=== PATIENT | female | born 1945 | race Caucasian/White ===

== ENCOUNTER 2019-11-27 07:31 | Outpatient (CLI) | payer MEDICARE, SELFPAY ==
[2019-11-27 08:00] LABS: Alanine Aminotransferase 12 U/L (4-35); Albumin Level 4.1 g/dL (3.5-5.1); Alkaline Phosphatase 150 U/L (38-126); Anion Gap 5 mmol/L (8-16); Aspartate Amino Transferase 22 U/L (14-36); Bilirubin,Total 0.4 mg/dL (0.2-1.3); Blood Urea Nitrogen 15 mg/dL (7-17); Calcium 9.2 mg/dL (8.4-10.2); Carbon Dioxide 29 mmol/L (22-30); Chloride 103 mmol/L (98-107); Cholesterol 258 mg/dL (0-200); Estimated Glomerular Filt Rate > 60; Glucose 117 mg/dL (65-105); HDL Direct 74 mg/dL; Potassium 4.4 mmol/L (3.4-5.0); Sodium 137 mmol/L (137-145); Triglycerides 98 mg/dL (<150)
[2019-11-27 08:10] LABS: LDL Cholesterol Direct 133 mg/dL
[2019-11-27 08:55] LABS: Hemoglobin A1C 6.2 % (<5.7)
== END 2019-11-27 07:32 | disposition home or self-care (01) ==
PROVIDERS: PCP Physician Assistant; Visit Provider Physician Assistant
DX: R73.9 Hyperglycemia, unspecified (principal); E78.2 Mixed hyperlipidemia; R53.83 Other fatigue
CPT/HCPCS: 36415; 80053; 80061; 83036; 84443

== ENCOUNTER 2020-04-06 16:20 | Emergency (ER) | payer MEDICARE, SELFPAY ==
[2020-04-06] VITALS (11 sets, daily range): BP systolic 138–174; BP diastolic 66–90; PULSE 78–104; RESP 15–27; TEMP 36.8; O2SAT 98–99
--- NOTE | ~2020-04-06 | CT_ITS ---
EXAMINATION: CT abdomen pelvis w con INDICATION: Left lower abdominal pain TECHNIQUE: Computed tomographic images of the abdomen and pelvis were obtained after the administrati on of 100 cc of Omnipaque 350 intravenous contrast. The dose-length product (DLP) was 624.69 mGy-cm. Automated exposure control and iterative reconstruction technique were employed. COMPARISON: 05/02/2019 FINDINGS: Stable nodules of the visualized lung bases are consistent with old granulomatous disease. There are surgical changes at the gastroesophageal junction. The gallbladder is surgically absent. Th ere is mild enlargement of the common bile duct and central intrahepatic ducts which is likely due to post cholecystectomy state. The liver, spleen, pancreas, and left adrenal gland are normal. The righ t adrenal gland is not definitely identified. There is calcified atherosclerosis of the aorta and man y of the other arteries. No pathologically enlarged abdominal or pelvic lymph nodes are identified. T here is no free intraperitoneal gas or evidence of bowel obstruction. Colonic diverticulosis is prese nt without evidence of diverticulitis. A moderate volume of colonic stool is present. A neurostimulat or device is implanted in the right gluteal subcutaneous fat with its lead entering the right pelvis at S3. IMPRESSION: 1. No CT correlate for the patient's symptoms. Reviewed, dictated and finalized at location A. STACK PYTHON DEVELOPER
--- NOTE | ~2020-04-06 | XR_ITS ---
EXAMINATION: XR chest 2V DATE: 04/06/2020 18:11 INDICATION: Left-sided chest and epigastric pain TECHNIQUE: AP and lateral views of the chest are obtained. COMPARISON: 04/19/2019 FINDINGS: The lungs are free of acute opacities. There is no pleural effusion or pneumothorax. The ca rdiomediastinal silhouette is normal. There is mild thoracic spondylosis. Surgical changes are noted in the right upper quadrant and near the gastroesophageal junction. IMPRESSION: 1. No acute cardiopulmonary abnormality. Reviewed, dictated and finalized at location A. TUNE UP MECHANIC
--- NOTE | 2020-04-06 16:35 | ED.ABDPAIN ---
HPI - Abdominal Pain General Chief Complaint: Abdominal Pain Stated Complaint: Abd Pain Time Seen by Provider: 04/06/20 16:34 Source: patient Mode of arrival: ambulatory Limitations: no limitations History of Present Illness HPI narrative: Patient is a 74-year-old female with a history of gastritis, peptic ulcer disease, hypertension who follows with Dr. Stark who presents for evaluation of abdominal pain. Patient has had abdominal pain in her left lower abdomen, now migrating to the periumbilical and epigastric area over the past week. Patient has had associated nausea without vomiting. She was evaluated at [facility] but due to delay in her care and CT scan, patient opted to leave previous to her work-up being finished. She states the physicians there were worried that she may have a case of diverticulitis. She denies fever, chills, diarrhea or constipation. No blood or mucus present in her stool. Patient states that she has had reflux type symptoms as well as epigastric pain, and a burning sensation in her chest without associated shortness of breath or diaphoresis. No jaw pain or shoulder pain. No coughing. Patient states her last endoscopy/colonoscopy was with Dr. Stark 2 months ago. Related Data Home Medications Medication Instructions Recorded Confirmed amitriptyline 04/03/19 amlodipine 04/03/19 dicyclomine mg 04/03/19 metoclopramide HCl 04/03/19 phenytoin sodium extended PO 04/03/19 sucralfate 04/03/19 trazodone 04/03/19 Allergies Allergy/AdvReac Type Severity Reaction Status Date / Time No Known Allergies Allergy Verified 05/02/19 17:30 Review of Systems Review of Systems: Narrative: CONSTITUTIONAL: Denies fever, chills, or sweats. EYES: Denies visual changes, redness, or discharge. ENT: Denies rhinorrhea, congestion, sore throat, or otalgia. CARDIOVASCULAR: Denies chest pain, palpitations, or edema. RESPIRATORY: Denies cough or dyspnea. GASTROINTESTINAL: Reports abdominal pain and nausea without vomiting or diarrhea GENITOURINARY: Denies dysuria or hematuria. SKIN: Denies rash or itching. MUSCULOSKELETAL: Denies back pain, joint pain, or myalgia. NEUROLOGIC: Denies headache, numbness, or weakness. FOR[facility]LY [facility], [facility] Past Medical History Medical History Anemia Depression GERD (gastroesophageal reflux disease) Hiatal hernia HLD (hyperlipidemia) HTN (hypertension) Humerus fracture Rt IBS (irritable bowel syndrome) Jaw fracture Seizures Strep throat TIA (transient ischemic attack) Ulcer Surgical History Surgical History H/O tubal ligation History of appendectomy History of bladder surgery Bladder stimulator History of cholecystectomy History of surgery Adrenal gland removal History of tonsillectomy Social History Social History Smoking status: Former smoker Tobacco type: cigarettes Gender identity (if verbalized by the patient): Female Exam Narrative: Exam Narrative: GENERAL: Awake, alert, conversant HEAD: Normocephalic, atraumatic. EYES: PERRLA and EOMI. ENT: Nares clear, no rhinorrhea or epistaxis. Mucous membranes moist. NECK: Supple. CHEST: No respiratory distress, breathing even and non labored HEART: Regular rate, sinus rhythm ABDOMEN:Non distended, mild epigastric tenderness without rebound, rigidity or guarding, mild left lower quadrant tenderness EXTREMITIES: Normal range of motion. No edema. SKIN: Warm, dry, no rash. NEURO:No focal deficits. Alert and oriented x3 Course Vital Signs Vital signs: Vital Signs Blood Pressure 164/90 H 04/06/20 16:28 Temperature 36.8 C 04/06/20 16:37 Pulse Rate 90 04/06/20 18:31 Respiratory Rate 19 04/06/20 18:16 Blood Pressure 161/66 H 04/06/20 18:31 Pulse Oximetry 98 04/06/20 16:37 MDM - Abdominal Pain MDM Narrati
--- NOTE | 2020-04-06 16:41 | ECG_ITS ---
Measurements Intervals [place] Rate: 99 P: 59 NV: 160 QRS: 12 QRSD: 98 T: 31 QT: 321 QTc: 412 Interpretive Statements SINUS RHYTHM VOLTAGE CRITERIA FOR LVH MINIMAL Q WAVES- HIGH LATERAL LEADS BASELINE ARTIFACT- I, II, III, AVR, AVL, AVF BORDERLINE ECG Electronically Signed On 04-07-2020 8:50:15 RN LICENSED PRACTICAL by Enrique Hernandez D.O.
[2020-04-06 17:03] LABS: Basophils Percent Auto 0.2 % (0.2-1.2); Eosinophils Absolute Auto 0.1 K/mm3 (0-0.3); Eosinophils Percent Auto 0.8 % (0-4.4); Hematocrit 41.3 % (37.0-47.0); Hemoglobin 13.6 g/dL (12.0-15.0); Immature Granulocyte Absolute 0.01 K/mm3 (0.00-0.031); Immature Granulocyte Percent A 0.2 % (0-0.5); Lymphocytes Absolute Auto 2.23 K/mm3 (0.9-3.2); Mean Corpuscular HGB Conc 32.9 g/dl (32-36); Mean Corpuscular Hemoglobin 29.6 pg (26-34); Mean Platelet Volume 11.8 fl (7.4-10.4); Monocytes Absolute Auto 0.7 K/mm3 (0.1-0.6); Monocytes Percent Auto 11.6 % (2.6-8.5); Neutrophils Percent Auto 50.2 % (45.5-73.1); Platelet Count Result 254 k/mm3 (150-375); Red Blood Count 4.59 M/mm3 (4.2-5.4); Red Cell Distribution Width 13.6 % (11.5-14.5)
[2020-04-06 17:22] LABS: Alanine Aminotransferase 15 U/L (4-35); Albumin Level 4.2 g/dL (3.5-5.1); Alkaline Phosphatase 130 U/L (38-126); Anion Gap 8 mmol/L (8-16); Aspartate Amino Transferase 28 U/L (14-36); Bilirubin,Total 0.4 mg/dL (0.2-1.3); Blood Urea Nitrogen 13 mg/dL (7-17); Calcium 9.5 mg/dL (8.4-10.2); Carbon Dioxide 29 mmol/L (22-30); Chloride 100 mmol/L (98-107); Estimated CRCL calculation 49 ml/min; Estimated Glomerular Filt Rate > 60; Glucose 125 mg/dL (65-105); Lipase 63 U/L (23-300); Potassium 4.2 mmol/L (3.4-5.0); Sodium 137 mmol/L (137-145)
[2020-04-06 17:27] LABS: Troponin I < 0.012 ng/mL (0.000-0.034)
[2020-04-06 17:34] LABS: INR 0.9; Prothrombin Time 12.3 Seconds (11.1-14.7)
[2020-04-06] MEDS: MAG HYDROX/AL HYDROX/SIMETH 30 ML UDC PO (18:15)
[2020-04-06] MEDS: ONDANSETRON INJ 4 MG/2 ML VIAL IV PUSH (18:15)
[2020-04-06] MEDS: SODIUM CHLORIDE 0.9% IV 1,000 ML 999 ML IV CONT (18:15)
[2020-04-06] MEDS: MORPHINE SULFATE (*CRX) 4 MG/ML INJ IV PUSH (18:15)
== END 2020-04-06 19:14 | disposition home or self-care (01) ==
PROVIDERS: Emergency Provider Emergency Medicine; PCP Physician Assistant
DX: R10.84 Generalized abdominal pain (principal); D64.9 Anemia, unspecified; F32.9 Major depressive disorder, single episode, unspecified; K21.9 Gastro-esophageal reflux disease without esophagitis; E78.5 Hyperlipidemia, unspecified; I10 Essential (primary) hypertension; G40.909 Epilepsy, unspecified, not intractable, without status epilepticus
CPT/HCPCS: 36415; 71046; 74177; 80053; 83690; 84484; 85025; 85610; 85730; 93005; 96361; 96365; 96375; 99284; A9270; J0131; J2270; J2405; J7030; Q9967

== ENCOUNTER 2020-07-18 10:34 | Outpatient (CLI) | payer MEDICARE, SELFPAY ==
[2020-07-18 11:29] LABS: Hematocrit 40.8 % (37.0-47.0); Hemoglobin 13.3 g/dL (12.0-15.0); Mean Corpuscular HGB Conc 32.6 g/dl (32-36); Mean Corpuscular Hemoglobin 29.3 pg (26-34); Mean Corpuscular Volume 89.9 fl (80-100); Platelet Count Result 213 k/mm3 (150-375); Red Blood Count 4.54 M/mm3 (4.2-5.4); White Blood Count 5.3 K/mm3 (4.5-10.0)
[2020-07-18 11:41] LABS: Alanine Aminotransferase 11 U/L (4-35); Albumin Level 4.5 g/dL (3.5-5.1); Alkaline Phosphatase 135 U/L (38-126); Amylase 86 U/L (30-110); Anion Gap 8 mmol/L (8-16); Aspartate Amino Transferase 28 U/L (14-36); Bilirubin,Total 0.3 mg/dL (0.2-1.3); Blood Urea Nitrogen 11 mg/dL (7-17); Calcium 9.6 mg/dL (8.4-10.2); Carbon Dioxide 25 mmol/L (22-30); Chloride 106 mmol/L (98-107); Estimated Glomerular Filt Rate > 60; Glucose 109 mg/dL (65-105); Lipase 63 U/L (23-300); Potassium 4.6 mmol/L (3.4-5.0); Sodium 139 mmol/L (137-145)
[2020-07-18 12:45] LABS: Free T4 Free Thyroxine 0.96 ng/mL (0.78-2.19)
== END 2020-07-18 10:35 | disposition home or self-care (01) ==
PROVIDERS: PCP Physician Assistant; Visit Provider Nurse Practitioner
DX: R10.11 Right upper quadrant pain (principal); K21.9 Gastro-esophageal reflux disease without esophagitis; R11.0 Nausea; R10.13 Epigastric pain
CPT/HCPCS: 36415; 80053; 82150; 83690; 84439; 84443; 85027

== ENCOUNTER 2021-04-19 17:53 | Emergency (ER) | payer MEDICARE, SELFPAY ==
--- NOTE | ~2021-04-19 | CT_ITS ---
EXAMINATION: CT abdomen pelvis w con INDICATION: Right upper quadrant pain, hypertension TECHNIQUE: Computed tomographic images of the abdomen and pelvis were obtained after the administrati on of 100 cc of Omnipaque 350 intravenous contrast. The dose-length product (DLP) was 895.83 mGy-cm. Automated exposure control and iterative reconstruction technique were employed. COMPARISON: 04/06/2020 FINDINGS: Stable nodules of the visualized lung bases are consistent with old granulomatous disease. The heart size is normal. Surgical changes are again noted at the gastroesophageal junction. The gall bladder is surgically absent. There is mild enlargement of the common bile duct and central intrahepa tic ducts which is likely due to post cholecystectomy state. The liver, spleen, pancreas, and left ad renal gland are normal. The right adrenal gland is not definitely identified. The kidneys are unremar kable. There is calcified atherosclerosis of the aorta and many of the other arteries. No pathologica lly enlarged abdominal or pelvic lymph nodes are identified. Colonic diverticulosis is present withou t evidence of diverticulitis. There is a neurostimulator device is implanted in the posterior subcuta neous tissues of the right flank with its lead entering the right pelvis at the level of S3. Mild lum bar spondylosis is noted. IMPRESSION: 1. No CT correlate for the patient's symptoms. Reviewed, dictated and finalized at location F. GER IN TRAINING
--- NOTE | ~2021-04-19 | XR_ITS ---
EXAMINATION: XR chest 2V DATE: 04/19/2021 18:10 INDICATION: Chest pain and nausea TECHNIQUE: AP and lateral views of the chest are obtained. COMPARISON: 04/06/2020 FINDINGS: The lungs are free of acute opacities. There is no pleural effusion or pneumothorax. The ca rdiomediastinal silhouette is normal. There is mild thoracic spondylosis. There are surgical clips in the right upper quadrant and at the gastroesophageal junction. IMPRESSION: 1. No acute cardiopulmonary abnormality. Reviewed, dictated and finalized at location F. GENCY REGISTRAR
[2021-04-19 17:54] VITALS: BP 172/72; PULSE 90; RESP 14; TEMP 36.8; O2SAT 98
--- NOTE | 2021-04-19 17:54 | ECG_ITS ---
Measurements Intervals [place] Rate: 91 P: 67 [place]: 158 QRS: 7 QRSD: 89 T: 33 QT: 328 QTc: 404 Interpretive Statements SINUS RHYTHM MINIMAL Q WAVES- LAT/HIGH LAT LEADS BORDERLINE ST ABNORMALITY- ANTEROLATERAL LEADS BASELINE ARTIFACT- I, AVR BORDERLINE ECG Electronically Signed On 04-20-2021 12:54:44 REGISTRAR NURSES' REGISTRY by Enrique Hernandez D.O.
[2021-04-19 18:29] LABS: Basophils Percent Auto 0.3 % (0.2-1.2); Eosinophils Absolute Auto 0.1 K/mm3 (0-0.3); Eosinophils Percent Auto 0.9 % (0-4.4); Hematocrit 39.8 % (37.0-47.0); Hemoglobin 12.6 g/dL (12.0-15.0); Immature Granulocyte Absolute 0.02 K/mm3 (0.00-0.031); Immature Granulocyte Percent A 0.3 % (0-0.5); Lymphocytes Absolute Auto 2.04 K/mm3 (0.9-3.2); Lymphocytes Percent Auto 30.7 % (18.3-44.2); Mean Corpuscular HGB Conc 31.7 g/dl (32-36); Mean Corpuscular Hemoglobin 29.4 pg (26-34); Mean Platelet Volume 11.1 fl (7.4-10.4); Monocytes Absolute Auto 0.6 K/mm3 (0.1-0.6); Monocytes Percent Auto 8.6 % (2.6-8.5); Neutrophils Absolute Auto 3.9 K/mm3 (1.3-6.7); Neutrophils Percent Auto 59.2 % (45.5-73.1); Platelet Count Result 296 k/mm3 (150-375); Red Blood Count 4.28 M/mm3 (4.2-5.4); Red Cell Distribution Width 13.9 % (11.5-14.5); White Blood Count 6.7 K/mm3 (4.5-10.0)
[2021-04-19 18:40] LABS: Alanine Aminotransferase 14 U/L (4-35); Albumin Level 4.2 g/dL (3.5-5.1); Alkaline Phosphatase 117 U/L (38-126); Anion Gap 10 mmol/L (8-16); Aspartate Amino Transferase 25 U/L (14-36); Bilirubin,Total 0.4 mg/dL (0.2-1.3); Blood Urea Nitrogen 14 mg/dL (7-17); Calcium 8.9 mg/dL (8.4-10.2); Carbon Dioxide 24 mmol/L (22-30); Chloride 101 mmol/L (98-107); Estimated CRCL calculation 45 ml/min; Estimated Glomerular Filt Rate > 60; Glucose 173 mg/dL (65-110); Lipase 62 U/L (23-300); Sodium 135 mmol/L (137-145)
[2021-04-19 18:43] LABS: Partial Thromboplastin Time 29.6 SECONDS (22.3-36.8); Prothrombin Time 12.6 Seconds (11.1-14.7)
[2021-04-19 18:50] LABS: Troponin I < 0.012 ng/mL (0.000-0.034)
[2021-04-19 20:47] VITALS: BP 221/79; PULSE 77; RESP 18; O2SAT 100; O2SAT 99
[2021-04-19] MEDS: ASPIRIN 81 MG CHEWABLE TABLET 324 MG PO (20:51)
[2021-04-19 21:02] VITALS: BP 196/76; PULSE 77; RESP 16; O2SAT 100
[2021-04-19 21:32] VITALS: BP 187/63; PULSE 70; RESP 18; O2SAT 98
[2021-04-19 21:35] LABS: Troponin I < 0.012 ng/mL (0.000-0.034)
--- NOTE | 2021-04-19 21:58 | PC.NURSE ---
Pt to imaging at this time
[2021-04-19] MEDS: ONDANSETRON INJ 4 MG/2 ML VIAL IV PUSH (22:14)
[2021-04-19] MEDS: HYDROmorphone HCL INJ (*CRX) 1 MG/ML SYR 0.5 MG IV PUSH (22:16)
[2021-04-19 22:31] VITALS: BP 166/60; PULSE 75; RESP 19; O2SAT 97
--- NOTE | 2021-04-19 22:52 | ED.CHESTPAIN ---
HPI - Chest Pain General Chief Complaint: Chest Pain Stated Complaint: chest pain Time Seen by Provider: 04/19/21 21:41 Source: patient and family Mode of arrival: ambulatory Limitations: no limitations History of Present Illness HPI narrative: 75-year-old with a history of hypertension, hyperlipidemia, esophageal motility disorder here with the complaints of midsternal pain radiating into her right upper quadrant for past 1 day. 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 Patient states the medication is not helping and she tried to her doctor all day long nobody answered and she states that she did not take the pain any longer. She denies any nausea or vomiting. No history of any shortness of breath. MD complaint: chest pain Onset (ago): day(s) (1) Timing of current episode: constant Pain location: substernal Pain radiation: abdomen (right upper) Severity: moderate Quality: aching Relieving factors: nothing Exacerbating factors: nothing Treatment prior to arrival: none Risk Factors Coronary artery disease risk factors: none Thoracic aortic dissection risk factors: none Related Data Home Medications Medication Instructions Recorded Confirmed amitriptyline 04/03/19 amlodipine 04/03/19 dicyclomine mg 04/03/19 metoclopramide HCl 04/03/19 phenytoin sodium extended PO 04/03/19 sucralfate 04/03/19 trazodone 04/03/19 Allergies Allergy/AdvReac Type Severity Reaction Status Date / Time No Known Allergies Allergy Verified 05/02/19 17:30 Review of Systems Review of Systems: All systems reviewed & are unremarkable except as noted in HPI and below Constitutional: Constitutional: Reports no additional constitutional complaints Eyes: Eyes: Reports no additional eye complaints ENT: Reports system reviewed and no additional complaints, except as documented Cardiovascular: Cardiovascular: Reports as per HPI Respiratory: Respiratory: Reports no additional respiratory complaints Gastrointestinal: Gastrointestinal: Reports no additional gastrointestinal complaints Genitourinary: Genitourinary: Reports no additional female genitourinary complaints Musculoskeletal: Musculoskeletal: Reports no additional musculoskeletal complaints [facility] Past Medical History Medical History Anemia Depression GERD (gastroesophageal reflux disease) Hiatal hernia HLD (hyperlipidemia) HTN (hypertension) Humerus fracture Rt IBS (irritable bowel syndrome) Jaw fracture Seizures Strep throat TIA (transient ischemic attack) Ulcer Surgical History Surgical History H/O tubal ligation History of appendectomy History of bladder surgery Bladder stimulator History of cholecystectomy History of surgery Adrenal gland removal History of tonsillectomy Social History Social History Smoking status: Former smoker Tobacco type: cigarettes Gender identity (if verbalized by the patient): Female Exam Narrative: GENERAL: Well-appearing, well-nourished, and in no acute distress. HEAD: Normocephalic, atraumatic. EYES: PERRLA and EOMI. NECK: Supple. CHEST: Clear to auscultation. No respiratory distress. HEART: Regular rate and rhythm. No murmur heard. Normal peripheral pulses. ABDOMEN: Soft, nontender, nondistended, normal active bowel sounds. EXTREMITIES: Normal range of motion. No edema. SKIN: Warm, dry, no rash. NEURO: No focal deficits. Alert and oriented x3. PSYCH: Normal mood and affect. Course Course Emergency Course: Inform patient about her lab work, CT findings. Her pain is much improved after the pain medication. I advised her to continue home medication, take pain medication as prescribed and follow-up with her GI doctor at [facility]
[2021-04-19 23:31] VITALS: BP 180/65; PULSE 74; RESP 19; O2SAT 96
== END 2021-04-19 23:45 | disposition home or self-care (01) ==
PROVIDERS: Emergency Medicine; Emergency Provider Family Medicine; PCP Physician Assistant
DX: R07.9 Chest pain, unspecified (principal); D64.9 Anemia, unspecified; F32.9 Major depressive disorder, single episode, unspecified; K21.9 Gastro-esophageal reflux disease without esophagitis; I10 Essential (primary) hypertension; G40.909 Epilepsy, unspecified, not intractable, without status epilepticus
CPT/HCPCS: 36415; 71046; 74177; 80053; 83690; 84484; 85025; 85610; 85730; 93005; 96374; 96375; 99284; A9270; J1170; J2405; Q9967

== ENCOUNTER 2021-06-07 07:32 | Outpatient (CLI) | payer MEDICARE, SELFPAY ==
--- NOTE | ~2021-06-07 | US_ITS ---
US right upper quadrant DATE: 06/07/2021 08:06 INDICATION: Right upper quadrant abdominal pain TECHNIQUE: Real-time imaging and Doppler analysis COMPARISON: 04/19/2021 CT abdomen pelvis FINDINGS: The gallbladder is surgically absent. No hepatic or pancreatic space-occupying mass lesion is detected. Normal hepatopedal portal venous fl ow direction. The common bile duct measures up to 8 mm which may be mildly dilated to the postcholecystectomy state . IMPRESSION: Status post cholecystectomy Reviewed, dictated and finalized at Location A. Reviewed, dictated and finalized at location A. CONTROL TECHNICIAN IMPRESSION: Status post cholecystectomy
== END 2021-06-07 07:33 | disposition home or self-care (01) ==
LOC: ANHIMG 07:36
PROVIDERS: PCP Physician Assistant; Visit Provider Internal Medicine Gastroenterology
DX: R10.11 Right upper quadrant pain (principal); Z90.49 Acquired absence of other specified parts of digestive tract
CPT/HCPCS: 76705

== ENCOUNTER 2023-02-04 07:22 | Outpatient (CLI) | payer MEDICARE, SELFPAY ==
[2023-02-04 07:56] LABS: Hematocrit 38.4 % (37.0-47.0); Hemoglobin 11.8 g/dL (12.0-15.0); Mean Corpuscular HGB Conc 30.7 g/dl (32-36); Mean Corpuscular Hemoglobin 28.7 pg (26-34); Mean Corpuscular Volume 93.4 fl (80-100); Mean Platelet Volume 12.3 fl (7.4-10.4); Platelet Count Result 223 k/mm3 (150-375); Red Blood Count 4.11 M/mm3 (4.2-5.4); Red Cell Distribution Width 14.9 % (11.5-14.5); White Blood Count 5.3 K/mm3 (4.5-10.0)
[2023-02-04 08:09] LABS: Hemoglobin A1C 5.8 % (<5.7)
[2023-02-04 13:46] LABS: Alanine Aminotransferase 12 U/L (6-35); Albumin Level 3.8 g/dL (3.5-5.1); Alkaline Phosphatase 145 U/L (38-126); Anion Gap 4 mmol/L (8-16); Aspartate Amino Transferase 18 U/L (14-36); Bilirubin,Total 0.4 mg/dL (0.2-1.3); Blood Urea Nitrogen 14 mg/dL (7-17); Calcium 9.1 mg/dL (8.4-10.2); Carbon Dioxide 27 mmol/L (22-30); Chloride 106 mmol/L (98-107); Estimated Glomerular Filt Rate > 60; Glucose 124 mg/dL (65-110); Potassium 4.9 mmol/L (3.4-5.0); Sodium 137 mmol/L (137-145)
== END 2023-02-04 07:23 | disposition home or self-care (01) ==
LOC: ANHLAB 07:24
PROVIDERS: PCP Physician Assistant; Visit Provider Physician Assistant
DX: R53.82 Chronic fatigue, unspecified (principal); E78.2 Mixed hyperlipidemia; R73.9 Hyperglycemia, unspecified
CPT/HCPCS: 36415; 80053; 83036; 84443; 85027

== ENCOUNTER 2023-04-27 07:32 | Observation (INO) | payer MEDICARE, SELFPAY ==
[2023-04-27] VITALS (17 sets, daily range): BP systolic 159–228; BP diastolic 50–95; PULSE 58–91; RESP 15–24; TEMP 36.2–36.8; O2SAT 95–100
--- NOTE | ~2023-04-27 | XR_ITS ---
XR chest 2V DATE: 04/27/2023 09:01 INDICATION: Difficulty breathing, shortness of breath. Dizziness. TECHNIQUE: AP and lateral views COMPARISON: 04/19/2021 2 view chest FINDINGS: Borderline heart size. Aortic calcification. No pulmonary infiltrate or consolidation, pleu ral effusion or pulmonary vascular congestion or pneumothorax. Surgical clips are noted overlying the mid and right upper abdomen. Osteopenia. IMPRESSION: Borderline heart size No active pulmonary disease Reviewed, dictated and finalized at location A. NESS ASST
--- NOTE | ~2023-04-27 | US_ITS ---
EXAMINATION: US right upper quadrant DATE: 04/28/2023 16:20 INDICATION: epigastric pain TECHNIQUE: Multiple grayscale and Doppler ultrasound images of the right upper quadrant were obtained . COMPARISON: CT abdomen pelvis 04/27/2023. FINDINGS: Pancreas not well visualized. Limited visualization of the left lobe of the liver, remainde r of the liver is normal with normal echogenicity and echotexture. No surface nodularity. Normal hepa topetal flow in the main portal vein. Status post cholecystectomy. The common bile duct measures 8 mm . Right kidney measures 9.2 x 3.9 x 5.8 cm, no hydronephrosis. IMPRESSION: Limited visualization of the pancreas and left liver lobe. Status post cholecystectomy. Reviewed, dictated and finalized at location [facility]. APPRENTICE IMPRESSION: Limited visualization of the pancreas and left liver lobe. Status post cholecys tectomy.
--- NOTE | ~2023-04-27 | CT_ITS ---
EXAMINATION: CT abdomen pelvis w con DATE: 04/27/2023 08:54 INDICATION: Epigastric, right upper quadrant and left lower quadrant abdominal pain. History of amber cystectomy and appendectomy. TECHNIQUE: Computed tomography (CT) of the abdomen and pelvis was performed with 100 CC Omnipaque 350 intravenous contrast. Automated exposure control and iterative reconstruction technique were employe d. Exam dose: 701.62 mGy-cm total exam DLP. COMPARISON: 06/07/2021 right upper quadrant abdominal ultrasound examination 04/19/2021 CT abdomen pelvis FINDINGS: There is chronic discoid scarring at the middle lobe. No consolidation at the lung bases. C ardiomegaly. No pericardial or pleural effusion. Surgical clips are noted on either side of the diaphragmatic hiatus. Status post cholecystectomy, which likely accounts for the mild prominence of the bile ducts. No hepa tic space-occupying mass lesion. There is diffuse fatty infiltration of the pancreas. No pancreatic m ass lesion, calcification or ductal dilatation. Normal splenic size. Surgical clip in the right suprarenal area; the right adrenal gland appears to be absent. Left adrena l gland is unremarkable. Mild right renal scarring. No renal mass lesion or urinary tract calculus or hydroureteronephrosis. There is atherosclerotic calcification of the abdominal aorta and origins of the renal arteries. No a bdominal aortic aneurysm. No intraperitoneal or retroperitoneal or pelvic mass lesion or adenopathy o r ascites is noted. Some uterine calcification is noted on the right, likely due to fibroid. No adnexal masses. The urina ry bladder is unremarkable. Diverticulosis of the sigmoid colon; no CT evidence of diverticulitis. No bowel obstruction or intrap eritoneal free air. Small fat-containing umbilical hernia. Right S3 neurotransmitter lead. No suspicious osteolytic or osteoblastic lesions are noted. IMPRESSION: Cardiomegaly Status post cholecystectomy History of appendectomy Right adrenal gland appears to be surgically absent Diverticulosis of the sigmoid colon; no evidence of diverticulitis Reviewed, dictated and finalized at [facility]. Reviewed, dictated and finalized at location [facility]. 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
--- NOTE | 2023-04-27 07:36 | ECG_ITS ---
Measurements Intervals [place] Rate: 68 P: 63 TX: 164 QRS: 5 QRSD: 98 T: 30 QT: 372 QTc: 398 Interpretive Statements SINUS RHYTHM LEFT VENTRICULAR HYPERTROPHY MINIMAL Q WAVES- HIGH LATERAL LEADS BASELINE ARTIFACT- I, II, III, AVR, AVL, AVF BORDERLINE ECG COMPARED TO ECG 04/19/2021 18:01:08 NO SIGNIFICANT CHANGES Electronically Signed On 04-27-2023 8:25:37 LENS EDGER by Enrique Hernandez D.O.
--- NOTE | 2023-04-27 08:03 | ED.ABDPAIN ---
HPI - Abdominal Pain General Chief Complaint: Abdominal Pain Stated Complaint: abd pain Time Seen by Provider: 04/27/23 07:44 History of Present Illness HPI narrative: Patient with h/o amber, appy, ulcer surgery(?), p/w epigastric pain x1-2 weeks. Also some nausea/vomiting. Having normal BMs. Does think that it started after she had some coffee and thinks that it might be her gastritis, however has been unable to get follow-up until September with GI. Had some toast earlier and did not feel good. Related Data Home Medications Medication Instructions Recorded Confirmed amitriptyline 10 mg tablet 04/03/19 amlodipine 5 mg tablet 04/03/19 dicyclomine 10 mg capsule mg 04/03/19 metoclopramide HCl 5 mg tablet 04/03/19 phenytoin sodium extended 100 mg PO 04/03/19 capsule sucralfate 1 gram tablet 04/03/19 trazodone 50 mg tablet 04/03/19 Allergies Allergy/AdvReac Type Severity Reaction Status Date / Time No Known Allergies Allergy Verified 04/27/23 08:23 Review of Systems Review of Systems: CONST: No fever. HEENT: No sore throat C/V: No chest pain RESP: No cough GI: Reports abdominal pain, nausea, vomiting : No dysuria. M/S: No joint pain. SKIN: No rash. NEURO: [No headache or focal numbness or weakness] PSYCH: [No depression] [facility] Past Medical History Medical History Anemia Depression GERD (gastroesophageal reflux disease) Hiatal hernia HLD (hyperlipidemia) HTN (hypertension) Humerus fracture Rt IBS (irritable bowel syndrome) Jaw fracture Seizures Strep throat TIA (transient ischemic attack) Ulcer Surgical History Surgical History H/O tubal ligation History of appendectomy History of bladder surgery Bladder stimulator History of cholecystectomy History of surgery Adrenal gland removal History of tonsillectomy Social History Social History Smoking status: Former smoker Tobacco type: cigarettes Gender identity (if verbalized by the patient): Female Exam Narrative: EXAMINATION OF ORGAN SYSTEMS/BODY AREAS: Constitutional: Vital signs per nursing GENERAL:[No acute distress, non-toxic appearing.] HEAD: Normal with no signs of head trauma. EYES: EOMI, conjunctiva normal ENT: Hearing grossly intact LUNGS: Nonlabored breathing. HEART: [Regular rate and rhythm] ABD: [Soft], mildly [tender to palpation] epigastric abdomen. EXT: Normal range of motion SKIN: [No rashes or lesions.] NEURO: [Alert and oriented x 3. No gross focal sensory or strength deficits.] PSYCH: Normal affect Course Vital Signs Vital signs: Vital Signs Temperature 97.2 F L 04/27/23 07:32 Pulse Rate 84 04/27/23 07:32 Respiratory Rate 18 04/27/23 07:32 Blood Pressure 189/83 H 04/27/23 07:32 Pulse Oximetry 100 04/27/23 07:32 Oxygen Delivery Room Air 04/27/23 07:32 Temperature 97.8 F 04/27/23 11:10 Pulse Rate 90 04/27/23 11:10 Respiratory Rate 16 04/27/23 11:10 Blood Pressure 217/65 H 04/27/23 11:10 Pulse Oximetry 97 04/27/23 11:10 Oxygen Delivery Room Air 04/27/23 07:32 MDM - Abdominal Pain MDM Narrative Medical decision making narrative: Electronic medical record was reviewed. Patient presented to the ED with complaint of [abdominal pain and vomiting]. Vitals [were within acceptable limits]. Physical exam revealed [minimal tenderness to palpation in epigastric abdomen]. Based on the patient's history and physical exam, my differential includes but is not limited to [gastritis, gastroenteritis, pancreatitis]. [IV access was established by nursing staff. Patient was given zofran, protonix, morphine]. CBC, BMP, lipase, LFTs, bilirubin and alk phos were obtained. Labs were pertinent for elevated troponin; no cardiac history. EKG - 12-Lead: Performed at 048. Interpreted by me. [Sinus
[2023-04-27 08:23] LABS: Basophils Percent Auto 0.2 % (0.2-1.2); Eosinophils Percent Auto 0.6 % (0-4.4); Hematocrit 41.4 % (37.0-47.0); Immature Granulocyte Absolute 0.01 K/mm3 (0.00-0.031); Immature Granulocyte Percent A 0.2 % (0-0.5); Lymphocytes Absolute Auto 1.43 K/mm3 (0.9-3.2); Lymphocytes Percent Auto 27.3 % (18.3-44.2); Mean Corpuscular HGB Conc 31.4 g/dl (32-36); Mean Corpuscular Hemoglobin 28.9 pg (26-34); Mean Platelet Volume 11.7 fl (7.4-10.4); Monocytes Absolute Auto 0.5 K/mm3 (0.1-0.6); Monocytes Percent Auto 8.6 % (2.6-8.5); Neutrophils Absolute Auto 3.3 K/mm3 (1.3-6.7); Neutrophils Percent Auto 63.1 % (45.5-73.1); Platelet Count Result 227 k/mm3 (150-375); Red Cell Distribution Width 14.6 % (11.5-14.5); White Blood Count 5.2 K/mm3 (4.5-10.0)
[2023-04-27] MEDS: PANTOPRAZOLE SODIUM IV 40 MG VIAL IV PUSH (08:25)
[2023-04-27] MEDS: MORPHINE SULFATE (*CRX) 2 MG/ML INJ IV PUSH ×2 (08:25→10:08)
[2023-04-27] MEDS: ONDANSETRON INJ 4 MG/2 ML VIAL IV PUSH (08:25)
[2023-04-27 08:34] LABS: Alanine Aminotransferase 11 U/L (6-35); Albumin Level 4.2 g/dL (3.5-5.1); Alkaline Phosphatase 126 U/L (38-126); Anion Gap 9 mmol/L (8-16); Aspartate Amino Transferase 23 U/L (14-36); Bilirubin,Total 0.6 mg/dL (0.2-1.3); Blood Urea Nitrogen 16 mg/dL (7-17); Calcium 8.9 mg/dL (8.4-10.2); Carbon Dioxide 24 mmol/L (22-30); Chloride 105 mmol/L (98-107); Estimated CRCL calculation 56 ml/min; Estimated Glomerular Filt Rate > 60; Glucose 133 mg/dL (65-110); Lipase 53 U/L (23-300); Potassium 4.2 mmol/L (3.4-5.0); Sodium 138 mmol/L (137-145)
[2023-04-27 08:38] LABS: Appearance Urine Clear (Clear); Bacteria Urine None Seen /hpf; Bilirubin Urine Negative (Negative); Blood Urine Negative (Negative); Color Urine Yellow (Yellow); Glucose Urine UA Negative (Negative); Ketones Urine Negative (Negative); Leukocyte Esterase Ur 1+ LEU/UL (Negative); Need Manual Microscopic Reviewed; Nitrate Urine Negative (Negative); Non Pathogenic Casts 0-2; Protein Urine Negative (Negative); RBC Urine 0-2 /hpf (0-2); Specific Grav Ur 1.009 (1.001-1.035); Squamous Epithelial Cell Urine Few /hpf (Few); Urobilinogen Urine 0.2 mg/dL (<2.0); WBC Urine 0-5 /hpf
[2023-04-27 08:39] LABS: Add Urine Microscopic? YES
[2023-04-27 08:46] LABS: Troponin I 0.056 ng/mL (0.000-0.034)
--- NOTE | 2023-04-27 08:51 | PC.NURSE ---
PT TO CT VIA STRETCHER AT THIS TIME
[2023-04-27 08:59] LABS: Influenza A QL RT-PCR Negative (Negative); Influenza B QL RT-PCR Negative (Negative); RSV RNA, RT-PCR Negative (Negative); SARS-CoV-2 RNA PCR Negative (Negative)
[2023-04-27] MEDS: MAG HYDROX/AL HYDROX/SIMETH 30 ML UDC PO (10:08)
[2023-04-27] MEDS: DICYCLOMINE HCL 10 MG CAPSULE 20 MG PO (10:08)
[2023-04-27] MEDS: ASPIRIN 81 MG CHEWABLE TABLET 324 MG PO (10:45)
--- NOTE | 2023-04-27 11:11 | PC.NURSE ---
assumed care of pt. pt resting on stretcher, updated that we are waiting on bed, will perform repeat EKG and troponin. no questions at this time
--- NOTE | 2023-04-27 14:02 | ADMGEN ---
This patient, Jazmín Parker, was admitted to IMU Room 207-01. Patient/family oriented to hospital policies and general routines including ID bracelet, bed and alarms, visiting hours, pain management, procedures, bathroom and other care routines, personal items, smoking policy, room service/diet, and visiting hours. Information on how to activate the Rapid Response Team has been discussed. Patient/Family are encouraged to report perceived risks to care and to ask questions if they do not understand what they are told or what they should do.
--- NOTE | 2023-04-27 14:22 | ECG_ITS ---
Measurements Intervals [place] Rate: 66 P: 55 UT: 142 QRS: 5 QRSD: 106 T: 30 QT: 400 QTc: 421 Interpretive Statements SINUS RHYTHM LEFT VENTRICULAR HYPERTROPHY AND ST-T CHANGE MINIMAL Q WAVES- HIGH LATERAL LEADS BASELINE ARTIFACT- I, II, III, AVR, AVL, AVF BORDERLINE ECG COMPARED TO ECG 04/27/2023 07:48:48 NO SIGNIFICANT CHANGES Electronically Signed On 04-27-2023 15:18:36 FACULTY INSTRUCTOR by Enrique Hernandez D.O.
[2023-04-27] MEDS: MORPHINE SULFATE (*CRX) 2 MG/ML INJ 1 MG IV PUSH (14:40)
--- NOTE | 2023-04-27 16:01 | PM.IMHP ---
H&P: HPI History of Present Illness Date/Time: 04/27/23 16:01 Chief Complaint: Epigastric pain Narrative: 77yo female with HTN, HLD, seizures and GERD/HH here for epigastric pain. Patient has a history of gastric ulcer in the past that required surgical resection with gastric bypass. She is status post cholecystectomy and appendectomy. Patient follows with GI (Dr. Stark) for IBS, GERD, hiatal hernia and jackhammer esophagus. Her last colonoscopy and EGD was about 4 years ago. She was seen at a tertiary care center in the past and was told that the outlet from her bypass was narrowed although her GI doctor did not feel that this was of concern. She has chronic burning in her chest. She takes Nexium for this but has noted recently that this has stopped working for the past few months. Patient has IBS flares that include nausea, abdominal cramping and constipation. She normally has bowel movements every 3 days that are usually hard. She states she has actually been doing very well recently and has been able to enjoy a normal food up until about 2 weeks ago. Patient was out with her daughter 2 weeks ago. She drank some tea and then noted lower chest/epigastric pain that radiated to the left flank. Symptoms occurred at rest. She was able to tolerate oral intake that day. However the pain continued. She describes tu pain as constant and keeps her up at night. The pain is not associated with food. Pain does radiate up into the chest but not the neck. She has nausea chronically and has emesis rarely over the past 2 weeks. No hematemesis. She has been having bowel movements every other day but no diarrhea. No melena or hematochezia. Patient does have shortness of breath with minimal exertion such as walking into the next room or up a flight of stairs. She states that this is chronic and felt related to her asthma. The epigastric pain seems to worsen when walking up a flight of stairs however. She has severely restricted her diet over the past 2 weeks and states that she only eats scrambled eggs and toast. No fever or chills. She does feel tired and weak. She has a headache with sinus drainage and rhinorrhea with nonproductive cough. No dysuria or hematuria. No history of coronary disease. She did have a stress test a few years ago that was negative. She could not get in to see her GI doctor. She presented to the emergency room for evaluation. In the emergency room, her blood pressure was elevated with systolic blood pressure 180-220 range. CBC and CMP were normal. Lipase was normal. Urinalysis was essentially clear. Influenza, RSV and COVID PCR negative. Her troponin was elevated at has climbed to 0.15. Chest x-ray shows borderline heart size but no active pulmonary disease. CT of the abdomen pelvis showed chronic findings cardiomegaly but no acute findings. EKG showed normal sinus rhythm with LVH and minimal Q-waves in the high lateral leads but no change from an EKG 2 years ago. EKG was repeated and again showing no change. She was given Zofran and Protonix. She was given a dose of morphine and Bentyl. Aspirin was given as was Mylanta. She was admitted to the IMU for further care. Cardiology was consulted. Patient does state that she checks her blood pressure at home and it runs into the 200 systolic chronically. Review of Systems Review of Systems: All systems reviewed & are unremarkable except as noted in HPI and below PMFSH Past Medical History Medical History (Updated 04/27/23 @ 17:57 by Lucas Unger MD) Anemia Asthma Depression GERD (gastroesophageal reflux disease) Hiatal hernia HLD (hyperlipidemia) HTN (hypertension) Humerus fracture Rt IBS (irritable bowel syndrome) Jaw fracture Seizures Strep throat TIA (transient ischemic attack) Ulcer 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 Surgical History Surgical History (Reviewed 04/27/23 @ 16:01 by Rubén Major
[2023-04-27 17:10] LABS: Troponin I 0.154 ng/mL (0.000-0.034)
[2023-04-27] MEDS: amLODIPine BESYLATE 5 MG TABLET PO (17:49)
[2023-04-27] MEDS: ISOSORBIDE MONONITRATE 30 MG TAB.ER.24H PO (17:50)
[2023-04-27] MEDS: METOPROLOL TARTRATE 25 MG TABLET PO (17:50)
[2023-04-27] MEDS: SUCRALFATE 1 GM TABLET PO (18:49)
[2023-04-27] MEDS: NITROGLYCERIN SL 0.4 MG TABLET SUBLINGUAL (20:13)
--- NOTE | 2023-04-27 20:26 | ECG_ITS ---
Measurements Intervals [place] Rate: 69 P: 69 [place]: 171 QRS: 5 QRSD: 98 T: 30 QT: 393 QTc: 422 Interpretive Statements SINUS RHYTHM VOLTAGE CRITERIA FOR LVH MINIMAL Q WAVES- HIGH LATERAL LEADS BASELINE ARTIFACT- I, III, AVF BORDERLINE ECG COMPARED TO ECG 04/27/2023 11:57:38 NO SIGNIFICANT CHANGES Electronically Signed On 04-28-2023 7:56:37 TILE FITTER by Enrique Hernandez D.O.
[2023-04-27] MEDS: PROMETHAZINE HCL 25 MG/ML AMPUL IM (20:41)
[2023-04-27 20:47] LABS: Glucose Point of Care 157 mg/dl (65-105)
[2023-04-28] VITALS (18 sets, daily range): BP systolic 144–206; BP diastolic 49–79; PULSE 61–96; RESP 16–24; TEMP 36.3–37.3; O2SAT 94–99
[2023-04-28] MEDS: PROMETHAZINE HCL 25 MG/ML AMPUL IM ×4 (01:12→21:16)
[2023-04-28 04:49] LABS: Basophils Percent Auto 0.3 % (0.2-1.2); Eosinophils Absolute Auto 0.2 K/mm3 (0-0.3); Eosinophils Percent Auto 2.6 % (0-4.4); Hematocrit 40.9 % (37.0-47.0); Hemoglobin 12.8 g/dL (12.0-15.0); Immature Granulocyte Absolute 0.02 K/mm3 (0.00-0.031); Immature Granulocyte Percent A 0.3 % (0-0.5); Lymphocytes Absolute Auto 1.45 K/mm3 (0.9-3.2); Lymphocytes Percent Auto 24.7 % (18.3-44.2); Mean Corpuscular HGB Conc 31.3 g/dl (32-36); Mean Corpuscular Hemoglobin 29.1 pg (26-34); Mean Platelet Volume 12.1 fl (7.4-10.4); Monocytes Absolute Auto 0.6 K/mm3 (0.1-0.6); Monocytes Percent Auto 9.4 % (2.6-8.5); Neutrophils Absolute Auto 3.7 K/mm3 (1.3-6.7); Neutrophils Percent Auto 62.7 % (45.5-73.1); Platelet Count Result 244 k/mm3 (150-375); Red Cell Distribution Width 14.5 % (11.5-14.5); White Blood Count 5.9 K/mm3 (4.5-10.0)
[2023-04-28 05:04] LABS: Alanine Aminotransferase 122 U/L (6-35); Alkaline Phosphatase 223 U/L (38-126); Anion Gap 6 mmol/L (8-16); Aspartate Amino Transferase 130 U/L (14-36); Bilirubin,Total 0.5 mg/dL (0.2-1.3); Blood Urea Nitrogen 18 mg/dL (7-17); Calcium 8.8 mg/dL (8.4-10.2); Carbon Dioxide 26 mmol/L (22-30); Chloride 107 mmol/L (98-107); Cholesterol 248 mg/dL (0-200); Estimated CRCL calculation 56 ml/min; Estimated Glomerular Filt Rate > 60; Glucose 114 mg/dL (65-110); HDL Direct 66 mg/dL; Lipase 36 U/L (23-300); Potassium 4.6 mmol/L (3.4-5.0); Sodium 139 mmol/L (137-145); Triglycerides 70 mg/dL (<150)
[2023-04-28 05:10] LABS: Hemoglobin A1C 6.3 % (<5.7)
[2023-04-28 05:13] LABS: LDL Cholesterol Direct 125 mg/dL
[2023-04-28 06:19] LABS: Folic Acid 16.2 ng/mL (2.76->20)
[2023-04-28 07:35] LABS: Phenytoin Dilantin < 3 ug/mL (10-20)
[2023-04-28] MEDS: FLUTICASONE/SALMETEROL 115-21 MCG INHALER 1 PUFF 2 PUFF INHALATION ×2 (08:46→19:43)
[2023-04-28] MEDS: ENOXAPARIN 40 MG/0.4 ML SYRINGE SUB-Q (09:24)
[2023-04-28] MEDS: PHENYTOIN SODIUM 100 MG EXTENDED RELEASE CAP PO (09:27)
[2023-04-28] MEDS: PANTOPRAZOLE 40 MG TABLET PO (09:28)
--- NOTE | 2023-04-28 13:17 | PM.IMPN ---
Progress Note: A&P Assessment and Plan (1) Sinus pause: Code(s): I45.5 - Other specified heart block Status: Acute Assessment and Plan: Patient having marked cardiac pauses and possible Mobitz II findings. Related to vasovagal from the vomiting/dry heaves This probably was occurring at home as well and suspect the reason for her elevated Troponin. Potassium okay. Check mag level. No further episodes since midnight. Control nausea symptoms. Metoprolol stopped. Amitriptyline stopped since can cause dysrhythmias Cardilgoy consulted. Echo ordered. 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 She is already on PPI bid and Carafate. Also on dicyclomine and Imdur chronically. CT A/P showing no acute changes. Lipase normal Unlikely this is anginal equivalent. Persistent pain but better now that she is NPO. LFTs higher but felt related to above. Check US. Check hepatitis panel. Follow. Consult GI. Continue PPI. Continue Carafate Check RUQ US (3) Elevated troponin: Code(s): R79.89 - Other specified abnormal findings of blood chemistry Status: Acute Assessment and Plan: Trop peaked at 0.15. EKG showing normal sinus, LVH, minimal Q waves in high lateral leads (no change from 2021) Repeat EKG showing no change Echo pending [place] the elevated Trop related to the cardiac pauses Doubt the epigastric pain is anginal equivalent (4) HTN (hypertension): Code(s): I10 - Essential (primary) hypertension Status: Acute Assessment and Plan: Patient's blood pressure was reviewed on 04/28 Blood pressure elevated at times Will continue to monitor Advance Norvas (5) HLD (hyperlipidemia): Code(s): E78.5 - Hyperlipidemia, unspecified Status: Acute Assessment and Plan: TC 248 with LD 125 and HDL 66. Her LFTs are elevated now so will holf off on adding statin therapy at this time (6) Asthma: Code(s): J45.909 - Unspecified asthma, uncomplicated Status: Acute Assessment and Plan: Stable. No wheezing. Continue Advair (7) Seizures: Code(s): R56.9 - Unspecified convulsions Status: Acute Assessment and Plan: Patient with seizures hx but no seizures for a long time. Dilantin level <3. She is compliant with treatment She feels she had seizure last night but felt related to the cardiac pauses Follow. Seizure precautions just to be careful Plan Elevated LFTs - felt related to shock liver from the events overnight. Check hepatitis panel. Check RUQ US. Follow. DVT prophylaxis -Lovenox Code status -full Subjective Date/time seen: 04/28/23 13:17 Interval history: 77yo female with HTN, HLD, seizures and GERD/HH here for epigastric pain.?? Patient overnight had episodes of cardiac pauses with episodes of vomiting/dry heaves. Still having nausea but no further dry heaves. Still with epigatric pain that radiates to the chest. Tolerating ice chips. Exam Narrative: AF 97.6 157/60 91 18 97% ra Gen - NARD Chest - CTA bilaterally, nml RR CV - RRR. S1-S2. Tele showing long cardiac pauses>7sec and ?Mobitz II at times but nothing since Midnight Abd - soft. Nondistended. Positive bowel sounds. Minimal tenderness in the epigastric region. No guarding Ext - no pedal edema. Psych - normal mood and affect. Skin - warm and dry. Objective Data Vital Signs Vital Signs: Vital Signs - 24 hr 04/27/23 13:19 04/27/23 13:47 04/27/23 14:04 Temperature 98.2 F 97.9 F 97.7 F Pulse Rate 87 91 62 Respiratory Rate 16 16 24 H Blood Pressure 207/78 H 211/81 H 159/59 H Pulse Oximetry 98 98 100 Oxygen Delivery 04/27/23 15:27 04/27/23 14:00 04/27/23 16:00 Temperature 97.7 F Pulse Rate 77 72 72 Respiratory Rate 20 Blood Pressure 216/50 H Pul
--- NOTE | 2023-04-28 14:03 | WPDGICN ---
Assessment and Plan Assessment and plan (1) Acute epigastric pain: Code(s): R10.13 - Epigastric pain Status: Acute Assessment and Plan: given previous gastric surgery, will do EGD in am to assess also esophageal dysmotility/jachkammer esophagus can cause intermittent discomfort and apparently diagnosed 1 year ago and she has seen GI for that, on bentyl and nitrates will need follow up with GI continue medical treatment (2) GERD (gastroesophageal reflux disease): Code(s): K21.9 - Gastro-esophageal reflux disease without esophagitis Status: Acute Assessment and Plan: on ppi (3) Elevated troponin: Code(s): R79.89 - Other specified abnormal findings of blood chemistry Status: Acute Assessment and Plan: stable (4) HTN (hypertension): Code(s): I10 - Essential (primary) hypertension Status: Acute (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 She is status post cholecystectomy and appendectomy. She came here for almost 2 weeks of epigastric pain and nausea. She has seen GI i nthe past with last colonoscopy and EGD about 4 years ago.?She has chronic burning in her chest and had similar episodes like that but never that long, last year about 4 times. Had mild elevated troponin, still discomfort and nausea. Review of Systems Constitutional: Constitutional: Denies weakness Eyes: Eyes: Denies blurry vision ENT: Reports Normal hearing present and Denies headache(s) Cardiovascular: Cardiovascular: Reports chest pain and Denies dyspnea Respiratory: Respiratory: Denies dyspnea Gastrointestinal: Gastrointestinal: Reports abdominal pain and Reports nausea Genitourinary: Genitourinary: Denies dysuria Musculoskeletal: Musculoskeletal: Denies neck pain Integumentary/Breasts: Skin/Breast: Denies dry skin Neurologic: Reports Normal hearing present and Denies weakness Psychiatric: Psychiatric: Denies behavioral changes Endocrine: Endocrine: Denies change in body appearance Hematologic/Lymphatic: Hematologic/Lymphatic: Denies easy bleeding Allergic/Immunologic: Allergic/Immunologic: Denies urticaria PMFSH Past Medical History Medical History (Updated 04/28/23 @ 14:08 by Dilip Marcano MD) Anemia Asthma Depression GERD (gastroesophageal reflux disease) Hiatal hernia HLD (hyperlipidemia) HTN (hypertension) Humerus fracture Rt IBS (irritable bowel syndrome) Jackhammer esophagus Jaw fracture Seizures Strep throat TIA (transient ischemic attack) Ulcer 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 Surgical History Surgical History (Updated 04/28/23 @ 14:08 by Dilip Marcano MD) H/O Billroth II operation H/O tubal ligation History of appendectomy History of bladder surgery Bladder stimulator History of cholecystectomy History of surgery Adrenal gland removal History of tonsillectomy Family History Family History (Updated 04/27/23 @ 17:56 by Lucas Unger MD) Mother Heart disease Father Lung cancer Son Bone cancer Social History Social History (Updated 04/27/23 @ 17:56 by Lucas Unger MD) Social History: Patient smoked a pack a day for about 10 years but quit in 1975. No alcohol or drug use. She lives with her . She is a full code. She nominates her to be the individual who would make medical decisions for
[2023-04-28 14:44] LABS: Magnesium 2.3 mg/dL (1.6-2.3)
[2023-04-28] MEDS: DEXTROSE 5%/0.9% SOD CHL 1,000 ML 100 ML IV CONT (17:27)
[2023-04-28] MEDS: ALPRAZolam (*CRX) 0.25 MG TABLET PO (21:15)
[2023-04-28] MEDS: traZODone HCL 50 MG TABLET PO (21:15)
[2023-04-28] MEDS: amLODIPine BESYLATE 5 MG TABLET PO (21:16)
[2023-04-29] VITALS (22 sets, daily range): BP systolic 128–203; BP diastolic 46–86; PULSE 71–109; RESP 16–30; TEMP 36.2–36.8; O2SAT 94–99
[2023-04-29] MEDS: PROMETHAZINE HCL 25 MG/ML AMPUL IM ×5 (01:20→20:10)
[2023-04-29 04:29] LABS: Basophils Percent Auto 0.5 % (0.2-1.2); Eosinophils Absolute Auto 0.1 K/mm3 (0-0.3); Eosinophils Percent Auto 0.8 % (0-4.4); Hematocrit 39.4 % (37.0-47.0); Hemoglobin 12.3 g/dL (12.0-15.0); Immature Granulocyte Absolute 0.02 K/mm3 (0.00-0.031); Immature Granulocyte Percent A 0.3 % (0-0.5); Lymphocytes Percent Auto 28.7 % (18.3-44.2); Mean Corpuscular HGB Conc 31.2 g/dl (32-36); Mean Corpuscular Volume 92.9 fl (80-100); Mean Platelet Volume 12.5 fl (7.4-10.4); Monocytes Absolute Auto 0.6 K/mm3 (0.1-0.6); Neutrophils Absolute Auto 3.5 K/mm3 (1.3-6.7); Neutrophils Percent Auto 59.7 % (45.5-73.1); Platelet Count Result 264 k/mm3 (150-375); Red Blood Count 4.24 M/mm3 (4.2-5.4); Red Cell Distribution Width 14.7 % (11.5-14.5); White Blood Count 5.9 K/mm3 (4.5-10.0)
[2023-04-29 05:21] LABS: Hepatitis B Surface Antigen Negative (Negative)
[2023-04-29 05:30] LABS: Alanine Aminotransferase 71 U/L (6-35); Albumin Level 3.8 g/dL (3.5-5.1); Alkaline Phosphatase 190 U/L (38-126); Anion Gap 9 mmol/L (8-16); Aspartate Amino Transferase 50 U/L (14-36); Bilirubin,Total 0.5 mg/dL (0.2-1.3); Blood Urea Nitrogen 23 mg/dL (7-17); Calcium 8.9 mg/dL (8.4-10.2); Carbon Dioxide 24 mmol/L (22-30); Chloride 108 mmol/L (98-107); Estimated CRCL calculation 56 ml/min; Estimated Glomerular Filt Rate > 60; Glucose 101 mg/dL (65-110); Magnesium 2.2 mg/dL (1.6-2.3); Potassium 4.2 mmol/L (3.4-5.0); Sodium 141 mmol/L (137-145)
[2023-04-29 05:31] LABS: HAV RESULT Negative (Negative); Hepatitis B Core IgM Result Negative (Negative)
[2023-04-29 05:38] LABS: Hepatitis C Virus Antibody Negative (Negative)
--- NOTE | 2023-04-29 06:00 | ECHO_ITS ---
Patient Info Name: Jazmín Duenas Younger Age: 77 years : 1945 Gender: Female Ht: 61 in Wt: 178 lbs BSA: 1.90 m2 HR: 79 bpm BP: 193 / 65 mmHg Heart Rhythm: Sinus Rhythm Technical Quality: Good Exam Date: 04/29/2023 8:44 AM Exam Location: Echo Lab Patient Status: Inpatient Admit Date: 04/27/2023 Staff Ordering Physician: Anisa Otero MD Field Technical Support Consultant: Анна Woodruff RDCS Attending Provider: Lucas Unger MD Exam Type: CA echo doppler color flow Study Info Indications R07.9 - Chest pain, unspecified - elevated trop Complete two-dimensional, color flow and Doppler transthoracic echocardiogram is performed. Summary 1. Complete two-dimensional, color flow and Doppler transthoracic echocardiogram is performed. 2. Left ventricular hypertrophy with hyperdynamic systolic contractility, no wall motion abnormalities. 3. Normal appearing aortic valve with trivial AI. Left Ventricle Left ventricular chamber dimension is normal. Left ventricular systolic function is hyperdynamic, estimated at >70%. There is mild concentric increased left ventricular wall thickness. The left ventricular diastolic function is grade I diastolic dysfunction. Right Ventricle Right ventricular chamber dimension is normal. Left Atria Left atrial chamber dimension is normal. Right Atria Right atrial chamber dimension is normal. Aortic Valve The aortic valve is normal. There is trace aortic valve regurgitation. Pulmonic Valve The pulmonic valve is not well visualized. Mitral Valve The mitral valve has normal leaflets. Tricuspid Valve The tricuspid valve leaflets are normal. Pericardium/Pleural The pericardium appears normal. Aorta The aortic root size at the sinus of Valsalva is normal. Left Ventricular Outflow Tract Name Value Normal LVOT 2D LVOT Diameter 2.1 cm LVOT Doppler LVOT Peak Gradient 10 mmHg LVOT Mean Gradient 4 mmHg LVOT VTI 23 cm LVOT VTI/AV VTI Ratio 0.7 LVOT Stroke Volume 77 ml LVOT CO 7.1 l/min LVOT CI 3.7 l/min/m2 Pulmonic Valve Name Value Normal RVOT Doppler RVOT Peak Gradient 4 mmHg PV Doppler PV Peak Gradient 8 mmHg Mitral Valve Name Value Normal MV Doppler MV Decel [place] 542 cm/s2 MV PHT 37 ms MV Area (PHT) 5.9 cm2 4.0-5.0 MV Diastolic Function
--- NOTE | 2023-04-29 07:00 | PM.CNCAR ---
Assessment and Plan Assessment and plan (1) Sinus pause: Code(s): I45.5 - Other specified heart block Status: Acute Plan This is a 77-year-old lady 1 fortunately has been bothered by episodes of problematic abdominal pain/distress for a number of years. It is unclear as to whether this has anything to do with her previous peptic ulcer surgery or pathology is described as a jackhammer esophagus. In any event I am seeing her because she had a marked asystolic pause on Saturday evening when she was having abdominal discomfort and retching. She has no history of syncope when she is feeling well. This is a typical although impressive episode of vasovagal event. Despite the length of this asystolic pause she did not lose consciousness when this occurred in the hospital. She has been on telemetry for the last couple of days and no more of this has been going on. We will continue to observe her telemetry with you in the hospital however at this point I do not have any specific cardiac recommendations. Pauses like this that are related to vasovagal situation and otherwise patient has no history of syncope is not an indication for pacemaker implantation Miguel Hernandez MD [facility] History of Present Illness History of Present Illness Consult date/time: 04/29/23 07:00 Reason For Visit: Epigastric Pain/Elevated Trop Narrative: This is a 77-year-old lady I am seeing at the request of the hospitalist because she had a asystolic pauses over the weekend while she was in the hospital on telemetry being evaluated for abdominal pain. The patient came to the hospital Saturday night because of a 2 week history of abdominal pain all associated with some a retching and dry heaves. 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 She also has a remote history of says peptic ulcer surgery with a Billroth II operation a back in the 1970s. She does not have any history of heart disease. She states that during 1 of these admissions over the years with abdominal discomfort there was concern about coronary disease a catheterization was done which was remarkable for no significant coronary disease. She reports that she has no history of exertional chest pain shortness of breath orthopnea P in the edema or syncope. Impressively while she was in the hospital apparently on Saturday night with significant abdominal pain and retching she had a asystolic pause of between 8 and 10 seconds. Interestingly she did not lose consciousness during that episode and has not had any more of that over the weekend. For reasons that are not clear to me troponin levels were sampled on admission and they are mildly elevated at 0.1 and flat. Because of this 2 week history of abdominal discomfort she has been eating a very restricted diet for the last couple of weeks and is to undergo upper endoscopy this morning. Twelve lead electrocardiogram in the record is unremarkable. Review of Systems Constitutional: Constitutional: Reports no additional constitutional complaints Eyes: Eyes: Reports no additional eye complaints ENT: Reports system reviewed and no additional complaints, except as documented Cardiovascular: Cardiovascular: Reports no additional cardiovascular complaints Respiratory: Respiratory: Reports no additional respiratory complaints Gastrointestinal: Gastrointestinal: Reports as per HPI, Reports abdominal pain and Reports nausea Musculoskeletal: Musculoskeletal: Reports no additional musculoskeletal complaints Integumentary/Breasts: Skin/Breast: Reports system reviewed and no additional complaints, except as docu Neurologic: Reports system reviewed and no additional complaints, except as documented Endocrine: Endocrine: Reports no additional endocrine complaints Hematolo
[2023-04-29] MEDS: FLUTICASONE/SALMETEROL 115-21 MCG INHALER 1 PUFF 2 PUFF INHALATION ×2 (08:31→19:23)
[2023-04-29] MEDS: DICYCLOMINE HCL 10 MG CAPSULE PO (09:18)
[2023-04-29] MEDS: PHENYTOIN SODIUM 100 MG EXTENDED RELEASE CAP PO (09:18)
[2023-04-29] MEDS: ENOXAPARIN 40 MG/0.4 ML SYRINGE SUB-Q (09:18)
[2023-04-29] MEDS: ISOSORBIDE MONONITRATE 30 MG TAB.ER.24H PO (09:18)
[2023-04-29] MEDS: PANTOPRAZOLE 40 MG TABLET PO ×2 (09:18→16:44)
[2023-04-29] MEDS: amLODIPine BESYLATE 5 MG TABLET PO (09:18)
--- NOTE | 2023-04-29 11:27 | WPDANESEPPF ---
Anes - Initial Pre Proc Eval Procedure: Operation Date: 04/29/23 13:00 Proposed Procedures p Esophagogastroduodenoscopy - Dilip Marcano MD Date/Time: 04/29/23 11:27 Surgeon: Ty Unger MD Pre Op Diagnosis: Epigastric Pain/Elevated Trop Patient Data Age: 77 Gender: F Height: 1.55 m Weight: 80.5 kg Last Vital Signs Temp 98.3 F 04/29/23 07:28 Pulse 99 04/29/23 10:00 Resp 18 04/29/23 04:15 BP 177/86 H 04/29/23 07:28 Pulse Ox 95 04/29/23 08:32 O2 Del Method Room Air 04/29/23 08:32 Allergies Allergy/AdvReac Type Severity Reaction Status Date / Time No Known Allergies Allergy Verified 04/29/23 11:09 Home Medications Medication Instructions Recorded Confirmed Type amitriptyline 10 mg tablet 10 mg PO QHS 04/03/19 04/27/23 History amlodipine 5 mg tablet 5 mg PO DAILY 04/03/19 04/27/23 History dicyclomine 10 mg capsule 10 mg PO DAILY 04/03/19 04/27/23 History phenytoin sodium extended 100 mg 100 mg PO DAILY 04/03/19 04/27/23 History capsule sucralfate 1 gram tablet 1 g PO TID 04/03/19 04/27/23 History trazodone 50 mg tablet 50 mg PO QHS 04/03/19 04/27/23 History prochlorperazine maleate 5 mg 5 mg PO Q8H PRN nausea and 04/06/20 04/27/23 Rx tablet (Compazine) vomiting 5 days #20 tabs alprazolam 0.25 mg tablet 0.25 mg PO TID PRN Anxiety 04/27/23 04/27/23 History budesonide-formoterol HFA 160 1 inh inhalation DAILY 04/27/23 04/27/23 History mcg-4.5 mcg/actuation aerosol inhaler (Symbicort) esomeprazole magnesium 40 mg 40 mg PO BID 04/27/23 04/27/23 History capsule,delayed release isosorbide mononitrate 30 mg 30 mg PO DAILY 04/27/23 04/27/23 History tablet,extended release 24 hr metoprolol tartrate 25 mg tablet 25 mg PO BID 04/27/23 04/27/23 History Laboratory Tests 04/28/23 04/29/23 14:30 03:47 WBC 5.9 K/mm3 (4.5-10.0) RBC 4.24 M/mm3 (4.2-5.4) Hgb 12.3 g/dL (12.0-15.0) Hct 39.4 % (37.0-47.0) MCV 92.9 fl (80-100) MCH 29.0 pg (26-34) MCHC 31.2 L g/dl (32-36) RDW 14.7 H % (11.5-14.5) Plt Count 264 k/mm3 (150-375) MPV 12.5 H fl (7.4-10.4) Immature Gran % (Auto) 0.3 % (0-0.5) Neut % (Auto) 59.7 % (45.5-73.1) Lymph % (Auto) 28.7 % (18.3-44.2) [place] % (Auto) 10.0 H % (2.6-8.5) Eos % (Auto) 0.8 % (0-4.4) Baso % (Auto) 0.5 % (0.2-1.2) Lymph # (Auto) 1.70 K/mm3 (0.9-3.2) [place] # (Auto) 0.6 K/mm3 (0.1-0.6) Eos # (Auto) 0.1 K/mm3 (0-0.3) Baso # (Auto) 0.0 K/mm3 (0.0-0.1) Abs Immat Gran (auto) 0.02 K/mm3 (0.00-0.031) Absolute Neuts (auto) 3.5 K/mm3 (1.3-6.7) Absolute Nucleated RBC 0.0 K/mm3 (0.0-0.012) Nucleated RBC % 0.0 % (0.0-0.2) Sodium 141 mmol/L (137-145) Potassium 4.2 mmol/L (3.4-5.0) Chloride 108 H mmol/L (98-107) Carbon Dioxide 24 mmol/L (22-30) Anion Gap 9 mmol/L (8-16) BUN 23 H mg/dL (7-17) Creatinine 0.70 mg/dL (0.7-1.0) Estim Creat Clear Calc 56 ml/min Estimated GFR > 60 (59 - ) Glucose 101 mg/dL (65-110) Calcium 8.9 mg/dL (8.4-10.2) Magnesium 2.3 mg/dL 2.2 mg/dL (1.6-2.3) (1.6-2.3) Total Bilirubin 0.5 mg/dL (0.2-1.3) AST 50 H U/L (14-36) ALT 71 H U/L (6-35) Alkaline Phosphatase 190 H U/L (38-126) Total Protein 7.0 g/dL (6.3-8.2) Albumin 3.8 g/dL (3.5-5.1) Hepatitis A IgM Ab Negative (Negative) Hep Bs Antigen Negative (Negative) Hep B Core IgM Ab Negative (Negative) Hepatitis C Ab Screen Negative (Negative) Patient hx anesthesia problems: none Family hx anesthesia problems: none Results Review: All pre-operative results and documents have been reviewed as part of the pre-operative evaluation. [facility] Past Medical History
[2023-04-29] MEDS: LACTATED RINGERS 1,000 ML 150 ML IV CONT (11:28)
--- NOTE | 2023-04-29 12:31 | SUR.OPER ---
Dr. Mast called to come back to procedure room 2, per [facility], due to a high heart rate.
[2023-04-29] MEDS: ALPRAZolam (*CRX) 0.25 MG TABLET PO ×2 (13:24→20:12)
[2023-04-29] MEDS: ACETAMINOPHEN 325 MG TABLET 650 MG PO (13:24)
[2023-04-29] MEDS: SUCRALFATE 1 GM TABLET PO ×2 (13:25→16:44)
[2023-04-29] MEDS: CALCIUM CARBONATE (TUMS) 500 MG (200 MG ELEMENTAL) PO (13:25)
--- NOTE | 2023-04-29 14:32 | PM.IMPN ---
Progress Note: A&P Assessment and Plan (1) Sinus pause: Code(s): I45.5 - Other specified heart block Status: Acute Assessment and Plan: Patient had marked cardiac pauses and possible Mobitz II findings related to vasovagal from the vomiting/dry heaves This probably was occurring at home as well and suspect this is the reason for her elevated Troponin. Potassium and mag level normal. metoprolol and amitriptyline stopped. Echo showing LVH, EF 70%, GIDD. No further episodes by tele Control nausea symptoms. Cardiology consulted and appreicate their input. 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 She is already on PPI bid and Carafate. Also on dicyclomine and Imdur chronically. CT A/P showing no acute changes. Lipase normal Unlikely this is anginal equivalent. Persistent pain so GI consulted. EGD showing gastiritis. LFTs were higher but now trending down felt related to above. Hepatitis panel negative. RUQ US showing no acute findings. Continue PPI. Continue Carafate Diet started. (3) Elevated troponin: Code(s): R79.89 - Other specified abnormal findings of blood chemistry Status: Acute Assessment and Plan: Trop peaked at 0.15. EKG showing normal sinus, LVH, minimal Q waves in high lateral leads (no change from 2021) Repeat EKG showing no change Echo as above [place] the elevated Trop related to the cardiac pauses Doubt the epigastric pain is anginal equivalent (4) HTN (hypertension): Code(s): I10 - Essential (primary) hypertension Status: Acute Assessment and Plan: Patient's blood pressure was reviewed on 04/29 Blood pressure elevated at times Continue Norvasc and Imdur Will continue to monitor Add losartan (5) HLD (hyperlipidemia): Code(s): E78.5 - Hyperlipidemia, unspecified Status: Acute Assessment and Plan: TC 248 with LD 125 and HDL 66. Her LFTs are trending down. Start Lipitor at discharge (6) Asthma: Code(s): J45.909 - Unspecified asthma, uncomplicated Status: Acute Assessment and Plan: Stable. No wheezing. Continue Advair (7) Seizures: Code(s): R56.9 - Unspecified convulsions Status: Acute Assessment and Plan: Patient with seizures hx but no seizures for a long time. Dilantin level <3. She is compliant with treatment She feels she had seizure the other night but felt related to the cardiac pauses Follow. Seizure precautions just to be careful Plan Elevated LFTs - as above. DVT prophylaxis -Lovenox Code status -full Subjective Date/time seen: 04/29/23 14:32 Interval history: 77yo female with HTN, HLD, seizures and GERD/HH here for epigastric pain.?? Patietn still having nausea. No change in her abdominal pain. No SOB but still with the burning chest pain. Exam Narrative: AF 98.2 200/67 101 20 97% ra Gen - NARD Chest - CTA bilaterally, nml RR CV - RRR. S1-S2. Tele showing sinus tach with PACs Abd - soft. ND. Positive bowel sounds. Minimal epigastric tenderness Ext - no pedal edema. Psych - normal mood but depressed affect. Skin - warm and dry. Objective Data Vital Signs Vital Signs: Vital Signs - 24 hr 04/28/23 16:00 04/28/23 16:00 04/28/23 16:00 Temperature 98.4 F Pulse Rate 93 81 Respiratory Rate 24 H Blood Pressure 181/66 H Pulse Oximetry 96 Oxygen Delivery Room Air 04/28/23 18:00 04/28/23 19:44 04/28/23 19:45 Temperature 97.3 F L Pulse Rate 71 86 75 Respiratory Rate 18 20 Blood Pressure 206/60 H Pulse Oximetry 97 Oxygen Delivery 04/28/23 20:00 04/28/23 23:49 04/29/23 00:00 Temperature 97.8 F Pulse Rate 79 83 83 Respiratory Rate 16 Blood Pressure 180/79 H Pulse Oximetry 98 Oxygen Delivery 04/09
[2023-04-29] MEDS: LOSARTAN POTASSIUM 25 MG TABLET PO (15:40)
[2023-04-29] MEDS: DEXTROSE 5%/0.9% SOD CHL 1,000 ML 70 ML IV CONT (20:07)
[2023-04-29] MEDS: traZODone HCL 50 MG TABLET PO (20:09)
[2023-04-30] VITALS: PULSE 78
[2023-04-30 00:12] VITALS: BP 150/71; PULSE 82; RESP 18; TEMP 36.3; O2SAT 99
[2023-04-30] MEDS: PROMETHAZINE HCL 25 MG/ML AMPUL IM (03:22)
[2023-04-30 04:00] VITALS: PULSE 82
--- NOTE | 2023-04-30 06:57 | PC.NURSE ---
This patient, Jazmín Parker, was transferred from 206 to [facility] on 04/30/23 at 0704. Personal belongings sent with patient. Appropriate documentation sent with patient.
[2023-04-30 08:00] VITALS: PULSE 82; RESP 18; O2SAT 94
--- NOTE | 2023-04-30 08:44 | WPDANESPN ---
Anes - Prog Note Post-Op Date/Time: 04/30/23 08:44 Cardiovascular status: normal Respiratory status: normal Airway patency: baseline Mental status: baseline Post-Op hydration status: normal Vital Signs: Last Vital Signs Temp 36.3 C L 04/30/23 00:12 Pulse 82 04/30/23 04:00 Resp 18 04/30/23 00:12 BP 150/71 H 04/30/23 00:12 Pulse Ox 99 04/30/23 00:12 O2 Del Method Room Air 04/29/23 20:00 Pain Score (VAS): 3/10 I/O: Intake & Output 04/29/23 04/30/23 04/30/23 23:59 07:59 15:59 Intake Total 790 880 Output Total 150 375 Balance 640 505 Laboratory Tests 04/29/23 03:47 04/29/23 03:47 Post-procedural complaints: none Patient Feedback: Patient satisfied with anesthetic care.
[2023-04-30] MEDS: PANTOPRAZOLE 40 MG TABLET PO (08:57)
[2023-04-30] MEDS: amLODIPine BESYLATE 5 MG TABLET 10 MG PO (08:57)
[2023-04-30] MEDS: LOSARTAN POTASSIUM 25 MG TABLET PO (08:57)
[2023-04-30] MEDS: SUCRALFATE 1 GM TABLET PO (08:57)
[2023-04-30] MEDS: DICYCLOMINE HCL 10 MG CAPSULE PO (08:57)
[2023-04-30] MEDS: ISOSORBIDE MONONITRATE 30 MG TAB.ER.24H PO (08:57)
[2023-04-30] MEDS: ENOXAPARIN 40 MG/0.4 ML SYRINGE SUB-Q (08:58)
[2023-04-30] MEDS: FLUTICASONE/SALMETEROL 115-21 MCG INHALER 1 PUFF 2 PUFF INHALATION (09:33)
[2023-04-30 09:36] VITALS: O2SAT 94
[2023-04-30] MEDS: ALPRAZolam (*CRX) 0.25 MG TABLET PO (10:04)
[2023-04-30] MEDS: PROCHLORPERAZINE MALEATE 5 MG TABLET PO (10:04)
[2023-04-30] MEDS: PHENYTOIN SODIUM 100 MG EXTENDED RELEASE CAP PO (10:04)
--- NOTE | 2023-04-30 11:19 | PM.DS ---
DS: Admitting Diagnosis Discharge Date 04/30/23 Admitting Diagnosis Epigastric pain DS: Discharge Diagnosis Discharge Diagnosis (1) Sinus pause: Code(s): I45.5 - Other specified heart block Status: Acute (2) Acute epigastric pain: Code(s): R10.13 - Epigastric pain Status: Acute (3) Elevated troponin: Code(s): R79.89 - Other specified abnormal findings of blood chemistry Status: Acute (4) HTN (hypertension): Code(s): I10 - Essential (primary) hypertension Status: Acute (5) HLD (hyperlipidemia): Code(s): E78.5 - Hyperlipidemia, unspecified Status: Acute (6) Asthma: Code(s): J45.909 - Unspecified asthma, uncomplicated Status: Acute (7) Seizures: Code(s): R56.9 - Unspecified convulsions Status: Acute DS: Summary Hospital Course Reason for hospitalization: 77yo female with HTN, HLD, seizures and GERD/HH here for epigastric pain.??Please see H&P for details. Hospital Course: Patient presents with complaints of abdominal pain. 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 She is already on PPI bid, Carafate, dicyclomine and Imdur chronically. She follows with Dr Stark. CT A/P showing no acute changes.? Lipase was normal. In the ED, her troponin was elevated and peaked at 0.15. EKG showing normal sinus, LVH, minimal Q waves in high lateral leads (no change from 2022). Repeat EKG showing no change. Echo showing LVH, EF 70%, GIDD. Patient had marked cardiac pauses and possible Mobitz II findings related to vasovagal from the vomiting/dry heaves. Metoprolol and amitriptyline stopped. This probably was occurring at home as well and suspect this is the reason for her elevated Troponin. Cardiology consulted and had no further recommendations. GI consulted for her persistent nausea, vomiting and epigastric pain. EGD performed showing gastiritis. LFTs were higher but now trending down felt related to the prolonged cardiac pause. Hepatitis panel negative. RUQ US showing no acute findings. She contiued to have epigastric pain but was able to tolerated oral intake. We continued her other home medications. Blood pressure remained elevated at times so losartan added. TC 248 with LD 125 and HDL 66. Plan to start Lipitor but LFTs still mildly elevated so will defer to primary care provider. Patient with seizures hx but no seizures for a long time. Dilantin level <3. She is compliant with her oral medications. She feels she had seizure here but felt related to the cardiac pauses. No further events noted. She has been up ambulating to the bathroom. She denies is abusive and does feel safe at home. She overall did well and was able to be discharged home on 04/30/23. Status at Discharge Cognitive/behavioral status at discharge: stable Time Spent with Patient Time attestation: Total time spent providing and/or coordinating discharge services: 35 minutes Time spent: Greater than 30 minutes Exam Narrative: AF 97.4 150/71 82 18 94% ra Gen - NARD Chest - CTA bilaterally, nml RR CV - RRR. S1-S2. Tele showing no significant dysrhythmias Abd - soft. ND. Positive bowel sounds. Minimal epigastric tenderness Ext - no pedal edema. Psych - normal mood but depressed affect. Skin - warm and dry. DS: Data Data Completed and Pending Completed studies during hospitalization: Pending at discharge 04/29/23 12:29 Surgical [PTH] Routine Discharge Plan Discharge Attending physician on discharge: Lucas Unger Consulting providers: Coreen Hooker; Dilip Marcano Discharging Clinician: Lucas Unger Anticipated Discharge Date/Time: 04/30/23 11:33 Patient Disposition: Home, Self-Care Activity: as tolerated Diet: regular Discharge Instructions: Check blood pressure 1 to 2 times a day. Record and bring into your doctor for review. Call you
--- NOTE | 2023-04-30 12:06 | WPDGIPROGNO ---
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 Status: Acute (6) HTN (hypertension): Code(s): I10 - Essential (primary) hypertension Status: Acute (7) Elevated liver enzymes: Code(s): R74.8 - Abnormal levels of other serum enzymes Status: Acute Assessment and Plan: on admission, trending down had ultrasound, post cholecystectomy Subjective Date/time seen: 04/30/23 12:06 Interval history: mostly burning sensation in upper abdomen egd yesterday showed gastritis, previous surgery, no ulcers Review of Systems Review of Systems: All systems reviewed & are unremarkable except as noted in HPI and below Exam Const: General: comfortable and no acute distress HENMT: Face/Nose/Sinus: Normal nares present Eyes: General: appearance normal, both eyes and all related structures Neck: Neck: supple Resp: Auscultation: clear to auscultation bilaterally Cardio: Rate: regular rate Rhythm: regular rhythm GI: Inspection: non-distended GI Palp: Yes Soft to palpation, Yes Tenderness to palpation present (GI) (mild tender in epigastric) and No Guarding due to palpation present (GI) Auscultation: normal bowel sounds Skin: General skin exam: normal color Neuro: Speech: normal speech Motor exam (neuro): 5/5 motor strength present throughout Extrem: General: normal to inspection Psych: Mental Status: mental status grossly normal Objective Data Vital Signs Vital Signs: Vital Signs - 24 hr 04/29/23 12:35 04/29/23 12:43 04/29/23 12:53 Temperature Pulse Rate 105 H 94 89 Respiratory Rate 30 H 27 H 27 H Blood Pressure 145/50 H 128/46 L 146/47 H Pulse Oximetry 96 94 95 Oxygen Delivery Room Air Room Air Room Air 04/29/23 12:56 04/29/23 13:10 04/29/23 13:10 Temperature Pulse Rate 87 86 Respiratory Rate 27 H Blood Pressure 141/46 H Pulse Oximetry 95 Oxygen Delivery Room Air Room Air 04/29/23 13:45 04/29/23 14:00 04/29/23 15:37 Temperature 98.2 F 98.2 F Pulse Rate 101 H 85 92 Respiratory Rate 20 16 Blood Pressure 200/67 H 151/75 H Pulse Oximetry 97 97 Oxygen Delivery 04/29/23 16:00 04/29/23 19:23 04/29/23 19:52 Temperature 97.2 F L Pulse Rate 89 81 109 H Respiratory Rate 18 18 Blood Pressure 175/55 H Pulse Oximetry 95 Oxygen Delivery 04/29/23 20:00 04/29/23 20:00 04/30/23 00:12 Temperature 97.4 F L Pulse Rate 109 H 96 82 Respiratory Rate 18 18 Blood Pressure 150/71 H Pulse Oximetry 95 99 Oxygen Delivery Room Air 04/30/23 00:00 04/30/23 04:00 04/30/23 09:36 Temperature Pulse Rate 78 82 Respiratory Rate Blood Pressure Pulse Oximetry 94 Oxygen Delivery Room Air 04/30/23 08:00 04/30/23 08:00 Temperature Pulse Rate 82 82 Respiratory Rate 18 Blood Pressure Pulse Oximetry 94 Oxygen Delivery Room Air Intake/Output Intake/Output: Intake & Output 04/27/23 04/28/23 04/29/23 04/30/23 23:59 23:59 23:59 23:59 Intake Total 540 1850 880 Output Total 0 350 425 375 Balance 0 190 1425 505 Meds/Results Medications: Active Medications Generic Name Dose Route Start Last Admin Trade Name Freq PRN Reason Stop Dose Admin Acetaminophen 650 mg 04/29/23 10:51 04/29/23 13:24 Acetaminophen 325 Mg Tablet PO 65
== END 2023-04-30 12:30 | disposition home or self-care (01) ==
LOC: ANHED 11:18 → ANHIMU 14:57 → ANH3MEDSUR 04-30 06:45
PROVIDERS: Internal Medicine Gastroenterology; Admitting Provider Internal Medicine; Emergency Provider Emergency Medicine; PCP Physician Assistant; Visit Provider Internal Medicine
PROC: 0DJ08ZZ Inspection of Upper Intestinal Tract, Via Natural or Artificial Opening Endoscopic (ICD-10-PCS; CPT 43235; principal; 2023-04-29 13:00)
DX: K29.50 Unspecified chronic gastritis without bleeding (principal); I45.5 Other specified heart block; K22.4 Dyskinesia of esophagus; R79.89 Other specified abnormal findings of blood chemistry; K57.30 Diverticulosis of large intestine without perforation or abscess without bleeding; J45.909 Unspecified asthma, uncomplicated; G40.909 Epilepsy, unspecified, not intractable, without status epilepticus; D64.9 Anemia, unspecified; F32.A Depression, unspecified; K21.9 Gastro-esophageal reflux disease without esophagitis; E78.5 Hyperlipidemia, unspecified; I10 Essential (primary) hypertension; I25.10 Atherosclerotic heart disease of native coronary artery without angina pectoris; Z20.822 Contact with and (suspected) exposure to COVID-19; K44.9 Diaphragmatic hernia without obstruction or gangrene; K22.89 Other specified disease of esophagus; K58.8 Other irritable bowel syndrome; Z87.11 Personal history of peptic ulcer disease; Z98.0 Intestinal bypass and anastomosis status; Z86.73 Personal history of transient ischemic attack (TIA), and cerebral infarction without residual deficits; Z90.49 Acquired absence of other specified parts of digestive tract; Z90.89 Acquired absence of other organs; Z87.891 Personal history of nicotine dependence; Z79.899 Other long term (current) drug therapy
CPT/HCPCS: 43239; 36415; 71046; 74177; 76705; 80053; 80061; 80074; 80185; 81001; 82607; 82746; 82948; 83036; 83690; 83735; 84443; 84484; 85025; 87637; 88305; 93005; 93306; 94640; 96374; 96375; 96376; 99285; A9270; C9113; G0378; J1650; J2270; J2405; J2550; J2704; J7042; J7120; Q9967

== ENCOUNTER 2023-06-25 17:27 | Emergency (ER) | payer MEDICARE, SELFPAY ==
--- NOTE | ~2023-06-25 | XR_ITS ---
EXAMINATION: XR chest 2V Exam Date/Time: 06/25/2023 19:00 CDT HISTORY: sob, htn, WITH HEADACHE X 2 DAYS Comparison: 04/27/2023. RESULT: Lines, tubes, and devices: Surgical clips over the GE junction and right upper quadrant. Lungs and pleura: Clear. Cardiomediastinal silhouette: Stable. Other: No acute osseous or upper abdominal finding. IMPRESSION: No acute cardiopulmonary process. Reviewed, dictated and finalized at location K.
--- NOTE | ~2023-06-25 | CT_ITS ---
EXAMINATION: CT brain wo con DATE: 06/25/2023 19:16 INDICATION: cheema, dizziness, htn . TECHNIQUE: Computed tomography (CT) of the head was performed without intravenous contrast. The mA wa s adjusted according to patient size. Iterative reconstruction technique was employed. The dose-lengt h product was 529.67 mGy-cm. COMPARISON: 04/06/2018. FINDINGS: No acute intracranial hemorrhage or extra-axial fluid collection. No hydrocephalus, mass, or herniation. No acute ischemic infarct. Unremarkable dural venous sinus attenuation. No acute osseous abnormality. The aerated spaces are clear. Moderate atrophy and chronic white matter change. Atherosclerotic intracranial calcification. 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 IMPRESSION: No acute intracranial process. Reviewed, dictated and finalized at location K.
[2023-06-25 17:50] VITALS: BP 214/78; PULSE 90; RESP 18; TEMP 36.5; O2SAT 98
--- NOTE | 2023-06-25 17:57 | ED.RECABL ---
HPI - Recheck/Abnormal Lab/Rx General Chief Complaint: Recheck/Abnormal Lab/Rx Stated Complaint: hypertension Time Seen by Provider: 06/25/23 17:58 Focused HPI: Patient is a 77 y/o female who presents to the ED with c/o elevated BP. Patient has hx of HTN and states she has been having issues with her BP being elevated. She has been seeing her PCP for this. She was advised to check her BP BID at home. Today, patient's BP was 214/80, which prompted her presentation. Patient is currently Metoprolol 25mg BID, Losartan 100mg daily, Amlodipine 100mg daily. Last had her losartan increased from 50mg to 100mg 2 weeks ago. She reports compliance with her home medications. Over the last couple days, she c/o HODGE, dizziness, feeling off balance. She also reports having increased SOB with exertion. Denies CP. Denies vision changes. Denies recent illness, n/v, focal numbness/weakness. GENERAL: Well-appearing, well-nourished, and in no acute distress. HEAD: Normocephalic, atraumatic. EYES: PERRL/EOMI CHEST: Clear to auscultation. ?No respiratory distress. HEART: Regular rate and rhythm.? NEURO: ?Alert and oriented x3. No focal deficits. 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 No pronator drift. Patient screened in triage and initial orders placed.? ?Additional care and disposition to be based upon?diagnostic testing and treatment. Source: patient Mode of arrival: ambulatory Limitations: no limitations Related Data Home Medications Medication Instructions Recorded Confirmed dicyclomine 10 mg capsule 10 mg PO DAILY 04/03/19 04/27/23 phenytoin sodium extended 100 mg 100 mg PO DAILY 04/03/19 04/27/23 capsule sucralfate 1 gram tablet 1 g PO TID 04/03/19 04/27/23 trazodone 50 mg tablet 50 mg PO QHS 04/03/19 04/27/23 alprazolam 0.25 mg tablet 0.25 mg PO TID PRN Anxiety 04/27/23 04/27/23 budesonide-formoterol HFA 160 1 inh inhalation DAILY 04/27/23 04/27/23 mcg-4.5 mcg/actuation aerosol inhaler (Symbicort) esomeprazole magnesium 40 mg 40 mg PO BID 04/27/23 04/27/23 capsule,delayed release isosorbide mononitrate 30 mg 30 mg PO DAILY 04/27/23 04/27/23 tablet,extended release 24 hr Allergies Allergy/AdvReac Type Severity Reaction Status Date / Time No Known Allergies Allergy Verified 06/25/23 17:28 [facility] Past Medical History Medical History (Updated 06/27/23 @ 09:13 by Alaina Starr PA-C) Anemia Asthma Depression Elevated liver enzymes Gastritis GERD (gastroesophageal reflux disease) Hiatal hernia HLD (hyperlipidemia) HTN (hypertension) Humerus fracture Rt IBS (irritable bowel syndrome) Jackhammer esophagus Jaw fracture Seizures Strep throat TIA (transient ischemic attack) Ulcer 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 Surgical History Surgical History (Updated 04/28/23 @ 14:08 by Dilip Marcano MD) H/O Billroth II operation H/O tubal ligation History of appendectomy History of bladder surgery Bladder stimulator History of cholecystectomy History of surgery Adrenal gland removal History of tonsillectomy Family History Family History (Updated 04/27/23 @ 17:56 by Lucas Unger MD) Mother Heart disease Father Lung cancer Son Bone cancer Social History Social History (Updated 04/27/23 @ 17:56 by Lucas Unger MD) Social History: Patient smoked a pack a day for about 10 years but quit in 1975. No alcohol or drug use. She lives with her . She is a full code. She nominates her to be the individual who would make medical decisions for her if she is unable. 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
--- NOTE | 2023-06-25 18:02 | ECG_ITS ---
Measurements Intervals [place] Rate: 79 P: 62 SC: 168 QRS: 21 QRSD: 98 T: 39 QT: 366 QTc: 421 Interpretive Statements SINUS RHYTHM POSSIBLE LEFT ATRIAL ENLARGEMENT LEFT VENTRICULAR HYPERTROPHY AND ST-T CHANGE MINIMAL Q WAVES- HIGH LATERAL LEADS BASELINE ARTIFACT- I, II, III, AVR, AVL, AVF, V2 BORDERLINE ECG COMPARED TO ECG 04/27/2023 20:38:33 NO SIGNIFICANT CHANGES Electronically Signed On 06-25-2023 19:07:09 CDT by Enrique Hernandez D.O.
[2023-06-25 19:07] LABS: Alanine Aminotransferase 13 U/L (6-35); Albumin Level 4.4 g/dL (3.5-5.1); Alkaline Phosphatase 156 U/L (38-126); Anion Gap 10 mmol/L (8-16); Aspartate Amino Transferase 22 U/L (14-36); Bilirubin,Total 0.4 mg/dL (0.2-1.3); Blood Urea Nitrogen 15 mg/dL (7-17); Calcium 9.3 mg/dL (8.4-10.2); Carbon Dioxide 22 mmol/L (22-30); Chloride 106 mmol/L (98-107); Estimated CRCL calculation 50 ml/min; Estimated Glomerular Filt Rate > 60; Glucose 112 mg/dL (65-110); Potassium 3.9 mmol/L (3.4-5.0); Sodium 138 mmol/L (137-145)
[2023-06-25 19:19] LABS: NT Pro B Type Natriuretic Pept 322 pg/mL (19.9-100); Troponin I < 0.012 ng/mL (0.000-0.034)
[2023-06-25 19:42] LABS: Basophils Percent Auto 0.7 % (0.2-1.2); Eosinophils Absolute Auto 0.1 K/mm3 (0-0.3); Hematocrit 40.9 % (37.0-47.0); Hemoglobin 12.9 g/dL (12.0-15.0); Immature Granulocyte Absolute 0.01 K/mm3 (0.00-0.031); Immature Granulocyte Percent A 0.2 % (0-0.5); Lymphocytes Absolute Auto 1.89 K/mm3 (0.9-3.2); Lymphocytes Percent Auto 32.6 % (18.3-44.2); Mean Corpuscular HGB Conc 31.5 g/dl (32-36); Mean Corpuscular Hemoglobin 28.4 pg (26-34); Mean Corpuscular Volume 89.9 fl (80-100); Mean Platelet Volume 11.6 fl (7.4-10.4); Monocytes Absolute Auto 0.7 K/mm3 (0.1-0.6); Monocytes Percent Auto 11.2 % (2.6-8.5); Neutrophils Absolute Auto 3.1 K/mm3 (1.3-6.7); Neutrophils Percent Auto 54.3 % (45.5-73.1); Platelet Count Result 270 k/mm3 (150-375); Red Blood Count 4.55 M/mm3 (4.2-5.4); Red Cell Distribution Width 14.6 % (11.5-14.5); White Blood Count 5.8 K/mm3 (4.5-10.0)
[2023-06-25 19:52] LABS: Partial Thromboplastin Time 33.3 Seconds (22.3-36.8); Prothrombin Time 13.2 Seconds (11.1-14.7)
[2023-06-25 20:20] VITALS: BP 203/80; PULSE 78; RESP 14; TEMP 36.4; O2SAT 100
--- NOTE | 2023-06-25 20:35 | PC.NURSE ---
pt reports she is leaving and is not wanting to wait to go back to a room any longer. explained to pt to return if she changes her mind or having any new or worsening symptoms. pt ambulated out of ED without difficulty.
== END 2023-06-25 20:35 | disposition left against medical advice (07) ==
PROVIDERS: Emergency Provider Physician Assistant; PCP Physician Assistant
DX: I16.0 Hypertensive urgency (principal); R06.02 Shortness of breath; I10 Essential (primary) hypertension; J45.909 Unspecified asthma, uncomplicated; E78.5 Hyperlipidemia, unspecified; K21.9 Gastro-esophageal reflux disease without esophagitis; K58.9 Irritable bowel syndrome, unspecified; F32.A Depression, unspecified; Z86.2 Personal history of diseases of the blood and blood-forming organs and certain disorders involving the immune mechanism; Z86.73 Personal history of transient ischemic attack (TIA), and cerebral infarction without residual deficits; Z87.891 Personal history of nicotine dependence; Z90.49 Acquired absence of other specified parts of digestive tract; R94.31 Abnormal electrocardiogram [ECG] [EKG]; I51.7 Cardiomegaly
CPT/HCPCS: 36415; 70450; 71046; 80053; 83880; 84484; 85025; 85610; 85730; 93005; 99284

== ENCOUNTER 2023-08-23 11:52 | Emergency (ER) | payer MEDICARE, SELFPAY ==
[2023-08-23] VITALS (20 sets, daily range): BP systolic 129–225; BP diastolic 63–104; PULSE 58–73; RESP 17–26; TEMP 36.6; O2SAT 95–100
--- NOTE | ~2023-08-23 | CT_ITS ---
EXAMINATION: CT brain wo con DATE: 08/23/2023 12:48 INDICATION: Headache. Hypertension. TECHNIQUE: Computed tomography (CT) of the head was performed without intravenous contrast. Sagittal and coronal reconstructions were performed. The mA was adjusted according to patient size. Iterative reconstruction technique was employed. The dose-length product was 605.33 mGy-cm. COMPARISON: head CT dated 06/25/2023 FINDINGS: Small region of encephalomalacia consistent with chronic infarct in the right parietal lobe. Addition al small old infarct in the right cerebellar hemisphere. No acute intracranial hemorrhage, acute infa rction or abnormal extra axial fluid collection. There is mild scattered white matter hypoattenuation consistent with chronic small vessel ischemic disease. Symmetric prominence of the sulci consistent with mild age-appropriate diffuse cerebral volume loss. Ventricles are normal and symmetric. No mass/ mass effect. The orbits, paranasal sinuses and mastoid air cells are normal. IMPRESSION: 1. 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 No acute int racranial process. 2. Age-related changes including mild diffuse volume loss and mild scattered white matter hypoattenua tion consistent with chronic small vessel ischemic disease. Reviewed, dictated and finalized at location A. IMPRESSION: 1. Small old infarcts in the right cerebellar hemisphere and in the right parie meaghan lobe. No acute intracranial process. 2. Age-related changes including mild diffuse volume loss and mild scattered wh ite matter hypoattenuation consistent with chronic small vessel ischemic diseas e.
--- NOTE | 2023-08-23 12:32 | ECG_ITS ---
SEE SCANNED COPY FOR CONFIRMED REPORT MTDD
[2023-08-23] MEDS: ACETAMINOPHEN 325 MG TABLET 650 MG PO (13:52)
[2023-08-23] MEDS: METOCLOPRAMIDE HCL INJ 10 MG/2 ML VIAL IV PUSH (13:53)
[2023-08-23 13:57] LABS: Basophils Percent Auto 0.5 % (0.2-1.2); Eosinophils Percent Auto 0.9 % (0-4.4); Hematocrit 37.3 % (37.0-47.0); Hemoglobin 11.7 g/dL (12.0-15.0); Lymphocytes Absolute Auto 1.82 K/mm3 (0.9-3.2); Lymphocytes Percent Auto 41.1 % (18.3-44.2); Mean Corpuscular HGB Conc 31.4 g/dl (32-36); Mean Corpuscular Hemoglobin 27.6 pg (26-34); Mean Platelet Volume 11.7 fl (7.4-10.4); Monocytes Absolute Auto 0.5 K/mm3 (0.1-0.6); Monocytes Percent Auto 11.1 % (2.6-8.5); Neutrophils Absolute Auto 2.1 K/mm3 (1.3-6.7); Neutrophils Percent Auto 46.4 % (45.5-73.1); Platelet Count Result 229 k/mm3 (150-375); Red Blood Count 4.24 M/mm3 (4.2-5.4); Red Cell Distribution Width 15.4 % (11.5-14.5); White Blood Count 4.4 K/mm3 (4.5-10.0)
[2023-08-23] MEDS: diphenhydrAMINE HCl INJ 50 MG/ML VIAL 25 MG IV PUSH (13:57)
[2023-08-23 14:12] LABS: Anion Gap 4 mmol/L (4-12); Blood Urea Nitrogen 12 mg/dL (7-17); Calcium 8.6 mg/dL (8.4-10.2); Carbon Dioxide 29 mmol/L (22-30); Chloride 106 mmol/L (98-107); Estimated CRCL calculation 71 ml/min; Estimated Glomerular Filt Rate > 60; Glucose 103 mg/dL (65-110); Potassium 4.2 mmol/L (3.4-5.0); Sodium 139 mmol/L (137-145)
[2023-08-23] MEDS: hydrALAZINE HCL 20 MG/ML VIAL 10 MG IV PUSH (14:50)
[2023-08-23 15:00] LABS: Troponin I < 0.012 ng/mL (0.000-0.034)
--- NOTE | 2023-08-23 17:07 | ED.HA ---
HPI - Headache General Chief Complaint: Dizziness Stated Complaint: nausea, headache, high BP Time Seen by Provider: 08/23/23 12:32 History of Present Illness HPI Narrative: Patient presents with mild headache, nausea, high blood pressure, has had history of hypertension for while and is on multiple medications being managed by her primary care doctor, she is back to start amlodipine but has not picked up the medication yet. Also reporting some mild chest discomfort this morning. Related Data Home Medications Medication Instructions Recorded Confirmed dicyclomine 10 mg capsule 10 mg PO DAILY 04/03/19 04/27/23 phenytoin sodium extended 100 mg 100 mg PO DAILY 04/03/19 04/27/23 capsule sucralfate 1 gram tablet 1 g PO TID 04/03/19 04/27/23 trazodone 50 mg tablet 50 mg PO QHS 04/03/19 04/27/23 alprazolam 0.25 mg tablet 0.25 mg PO TID PRN Anxiety 04/27/23 04/27/23 budesonide-formoterol HFA 160 1 inh inhalation DAILY 04/27/23 04/27/23 mcg-4.5 mcg/actuation aerosol inhaler (Symbicort) esomeprazole magnesium 40 mg 40 mg PO BID 04/27/23 04/27/23 capsule,delayed release isosorbide mononitrate 30 mg 30 mg PO DAILY 04/27/23 04/27/23 tablet,extended release 24 hr Allergies Allergy/AdvReac Type Severity Reaction Status Date / Time No Known Allergies Allergy Verified 06/25/23 17:28 Review of Systems Review of Systems: All systems reviewed & are unremarkable except as noted in HPI and below PMFSH Past Medical History Medical History (Updated 08/23/23 @ 15:46 by Anisa Otero MD) Anemia Asthma Depression Elevated liver enzymes Gastritis GERD (gastroesophageal reflux disease) Hiatal hernia HLD (hyperlipidemia) HTN (hypertension) Humerus fracture Rt IBS (irritable bowel syndrome) Jackhammer esophagus Jaw fracture Seizures Strep throat TIA (transient ischemic attack) Ulcer 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 Surgical History Surgical History (Updated 04/28/23 @ 14:08 by Dliip Marcano MD) H/O Billroth II operation H/O tubal ligation History of appendectomy History of bladder surgery Bladder stimulator History of cholecystectomy History of surgery Adrenal gland removal History of tonsillectomy Family History Family History (Updated 04/27/23 @ 17:56 by Lucas Unger MD) Mother Heart disease Father Lung cancer Son Bone cancer Social History Social History (Updated 04/27/23 @ 17:56 by Lucas Unger MD) Social History: Patient smoked a pack a day for about 10 years but quit in 1975. No alcohol or drug use. She lives with her . She is a full code. She nominates her to be the individual who would make medical decisions for her if she is unable. Smoking status: Never smoker Tobacco type: cigarettes Alcohol intake: never Substance use: never Do You Feel Safe in your Home?: Yes Lack of Transportation: No Lack of Food: Never True Current Housing: I Have Housing Concerned About Future Housing: No Difficulty Paying Gas/Electric Bills: No Difficulty Paying for Meds: No Currently Unemployed: No Education: High School Diploma/GED Difficulty w/ Childcare or Family Care: No Gender identity (if verbalized by the patient): Female Spiritual care concerns: No Exam Narrative: EXAMINATION OF ORGAN SYSTEMS/BODY AREAS: Constitutional: Vital signs per nursing GENERAL:[No acute distress, non-toxic appearing.] HEAD: Normal with no signs of head trauma. EYES: EOMI, conjunctiva normal ENT: Hearing grossly intact LUNGS: Nonlabored breathing. HEART: [Regular rate and rhythm] ABD: [Soft], [nontender to palpation] EXT: Normal range of motion SKIN: [No rashes or lesions.] NEURO: [Alert and oriented x 3. No gross focal sensory or strength deficits. Normal speech, normal gait, no facial droop] PSYCH: Normal affect Course Vital Signs Vital signs: Vital Signs Temperature 97.9 F
== END 2023-08-23 16:32 | disposition home or self-care (01) ==
PROVIDERS: Emergency Provider Emergency Medicine; PCP Physician Assistant
DX: I10 Essential (primary) hypertension (principal); R51.9 Headache, unspecified; F32.A Depression, unspecified; J45.909 Unspecified asthma, uncomplicated; K21.9 Gastro-esophageal reflux disease without esophagitis; E78.5 Hyperlipidemia, unspecified; Z86.73 Personal history of transient ischemic attack (TIA), and cerebral infarction without residual deficits
CPT/HCPCS: 36415; 70450; 80048; 84484; 85025; 93005; 96374; 96375; 99284; A9270; J0360; J1200; J2765

== ENCOUNTER 2024-05-19 07:36 | Outpatient (CLI) | payer MEDICARE, SELFPAY ==
--- OUTSIDE RECORDS SUMMARY | 2024-05-19 07:41 | XMS_ITS | Encounter Summary ---
Author Organization [facility] Care Team Providers Care Heel Sewer Name Role Phone Erica Kelley Primary Care Provider [phone] Kerrie King RN Unavailable [phone] Kareem Stark MD Unavailable [phone] Ron Jensen MD Unavailable [phone] Joe Roca MD Primary Care Provider [phone] Erica Kelley Primary Care Provider [phone] Encounter Details Date Type Department Care Team (Latest Contact Info) Description 03/16/2016 Orders Only [facility] CLINCON[facility] ProviderJocelynn MD [address] [place] [id number] Social History Tobacco Use Types Packs/Day Years Used Date Smoking Tobacco: Former Comments Unknown Sex and Gender Information Value Date Recorded Sex Assigned at Not on file Legal Sex Female 4:02 AM RECYCLING PROGRAM MANAGER Gender Identity Not on file Sexual Orientation Not on file documented as of this encounter Plan of Treatment Not on file documented as of this encounter Procedures Procedure Name Priority Date/Time Associated Diagnosis Comments SCAN - LABS 03/16/2016 12:00 AM RECYCLING PROGRAM MANAGER documented in this encounter Results * SCAN - LABS (03/16/2016 12:00 AM RECYCLING PROGRAM MANAGER) Narrative 03/16/2016 12:00 AM RECYCLING PROGRAM MANAGER Ordered by an unspecified provider. Historical Provider Final Res ult documented in this encounter Visit Diagnoses Not on filedocumented in this encounter Additional Health Concerns Infection Onset Date Last Indicated Resolved Time COVID: Suspected 03/28/2020 03/28/2020 03/28/2020 2:23 PM RECYCLING PROGRAM MANAGER Respiratory Infection (ERICK), contact + droplet Comment:Automatically added due to negative COVID-19 result. 03/28/2020 03/28/2020 04/11/2020 3:0 5 AM RECYCLING PROGRAM MANAGER documented as of this encounter Care Teams Heel Sewer Relationship Specialty Start Date End Date Erica Kelley PA [address] [place] [address] PCP - General Internal Medicine 09/04/18 07/24/23 Joe Roca MD [address] [place] [address] [place] [id number] PCP - General Family Medicine 07/25/23 07/29/23 Erica Kelley PA [address] [place] [address] PCP - General Family Medicine 07/30/23 Kerrie King, RN [address] [place] [address] [address] [place] [address] Commercial Carpet Installer 06/17/19 07/21/19 Kareem Stark MD [address] [place] [address] [address] [place] [address] Referring Physician Gastroenterology 11/27/19 Ron Jensen MD [address] [place] [id number] Consulting Physician Obstetrics and Gynecology 11/27/19 documented as of this encounter
--- OUTSIDE RECORDS SUMMARY | 2024-05-19 07:41 | XMS_ITS | Referral Summary ---
Author Organization [facility] [place] [address] Address [address] [place] [address] Care Team Providers Care Extension Clerk Name Role Phone Kareem Stark MD Unavailable [phone] Ron Jensen MD Unavailable [phone] Erica Kelley Primary Care Provider + [phone] Encounters Date Type Department Care Team Description 05/14/2024 Orders Only [facility] [address] [place] [address] Road [address] [place] [address] Erica Kelley PA Hypertension, essential (Primary Dx); Mixed hyperlipidemia; Pre-diabetes; Generalized weakness; Other fatigue; Muscle pain; Muscle tightness 05/13/2024 Orders Only [facility] Medicine [address] [place] [address] Road [address] [place] [address] Erica Kelley PA 05/13/2024 Telephone [facility] Medicine [address] [place] [address] Road [address] [place] [address] Erica Kelley PA Symptom Based Call from Last 3 Months Allergies No known active allergies Medications aspirin 81 mg enteric coated tablet Take 1 tablet (81 mg total) by mouth daily Active fluticasone propionate (FLONASE) 50 mcg/actuation nasal spray Administer 1 spray into each nostril daily as needed for allergies 08/12/19 20 Active budesonide-formo teroL (Symbicort) 160-4.5 mcg/actuation inhalerIndicatio ns:Mild persistent asthma without complication Inhale 2 puffs 2 (two) times a day as needed (coughing, wheezing) Rinse mouth with water after use. Do not swallow. 1 each 3 04/30/19 23 Active dicyclomine (BENTYL) 10 mg capsuleIndicatio ns:Abdominal cramping Take 1 capsule (10 mg total) by mouth 4 (four) times a day before meals and nightly 120 capsule 1 05/02/19 24 Active albuterol HFA (PROVENTIL HFA,VENTOLIN HFA,PROAIR HFA) 90 mcg/actuation inhalerIndicatio ns:SOB (shortness of breath) Inhale 2 puffs every 6 (six) hours as needed for wheezing 3 each 1 10/18/19 24 025 Active phenytoin ER (DILANTIN) 100 mg ER capsule Take 1 capsule by mouth twice daily 180 capsule 2 10/23/[address] (CYMBALTA) 60 mg capsule TAKE 1 CAPSULE BY MOUTH ONCE DAILY STOP LEXAPRO. DO NOT TAKE THE DULOXETINE AND THE LEXAPRO TOGETHER 90 capsule 1 10/28/19 24 Active metoprolol tartrate (LOPRESSOR) 25 mg immediate release tablet Take 1 tablet by mouth twice daily 180 tablet 1 11/27/19 24 Active sucralfate (CARAFATE) 1 gram tabletIndication s:Gastroesophage al reflux disease without esophagitis Take 1 tablet by mouth 4 times daily 360 tablet 1 11/28/19 24 Active losartan (COZAAR) 50 mg tabletIndication s:Hypertension, essential Take 1 tablet by mouth twice daily 180 tablet 1 01/22/20 24 Active traZODone (DESYREL) 50 mg tablet TAKE 2 TABLETS BY MOUTH NIGHTLY 180 tablet 1 02/04/20 24 Active isosorbide mononitrate ER (IMDUR) 30 mg 24 hr tabletIndication s:Hypertension, essential Take 1 tablet by mouth once daily 90 tablet 1 02/17/[address] (NexIUM) 40 mg capsule Take 1 capsule by mouth twice daily 180 capsule 1 03/03/20 24 Active clonazePAM (KlonoPIN) 0.5 mg tablet TAKE 1 TABLET BY MOUTH THREE TIMES DAILY 90 tablet 04/17/19 25 Active prochlorperazine (COMPAZINE) 10 mg tabletIndication s:Nausea and vomiting, unspecified vomiting type TAKE 1 TABLET BY MOUTH EVERY 8 HOURS NEEDED FOR NAUSEA AND VOMITING 30 tablet 05/04/19 25 Active amLODIPine (NORVASC) 10 mg tablet TAKE 1 TABLET BY MOUTH ONCE DAILY NIGHTLY 90 tablet 05/11/19 25 Active amLODIPine (NORVASC) 10 mg tablet TAKE 1 TABLET BY MOUTH ONCE DAILY NIGHTLY 90 tablet 02/06/20 24 025 Discontinued prochlorperazine (COMPAZINE) 10 mg tabletIndication s:Nausea and vomiting, unspecified vomiting type TAKE 1 TABLET BY MOUTH EVERY 8 HOURS NEEDED FOR NAUSEA AND VOMITING 30 tablet 04/06/20 24 025 Discontinued Active Problems Problem Noted Date Diagnosed Date Pre-diabetes 12/11/2023 Assessment & Plan (12/11/2023 10:02 AM CDT): Pre-diabetes/hyperglycemia is a precursor to Dm. Stressed importance of working on diet (decrease your simple sugars and one carbohydrate with each meal) and increase you exercise to achieve weight loss and this will help prevent you from progressing to diabetes. Fatigue 12/11/2023 Assessment & Plan (12/11/2023 10:02 AM CDT): Probably multifactorial. Check labs and followup to re-evaluate Mixed hyperlipidemia 08/09/2023 Assessment & Plan (12/11/2023 10:02 AM CDT): Encouraged patient to follow low fat/low chol diet like the Mediterranean diet. Increase good fats in the diet. Increase exercise. Monitor labs as needed. Assessment & Plan (08/09/2023 11:33 PM CDT): Encouraged patient to follow low fat/low chol diet like the Mediterranean diet. Increase good fats in the diet. Increase exercise. Monitor labs as needed. Continue Crestor 10 Generalized anxiety disorder 06/17/2023 Assessment & Plan (12/11/2023 10:01 AM CDT): Persistent anxiety longstanding. Continue counseling at [facility]. Continue Cymbalta 60. Continue clonazepam 0.5 b.i.d. with a 3rd 1 in the middle of the day as needed Assessment & Plan (09/04/2023 10:40 AM CDT): Patient with persistent anxiety. She continues with Cymbalta 60 and clonazepam 0.5 mg b.i.d.. Advised she can take an extra half tab if she has breakthrough symptoms. Continue with counseling at [facility]. Assessment & Plan (08/09/2023 11:23 PM CDT): Continues with depression anxiety symptoms. Currently on clonazepam 0.5 t.i.d. trazodone 50 and Cymbalta 60. She states she feels like the clonazepam does make her sleepy and a little dizzy. Advised to cut back to b.i.d. or cut the tablet in half. Continue with counseling as this is really helping. Assessment & Plan (06/27/2023 8:10 PM CDT): Patient has continued anxiety and depression symptoms. She has been encouraged to do counseling for years. Discussed the [facility] servicing on [address]. Will help connect to this group to see if this is possibility as they can assist with transportation. Continue clonazepam 0.5 mg b.i.d. and Cymbalta 60 mg daily. Continue with trazodone HS as needed. Psychosomatic factor in physical condition 06/04 Assessment & Plan (09/04/2023 10:37 AM CDT): Patient's stressors definitely are affecting her physical health. Encouraged her to continue taking her medication as prescribed. Encouraged to continue with counseling. Encouraged her to try to decrease worry and stress. Will still aggressively treat her conditions but advised if she does feel anxious and worried about her blood pressure and starts to notice it going up she may take an extra half tab of the clonazepam to see if this calms things down. She is in agreement with the plan Assessment & Plan (06/12/2023 11:10 PM DIAGNOSTIC RADIOLOGIC TECHNOLOGIST): Discussed again at length. Encouraged counseling. Also encouraged the Cymbalta and her other medicine regimen. Assessment & Plan (06/04/2023 12:08 PM DIAGNOSTIC RADIOLOGIC TECHNOLOGIST): Reviewed with patient psychosomatic symptoms and how these can affect her health. Strongly encouraged counseling. Strongly encouraged relaxation techniques walking etc.. Will adjust her anxiety medication continue to work hard on control of her hypertension Chronic right shoulder pain 08/02/2022 Assessment & Plan (08/19/2022 6:12 PM CDT): patient notes right shoulder pain no known injury. Willing to do physical therapy for generalized weakness as well as the shoulder pain. Will continue monitor closely. Discussed x-ray but with no injury will just start with physical therapy see how she response Generalized weakness 08/02/2022 Assessment & Plan (08/19/2022 6:13 PM CDT): Generalized weakness. Discussed physical therapy. She is willing to try. Reviewed ways to decrease fall risk. Grief 10/17/2021 Assessment & Plan (02/25/2022 10:26 PM DIAGNOSTIC RADIOLOGIC TECHNOLOGIST): Patient's son in July this year. She states she is now having a few better days than all bad days. Continuing to grieve appropriately. Seeing a counselor on a regular basis and thinks this is helping. Call at any time needs further assistance Assessment & Plan (10/17/2021 10:26 PM CDT): Patient has a history of depression and is noting increased symptoms as she is processing through grief. She has not seen a counselor. She is not currently on any medications. She has not been part of any group counseling for grief support. She does have good family support. 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 Strongly encouraged her to reach out her final inspector truck trailer. Provided names of counselors in the area for her to reach out to. Provided grief support with grief share an heart length here in town. If she has trouble making connection she can call for assistance. Discussed starting medication to help with her symptoms. Will start Lexapro 10 mg. Reviewed risks benefits alternatives side effects and proper use. Encouraged to take at night to decrease any possible side effects. Follow-up in 4-6 weeks to reassess or sooner if she has any problems or concerns. Headache, temporal 05/19/2021 Nausea and vomiting 05/14/2021 Assessment & Plan (06/27/2023 8:12 PM CDT): Persistent nausea and vomiting. She has chronic GI problems and usually follows with Dr. Stark. Having difficulty getting in. Continue esomeprazole and Compazine b.i.d. p.r.n.. And sucralfate up to 4 times a day. Assessment & Plan (05/14/2021 1:59 PM DIAGNOSTIC RADIOLOGIC TECHNOLOGIST): See jenn esophagus Hypertension, essential 04/02/2021 Assessment & Plan (12/11/2023 10:01 AM CDT): Blood pressure much better controlled. Continue with losartan 50 b.i.d., isosorbide 30 mg daily. Amlodipine 10 mg HS metoprolol 25 b.i.d.. She continues to use clonazepam half to 1 tab middle of the day she is having increased anxiety along with her b.i.d. dosing. This seems to be resulting in better control. Assessment & Plan (09/04/2023 10:39 AM CDT): Encouraged to limit sodium intake and exercise for weight control. Persistent fluctuation of her blood pressure. Definitely her stressors contribute to this. I am currently unsure of exactly what medication she is taking as she can not recall and does not have her medications with her. Instructed her to call the office with her meds in front of her so they can be reviewed and updated. My records show she should be on losartan 50 mg in the a.m. amlodipine 10 mg in the p.m. and metoprolol 25 mg b.i.d.. Assessment & Plan (08/09/2023 11:32 PM CDT): Bp is stable/in acceptable range for any co-morbidities. Encouraged to limit sodium intake and exercise for weight control. Continue isosorbide ER 30, metoprolol 25 mg b.i.d., amlodipine 10, losartan 50 b.i.d.. Continue monitor readings at home Assessment & Plan (06/27/2023 8:09 PM CDT): Bp is stable/in acceptable range for any co-morbidities. Encouraged to limit sodium intake and exercise for weight control. Seems to be better controlled. Will continue with current regimen isosorbide 30 mg daily metoprolol 25 mg b.i.d., amlodipine 10 mg HS, losartan 100 mg daily (she has been taking 50 mg x 2 tabs) Assessment & Plan (06/12/2023 11:10 PM DIAGNOSTIC RADIOLOGIC TECHNOLOGIST): Patient has blood pressure elevation but minimal symptoms. She is denying chest pain shortness and breath visual changes. She definitely has somatic symptom cessation. Stressed if she would have any of the symptoms she is immediately go to the ER. Recommend continuing her current blood pressure regimen and will see if she can get going on the Bitstripsta fit can make a difference. Will recheck her blood pressure readings in about a week. She is in agreement with the plan Assessment & Plan (06/08/2023 8:15 PM DIAGNOSTIC RADIOLOGIC TECHNOLOGIST): Blood pressure still isn't well controlled. Will work on anxiety control as well as increasing her blood pressure medications. Continue isosorbid ER 30 mg, metoprolol 25 mg b.i.d., amlodipine 10 mg Increase losartan to 50 mg b.i.d.. Encouraged home readings. Advised if we get her anxiety controlled we may see a drop in her blood pressure want to make sure we are not over medicating. Follow up in 4-6 weeks to reassess Assessment & Plan (05/21/2023 9:45 PM DIAGNOSTIC RADIOLOGIC TECHNOLOGIST): Encouraged to limit sodium intake and exercise for weight control. BP still is not well controlled. We did reconcile all of her medications and she has a copy of her medication list now Recommend to continue isosorbid ER 30 mg, metoprolol 25 mg b.i.d., amlodipine 10 mg and will increase the losartan to 50 mg. Follow-up in 1 week to reassess blood pressure readings. Encouraged her to bring her meds to each visit so we can always check and make sure her medicines reconciled with what we have on our list. Assessment & Plan (05/20/2023 12:50 AM DIAGNOSTIC RADIOLOGIC TECHNOLOGIST): Bp is stable/in acceptable range for any co-morbidities. Encouraged to limit sodium intake and exercise for weight control. Patient has known white coat hypertension. She is unsure of her actual dosing of amlodipine at home. Encouraged her to call setting up a better idea exactly what she is taking. She as losartan 25 isosorbide 30 daily and the amlodipine. Assessment & Plan (02/13/2023 11:13 AM DIAGNOSTIC RADIOLOGIC TECHNOLOGIST): Bp is stable/in acceptable range for any co-morbidities. Encouraged to limit sodium intake and exercise for weight control. Home readings are generally better than they are here. She has component of white coat hypertension. Will continue with amlodipine 10, metoprolol 25 b.i.d. and isosorbide ER 30. Encouraged to take some readings at home randomly and call in a couple of weeks with those readings. Assessment & Plan (11/04/2022 5:52 PM CDT): Encouraged to limit sodium intake and exercise for weight control. Readings seem to fluctuate based upon her anxiety levels. Continue with isosorbide 30 Continue amlodipine 10 mg. Increase the metoprolol to 50 mg b.i.d.. May take 2 of her 25 mg tablets until they are exhausted and will send a new prescription. Encouraged home readings and call in readings in 2 weeks to reassess or sooner for any other problems or concerns Assessment & Plan (08/19/2022 6:19 PM CDT): Encouraged to limit sodium intake and exercise for weight control. Elevated today. Encouraged to monitor at home. Continue metoprolol amlodipine and isosorbide Assessment & Plan (02/25/2022 10:26 PM DIAGNOSTIC RADIOLOGIC TECHNOLOGIST): Bp is stable/in acceptable range for any co-morbidities. Encouraged to limit sodium intake and exercise for weight control. Continue metoprolol amlodipine and isosorbide Assessment & Plan (08/13/2021 3:19 PM CDT): Bp is stable/in acceptable range for any co-morbidities. Encouraged to limit sodium intake and exercise for weight control. Continue with metoprolol amlodipine and isosorbide Assessment & Plan (05/25/2021 7:37 PM DIAGNOSTIC RADIOLOGIC TECHNOLOGIST): Bp is stable/in acceptable range for any co-morbidities. Encouraged to limit sodium intake and exercise for weight control. Continue metoprolol, amlodipine and isorbide Assessment & Plan (04/02/2021 10:12 PM DIAGNOSTIC RADIOLOGIC TECHNOLOGIST): Bp is stable/in acceptable range for any co-morbidities. Encouraged to limit sodium intake and exercise for weight control. Patient has done well on amlodipine 5 mg. The GI is wanting her to start diltiazem 30 mg q.i.d. for this check [facility] office. Instructed her to stop the amlodipine and start the diltiazem as directed she is to monitor readings at home. If they begin to get be low 100 systolic will need to pull back on the diltiazem. She is also monitor for dizziness. BMI 33.0-33.9,adult 03/13/2021 Assessment & Plan (12/11/2023 10:02 AM CDT): Discussed the patient's BMI. The BMI is above average. BMI management plan is completed. BMI Follow-up includes: nutrition counseling, exercise counseling and education provided. Assessment & Plan (03/13/2021 8:40 AM DIAGNOSTIC RADIOLOGIC TECHNOLOGIST): Obesity is unchanged. Discussed the patient's BMI. The BMI is above average. BMI management plan is completed. BMI Follow-up includes: nutrition counseling, exercise counseling and education provided. BMI 32.0-32.9,adult 02/01/2021 Assessment & Plan (09/04/2023 10:37 AM CDT): Discussed the patient's BMI. The BMI is above average. BMI management plan is completed. BMI Follow-up includes: nutrition counseling, exercise counseling and education provided. Assessment & Plan (08/09/2023 11:24 PM CDT): Discussed the patient's BMI. The BMI is above average. BMI management plan is completed. BMI Follow-up includes: nutrition counseling, exercise counseling and education provided. Assessment & Plan (02/01/2021 1:38 PM CDT): Obesity is unchanged. Discussed the patient's BMI. The BMI is above average. BMI management plan is completed. BMI Follow-up includes: nutrition counseling, exercise counseling and education provided. Obesity (BMI 30-39.9) 12/24/2019 Assessment & Plan (12/11/2023 10:02 AM CDT): Discussed the patient's BMI. The BMI is above average. BMI management plan is completed. BMI Follow-up includes: nutrition counseling, exercise counseling and education provided. Assessment & Plan (06/27/2023 8:08 PM CDT): Discussed the patient's BMI. The BMI is above average. BMI management plan is completed. BMI Follow-up includes: nutrition counseling, exercise counseling and education provided. Assessment & Plan (06/08/2023 8:16 PM DIAGNOSTIC RADIOLOGIC TECHNOLOGIST): Discussed the patient's BMI. The BMI is above average. BMI management plan is completed. BMI Follow-up includes: nutrition counseling, exercise counseling and education provided. Assessment & Plan (05/21/2023 9:43 PM DIAGNOSTIC RADIOLOGIC TECHNOLOGIST): Discussed the patient's BMI. The BMI is above average. BMI management plan is completed. BMI Follow-up includes: nutrition counseling, exercise counseling and education provided. Assessment & Plan (12/24/2019 1:42 PM CDT): Obesity is unchanged. Discussed the patient's BMI. The BMI is above average. BMI management plan is completed. BMI Follow-up includes: nutrition counseling, exercise counseling and education provided. Skin lesion of face 12/24/2019 Assessment & Plan (12/24/2019 2:17 PM CDT): Advised cleaning with warm water and soap. Luis bid for the next week. F/u if not improving in next week, sooner if worsening. Keep appt with derm as planned. Facial lesion 11/27/2019 Assessment & Plan (11/27/2019 5:25 PM CDT): This is a significant, separately identifiable problem that was evaluated and managed on the same day as the wellness exam Has a large dark lesion on the face. Probable seborrheic keratosis but due to is size and location will refer to Derm. Encouraged full body exam also. Menopause 11/27/2019 Assessment & Plan (08/09/2023 11:24 PM CDT): Check DEXA Assessment & Plan (08/02/2022 11:41 AM CDT): Check DEXA Assessment & Plan (02/04/2021 8:46 PM CDT): Check DEXA Assessment & Plan (06/29/2020 11:05 AM CDT): Check DXA Assessment & Plan (11/27/2019 5:23 PM CDT): Check DXA Thickened endometrium 07/05/2019 Overview (06/28/2020): 09/2019 Dr. Jensen -- Endometrial bx showed benign endometrium. No further workup needed. Assessment & Plan (11/26/2019 9:50 AM CDT): 09/2019 Dr Jensen -- EmBx revealed benign changes. Assessment & Plan (07/05/2019 11:29 AM CDT): Discussed again possible causes for the thickened endometrium and importance of keeping appt with Dr. Jensen to complete workup. Has appt 07/02. Hx of stroke without residual deficits 0 Overview (06/27/2023): --Right cerebellar infarct Assessment & Plan (11/27/2019 5:23 PM CDT): Control bp, continue ASA and statin Assessment & Plan (06/13/2019 3:49 AM DIAGNOSTIC RADIOLOGIC TECHNOLOGIST): Patient reports hx of stroke several years ago but denies any residual deficits. States that she had episode of dysarthria and weakness but was unable to undergo MRI due to spinal stimulator implanted for urinary incontinence. Was briefly on ASA and rosuvastatin per med list but she states that PCP because her numbers had improved. - Discuss with patient restarting ASA and statin Gastroesophageal reflux disease without esophagi tis 01/04/2019 Assessment & Plan (08/09/2023 11:21 PM CDT): Patient follows with Dr. Stark. She is jackhammer esophagus and reflux. Continues with amitriptyline 25 Compazine as needed esomeprazole Carafate patient states her symptoms have been stable Assessment & Plan (06/08/2023 8:14 PM DIAGNOSTIC RADIOLOGIC TECHNOLOGIST): Continue Carafate and PPI as instructed Assessment & Plan (05/20/2023 12:52 AM DIAGNOSTIC RADIOLOGIC TECHNOLOGIST): Patient with reflux esophagitis and jackhammer esophagus. Her GI is Dr. Stark but it appears she has not going to be able to get in with him for a little while. Encouraged her to continue with PPI and Carafate 3 to 4 times a day. Continue to monitor closely with her diet and avoid trigger foods. Assessment & Plan (03/22/2022 8:36 PM DIAGNOSTIC RADIOLOGIC TECHNOLOGIST): Continue GI regimen until she is able to get back in with Dr. Stark. Refills sent Assessment & Plan (08/13/2021 3:14 PM CDT): Continue PPI, carafate and per Dr. Stark Assessment & Plan (02/04/2021 8:46 PM CDT): Continue with the PPI. Patient states Dr. Stark has not diagnosed her with a jackhammer esophagus. She is awaiting appointment with specialist in March for further evaluation and management. Assessment & Plan (06/29/2020 10:53 AM CDT): See abdominal pain Assessment & Plan (11/27/2019 5:21 PM CDT): Continue PPI Assessment & Plan (06/13/2019 3:42 AM DIAGNOSTIC RADIOLOGIC TECHNOLOGIST): Hx of GERD and PUD. Recent EGD showing only chronic gastritis. - Continue home PPI Assessment & Plan (01/04/2019 3:39 PM CDT): Persistent sxs not responding to multiple PPIs, carafate. Refer to GI for further evalutation. Low back pain with left-sided sciatica 9 Assessment & Plan (08/04/2020 1:03 PM CDT): Encouraged NSAIDS (if able to safely tolerate) or Tylenol. Topical preparations like Lidocaine patches, Biofreeze, ICYHOT etc as needed. Heat, stretching Avoid long periods of sitting/laying. Encouraged PT. Followup if has any problems controlling bowels or bladder or if sxs worsen. Assessment & Plan (12/21/2018 11:42 PM CDT): Diff dx include musculo skeletal vs kidney stones vs other etiology. Hematuria present. Check KUB. Encouraged increased fluids. Monitor closely pending results. If sxs increase and pain is uncontrolable, may consider ER. Difficulty in swallowing 05/21/2013 Seizure (CMS/HCC) 05/05/2013 Assessment & Plan (08/09/2023 11:23 PM CDT): No seizures on the Dilantin Assessment & Plan (02/13/2023 11:12 AM DIAGNOSTIC RADIOLOGIC TECHNOLOGIST): Still on Dilantin. No history of seizures Assessment & Plan (08/19/2022 6:13 PM CDT): History of seizures. No recent seizures. Continue with Dilantin. Offered referral to Neurology to discuss since it has been a long times and she is had a seizure but would rather just continue with the medicine. Assessment & Plan (02/25/2022 10:27 PM DIAGNOSTIC RADIOLOGIC TECHNOLOGIST): No current seizure history. Continue Dilantin Assessment & Plan (08/13/2021 3:21 PM CDT): History of seizures. No current seizures on Dilantin Assessment & Plan (02/04/2021 8:47 PM CDT): No history of seizures. Continue with Dilantin. Assessment & Plan (06/29/2020 10:53 AM CDT): No active seizures. On phenytoin. Assessment & Plan (11/27/2019 5:19 PM CDT): No seizures Assessment & Plan (07/05/2019 11:23 AM CDT): No recent seizures. Continue current managment Assessment & Plan (06/13/2019 3:47 AM DIAGNOSTIC RADIOLOGIC TECHNOLOGIST): Hx of unspecified seizure disorder. - Continue home dilantin Moderate episode of recurrent major depressive d isorder 05/05/2013 Assessment & Plan (08/09/2023 11:22 PM CDT): Continues with depression anxiety symptoms. Currently on clonazepam 0.5 t.i.d. trazodone 50 and Cymbalta 60. She states she feels like the clonazepam does make her sleepy and a little dizzy. Advised to cut back to b.i.d. or cut the tablet in half. Continue with counseling as this is really helping. Assessment & Plan (06/27/2023 8:09 PM CDT): Patient has continued anxiety and depression symptoms. She has been encouraged to do counseling for years. Discussed the [facility] senior servicing on [address]. Will help connect to this group to see if this is possibility as they can assist with transportation. Continue clonazepam 0.5 mg b.i.d. and Cymbalta 60 mg daily. Continue with trazodone HS as needed. Assessment & Plan (06/12/2023 11:06 PM DIAGNOSTIC RADIOLOGIC TECHNOLOGIST): Patient continues to have persistent anxiety depression issues. She has had the of the son in the last year as well as another ill child and that is very demanding. She has been using clonazepam 0.5 mg b.i.d.. She was prescribed Cymbalta in the thought she had been on it but she admits now that she discontinued it after 2 days. Discussed the benefit of being on a daily anti anxiolytic and encouraged her to restart. She is willing to so will re assess in 4-6 weeks and see if we can not find her some long-term relief. Strongly encouraged counseling. Connected her with the [facility] at [facility] and she should be able to get in with counseling and assistance with transportation as needed. If she has any problems or concerns she is to call the office immediately Assessment & Plan (06/08/2023 8:14 PM DIAGNOSTIC RADIOLOGIC TECHNOLOGIST): Attempts continued anxiety that still is not fully controlled with Cymbalta 60 and Xanax 0.5 b.i.d.. Patient admits it does not feel like the same last very long. Discussed importance of truly anxiety psycho somatically I think this is affecting her physical health. Will stop the Xanax. Start clonazepam 0.5 b.i.d.. Follow-up in 4-6 weeks to reassess Assessment & Plan (05/20/2023 12:54 AM DIAGNOSTIC RADIOLOGIC TECHNOLOGIST): Patient has ongoing anxiety and depression symptoms. Increase the Cymbalta to 60 b.i.d.. 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 Assessment & Plan (02/13/2023 11:12 AM DIAGNOSTIC RADIOLOGIC TECHNOLOGIST): Stable with Lexapro 20 Assessment & Plan (11/04/2022 5:50 PM CDT): Patient's symptoms had been pretty stable until she had news about her daughter's possible cancer diagnosis. Has been tolerating Lexapro 10. Willing to increase to 20 mg daily. She may take 2 of her 10 mg tablets until they are exhausted and will send out new prescription for 20 mg tablets. Follow-up in 8 weeks to reassess or sooner for any other problems or Concerns. 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 Assessment & Plan (08/19/2022 6:14 PM CDT): Symptoms are stable. She is still grieving appropriately with the loss of her son. Continue Lexapro 10 Assessment & Plan (03/22/2022 8:37 PM DIAGNOSTIC RADIOLOGIC TECHNOLOGIST): Continue Lexapro 10 mg. Strongly encouraged start counseling. Provided information for the [facility]. Assessment & Plan (02/25/2022 10:27 PM DIAGNOSTIC RADIOLOGIC TECHNOLOGIST): Patient restarted Lexapro and is doing well. Continue with trazodone HS Assessment & Plan (10/17/2021 10:26 PM CDT): Patient has a history of depression and is noting increased symptoms as she is processing through grief. She has not seen a counselor. She is not currently on any medications. She has not been part of any group counseling for grief support. She does have good family support. 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 Strongly encouraged her to reach out her final inspector truck trailer. Provided names of counselors in the area for her to reach out to. Provided grief support with grief share an heart length here in town. If she has trouble making connection she can call for assistance. Discussed starting medication to help with her symptoms. Will start Lexapro 10 mg. Reviewed risks benefits alternatives side effects and proper use. Encouraged to take at night to decrease any possible side effects. Follow-up in 4-6 weeks to reassess or sooner if she has any problems or concerns. Assessment & Plan (08/13/2021 3:16 PM CDT): Continue Cymbalta and Trazodone prn Assessment & Plan (05/25/2021 7:38 PM DIAGNOSTIC RADIOLOGIC TECHNOLOGIST): Patient has discontinued all medications. May need to revisit if sxs continue Assessment & Plan (04/02/2021 10:12 PM DIAGNOSTIC RADIOLOGIC TECHNOLOGIST): Continue Cymbalta Assessment & Plan (02/04/2021 8:47 PM CDT): Stable with the Cymbalta. Assessment & Plan (08/04/2020 1:04 PM CDT): She is tolerating the Cymbalta well but her symptoms of anxiety and worry are not very well controlled so will increase it to 60 mg. She may take 2 of the 30 mg tablets until they are gone and then I will send a new prescription for 60 mg tablets to take 1 daily. Will reassess in a few months. Assessment & Plan (06/29/2020 11:03 AM CDT): See anxiety Assessment & Plan (11/27/2019 5:21 PM CDT): Stable with Cymbalta Assessment & Plan (07/05/2019 11:25 AM CDT): Discussed with patient at length that her abdominal sxs are intertwined and directly related to her stress/anxiety. Again, encouraged her to take the Cymbalat daily for at least 4 weeks and then come back and discuss further. She was sent home with Xanax a few weeks ago to use if has acute sxs. States she hasn't used any. Encouraged good nutrition and exercise. Encouraged counseling. Provided a list of counselors in the area. Assessment & Plan (06/13/2019 3:46 AM DIAGNOSTIC RADIOLOGIC TECHNOLOGIST): Hx of depression and anxiety symptoms exacerbated by past bouts of abdominal pain. Noted to be tearful and anxious on exam. Prescribed xanax per med list but states that she is not taking. Only currently on trazodone nightly. Appears to have been tried on multiple agents in past for depression and functional abdominal pain including TCA, gabapentin, effexor but unclear exactly which medications she has been on and if they were given adequate lengths of trial or not. Would most likely benefit from addition of SSRI or similar medication. - Continue trazodone nightly - Consider addition of additional anti-depressant/anxiolytic Assessment & Plan (05/09/2019 10:52 PM DIAGNOSTIC RADIOLOGIC TECHNOLOGIST): Continue with the Cymbalta Assessment & Plan (09/27/2018 10:54 PM CDT): Seeing improvement with the Cymbalta 60mg. Continue. Irritable bowel syndrome 03/23/2013 Assessment & Plan (11/27/2019 5:20 PM CDT): Symptoms have been more tolerable. Continue per Dr. Stark Assessment & Plan (01/04/2019 3:37 PM CDT): Increase fiber. FODMAP diet provided. Refer to GI for persistent sxs. Resolved Problems Problem Noted Date Diagnosed Date Resolved Date Medicare annual wellness visit, subsequent 08/09/2023 09/04/2023 Assessment & Plan (08/09/2023 11:33 PM CDT): Encouraged healthy lifestyle, good nutrition and exercise. Encouraged Calcium and Vitamin D and weight bearing exercise for bone health. Reviewed immunizations. Reviewed age appropirate screenings. Medicare Wellness Documentation is completed within the chart Obesity (BMI 30.0-34.9) 08/09/2023 09/0 07/2023 Assessment & Plan (09/04/2023 10:36 AM CDT): Discussed the patient's BMI. The BMI is above average. BMI management plan is completed. BMI Follow-up includes: nutrition counseling, exercise counseling and education provided. Assessment & Plan (08/09/2023 11:34 PM CDT): Discussed the patient's BMI. The BMI is above average. BMI management plan is completed. BMI Follow-up includes: nutrition counseling, exercise counseling and education provided. Positive depression screening 05/07/2023 08/09/2023 Assessment & Plan (05/20/2023 12:54 AM DIAGNOSTIC RADIOLOGIC TECHNOLOGIST): See anxiety BMI 33.0-33.9,adult 05/07/2023 05/21/19 24 Assessment & Plan (05/20/2023 12:54 AM DIAGNOSTIC RADIOLOGIC TECHNOLOGIST): Weight/BMI is in healthy range. Continue healthy lifestyle to maintain. Need for influenza vaccination 02/13/2023 08/09/2023 Assessment & Plan (02/13/2023 11:13 AM DIAGNOSTIC RADIOLOGIC TECHNOLOGIST): Flu vaccine updated in the office today Medicare annual wellness visit, subsequent 02/13/2023 05/20/2023 Assessment & Plan (02/13/2023 11:14 AM DIAGNOSTIC RADIOLOGIC TECHNOLOGIST): Encouraged healthy lifestyle, good nutrition and exercise. Encouraged Calcium and Vitamin D and weight bearing exercise for bone health. Reviewed immunizations. Reviewed age appropirate screenings. Medicare Wellness Documentation is completed within the chart Hyperglycemia 11/04/2022 02/13/2023 Assessment & Plan (11/04/2022 5:52 PM CDT): Pre-diabetes/hyperglycemia is a precursor to Dm. Stressed importance of working on diet (decrease your simple sugars and one carbohydrate with each meal) and increase you exercise to achieve weight loss and this will help prevent you from progressing to diabetes. Obesity (BMI 30.0-34.9) 11/01/202205/09 Assessment & Plan (02/13/2023 11:13 AM DIAGNOSTIC RADIOLOGIC TECHNOLOGIST): Discussed the patient's BMI. The BMI is above average. BMI management plan is completed. BMI Follow-up includes: nutrition counseling, exercise counseling and education provided. Patient has an obesity-related condition (not limited to: hypertension, obstructive sleep apnea, osteoarthritis, hyperlipidemia, diabetes, etc.). Therefore, morbid obesity may be documented for patients with a BMI between 35.00-39.99. Assessment & Plan (11/04/2022 5:52 PM CDT): Discussed the patient's BMI. The BMI is above average. BMI management plan is completed. BMI Follow-up includes: nutrition counseling, exercise counseling and education provided. Patient has an obesity-related condition (not limited to: hypertension, obstructive sleep apnea, osteoarthritis, hyperlipidemia, diabetes, etc.). Therefore, morbid obesity may be documented for patients with a BMI between 35.00-39.99. BMI 35.0-35.9,adult 11/01/2022 05/07/19 24 Assessment & Plan (02/13/2023 10:41 AM DIAGNOSTIC RADIOLOGIC TECHNOLOGIST): Discussed the patient's BMI. The BMI is above average. BMI management plan is completed. BMI Follow-up includes: nutrition counseling, exercise counseling and education provided. Assessment & Plan (11/01/2022 8:41 AM CDT): Discussed the patient's BMI. The BMI is above average. BMI management plan is completed. BMI Follow-up includes: nutrition counseling, exercise counseling and education provided. Morbid obesity 08/02/2022 11/01/2022 Assessment & Plan (08/02/2022 11:42 AM CDT): Discussed the patient's BMI. The BMI is above average. BMI management plan is completed. BMI Follow-up includes: nutrition counseling, exercise counseling and education provided. Patient has an obesity-related condition (not limited to: hypertension, obstructive sleep apnea, osteoarthritis, hyperlipidemia, diabetes, etc.). Therefore, morbid obesity may be documented for patients with a BMI between 35.00-39.99. BMI 35.0-35.9,adult 08/02/2022 11/02/19 23 Assessment & Plan (08/02/2022 10:54 AM CDT): Discussed the patient's BMI. The BMI is above average. BMI management plan is completed. BMI Follow-up includes: nutrition counseling, exercise counseling and education provided. Need for immunization against influenza 03/22/2022 08/02/2022 Assessment & Plan (03/22/2022 8:36 PM DIAGNOSTIC RADIOLOGIC TECHNOLOGIST): Flu vaccine updated in the office today BMI 35.0-35.9,adult 03/22/2022 08/03/19 23 Assessment & Plan (03/22/2022 8:36 PM DIAGNOSTIC RADIOLOGIC TECHNOLOGIST): Discussed the patient's BMI. The BMI is above average. BMI management plan is completed. BMI Follow-up includes: nutrition counseling, exercise counseling and education provided. Medicare annual wellness visit, subsequent 02/25/2022 08/02/2022 Assessment & Plan (02/25/2022 10:26 PM DIAGNOSTIC RADIOLOGIC TECHNOLOGIST): Encouraged healthy lifestyle, good nutrition and exercise. Encouraged Calcium and Vitamin D and weight bearing exercise for bone health. Reviewed immunizations. Reviewed age appropirate screenings. Medicare Wellness Documentation is completed within the chart Morbid obesity 10/17/2021 08/02/2022 Assessment & Plan (03/22/2022 8:37 PM DIAGNOSTIC RADIOLOGIC TECHNOLOGIST): Discussed the patient's BMI. The BMI is above average. BMI management plan is completed. BMI Follow-up includes: nutrition counseling, exercise counseling and education provided. Patient has an obesity-related condition (not limited to: hypertension, obstructive sleep apnea, osteoarthritis, hyperlipidemia, diabetes, etc.). Therefore, morbid obesity may be documented for patients with a BMI between 35.00-39.99. Assessment & Plan (02/25/2022 10:26 PM DIAGNOSTIC RADIOLOGIC TECHNOLOGIST): Discussed the patient's BMI. The BMI is above average. BMI management plan is completed. BMI Follow-up includes: nutrition counseling, exercise counseling and education provided. Assessment & Plan (10/17/2021 10:37 AM CDT): Obesity is unchanged. Discussed the patient's BMI. The BMI is above average. BMI management plan is completed. BMI Follow-up includes: nutrition counseling, exercise counseling and education provided. BMI 34.0-34.9,adult 10/17/2021 07/31/19 24 Assessment & Plan (06/27/2023 8:10 PM CDT): Discussed the patient's BMI. The BMI is above average. BMI management plan is completed. BMI Follow-up includes: nutrition counseling, exercise counseling and education provided. Assessment & Plan (06/08/2023 8:17 PM DIAGNOSTIC RADIOLOGIC TECHNOLOGIST): Discussed the patient's BMI. The BMI is above average. BMI management plan is completed. BMI Follow-up includes: nutrition counseling, exercise counseling and education provided. Assessment & Plan (05/21/2023 9:43 PM DIAGNOSTIC RADIOLOGIC TECHNOLOGIST): Discussed the patient's BMI. The BMI is above average. BMI management plan is completed. BMI Follow-up includes: nutrition counseling, exercise counseling and education provided. Assessment & Plan (02/25/2022 10:26 PM DIAGNOSTIC RADIOLOGIC TECHNOLOGIST): Discussed the patient's BMI. The BMI is above average. BMI management plan is completed. BMI Follow-up includes: nutrition counseling, exercise counseling and education provided. Assessment & Plan (10/17/2021 10:37 AM CDT): Obesity is unchanged. Discussed the patient's BMI. The BMI is above average. BMI management plan is completed. BMI Follow-up includes: nutrition counseling, exercise counseling and education provided. Shortness of breath 10/17/2021 08/09/19 24 Assessment & Plan (10/17/2021 10:24 PM CDT): Patient has noticed seen and now complaining of increased shortness of breath. She is having difficulty catching her breath and is tired. 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 She does have a smoking history although quit in her 30s. Recommend referral to pulmonology for further evaluation to determine underlying cause. Will go ahead and send out albuterol to try 1-2 puffs every 4-6 hours as needed to see if this makes a change while she is waiting to get in. If she has increased symptoms she is to follow up immediately. She voices understanding. Annual physical exam 08/13/2021 024 Assessment & Plan (08/02/2022 11:42 AM CDT): Encouraged healthy lifestyle, good nutrition and exercise. Encouraged Calcium and Vitamin D and weight bearing exercise for bone health. Reviewed immunizations Reviewed age appropirate screenings. Assessment & Plan (08/13/2021 3:21 PM CDT): Encouraged healthy lifestyle, good nutrition and exercise. Encouraged Calcium and Vitamin D and weight bearing exercise for bone health. Reviewed immunizations Reviewed age appropirate screenings. Obesity (BMI 30-39.9) 07/26/20212021 Assessment & Plan (07/26/2021 8:39 AM CDT): Obesity is unchanged. Discussed the patient's BMI. The BMI is above average. BMI management plan is completed. BMI Follow-up includes: nutrition counseling, exercise counseling and education provided. BMI 33.0-33.9,adult 07/26/2021 10/18/19 Assessment & Plan (07/26/2021 8:39 AM CDT): Obesity is unchanged. Discussed the patient's BMI. The BMI is above average. BMI management plan is completed. BMI Follow-up includes: nutrition counseling, exercise counseling and education provided. Obesity (BMI 30-39.9) 05/25/20212021 Assessment & Plan (05/25/2021 11:46 AM DIAGNOSTIC RADIOLOGIC TECHNOLOGIST): Obesity is unchanged. Discussed the patient's BMI. The BMI is above average. BMI management plan is completed. BMI Follow-up includes: nutrition counseling, exercise counseling and education provided. BMI 33.0-33.9,adult 05/25/2021 07/27/19 Assessment & Plan (05/25/2021 11:46 AM DIAGNOSTIC RADIOLOGIC TECHNOLOGIST): Obesity is unchanged. Discussed the patient's BMI. The BMI is above average. BMI management plan is completed. BMI Follow-up includes: nutrition counseling, exercise counseling and education provided. Fatigue 05/25/2021 08/09/2023 Assessment & Plan (02/13/2023 11:13 AM DIAGNOSTIC RADIOLOGIC TECHNOLOGIST): Probably multifactorial. Check labs and followup to re-evaluate Assessment & Plan (11/04/2022 5:52 PM CDT): Probably multifactorial. Check labs and followup to re-evaluate Assessment & Plan (05/25/2021 7:37 PM DIAGNOSTIC RADIOLOGIC TECHNOLOGIST): Probably multifactorial. 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 Her GI is Dr. Stark but it appears she has not going to be able to get in with him for a little while. Encouraged her to continue with PPI and Carafate 3 to 4 times a day. Continue to monitor closely with her diet and avoid trigger foods. Assessment & Plan (02/13/2023 11:12 AM DIAGNOSTIC RADIOLOGIC TECHNOLOGIST): Continue per Dr. Stark. Seems to have good control with amitriptyline 25, Xanax 0.25 t.i.d., esomeprazole and Carafate Assessment & Plan (11/04/2022 5:50 PM CDT): Continue per Dr. Stark. She restarted Xanax 0.25 mg t.i.d.. He also just started her on amitriptyline 25 along with use omeprazole and Carafate. Encouraged to take medications as prescribed Assessment & Plan (08/02/2022 11:42 AM CDT): This is a significant, separately identifiable problem that was evaluated and managed on the same day as the wellness exam Patient found the most relief with Xanax 0.25. Dr. Stark prescribed it as 4 times a day but she found relief with twice a day. Did reading and felt uncomfortable about taking it due to addictive properties. Reassured her that if it helps with the symptoms Xanax 0.25 b.i.d. is perfectly safe. I will go ahead and start a prescription backup. Still encouraged her to follow regularly with Dr. Stark for her chronic GI concerns. Assessment & Plan (02/25/2022 10:25 PM DIAGNOSTIC RADIOLOGIC TECHNOLOGIST): Continue per Dr. Stark currently taking Xanax every day and using the Carafate and Compazine p.r.n.. States Xanax is the only thing that seems to help her. States she can not get back in with Dr. Stark for a few months and is requesting refills right now Assessment & Plan (08/13/2021 3:18 PM CDT): Continue per GI at [facility] and Dr. Stark Assessment & Plan (05/25/2021 7:36 PM DIAGNOSTIC RADIOLOGIC TECHNOLOGIST): Continue per GI - Dr. Stark She is on Librax and Protonix. Assessment & Plan (05/14/2021 2:00 PM DIAGNOSTIC RADIOLOGIC TECHNOLOGIST): Patient was diagnosed with jackhammer esophagus and has been following at [facility] with Dr. Alexia Mojica. She has had these symptoms for a couple of years and just recently instructed to start diltiazem 30 mg q.i.d.. I stopped her amlodipine recently so she would not be on 2 calcium channel blockers. She states that she is having difficulty tolerating the q.i.d. dosing due to dizziness and that the diltiazem is not working. Advise that this is a medication that has to be titrated up slowly to be able to get the positive affect for control is jackhammer esophagus while trying to balance her blood pressure. Her blood pressure is elevated today and she needs to be on medicine. Gently try to encourage her to take the medication as directed she can take it 4 times a day she can take it 3 times a day that she needs to contact the GI at [facility] for further instructions to continue to get better control of this jackhammer esophagus. May continue the PPI, Bentyl and carafate. Assessment & Plan (04/02/2021 10:13 PM DIAGNOSTIC RADIOLOGIC TECHNOLOGIST): Continue per GI. They have encouraged proper med outweighed along with diltiazem 30 mg q.i.d.. Will stop the amlodipine and transition to the diltiazem and monitor blood pressure carefully. See hypertension. Obesity (BMI 30-39.9) 03/13/20212021 Assessment & Plan (03/13/2021 8:40 AM DIAGNOSTIC RADIOLOGIC TECHNOLOGIST): Obesity is unchanged. Discussed the patient's BMI. The BMI is above average. BMI management plan is completed. BMI Follow-up includes: nutrition counseling, exercise counseling and education provided. Medicare annual wellness visit, subsequent 02/04/2021 04/02/2021 Assessment & Plan (02/04/2021 8:46 PM CDT): Encouraged healthy lifestyle, good nutrition and exercise. Encouraged Calcium and Vitamin D and weight bearing exercise for bone health. Reviewed immunizations. Reviewed age appropirate screenings. Medicare Wellness Documentation is completed within the chart Need for 23-polyvalent pneum ococcal polysaccharide vaccine 02/04/2021 04/02/2021 Assessment & Plan (02/04/2021 8:47 PM CDT): Pneumonia 23 updated in office Obesity (BMI 30-39.9) 02/01/20212020 Assessment & Plan (02/01/2021 1:38 PM CDT): Obesity is unchanged. Discussed the patient's BMI. The BMI is above average. BMI management plan is completed. BMI Follow-up includes: nutrition counseling, exercise counseling and education provided. BMI 32.0-32.9,adult 08/04/2020 02/02/20 Assessment & Plan (08/04/2020 11:33 AM CDT): Obesity is unchanged. Discussed the patient's BMI. The BMI is above average. BMI management plan is completed. BMI Follow-up includes: nutrition counseling, exercise counseling and education provided. Obesity (BMI 30-39.9) 08/04/20202020 Assessment & Plan (08/04/2020 11:33 AM CDT): Obesity is unchanged. Discussed the patient's BMI. The BMI is above average. BMI management plan is completed. BMI Follow-up includes: nutrition counseling, exercise counseling and education provided. Obesity (BMI 30-39.9) 06/29/20202020 Assessment & Plan (06/29/2020 8:10 AM CDT): Obesity is unchanged. Discussed the patient's BMI. The BMI is above average. BMI management plan is completed. BMI Follow-up includes: nutrition counseling, exercise counseling and education provided. BMI 31.0-31.9,adult 06/29/2020 08/05/19 Assessment & Plan (06/29/2020 8:10 AM CDT): Obesity is unchanged. Discussed the patient's BMI. The BMI is above average. BMI management plan is completed. BMI Follow-up includes: nutrition counseling, exercise counseling and education provided. Annual physical exam 05/21/2020 Assessment & Plan (06/29/2020 10:54 AM CDT): Encouraged healthy lifestyle, good nutrition and exercise. Encouraged Calcium and Vitamin D and weight bearing exercise for bone health. Reviewed immunizations Reviewed age appropirate screenings. Breast cancer screening by mammogram 11/27/2019 08/09/2023 Assessment & Plan (02/04/2021 8:46 PM CDT): Mammogram order provided Assessment & Plan (06/29/2020 11:03 AM CDT): Mammogram order provided Assessment & Plan (11/27/2019 5:25 PM CDT): Mammogram order provided Need for vaccination with 13 -polyvalent pneumococcal conjugate vaccine 11/27/2019 Assessment & Plan (11/27/2019 5:24 PM CDT): Updated in office today Other fatigue 11/27/2019 05/19/2021 Assessment & Plan (11/27/2019 5:24 PM CDT): Probably multifactorial. Check labs and followup to re-evaluate Hyperglycemia 11/27/2019 05/19/2021 Assessment & Plan (02/04/2021 8:46 PM CDT): Pre-diabetes/hyperglycemia is a precursor to Dm. Stressed importance of working on diet (decrease your simple sugars and one carbohydrate with each meal) and increase you exercise to achieve weight loss and this will help prevent you from progressing to diabetes. Assessment & Plan (06/29/2020 10:54 AM CDT): Pre-diabetes/hyperglycemia is a precursor to Dm. Stressed importance of working on diet (decrease your simple sugars and one carbohydrate with each meal) and increase you exercise to achieve weight loss and this will help prevent you from progressing to diabetes. Assessment & Plan (11/27/2019 5:24 PM CDT): Pre-diabetes is a precursor to Dm. Stressed importance of working on diet (decrease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
--- OUTSIDE RECORDS SUMMARY | 2024-05-19 07:41 | XMS_ITS | Encounter Summary ---
Author Organization [facility] Care Team Providers Care Inbound Customer Service Agent Name Role Phone Erica Kelley Primary Care Provider [phone] Kerrie King RN Unavailable [phone] Kareem Stark MD Unavailable [phone] Ron Jensen MD Unavailable [phone] Joe Roca MD Primary Care Provider [phone] Erica Kelley Primary Care Provider [phone] Encounter Details Date Type Department Care Team (Latest Contact Info) Description 09/12/2017 Orders Only [facility] ProviderJocelynn MD [address] [place] [id number] Social History Tobacco Use Types Packs/Day Years Used Date Smoking Tobacco: Former Comments Unknown Sex and Gender Information Value Date Recorded Sex Assigned at Not on file Legal Sex Female 4:02 AM 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 Historical Provider Final Res ult documented in this encounter Visit Diagnoses Not on filedocumented in this encounter Additional Health Concerns Infection Onset Date Last Indicated Resolved Time COVID: Suspected 03/28/2020 03/28/2020 03/28/2020 2:23 PM HOOP RIVETING MACHINE OPERATOR HELPER Respiratory Infection (ERICK), contact + droplet Comment:Automatically added due to negative COVID-19 result. 03/28/2020 03/28/2020 04/11/2020 3:0 5 AM HOOP RIVETING MACHINE OPERATOR HELPER documented as of this encounter Care Teams Inbound Customer Service Agent Relationship Specialty Start Date End Date Erica Kelley PA [address] [place] [address] PCP - General Internal Medicine 09/04/18 07/24/23 Joe Roca MD [address] [facility] [address] [place] [id number] PCP - General Family Medicine 07/25/23 07/29/23 Erica Kelley PA [address] [place] [address] PCP - General Family Medicine 07/30/23 Kerrie King, RN [address] [place] [address] [address] [place] [address] Oil Recovery Unit Operator 06/17/19 07/21/19 Kareem Stark MD [address] [place] [address] [address] [place] [address] Referring Physician Gastroenterology 11/27/19 Ron Jensen MD [address] [facility] [address] [place] [address] Consulting Physician Obstetrics and Gynecology 11/27/19 documented as of this encounter
--- OUTSIDE RECORDS SUMMARY | 2024-05-19 07:41 | XMS_ITS | Encounter Summary ---
Author Organization [facility] Facility Care Team Providers Care Radiologist Physician Name Role Phone Eirca Kelley Primary Care Provider [phone] Kerrie King RN Unavailable [phone] Kareem Stark MD Unavailable [phone] Ron Jensen MD Unavailable [phone] Joe Roca MD Primary Care Provider [phone] Erica Kelley Primary Care Provider [phone] Encounter Details Date Type Department Care Team (Latest Contact Info) Description 06/28/2015 Orders Only [facility] CLINCON[facility] ProviderJocelynn MD [address] [place] [address] Social History Tobacco Use Types Packs/Day Years Used Date Smoking Tobacco: Former Comments Unknown Sex and Gender Information Value Date Recorded Sex Assigned at Not on file 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 03/28/2020 03/28/2020 04/11/2020 3:0 5 AM RETAIL STORE MANAGER documented as of this encounter Care Teams Radiologist Physician Relationship Specialty Start Date End Date Erica Kelley PA [address] [place] [address] PCP - General Internal Medicine 09/04/18 07/24/23 Joe Roca MD [address] [facility] [address] [place] [address] PCP - General Family Medicine 07/25/23 07/29/23 Erica Kelley PA [address] [place] [address] PCP - General Family Medicine 07/30/23 Kerrie King, RN [address] [place] [address] [address] [place] [address] Coat Operator Insulator 06/17/19 07/21/19 Kareem Stark MD [address] [place] [address] [address] [place] [address] Referring Physician Gastroenterology 11/27/19 Ron Jensen MD [address] [facility] [address] [place] [address] Consulting Physician Obstetrics and Gynecology 11/27/19 documented as of this encounter
--- OUTSIDE RECORDS SUMMARY | 2024-05-19 07:41 | XMS_ITS | Encounter Summary ---
Author Organization [facility] Facility Care Team Providers Care Canning Machine Operator Name Role Phone Erica Kelley Primary Care Provider [phone] Kerrie King RN Unavailable [phone] Kareem Stark MD Unavailable [phone] oRn Jensen MD Unavailable [phone] Joe Roca MD Primary Care Provider [phone] Erica Kelley Primary Care Provider [phone] Encounter Details Date Type Department Care Team (Latest Contact Info) Description 04/05/2018 Orders Only [facility] CLINCONV ProviderJocelynn MD [address] [place] [address] Social History Tobacco Use Types Packs/Day Years Used Date Smoking Tobacco: Former Comments Unknown Sex and Gender Information Value Date Recorded Sex Assigned at Not on file 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 Historical Provider Final Res ult documented in this encounter Visit Diagnoses Not on filedocumented in this encounter Additional Health Concerns Infection Onset Date Last Indicated Resolved Time COVID: Suspected 03/28/2020 03/28/2020 03/28/2020 2:23 PM CONTACT AGENT Respiratory Infection (ERICK), contact + droplet Comment:Automatically added due to negative COVID-19 result. 03/28/2020 03/28/2020 04/11/2020 3:0 5 AM CONTACT AGENT documented as of this encounter Care Teams Canning Machine Operator Relationship Specialty Start Date End Date Erica Kelley PA [address] [place] [address] PCP - General Internal Medicine 09/04/18 07/24/23 Joe Roca MD [address] [facility] [address] [place] [address] PCP - General Family Medicine 07/25/23 07/29/23 Erica Kelley PA [address] [place] [address] PCP - General Family Medicine 07/30/23 Kerrie King, RN [address] [place] [address] [address] [place] [address] Performance Instructor 06/17/19 07/21/19 Kareem Stark MD [address] [place] [address] [address] [place] [address] Referring Physician Gastroenterology 11/27/19 Ron Jensen MD [address] [facility] [address] [place] [address] Consulting Physician Obstetrics and Gynecology 11/27/19 documented as of this encounter
--- OUTSIDE RECORDS SUMMARY | 2024-05-19 07:41 | XMS_ITS | Clinical Summary ---
Author Organization [facility] [place] [address] Address [address] [place] [address] Care Team Providers Care Patternmaker Helper Name Role Phone Kareem Stark MD Unavailable [phone] Ron Jensen MD Unavailable [phone] Erica Kelley Primary Care Provider [phone] Allergies No known active allergies Medications aspirin [...] CDT): Persistent anxiety longstanding. Continue counseling at [facility]. Continue Cymbalta 60. Continue clonazepam 0.5 b.i.d. with a 3rd 1 in the middle of the day as needed Assessment & Plan (09/04/2023 10:40 AM CDT): Patient with persistent anxiety. She continues with Cymbalta 60 and clonazepam 0.5 mg b.i.d.. Advised she can take an extra half tab if she has breakthrough symptoms. Continue with counseling at [facility]. Assessment & Plan (08/09/2023 11:23 PM [...] to do counseling for years. Discussed the [facility] senior servicing on [address]. Will help connect to this group to [...] plan Assessment & Plan (06/12/2023 11:10 PM MANAGER OF FINANCIAL REPORTING): Discussed again at length. Encouraged counseling. Also encouraged the Cymbalta and her other medicine regimen. Assessment & Plan (06/04/2023 12:08 PM MANAGER OF FINANCIAL REPORTING): Reviewed with patient psychosomatic symptoms and how [...] 10/17/2021 Assessment & Plan (02/25/2022 10:26 PM MANAGER OF FINANCIAL REPORTING): Patient's son in July this year. She [...] have good family support. 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 Strongly encouraged her to reach out her drafter chief design. Provided names of counselors in the area [...] day. Assessment & Plan (05/14/2021 1:59 PM MANAGER OF FINANCIAL REPORTING): See jackdorotamer esophagus Hypertension, essential 04/02/2021 Assessment & Plan [...] tabs) Assessment & Plan (06/12/2023 11:10 PM MANAGER OF FINANCIAL REPORTING): Patient has blood pressure elevation but minimal symptoms. She is denying chest pain shortness and breath visual changes. She definitely has somatic symptom cessation. Stressed if she would have any of the symptoms she is immediately go to the ER. Recommend continuing her current blood pressure regimen and will see if she can get going on the Cymbalta fit can make a difference. Will recheck her blood pressure readings in about a week. She is in agreement with the plan Assessment & Plan (06/08/2023 8:15 PM MANAGER OF FINANCIAL REPORTING): Blood pressure still isn't well controlled. Will [...] reassess Assessment & Plan (05/21/2023 9:45 PM MANAGER OF FINANCIAL REPORTING): Encouraged to limit sodium intake and exercise [...] list. Assessment & Plan (05/20/2023 12:50 AM MANAGER OF FINANCIAL REPORTING): Bp is stable/in acceptable range for any [...] amlodipine. Assessment & Plan (02/13/2023 11:13 AM MANAGER OF FINANCIAL REPORTING): Bp is stable/in acceptable range for any [...] isosorbide Assessment & Plan (02/25/2022 10:26 PM MANAGER OF FINANCIAL REPORTING): Bp is stable/in acceptable range for any co-morbidities. Encouraged to limit sodium intake and exercise for weight control. Continue metoprolol amlodipine and isosorbide Assessment & Plan (08/13/2021 3:19 PM CDT): Bp is stable/in acceptable range for any co-morbidities. Encouraged to limit sodium intake and exercise for weight control. Continue with metoprolol amlodipine and isosorbide Assessment & Plan (05/25/2021 7:37 PM MANAGER OF FINANCIAL REPORTING): Bp is stable/in acceptable range for any co-morbidities. Encouraged to limit sodium intake and exercise for weight control. Continue metoprolol, amlodipine and isorbide Assessment & Plan (04/02/2021 10:12 PM MANAGER OF FINANCIAL REPORTING): Bp is stable/in acceptable range for any [...] provided. Assessment & Plan (03/13/2021 8:40 AM MANAGER OF FINANCIAL REPORTING): Obesity is unchanged. Discussed the patient's BMI. [...] provided. Assessment & Plan (06/08/2023 8:16 PM MANAGER OF FINANCIAL REPORTING): Discussed the patient's BMI. The BMI is above average. BMI management plan is completed. BMI Follow-up includes: nutrition counseling, exercise counseling and education provided. Assessment & Plan (05/21/2023 9:43 PM MANAGER OF FINANCIAL REPORTING): Discussed the patient's BMI. The BMI is [...] statin Assessment & Plan (06/13/2019 3:49 AM MANAGER OF FINANCIAL REPORTING): Patient reports hx of stroke several years [...] stable Assessment & Plan (06/08/2023 8:14 PM MANAGER OF FINANCIAL REPORTING): Continue Carafate and PPI as instructed Assessment & Plan (05/20/2023 12:52 AM MANAGER OF FINANCIAL REPORTING): Patient with reflux esophagitis and jackhammer esophagus. Her GI is Dr. Stark but it appears she has not going to be able to get in with him for a little while. Encouraged her to continue with PPI and Carafate 3 to 4 times a day. Continue to monitor closely with her diet and avoid trigger foods. Assessment & Plan (03/22/2022 8:36 PM MANAGER OF FINANCIAL REPORTING): Continue GI regimen until she is able [...] PPI Assessment & Plan (06/13/2019 3:42 AM MANAGER OF FINANCIAL REPORTING): Hx of GERD and PUD. Recent EGD showing only chronic gastritis. - Continue home PPI Assessment & Plan (01/04/2019 3:39 PM CDT): Persistent sxs not responding to multiple PPIs, carafate. Refer to GI for further evalutation. Low back pain with left-sided sciatica 09/15/201 9 Assessment & Plan (08/04/2020 1:03 PM [...] consider ER. Difficulty in swallowing 05/21/2013 Seizure ([facility]) 05/05/2013 Assessment & Plan (08/09/2023 11:23 PM CDT): No seizures on the Dilantin Assessment & Plan (02/13/2023 11:12 AM MANAGER OF FINANCIAL REPORTING): Still on Dilantin. No history of seizures Assessment & Plan (08/19/2022 6:13 PM CDT): History of seizures. No recent seizures. Continue with Dilantin. Offered referral to Neurology to discuss since it has been a long times and she is had a seizure but would rather just continue with the medicine. Assessment & Plan (02/25/2022 10:27 PM MANAGER OF FINANCIAL REPORTING): No current seizure history. Continue Dilantin Assessment [...] managment Assessment & Plan (06/13/2019 3:47 AM MANAGER OF FINANCIAL REPORTING): Hx of unspecified seizure disorder. - Continue [...] to do counseling for years. Discussed the [facility] senior serv[facility] on [address]. Will help connect to this group to see if this is possibility as they can assist with transportation. Continue clonazepam 0.5 mg b.i.d. and Cymbalta 60 mg daily. Continue with trazodone HS as needed. Assessment & Plan (06/12/2023 11:06 PM MANAGER OF FINANCIAL REPORTING): Patient continues to have persistent anxiety depression [...] her with the [facility] at [facility] and she should be able to get in with counseling and assistance with transportation as needed. If she has any problems or concerns she is to call the office immediately Assessment & Plan (06/08/2023 8:14 PM MANAGER OF FINANCIAL REPORTING): Attempts continued anxiety that still is not fully controlled with Cymbalta 60 and Xanax 0.5 b.i.d.. Patient admits it does not feel like the same last very long. Discussed importance of truly anxiety psycho somatically I think this is affecting her physical health. Will stop the Xanax. Start clonazepam 0.5 b.i.d.. Follow-up in 4-6 weeks to reassess Assessment & Plan (05/20/2023 12:54 AM MANAGER OF FINANCIAL REPORTING): Patient has ongoing anxiety and depression symptoms. Increase the Cymbalta to 60 b.i.d.. 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 Assessment & Plan (02/13/2023 11:12 AM MANAGER OF FINANCIAL REPORTING): Stable with Lexapro 20 Assessment & Plan [...] 10 Assessment & Plan (03/22/2022 8:37 PM MANAGER OF FINANCIAL REPORTING): Continue Lexapro 10 mg. Strongly encouraged start counseling. Provided information for the [facility]. Assessment & Plan (02/25/2022 10:27 PM MANAGER OF FINANCIAL REPORTING): Patient restarted Lexapro and is doing well. [...] have good family support. 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 Strongly encouraged her to reach out her drafter chief design. Provided names of counselors in the area [...] prn Assessment & Plan (05/25/2021 7:38 PM MANAGER OF FINANCIAL REPORTING): Patient has discontinued all medications. May need to revisit if sxs continue Assessment & Plan (04/02/2021 10:12 PM MANAGER OF FINANCIAL REPORTING): Continue Cymbalta Assessment & Plan (02/04/2021 8:47 [...] area. Assessment & Plan (06/13/2019 3:46 AM MANAGER OF FINANCIAL REPORTING): Hx of depression and anxiety symptoms exacerbated [...] anti-depressant/anxiolytic Assessment & Plan (05/09/2019 10:52 PM MANAGER OF FINANCIAL REPORTING): Continue with the Cymbalta Assessment & Plan [...] completed within the chart Obesity (BMI 30.0-34.9) 08/09/202307/2023 Assessment & Plan (09/04/2023 10:36 AM CDT): [...] 08/09/2023 Assessment & Plan (05/20/2023 12:54 AM MANAGER OF FINANCIAL REPORTING): See anxiety BMI 33.0-33.9,adult 05/07/2023 05/21/19 24 Assessment & Plan (05/20/2023 12:54 AM MANAGER OF FINANCIAL REPORTING): Weight/BMI is in healthy range. Continue healthy lifestyle to maintain. Need for influenza vaccination 02/13/2023 08/09/2023 Assessment & Plan (02/13/2023 11:13 AM MANAGER OF FINANCIAL REPORTING): Flu vaccine updated in the office today Medicare annual wellness visit, subsequent 02/13/2023 05/20/2023 Assessment & Plan (02/13/2023 11:14 AM MANAGER OF FINANCIAL REPORTING): Encouraged healthy lifestyle, good nutrition and exercise. [...] 11/01/202205/09 Assessment & Plan (02/13/2023 11:13 AM MANAGER OF FINANCIAL REPORTING): Discussed the patient's BMI. The BMI is [...] BMI between 35.00-39.99. BMI 35.0-35.9,adult 11/01/2022 05/07/19 Assessment & Plan (02/13/2023 10:41 AM MANAGER OF FINANCIAL REPORTING): Discussed the patient's BMI. The BMI is [...] BMI between 35.00-39.99. BMI 35.0-35.9,adult 08/02/2022 11/02/19 Assessment & Plan (08/02/2022 10:54 AM CDT): Discussed the patient's BMI. The BMI is above average. BMI management plan is completed. BMI Follow-up includes: nutrition counseling, exercise counseling and education provided. Need for immunization against influenza 03/22/2022 08/02/2022 Assessment & Plan (03/22/2022 8:36 PM MANAGER OF FINANCIAL REPORTING): Flu vaccine updated in the office today BMI 35.0-35.9,adult 03/22/2022 08/03/19 Assessment & Plan (03/22/2022 8:36 PM MANAGER OF FINANCIAL REPORTING): Discussed the patient's BMI. The BMI is above average. BMI management plan is completed. BMI Follow-up includes: nutrition counseling, exercise counseling and education provided. Medicare annual wellness visit, subsequent 02/25/2022 08/02/2022 Assessment & Plan (02/25/2022 10:26 PM MANAGER OF FINANCIAL REPORTING): Encouraged healthy lifestyle, good nutrition and exercise. Encouraged Calcium and Vitamin D and weight bearing exercise for bone health. Reviewed immunizations. Reviewed age appropirate screenings. Medicare Wellness Documentation is completed within the chart Morbid obesity 10/17/2021 08/02/2022 Assessment & Plan (03/22/2022 8:37 PM MANAGER OF FINANCIAL REPORTING): Discussed the patient's BMI. The BMI is above average. BMI management plan is completed. BMI Follow-up includes: nutrition counseling, exercise counseling and education provided. Patient has an obesity-related condition (not limited to: hypertension, obstructive sleep apnea, osteoarthritis, hyperlipidemia, diabetes, etc.). Therefore, morbid obesity may be documented for patients with a BMI between 35.00-39.99. Assessment & Plan (02/25/2022 10:26 PM MANAGER OF FINANCIAL REPORTING): Discussed the patient's BMI. The BMI is above average. BMI management plan is completed. BMI Follow-up includes: nutrition counseling, exercise counseling and education provided. Assessment & Plan (10/17/2021 10:37 AM CDT): Obesity is unchanged. Discussed the patient's BMI. The BMI is above average. BMI management plan is completed. BMI Follow-up includes: nutrition counseling, exercise counseling and education provided. BMI 34.0-34.9,adult 10/17/2021 07/31/19 Assessment & Plan (06/27/2023 8:10 PM CDT): Discussed the patient's BMI. The BMI is above average. BMI management plan is completed. BMI Follow-up includes: nutrition counseling, exercise counseling and education provided. Assessment & Plan (06/08/2023 8:17 PM MANAGER OF FINANCIAL REPORTING): Discussed the patient's BMI. The BMI is above average. BMI management plan is completed. BMI Follow-up includes: nutrition counseling, exercise counseling and education provided. Assessment & Plan (05/21/2023 9:43 PM MANAGER OF FINANCIAL REPORTING): Discussed the patient's BMI. The BMI is above average. BMI management plan is completed. BMI Follow-up includes: nutrition counseling, exercise counseling and education provided. Assessment & Plan (02/25/2022 10:26 PM MANAGER OF FINANCIAL REPORTING): Discussed the patient's BMI. The BMI is above average. BMI management plan is completed. BMI Follow-up includes: nutrition counseling, exercise counseling and education provided. Assessment & Plan (10/17/2021 10:37 AM CDT): Obesity is unchanged. Discussed the patient's BMI. The BMI is above average. BMI management plan is completed. BMI Follow-up includes: nutrition counseling, exercise counseling and education provided. Shortness of breath 10/17/2021 08/09/19 Assessment & Plan (10/17/2021 10:24 PM CDT): [...] 05/25/20212021 Assessment & Plan (05/25/2021 11:46 AM MANAGER OF FINANCIAL REPORTING): Obesity is unchanged. Discussed the patient's BMI. The BMI is above average. BMI management plan is completed. BMI Follow-up includes: nutrition counseling, exercise counseling and education provided. BMI 33.0-33.9,adult 05/25/2021 07/27/19 Assessment & Plan (05/25/2021 11:46 AM MANAGER OF FINANCIAL REPORTING): Obesity is unchanged. Discussed the patient's BMI. The BMI is above average. BMI management plan is completed. BMI Follow-up includes: nutrition counseling, exercise counseling and education provided. Fatigue 05/25/2021 08/09/2023 Assessment & Plan (02/13/2023 11:13 AM MANAGER OF FINANCIAL REPORTING): Probably multifactorial. Check labs and followup to re-evaluate Assessment & Plan (11/04/2022 5:52 PM CDT): Probably multifactorial. Check labs and followup to re-evaluate Assessment & Plan (05/25/2021 7:37 PM MANAGER OF FINANCIAL REPORTING): Probably multifactorial. 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 Her GI is Dr. Stark but it appears she has not going to be able to get in with him for a little while. Encouraged her to continue with PPI and Carafate 3 to 4 times a day. Continue to monitor closely with her diet and avoid trigger foods. Assessment & Plan (02/13/2023 11:12 AM MANAGER OF FINANCIAL REPORTING): Continue per Dr. Stark. Seems to have [...] concerns. Assessment & Plan (02/25/2022 10:25 PM MANAGER OF FINANCIAL REPORTING): Continue per Dr. Stark currently taking Xanax every day and using the Carafate and Compazine p.r.n.. States Xanax is the only thing that seems to help her. States she can not get back in with Dr. Stark for a few months and is requesting refills right now Assessment & Plan (08/13/2021 3:18 PM CDT): Continue per GI at [facility] and Dr. Stark Assessment & Plan (05/25/2021 7:36 PM MANAGER OF FINANCIAL REPORTING): Continue per GI - Dr. Stark She is on Librax and Protonix. Assessment & Plan (05/14/2021 2:00 PM MANAGER OF FINANCIAL REPORTING): Patient was diagnosed with jackhammer esophagus and has been following at [facility] with Dr. Alexia Mojica. She has had [...] she needs to contact the GI at [facility] for further instructions to continue to get better control of this jackhammer esophagus. May continue the PPI, Bentyl and carafate. Assessment & Plan (04/02/2021 10:13 PM MANAGER OF FINANCIAL REPORTING): Continue per GI. They have encouraged proper med outweighed along with diltiazem 30 mg q.i.d.. Will stop the amlodipine and transition to the diltiazem and monitor blood pressure carefully. See hypertension. Obesity (BMI 30-39.9) 03/13/20212021 Assessment & Plan (03/13/2021 8:40 AM MANAGER OF FINANCIAL REPORTING): Obesity is unchanged. Discussed the patient's BMI. [...] from progressing to diabetes. Mixed hyperlipidemia 11/27/2019 0503/ 024 Assessment & Plan (02/13/2023 11:13 AM MANAGER OF FINANCIAL REPORTING): Encouraged patient to follow low fat/low chol [...] 10 Assessment & Plan (02/25/2022 10:25 PM MANAGER OF FINANCIAL REPORTING): Encouraged patient to follow low fat/low chol [...] 08/09/2023 Assessment & Plan (06/12/2023 11:09 PM MANAGER OF FINANCIAL REPORTING): Patient continues to have persistent anxiety depression [...] her with the [facility] at [facility] and she should be able to get in with counseling and assistance with transportation as needed. If she has any problems or concerns she is to call the office immediately Assessment & Plan (06/08/2023 8:15 PM MANAGER OF FINANCIAL REPORTING): Attempts continued anxiety that still is not fully controlled with Cymbalta 60 and Xanax 0.5 b.i.d.. Patient admits it does not feel like the same last very long. Discussed importance of truly anxiety psycho somatically I think this is affecting her physical health. Will stop the Xanax. Start clonazepam 0.5 b.i.d.. Follow-up in 4-6 weeks to reassess Assessment & Plan (05/20/2023 12:54 AM MANAGER OF FINANCIAL REPORTING): Patient has ongoing anxiety and depression symptoms. Increase the Cymbalta to 60 b.i.d.. 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 Assessment & Plan (02/13/2023 11:12 AM MANAGER OF FINANCIAL REPORTING): Symptoms are stable with Lexapro 10. Using the trazodone to rest which is helpful also Assessment & Plan (08/13/2021 3:14 PM CDT): Continue Cymbalta and Trazodone prn Assessment & Plan (04/02/2021 10:09 PM MANAGER OF FINANCIAL REPORTING): Continued anxiety exacerbated by her son's recent [...] provider. Will reach out to our nurse project product manager for assistance to try to avoid [...] 08/12/19 Assessment & Plan (04/20/2019 11:27 AM MANAGER OF FINANCIAL REPORTING): Weight/BMI is in healthy range. Continue healthy [...] time. Assessment & Plan (06/13/2019 3:46 AM MANAGER OF FINANCIAL REPORTING): Increased nausea and vomiting related to increased [...] Stark. Assessment & Plan (06/13/2019 3:42 AM MANAGER OF FINANCIAL REPORTING): Patient with long history of chronic abdominal [...] pain Assessment & Plan (05/09/2019 10:52 PM MANAGER OF FINANCIAL REPORTING): Reviewed mediations that Dr. Stark's office had started her on. She doesn't want to take any of them . Will contact Dr. Stark's office to try to get her in earlier so she can be evaluated before her husbands surgery Encounters Date Type Department Care Team Description 05/14/2024 Orders Only [address] [place] [phone] Erica Kelley PA Hypertension, essential (Primary Dx); Mixed hyperlipidemia; Pre-diabetes; Generalized weakness; Other fatigue; Muscle pain; Muscle tightness 05/13/2024 Orders Only [address] [place] [phone] Erica Kelley PA 05/13/[address] [place] [phone] Erica Kelley PA Symptom Based Call from Last 3 Months Immunizations Name Administration Dates Next Due Influenza, Quadrivalent, Hig h Dose, Preservative Free, Intrr 02/13/2023,03/21/2022,02/01/2021,01/13 Influenza, Trivalent, High D ose, Split, Preservative Free, Intramuscular 01/16/2017 Influenza, Unspecified 05/09/2022(Deferr ed: Patient Refused),05/09/2021(Deferred: Patient Refused),04/20/2019(Deferred: Patient Refused),01/07/2013 Moderna SARS-CoV-2 Monovalen t Vaccination (12+ YRS) 10/01/2020,09/02/2020 Pneumococcal Conjugate PCV 13 11/26/2019 Pneumococcal Polysaccharide PPV23 02/01/2021 Tdap 12/20/2014 Surgical History Surgery Date Site/Laterality Comments COLONOSCOPY 05/20/2013 CHOLECYSTECTOMY ADRENAL GLAND SURGERY Right TUBAL LIGATION CARDIAC CATHETERIZATION 06/07/2015 - 07/07/2015 GASTRIC BYPASS DILATION AND CURETTAGE OF UTERUS Medical History Medical History Date Comments Hypertension Seizure disorder (CMS/HCC) (HCC) Peptic ulcer disease Stroke (HCC) Anxiety Urinary incontinence IBS (irritable bowel syndrome) Diverticulosis GERD (gastroesophageal reflux disease) Depression Lung nodule seen on imaging study Family History Medical History Relation Name Comments Lung cancer Father Hypertension Mother Lung cancer Son Relation Name Status Comments Father Mother Son Social History Tobacco Use Types Packs/Day Years [...] on file Legal Sex Female 4:02 AM MANAGER OF FINANCIAL REPORTING Gender Identity Not on file Sexual Orientation Not on file Occupation Industry Job Start Date Job End Date Retired Not on file Not on file Not on file Obstetrics History Para Term AB IAB SAB Ectopic Multiple Livin g Live Births 3 3 Date Outcome GA Total Labor Labor/2nd/3rd Weight Sex Type Anes PTL Fabiola A1 A5 Name Clin Para Para Para Last Filed Vital Signs Vital Sign Reading Time Taken Comments Blood Pressure 138/70 12/11/2023 9:29 AM CDT Pulse 58 12/11/2023 9:29 AM CDT Temperature 36.5 C (97.7 F) 12/11/2023 9:29 AM CDT Respiratory Rate 18 04/30/2022 10:20 AM MANAGER OF FINANCIAL REPORTING Oxygen Saturation 98% 12/11/2023 9:29 AM CDT Inhaled Oxygen Concentration - - Weight 80.4 kg (177 lb 3.2 oz) 12/11/2023 9:29 A M CDT Height 154.9 cm (5' 1 ) 12/11/2023 9:29 AM CDT Body Mass Index 33.48 12/11/2023 9:29 AM CDT Plan of Treatment Health Maintenance Due Date Last Done Comments Hepatitis C Screening 1945 Osteoporosis Screening-Bone Density Scan 1945 Hepatitis B Screening 12/29/1963 Zoster Vaccine (1 of 2) 12/29/1995 Colon Cancer Screening-FIT 06/27/2022 06/27/2021, Colon Cancer Screening-FOBT 06/27/2022 06/27/2021, 0 05/20/2013 Covid-19 Vaccine (3 - 2023-2 5 season) 2023 10/01/2020, 09/02/2020 Influenza Vaccine (#1) 2023 , 03/21/2022, 02/01/2021, Additional history exists Colon Cancer Screening-DNA Stool 06/27/2024 06/28/19 22, 05/20/2013 Well Visit 65+ 07/30/2024 07/31/2023, 11/11/2022, 08/02/2022, Additional history exists Depression Screening 12/10/2024 12/11/2023, 09/04/2023, 07/31/2023, Additional history exists Fall Risk Assessment 12/10/2024 12/11/2023, 07/31/2023, 02/13/2023, Additional history exists DTaP/Tdap/Td Vaccine (2 - Td or Tdap) 12/20/2024 12/20/2014 Colon Cancer Screening-CT Colonography 06/27/2026 06/27/2021, 05/20/2013 Colon Cancer Screening-Colonoscopy 06/27/20262021, 05/20/2013 Colon Cancer Screening-Sigmoidoscopy 06/27/2026 06/27/2021, 05/20/2013 Colorectal Cancer Screening 06/27/2026 Pneumococcal vaccine 65+ Completed 02/01/2021, 11/07 Goals Goal Patient Goal Type Associated Problems [...] property damage. Medical Devices Implanted Type Area Director Fraud Device Identifier Shelf Expiration Date Model / [...] in stressors, but express continued worry about groover runner stability. Patient will need to learn coping skills to manage these disorders to improve overall function and response to [place] [address] [employer] MED[employer] HMO mktg MEDICARE O [employer] MED[employer]ARE HMO Advance Directives For more information, please contact: [phone] * Full Code (Latest Code Status on File) Date Activated Date Inactivated Comments 05/18/2021 9:46 PM 05/22/2021 8:57 PM * Full Code Date Activated Date Inactivated Comments 05/18/2021 4:50 PM 05/18/2021 9:46 PM * Full Code Date Activated Date Inactivated Comments 06/12/2019 10:30 PM 06/14/2019 6:07 PM Care Teams Patternmaker Helper Relationship Specialty Start Date End Date Erica Kelley PA [address] [address] PCP - General Family Medicine 07/30/23 Kareem Stark MD Referring Physician Gastroenterology 11/27/19 Ron Jensen MD [facility] [facility] [address] [place] [id number] Consulting Physician Obstetrics and Gynecology 11/27/19
--- OUTSIDE RECORDS SUMMARY | 2024-05-19 07:42 | XMS_ITS | Patient Health Summary ---
Author Organization [facility] Address [address] [facility] [place] [address] Care Team Providers Care Vehicle Service Agent Name Role Phone Erica Kelley PA-C Primary Care Provider [phone] Note from [facility],non-owned Affiliates and Associated Physician Practices is amultiple site organization consisting of ambulatory clinics and hospital sitesin [place], [place], [place] and [place]. This disclosure is being madepursuant to the Care Everywhere program and may not contain all information available regarding this patient. Last updated 17.[facility] Allergies No known active allergies Medications * Be aware that medications may not be up to date on this document. Alwaysverify current medications with the patient. * amLODIPine (NORVASC) 5 MG tablet(Started 06/01/2020) Take 5 mg by mouth once daily * dicyclomine (BENTYL) 10 MG capsule(Started 07/18/2020) 3 times daily * fluticasone propionate (FLONASE) 50 MCG/ACT nasal spray(Started 08/12/2019) SPRAY 1 SPRAY INTO EACH NOSTRIL EVERY DAY * pantoprazole EC (PROTONIX) 40 MG tablet(Started 06/29/2020) Take 40 mg by mouth once daily * phenytoin ER (DILANTIN) 100 MG capsule(Started 04/21/2020) TAKE 1 CAPSULE BY MOUTH TWICE A DAY * sucralfate (CARAFATE) 1 GM tablet(Started 07/18/2020) * traZODone (DESYREL) 50 MG tablet(Started 06/04/2020) 100 mg * aspirin EC (ECOTRIN) 81 MG tablet Take 81 mg by mouth once daily * prochlorperazine (COMPAZINE) 10 MG tablet(Started 04/27/2021) Take 1 (one) tablet by mouth 3 times daily as needed for Nausea/Vomiting Social History Tobacco Use Types Packs/Day Years Used Date Smoking Tobacco: Former Cigarettes Q uit: 04/08/1969 Smokeless Tobacco: Never Alcohol Use Standard Drinks/Week Comments Never 0 (1 standard drink = 0.6 oz pur e alcohol) Sex and Gender Information Value Date Recorded Sex Assigned at Not on file Gender Identity Not on file Sexual Orientation Not on file Last Filed Vital Signs Vital Sign Reading Time Taken Comments Blood Pressure 197/84 03/09/2021 8:16 AM MEDICAL TRANSCRIPTION SUPERVISOR Pulse 78 03/09/2021 8:16 AM MEDICAL TRANSCRIPTION SUPERVISOR Temperature 36.7 C (98 F) 03/09/2021 8:16 AM MEDICAL TRANSCRIPTION SUPERVISOR Respiratory Rate 14 03/09/2021 8:16 AM MEDICAL TRANSCRIPTION SUPERVISOR Oxygen Saturation 100% 03/09/2021 8:16 AM MEDICAL TRANSCRIPTION SUPERVISOR Inhaled Oxygen Concentration - - Weight 80.3 kg (177 lb) 03/09/2021 8:16 AM MEDICAL TRANSCRIPTION SUPERVISOR Height 154.9 cm (5' 1 ) 03/09/2021 8:16 AM MEDICAL TRANSCRIPTION SUPERVISOR Body Mass Index 33.44 03/09/2021 8:16 AM MEDICAL TRANSCRIPTION SUPERVISOR Procedures * ESOPHAGUS/GASTROESOPHAGEAL REFLUX TEST(Performed 08/25/2020) Performed for Gastroesophageal reflux disease, unspecified whether esophagitis present, Nausea * GASTRIC MOTILITY STUDY(Performed 08/25/2020) Performed for Gastroesophageal reflux disease, unspecified whether esophagitis present, Nausea * CULTURE URINE(Performed 03/10/2014) Results * CULTURE URINE (03/10/2014 1:43 PM MEDICAL TRANSCRIPTION SUPERVISOR) Culture Urine Greater than or Equal to 10,000 CFU/ML Normal Urogenital/ Skin Johnna at 48 Hours [facility] Comment:. Urine specimen (specimen) URINE SPECIMEN OBTAINED BY CLEAN CATCH PROCEDURE / Unknown 03/10/2014 1:43 PM MEDICAL TRANSCRIPTION SUPERVISOR 03/10/2014 9:47 PM MEDICAL TRANSCRIPTION SUPERVISOR Narrative [facility] - 03/12/2014 11:12 AM MEDICAL TRANSCRIPTION SUPERVISOR Uri#[id number] Antonio Loc/Rm/Bed: OP SGPREOP// CLN CATCH U Historical Provider LAB - MICROBIOLOG Y ORDERABLES [facility] [address] [place] [address], [facility] [phone] Care Teams Vehicle Service Agent Relationship Specialty Start Date End Date Erica Kelley PA-C [address] [address] PCP - General 01/05/21
--- OUTSIDE RECORDS SUMMARY | 2024-05-19 07:42 | XMS_ITS | Clinical Summary ---
Author Organization [facility] Address [address] [place] [address] Care Team Providers Care Comb Tender Name Role Phone Erica Kelley Primary Care Provider [phone] Allergies Active Allergy Reactions Criticality Noted Date Comments Seasonal Itching 09/21/2022 Medications phenytoin ER 100 MG capsule Take 1 capsule (100 mg total) by mouth 2 (two) times daily. 01/26/2019 Active sucralfate 1 G tablet Take 1 tablet (1 g total) by mouth 3 (three) times daily before meals. 05/04/2019 Active trazodone 50 MG tablet 1 tablet (50 mg total) 2 (two) times a day. 05/04/2019 Active metoprolol tartrate 25 MG tablet Take 0.5 tablets (12.5 mg total) by mouth 2 (two) times daily. Active ALPRAZolam (XANAX) 0.25 MG tablet Take 1 tablet (0.25 mg total) by mouth 2 (two) times daily. 08/02/2022 Active budesonide-formo terol (SYMBICORT) 160-4.5 MCG/ACT inhaler Inhale 2 puffs into the lungs 2 (two) times daily as needed (shortness of breath). 04/30/2022 Active aspirin EC (ECOTRIN) 81 MG tablet Take 1 tablet (81 mg total) by mouth daily. Active esomeprazole (NEXIUM) 40 MG capsule Take 1 capsule (40 mg total) by mouth 2 (two) times daily. 09/12/2022 Active isosorbide mononitrate ER (IMDUR) 30 MG 24 hr tablet Take 1 tablet (30 mg total) by mouth after lunch. 09/12/2022 Active amLODIPine (NORVASC) 10 MG tablet Take 1 tablet (10 mg total) by mouth nightly at bedtime. Active prochlorperazine (COMPAZINE) 10 MG tablet Take 1 tablet (10 mg total) by mouth every 6 (six) hours as needed (For nausea). 30 tablet 09/22/2022 Active Active Problems Problem Noted Date Diagnosed Date Hypertensive urgency 09/21/2022 Family History Medical History Relation Comments Cancer Father Hypertension Mother Cancer Son lung Relation Status Comments Father Mother Son Social History Tobacco Use Types Packs/Day Years Used Date Smoking Tobacco: Former Cigarettes Passive Smoke Exposure: Past Smokeless Tobacco: Never Tobacco Cessation:Counseling Given: Not Answered Alcohol Use Standard Drinks/Week Comments Never 0 (1 standard drink = 0.6 oz pur e alcohol) Humiliation, Afraid, Rape, and Kick questionnair e Answer Date Recorded Within the last year, have y ou been afraid of your partner or ex-partner? No 09/22/2022 Within the last year, have y ou been humiliated or emotionally abused in other ways by your partner or ex-partner? No Within the last year, have y ou been kicked, hit, slapped, or otherwise physically hurt by your partner or ex-partner? No 09/22/2022 Within the last year, have y ou been raped or forced to have any kind of sexual activity by your partner or ex-partner? No 09/22/2022 AUDIT-C Answer Date Recorded Frequency of Alcohol Consumption Never 05/19/2019 Average Number of Drinks Not on file 020 Frequency of Binge Drinking Not on file 05/09 Overall Financial Resource Strain (CARDIA) Answe r Date Recorded How hard is it for you to pa y for the very basics like food, housing, medical care, and heating? Not hard at all 09/22/2022 Hunger Vital Sign Answer Date Recorded Within the past 12 months, y ou worried that your food would run out before you got the money to buy more. Never true 09/23/19 23 Within the past 12 months, t he food you bought just didn't last and you didn't have money to get more. Never true 09/22/2022 PRAPARE - Transportation Answer Date Re corded In the past 12 months, has l ack of transportation kept you from medical appointments or from getting medications? No 09/06 In the past 12 months, has l ack of transportation kept you from meetings, work, or from getting things needed for daily living? No 09/22/2022 Housing Stability Vital Sign Answer Albert e Recorded In the last 12 months, was t here a time when you were not able to pay the mortgage or rent on time? No 09/22/2022 In the last 12 months, how many places have you lived? 1 09/22/2022 In the last 12 months, was t here a time when you did not have a steady place to sleep or slept in a long term (including now)? 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 Gender Identity Not on file Sexual Orientation Not on file Last Filed Vital Signs Vital Sign Reading Time Taken Comments Blood Pressure 162/80 09/22/2022 7:50 AM CDT nurse notified Pulse 71 09/22/2022 7:50 AM CDT Temperature 36.7 C (98 F) 09/22/2022 7:50 AM CDT Respiratory Rate 20 09/22/2022 7:50 AM CDT Oxygen Saturation 95% 09/22/2022 7:5 0 AM CDT Inhaled Oxygen Concentration - - Weight 81.8 kg (180 lb 6.4 oz) 09/21/2022 11:17 PM CDT Height 154.9 cm (5' 1 ) 09/21/2022 5:23 PM CDT Body Mass Index 34.09 09/21/2022 5:23 PM CDT Plan of Treatment Health Maintenance Due Date Last Done Comments Hepatitis C 12/29/1963 Zoster Vaccines (1 of 2) 12/29/1995 Annual Medicare Wellness Visit 2010 Dexa Scan (General) 2010 RSV Immunization or 60+ Years (1 - 1-dose 75+ series) 2020 COVID-19 Vaccine (2023-2 5 season) 2023 10/01/2020, 09/02/2020 Influenza Adult (#1) 2024 01/16/2017, 01/07/2013 DTaP, Tdap and Td Vaccines ( 2 - Td or Tdap) 12/20/2024 12/20/2014 Pneumococcal Vaccine: 65+ Years Completed 02/01/2021, 11/26/2019 Colorectal Cancer Screening Colonoscopy (10 Years) Discontinued 06/27/2021, 06/27/2021 Meningococcal B Vaccine Aged Out No l onger eligible based on patient's age to complete this topic Meningococcal Vaccine Aged Out No alex zak eligible based on patient's age to complete this topic RSV Immunizations Under 20 Months Aged Out No longer eligible based on patient's age to complete this topic Medical Devices Implanted Type Area Disc Pad Knockout Worker Device Identifier Shelf Expiration Date Model / Serial / Lot Bladder Description:Battery currentl y . Procedures Procedure Name Priority Date/Time Associated Diagnosis Comments COLONOSCOPY Routine 06/27/2021 6:52 AM CDT from Last 3 Months or Most Recently Relevant to Health Maintenance Results * Colonoscopy (06/27/2021 6:52 AM CDT) Narrative Kareem Stark MD - 06/27/2021 6:52 AM CDT Kareem Stark MD 06/27/2021 7:34 AM KAREEM STARK MD, FACG, FACP COLONOSCOPY 06/27/2021 INDICATION: Screening for colon cancer. POST-OP: Normal. SEDATION: Per Anesthesia PREP: Good. With the patient in the left lateral decubitus position, the Olympus [id number] colonoscope was introduced into the rectum and advanced easily to the Terminal Ileum. Careful inspection of the mucosa was made upon insertion and withdrawal of the endoscope. FINDINGS: Terminal ileum: distal 5 cm normal. Cecum, Ascending colon, Transverse colon, Descending colon, Sigmoid colon and Rectum including retroflexion normal. No masses, polyps, AVMs, colitis or diverticulosis seen. No complications, blood loss or implants. ASSESSMENT AND PLAN: A. Unremarkable colonoscopy: given age, no repeat colonoscopy needed. B. 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 Rodas of Cardiology for evaluation (has had hypertensive urgency) Thank you for allowing me to care for your patient. She will follow-up with my office in 4-6 weeks. Kareem Stark M.D. Cc: GM Kelley; Dr. Rodas us Kareem Stark MD GI PROCEDURE ORDERABLES Fin al Result from Last 3 Months or Most Recently Relevant to Health Maintenance Insurance [employer] Advance Directives * Full Code (Latest Code Status on File) Date Activated Date Inactivated Comments 09/22/2022 8:36 AM 09/22/2022 1:58 PM Care Teams Comb Tender Relationship Specialty Start Date End Date Erica Kelley PA [address] [facility] [id number] [place] [address] PCP - General PHYSICIAN LOW PRESSURE KETTLE OPERATOR 05/15/19
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
--- OUTSIDE RECORDS SUMMARY | 2024-05-19 07:42 | XMS_ITS | Referral Summary ---
Author Organization [facility] Address [address] [place] [address] Care Team Providers Care Broth Setter Name Role Phone Erica Kelley PA-C Primary Care Provider [phone] Source Comments [facility],non-owned Affiliates and Associated Physician Practices is amultiple site organization consisting of ambulatory clinics and hospital sitesin [place], [place], [place] and [place]. This disclosure is being madepursuant to the Care Everywhere program and may not contain all information available regarding this patient. Last updated 17.[facility] Allergies No known active allergies Medications * Be aware that medications may not be up to date on this document. Alwaysverify current medications with the patient. Medication Sig Dispensed Refills Start Date End Date Status amLODIPine (NORVASC) 5 MG tablet Take 5 mg by mouth once daily 06/01/2020 Active dicyclomine (BENTYL) 10 MG capsule 3 times daily 07/18/2020 Active fluticasone propionate (FLONASE) 50 MCG/ACT nasal spray SPRAY 1 SPRAY INTO EACH NOSTRIL EVERY DAY 08/12/2019 Active pantoprazole EC (PROTONIX) 40 MG tablet Take 40 mg by mouth once daily 06/29/2020 Active phenytoin ER (DILANTIN) 100 MG capsule TAKE 1 CAPSULE BY MOUTH TWICE A DAY 04/21/2020 Active sucralfate (CARAFATE) 1 GM tablet 07/18/2020 Active traZODone (DESYREL) 50 MG tablet 100 mg 06/04/2020 Active aspirin EC (ECOTRIN) 81 MG tablet Take 81 mg by mouth once daily Active prochlorperazine (COMPAZINE) 10 MG tablet Take 1 (one) tablet by mouth 3 times daily as needed for Nausea/Vomiting 30 tablet 04/27/2021 Active Social History Tobacco Use Types Packs/Day Years [...] Comments Blood Pressure 197/84 03/09/2021 8:16 AM SOFT METALS ENGRAVER HAND Pulse 78 03/09/2021 8:16 AM SOFT METALS ENGRAVER HAND Temperature 36.7 C (98 F) 03/09/2021 8:16 AM SOFT METALS ENGRAVER HAND Respiratory Rate 14 03/09/2021 8:16 AM SOFT METALS ENGRAVER HAND Oxygen Saturation 100% 03/09/2021 8:16 AM SOFT METALS ENGRAVER HAND Inhaled Oxygen Concentration - - Weight 80.3 kg (177 lb) 03/09/2021 8:16 AM SOFT METALS ENGRAVER HAND Height 154.9 cm (5' 1 ) 03/09/2021 8:16 AM SOFT METALS ENGRAVER HAND Body Mass Index 33.44 03/09/2021 8:16 AM SOFT METALS ENGRAVER HAND Plan of Treatment Not on file Goals Goal Patient Goal Type Associated Problems Recent Progress Patient-Stated? Author Medication Management General On track( 021 8:22 AM SOFT METALS ENGRAVER HAND) Tammie Perez, SUSAN Note: Expected end date: ongoing Interventions: Take all medications as prescribed Let your doctor know right away about any changes in your medications Make sure to request a refill of your medication at least one week prior to your last dose Care Teams Broth Setter Relationship Specialty Start Date End Date Erica Kelley, PA-C [address] [place] [address] [address] [place] [address] PCP - General 01/05/21
--- OUTSIDE RECORDS SUMMARY | 2024-05-19 07:42 | XMS_ITS | Encounter Summary ---
Author Organization [facility] Healthcare Address [address] [place] [address] Care Team Providers Care Chamber Walker Name Role Phone Kareem Stark MD Unavailable [phone] Ron Jensen MD Unavailable [phone] Erica Kelley Primary Care Provider [phone] Encounter Details Date Type Department Care Team (Late st Contact Info) Description 09/20/2023 Telephone [facility] [address] [place] [address] Kavita Chavis Social History Tobacco Use Types Packs/Day Years Used Date Smoking Tobacco: Former Cigarettes 1 3 0 04/08/1976 - 04/08/1979 Smokeless Tobacco: Never Alcohol Use Standard Drinks/Week Comments Never 0 (1 standard drink = 0.6 oz pur e alcohol) AUDIT-C Answer Date Recorded Q1: How often do you have a drink containing alcohol? Never 07/31/2023 Q2: How many drinks containi ng alcohol do you have on a typical day when you are drinking? Patient does not drink Q3: How often do you have si x or more drinks on one occasion? Never 07/31/2023 Overall Financial Resource Strain (CARDIA) Answe r Date Recorded How hard is it for you to pa y for the very basics like food, housing, medical care, and heating? 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 Patient will need to learn coping skills to manage these disorders to improve overall function and response to life stressors. documented as of this encounter Care Teams Chamber Walker Relationship Specialty Start Date End Date Erica Kelley PA [address] [facility] [address] [place] [address] PCP - General Family Medicine 07/30/23 Kareem Stark MD Referring Physician Gastroenterology 11/27/19 Ron Jensen MD [address] [address] Consulting Physician Obstetrics and Gynecology 11/27/19 documented as of this encounter
--- OUTSIDE RECORDS SUMMARY | 2024-05-19 07:42 | XMS_ITS | Encounter Summary ---
Author Organization [facility] Healthcare Address [address] [place] [address] Care Team Providers Care Mumps Developer Name Role Phone Kareem Stark MD Unavailable [phone] Ron Jensen MD Unavailable [phone] Erica Kelley Primary Care Provider [phone] Encounter Details Date Type Department Care Team (Late st Contact Info) Description 07/30/2023 Telephone [facility] Family Medicine at [address] [phone] Joe Roca MD [address] [place] [id number] Social History Tobacco Use Types Packs/Day Years [...] PHQ-2 Answer Date Recorded PHQ-2 Total Score 7 07/31/2023 Hunger Vital Sign Answer Date Recorded Within [...] on file 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 Patient will need to learn coping skills to manage these disorders to improve overall function and response to life stressors. documented as of this encounter Care Teams Mumps Developer Relationship Specialty Start Date End Date Erica Kelley PA [address] [address] PCP - General Family Medicine 07/30/23 Kareem Stark MD Referring Physician Gastroenterology 11/27/19 Ron Jensen MD [address] [place] [address] [place] [id number] Consulting Physician Obstetrics and Gynecology 11/27/19 documented as of this encounter
--- OUTSIDE RECORDS SUMMARY | 2024-05-19 07:43 | XMS_ITS | Clinical Summary ---
Author Organization [facility] Address [address] [facility] [place] [address] Care Team Providers Care Bus Person Name Role Phone Erica Kelley PA-C Primary Care Provider [phone] Source Comments [employer] [facility],non-owned Affiliates and Associated Physician Practices is amultiple site organization consisting of ambulatory clinics and hospital sitesin [place], [place], [place] and [place]. This disclosure is being madepursuant to the Care Everywhere program and may not contain all information available regarding this patient. Last updated 17.[employer] [facility] Allergies No known active allergies Medications * [...] Comments Blood Pressure 197/84 03/09/2021 8:16 AM GALLERY OR MUSEUM GUIDE Pulse 78 03/09/2021 8:16 AM GALLERY OR MUSEUM GUIDE Temperature 36.7 C (98 F) 03/09/2021 8:16 AM GALLERY OR MUSEUM GUIDE Respiratory Rate 14 03/09/2021 8:16 AM GALLERY OR MUSEUM GUIDE Oxygen Saturation 100% 03/09/2021 8:16 AM GALLERY OR MUSEUM GUIDE Inhaled Oxygen Concentration - - Weight 80.3 kg (177 lb) 03/09/2021 8:16 AM GALLERY OR MUSEUM GUIDE Height 154.9 cm (5' 1 ) 03/09/2021 8:16 AM GALLERY OR MUSEUM GUIDE Body Mass Index 33.44 03/09/2021 8:16 AM GALLERY OR MUSEUM GUIDE Plan of Treatment Health Maintenance Due Date Last Done Comments BONE DENSITY TESTING 1945 HEPATITIS C SCREENING 12/24/1963 DTAP/TDAP/TD VACCINES (1 - Tdap) 1964 PNEUMOCOCCAL VACCINE 50+ (1 of 1 - PCV) 12/29/1995 ZOSTER VACCINE (1 of 2) 12/29/1995 Respiratory Syncytial Virus (RSV) Vaccine Pt: or over 60 yrs (1 - 1-dose 75+ series) 2020 COVID-19 VACCINE (3 - 2023-2 5 season) 2023 10/01/2020, 09/02/2020 INFLUENZA VACCINE (#1) 2023 7, 01/07/2013 DEPRESSION SCREENING 04/08/2024 HEPATITIS B VACCINE Aged Out No longe r eligible based on patient's age to complete this topic HIB VACCINE Aged Out No longer eligi ble based on patient's age to complete this topic HPV VACCINE Aged Out No longer eligi ble based on patient's age to complete this topic MENINGOCOCCAL (Group B) VACCINE Aged Out No longer eligible b ased on patient's age to complete this topic MENINGOCOCCAL VACCINE Aged Out No alex zak eligible based on patient's age to complete this topic Goals Goal Patient Goal Type Associated Problems Recent Progress Patient-Stated? Author Medication Management General On track( 021 8:22 AM GALLERY OR MUSEUM GUIDE) Tammie Perez RN Note: Expected end date: ongoing Interventions: Take all medications as prescribed Let your doctor know right away about any changes in your medications Make sure to request a refill of your medication at least one week prior to your last dose Care Teams Bus Person Relationship Specialty Start Date End Date Erica Kelley PA-C [address] [facility] [address] [place] [address] PCP - General 01/05/21
[2024-05-19 08:37] LABS: Basophils Percent Auto 0.4 % (0.2-1.2); Eosinophils Percent Auto 0.5 % (0-4.4); Hematocrit 40.5 % (37.0-47.0); Hemoglobin 12.8 g/dL (12.0-15.0); Immature Granulocyte Absolute 0.01 K/mm3 (0.00-0.031); Immature Granulocyte Percent A 0.2 % (0-0.5); Lymphocytes Absolute Auto 1.97 K/mm3 (0.9-3.2); Lymphocytes Percent Auto 34.7 % (18.3-44.2); Mean Corpuscular HGB Conc 31.6 g/dl (32-36); Mean Corpuscular Hemoglobin 28.8 pg (26-34); Mean Corpuscular Volume 91.2 fl (80-100); Mean Platelet Volume 11.6 fl (7.4-10.4); Monocytes Absolute Auto 0.5 K/mm3 (0.1-0.6); Monocytes Percent Auto 9.3 % (2.6-8.5); Neutrophils Absolute Auto 3.1 K/mm3 (1.3-6.7); Neutrophils Percent Auto 54.9 % (45.5-73.1); Platelet Count Result 264 k/mm3 (150-375); Red Blood Count 4.44 M/mm3 (4.2-5.4); Red Cell Distribution Width 14.4 % (11.5-14.5); White Blood Count 5.7 K/mm3 (4.5-10.0)
[2024-05-19 08:49] LABS: Alanine Aminotransferase 18 U/L (6-35); Albumin Level 4.3 g/dL (3.5-5.1); Alkaline Phosphatase 180 U/L (38-126); Anion Gap 10 mmol/L (4-12); Aspartate Amino Transferase 21 U/L (14-36); Bilirubin,Total 0.5 mg/dL (0.2-1.3); Blood Urea Nitrogen 24 mg/dL (7-17); Calcium 9.8 mg/dL (8.4-10.2); Carbon Dioxide 27 mmol/L (22-30); Chloride 103 mmol/L (98-107); Cholesterol 232 mg/dL (0-200); Estimated Glomerular Filt Rate 59; Glucose 120 mg/dL (65-110); HDL Direct 78 mg/dL; Potassium 5.7 mmol/L (3.4-5.0); Sodium 140 mmol/L (137-145); Triglycerides 115 mg/dL (<150)
[2024-05-19 08:50] LABS: Hemoglobin A1C 6.3 % (<5.7)
[2024-05-19 09:00] LABS: LDL Cholesterol Direct 109 mg/dL
== END 2024-05-19 07:37 | disposition home or self-care (01) ==
PROVIDERS: PCP Physician Assistant; Visit Provider Physician Assistant
DX: E78.2 Mixed hyperlipidemia (principal); I10 Essential (primary) hypertension; M79.10 Myalgia, unspecified site; R53.83 Other fatigue; R73.03 Prediabetes
CPT/HCPCS: 36415; 80053; 80061; 83036; 84443; 85025

== ENCOUNTER 2024-05-22 09:00 | Outpatient (CLI) | payer MEDICARE, SELFPAY ==
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
--- OUTSIDE RECORDS SUMMARY | 2024-05-22 09:08 | XMS_ITS | Referral Summary ---
Author Organization [facility] [address] [facility] [address] [place] [address] Care Team Providers Care Hand Rigger Name Role Phone Kareem Stark MD Unavailable [phone] Ron Jensen MD Unavailable [phone] Erica Kelley Primary Care Provider [phone] Encounters Date Type Department Care Team Description 05/22/2024 Telephone [facility] Family Medicine [address] [place] [address] Road [address] [place] [phone] Erica Kelley PA 05/21/2024 Telephone [facility] [address] [place] [address] Road [address] [place] [phone] Erica Kelley PA 05/14/2024 Orders Only [facility] [address] [place] [address] [address] [place] [phone] Erica Kelley PA Hypertension, essential (Primary Dx); Mixed hyperlipidemia; Pre-diabetes; Generalized weakness; Other fatigue; Muscle pain; Muscle tightness; Hyperkalemia; Elevated alkaline phosphatase level 05/13/2024 Orders Only [facility] [address] [place] [address] [address] [place] [phone] Erica Kelley PA 05/13/2024 Telephone [facility] [place] [phone] Erica Kelley PA Symptom Based [...] CDT): Persistent anxiety longstanding. Continue counseling at [facility]. Continue Cymbalta 60. Continue clonazepam 0.5 b.i.d. with a 3rd 1 in the middle of the day as needed Assessment & Plan (09/04/2023 10:40 AM CDT): Patient with persistent anxiety. She continues with Cymbalta 60 and clonazepam 0.5 mg b.i.d.. Advised she can take an extra half tab if she has breakthrough symptoms. Continue with counseling at [facility]. Assessment & Plan (08/09/2023 11:23 [...] to do counseling for years. Discussed the [facility] senior servicing on [address]. Will help connect to this group to [...] plan Assessment & Plan (06/12/2023 11:10 PM RN EMPLOYEE HEALTH): Discussed again at length. Encouraged counseling. Also encouraged the Cymbalta and her other medicine regimen. Assessment & Plan (06/04/2023 12:08 PM RN EMPLOYEE HEALTH): Reviewed with patient psychosomatic symptoms and how [...] 10/17/2021 Assessment & Plan (02/25/2022 10:26 PM RN EMPLOYEE HEALTH): Patient's son in July this year. She [...] have good family support. She does have jehovah's witness involvement in a perianesthesia nurse although little disappointed that he has not followed up much since the of her son. Strongly encouraged her to reach out her perianesthesia nurse. Provided names of counselors in the area [...] day. Assessment & Plan (05/14/2021 1:59 PM RN EMPLOYEE HEALTH): See jackhammer esophagus Hypertension, essential 04/02/2021 Assessment & Plan [...] tabs) Assessment & Plan (06/12/2023 11:10 PM RN EMPLOYEE HEALTH): Patient has blood pressure elevation but minimal [...] plan Assessment & Plan (06/08/2023 8:15 PM RN EMPLOYEE HEALTH): Blood pressure still isn't well controlled. Will [...] reassess Assessment & Plan (05/21/2023 9:45 PM RN EMPLOYEE HEALTH): Encouraged to limit sodium intake and exercise [...] list. Assessment & Plan (05/20/2023 12:50 AM RN EMPLOYEE HEALTH): Bp is stable/in acceptable range for any [...] amlodipine. Assessment & Plan (02/13/2023 11:13 AM RN EMPLOYEE HEALTH): Bp is stable/in acceptable range for any [...] isosorbide Assessment & Plan (02/25/2022 10:26 PM RN EMPLOYEE HEALTH): Bp is stable/in acceptable range for any co-morbidities. Encouraged to limit sodium intake and exercise for weight control. Continue metoprolol amlodipine and isosorbide Assessment & Plan (08/13/2021 3:19 PM CDT): Bp is stable/in acceptable range for any co-morbidities. Encouraged to limit sodium intake and exercise for weight control. Continue with metoprolol amlodipine and isosorbide Assessment & Plan (05/25/2021 7:37 PM RN EMPLOYEE HEALTH): Bp is stable/in acceptable range for any co-morbidities. Encouraged to limit sodium intake and exercise for weight control. Continue metoprolol, amlodipine and isorbide Assessment & Plan (04/02/2021 10:12 PM RN EMPLOYEE HEALTH): Bp is stable/in acceptable range for any [...] provided. Assessment & Plan (03/13/2021 8:40 AM RN EMPLOYEE HEALTH): Obesity is unchanged. Discussed the patient's BMI. [...] provided. Assessment & Plan (06/08/2023 8:16 PM RN EMPLOYEE HEALTH): Discussed the patient's BMI. The BMI is above average. BMI management plan is completed. BMI Follow-up includes: nutrition counseling, exercise counseling and education provided. Assessment & Plan (05/21/2023 9:43 PM RN EMPLOYEE HEALTH): Discussed the patient's BMI. The BMI is [...] statin Assessment & Plan (06/13/2019 3:49 AM RN EMPLOYEE HEALTH): Patient reports hx of stroke several years [...] stable Assessment & Plan (06/08/2023 8:14 PM RN EMPLOYEE HEALTH): Continue Carafate and PPI as instructed Assessment & Plan (05/20/2023 12:52 AM RN EMPLOYEE HEALTH): Patient with reflux esophagitis and jackhammer esophagus. Her GI is Dr. Stark but it appears she has not going to be able to get in with him for a little while. Encouraged her to continue with PPI and Carafate 3 to 4 times a day. Continue to monitor closely with her diet and avoid trigger foods. Assessment & Plan (03/22/2022 8:36 PM RN EMPLOYEE HEALTH): Continue GI regimen until she is able [...] PPI Assessment & Plan (06/13/2019 3:42 AM RN EMPLOYEE HEALTH): Hx of GERD and PUD. Recent EGD [...] Dilantin Assessment & Plan (02/13/2023 11:12 AM RN EMPLOYEE HEALTH): Still on Dilantin. No history of seizures Assessment & Plan (08/19/2022 6:13 PM CDT): History of seizures. No recent seizures. Continue with Dilantin. Offered referral to Neurology to discuss since it has been a long times and she is had a seizure but would rather just continue with the medicine. Assessment & Plan (02/25/2022 10:27 PM RN EMPLOYEE HEALTH): No current seizure history. Continue Dilantin Assessment [...] managment Assessment & Plan (06/13/2019 3:47 AM RN EMPLOYEE HEALTH): Hx of unspecified seizure disorder. - Continue [...] to do counseling for years. Discussed the [facility] senior servicing on [address]. Will help connect to this group to see if this is possibility as they can assist with transportation. Continue clonazepam 0.5 mg b.i.d. and Cymbalta 60 mg daily. Continue with trazodone HS as needed. Assessment & Plan (06/12/2023 11:06 PM RN EMPLOYEE HEALTH): Patient continues to have persistent anxiety depression [...] the Senior Counseling [facility] at [facility] and she should be able to get in with counseling and assistance with transportation as needed. If she has any problems or concerns she is to call the office immediately Assessment & Plan (06/08/2023 8:14 PM RN EMPLOYEE HEALTH): Attempts continued anxiety that still is not fully controlled with Cymbalta 60 and Xanax 0.5 b.i.d.. Patient admits it does not feel like the same last very long. Discussed importance of truly anxiety psycho somatically I think this is affecting her physical health. Will stop the Xanax. Start clonazepam 0.5 b.i.d.. Follow-up in 4-6 weeks to reassess Assessment & Plan (05/20/2023 12:54 AM RN EMPLOYEE HEALTH): Patient has ongoing anxiety and depression symptoms. Increase the Cymbalta to 60 b.i.d.. 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 Assessment & Plan (02/13/2023 11:12 AM RN EMPLOYEE HEALTH): Stable with Lexapro 20 Assessment & Plan [...] 10 Assessment & Plan (03/22/2022 8:37 PM RN EMPLOYEE HEALTH): Continue Lexapro 10 mg. Strongly encouraged start counseling. Provided information for the [facility]. Assessment & Plan (02/25/2022 10:27 PM RN EMPLOYEE HEALTH): Patient restarted Lexapro and is doing well. [...] have good family support. She does have jehovah's witness involvement in a perianesthesia nurse although little disappointed that he has not followed up much since the of her son. Strongly encouraged her to reach out her perianesthesia nurse. Provided names of counselors in the area [...] prn Assessment & Plan (05/25/2021 7:38 PM RN EMPLOYEE HEALTH): Patient has discontinued all medications. May need to revisit if sxs continue Assessment & Plan (04/02/2021 10:12 PM RN EMPLOYEE HEALTH): Continue Cymbalta Assessment & Plan (02/04/2021 8:47 [...] area. Assessment & Plan (06/13/2019 3:46 AM RN EMPLOYEE HEALTH): Hx of depression and anxiety symptoms exacerbated [...] anti-depressant/anxiolytic Assessment & Plan (05/09/2019 10:52 PM RN EMPLOYEE HEALTH): Continue with the Cymbalta Assessment & Plan [...] 08/09/2023 Assessment & Plan (05/20/2023 12:54 AM RN EMPLOYEE HEALTH): See anxiety BMI 33.0-33.9,adult 05/07/2023 05/21/19 Assessment & Plan (05/20/2023 12:54 AM RN EMPLOYEE HEALTH): Weight/BMI is in healthy range. Continue healthy lifestyle to maintain. Need for influenza vaccination 02/13/2023 08/09/2023 Assessment & Plan (02/13/2023 11:13 AM RN EMPLOYEE HEALTH): Flu vaccine updated in the office today Medicare annual wellness visit, subsequent 02/13/2023 05/20/2023 Assessment & Plan (02/13/2023 11:14 AM RN EMPLOYEE HEALTH): Encouraged healthy lifestyle, good nutrition and exercise. [...] 11/01/202205/09 Assessment & Plan (02/13/2023 11:13 AM RN EMPLOYEE HEALTH): Discussed the patient's BMI. The BMI is [...] 24 Assessment & Plan (02/13/2023 10:41 AM RN EMPLOYEE HEALTH): Discussed the patient's BMI. The BMI is [...] 08/02/2022 Assessment & Plan (03/22/2022 8:36 PM RN EMPLOYEE HEALTH): Flu vaccine updated in the office today BMI 35.0-35.9,adult 03/22/2022 08/03/19 23 Assessment & Plan (03/22/2022 8:36 PM RN EMPLOYEE HEALTH): Discussed the patient's BMI. The BMI is above average. BMI management plan is completed. BMI Follow-up includes: nutrition counseling, exercise counseling and education provided. Medicare annual wellness visit, subsequent 02/25/2022 08/02/2022 Assessment & Plan (02/25/2022 10:26 PM RN EMPLOYEE HEALTH): Encouraged healthy lifestyle, good nutrition and exercise. Encouraged Calcium and Vitamin D and weight bearing exercise for bone health. Reviewed immunizations. Reviewed age appropirate screenings. Medicare Wellness Documentation is completed within the chart Morbid obesity 10/17/2021 08/02/2022 Assessment & Plan (03/22/2022 8:37 PM RN EMPLOYEE HEALTH): Discussed the patient's BMI. The BMI is above average. BMI management plan is completed. BMI Follow-up includes: nutrition counseling, exercise counseling and education provided. Patient has an obesity-related condition (not limited to: hypertension, obstructive sleep apnea, osteoarthritis, hyperlipidemia, diabetes, etc.). Therefore, morbid obesity may be documented for patients with a BMI between 35.00-39.99. Assessment & Plan (02/25/2022 10:26 PM RN EMPLOYEE HEALTH): Discussed the patient's BMI. The BMI is [...] provided. Assessment & Plan (06/08/2023 8:17 PM RN EMPLOYEE HEALTH): Discussed the patient's BMI. The BMI is above average. BMI management plan is completed. BMI Follow-up includes: nutrition counseling, exercise counseling and education provided. Assessment & Plan (05/21/2023 9:43 PM RN EMPLOYEE HEALTH): Discussed the patient's BMI. The BMI is above average. BMI management plan is completed. BMI Follow-up includes: nutrition counseling, exercise counseling and education provided. Assessment & Plan (02/25/2022 10:26 PM RN EMPLOYEE HEALTH): Discussed the patient's BMI. The BMI is [...] 05/25/20212021 Assessment & Plan (05/25/2021 11:46 AM RN EMPLOYEE HEALTH): Obesity is unchanged. Discussed the patient's BMI. The BMI is above average. BMI management plan is completed. BMI Follow-up includes: nutrition counseling, exercise counseling and education provided. BMI 33.0-33.9,adult 05/25/2021 07/27/19 22 Assessment & Plan (05/25/2021 11:46 AM RN EMPLOYEE HEALTH): Obesity is unchanged. Discussed the patient's BMI. The BMI is above average. BMI management plan is completed. BMI Follow-up includes: nutrition counseling, exercise counseling and education provided. Fatigue 05/25/2021 08/09/2023 Assessment & Plan (02/13/2023 11:13 AM RN EMPLOYEE HEALTH): Probably multifactorial. Check labs and followup to re-evaluate Assessment & Plan (11/04/2022 5:52 PM CDT): Probably multifactorial. Check labs and followup to re-evaluate Assessment & Plan (05/25/2021 7:37 PM RN EMPLOYEE HEALTH): Probably multifactorial. 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 Her GI is Dr. Stark but it appears she has not going to be able to get in with him for a little while. Encouraged her to continue with PPI and Carafate 3 to 4 times a day. Continue to monitor closely with her diet and avoid trigger foods. Assessment & Plan (02/13/2023 11:12 AM RN EMPLOYEE HEALTH): Continue per Dr. Stark. Seems to have [...] concerns. Assessment & Plan (02/25/2022 10:25 PM RN EMPLOYEE HEALTH): Continue per Dr. Stark currently taking Xanax every day and using the Carafate and Compazine p.r.n.. States Xanax is the only thing that seems to help her. States she can not get back in with Dr. Stark for a few months and is requesting refills right now Assessment & Plan (08/13/2021 3:18 PM CDT): Continue per GI at [facility] and Dr. Stark Assessment & Plan (05/25/2021 7:36 PM RN EMPLOYEE HEALTH): Continue per GI - Dr. tSark She is on Librax and Protonix. Assessment & Plan (05/14/2021 2:00 PM RN EMPLOYEE HEALTH): Patient was diagnosed with jackhammer esophagus and has been following at [facility] with Dr. Alexia Mojica. She has had [...] needs to contact the GI at [facility] for further instructions to continue to get better control of this jackhammer esophagus. May continue the PPI, Bentyl and carafate. Assessment & Plan (04/02/2021 10:13 PM RN EMPLOYEE HEALTH): Continue per GI. They have encouraged proper med outweighed along with diltiazem 30 mg q.i.d.. Will stop the amlodipine and transition to the diltiazem and monitor blood pressure carefully. See hypertension. Obesity (BMI 30-39.9) 03/13/20212021 Assessment & Plan (03/13/2021 8:40 AM RN EMPLOYEE HEALTH): Obesity is unchanged. Discussed the patient's BMI. [...] from progressing to diabetes. Mixed hyperlipidemia 11/27/2019 05/03/2 024 Assessment & Plan (02/13/2023 11:13 AM RN EMPLOYEE HEALTH): Encouraged patient to follow low fat/low chol [...] 10 Assessment & Plan (02/25/2022 10:25 PM RN EMPLOYEE HEALTH): Encouraged patient to follow low fat/low chol [...] 08/09/2023 Assessment & Plan (06/12/2023 11:09 PM RN EMPLOYEE HEALTH): Patient continues to have persistent anxiety depression [...] the [facility] at [facility] and she should be able to get in with counseling and assistance with transportation as needed. If she has any problems or concerns she is to call the office immediately Assessment & Plan (06/08/2023 8:15 PM RN EMPLOYEE HEALTH): Attempts continued anxiety that still is not fully controlled with Cymbalta 60 and Xanax 0.5 b.i.d.. Patient admits it does not feel like the same last very long. Discussed importance of truly anxiety psycho somatically I think this is affecting her physical health. Will stop the Xanax. Start clonazepam 0.5 b.i.d.. Follow-up in 4-6 weeks to reassess Assessment & Plan (05/20/2023 12:54 AM RN EMPLOYEE HEALTH): Patient has ongoing anxiety and depression symptoms. Increase the Cymbalta to 60 b.i.d.. 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 Assessment & Plan (02/13/2023 11:12 AM RN EMPLOYEE HEALTH): Symptoms are stable with Lexapro 10. Using the trazodone to rest which is helpful also Assessment & Plan (08/13/2021 3:14 PM CDT): Continue Cymbalta and Trazodone prn Assessment & Plan (04/02/2021 10:09 PM RN EMPLOYEE HEALTH): Continued anxiety exacerbated by her son's recent [...] provider. Will reach out to our nurse marketing segment manager for assistance to try to avoid [...] 08/12/19 Assessment & Plan (04/20/2019 11:27 AM RN EMPLOYEE HEALTH): Weight/BMI is in healthy range. Continue healthy [...] time. Assessment & Plan (06/13/2019 3:46 AM RN EMPLOYEE HEALTH): Increased nausea and vomiting related to increased [...] Stark. Assessment & Plan (06/13/2019 3:42 AM RN EMPLOYEE HEALTH): Patient with long history of chronic abdominal [...] pain Assessment & Plan (05/09/2019 10:52 PM RN EMPLOYEE HEALTH): Reviewed mediations that Dr. Stark's office had [...] on file Legal Sex Female 4:02 AM RN EMPLOYEE HEALTH Gender Identity Not on file Sexual Orientation [...] CDT Respiratory Rate 18 04/30/2022 10:20 AM RN EMPLOYEE HEALTH Oxygen Saturation 98% 12/11/2023 9:29 AM CDT [...] property damage. Medical Devices Implanted Type Area Detention Deputy Device Identifier Shelf Expiration Date Model / Serial / Lot Neurostimulator Neurostimulator Right: Spine Lumbar Description:Nerve stimulator for bladder incontinence Procedures Procedure Name Priority Date/Time Associated Diagnosis Comments CBC WITH AUTO DIFFERENTIAL Routine 05/19/2024 Other fatigue COMPREHENSIVE METABOLIC PANEL Routine 05/19/2024 Hypertension, essential Muscle pain Muscle tightness HEMOGLOBIN A1C Routine 05/19/2024 Pre-diabetes LIPID PANEL Routine 05/19/2024 Mixed hyperlipidemia TSH Routine 05/19/2024 Other fatigue Muscle pain Muscle tightness COLONOSCOPY Routine 06/27/2021 from Last 3 Months or Most Recently Relevant to Health Maintenance Results * (ABNORMAL) CBC with auto differential (05/19/2024) SCRIBED WBC 5.7 4.5 - 10.0 k/cumm EXTERNAL LAB SCRIBED RBC 4.44 4.2 - 5.4 m/cumm EXTERNAL LAB SCRIBED Hemoglobin 12.8 12.0 - 15.0 g/dL EXTERNAL LAB SCRIBED Hematocrit 40.5 37.0 - 47.0 % EXTERNAL LAB SCRIBED MCH 28.8 26 - 34 pg EXTERNAL LAB SCRIBED MCHC 31.6(A) 32 - 36 g/dL EXTERNAL LAB SCRIBED RDW 14.4 11.5 - 14.5 g/dl EXTERNAL LAB SCRIBED Platelets 264 150 - 375 k/cumm EXTERNAL LAB SCRIBED MPV 11.6(A) 7.4 - 10.4 fL EXTERNAL LAB SCRIBED NRBC 0.000 0.0 - 0.012 /100 WBC EXTERNAL LAB SCRIBED Lymphocytes 34.7 18.3 - 44.2 % EXTERNAL LAB SCRIBED Monocytes 9.3(A) 2.6 - 8.5 % EXTERNAL LAB SCRIBED Neutrophils 54.9 45.5 - 73.1 % EXTERNAL LAB SCRIBED Imm Granulocytes 0.2 0.0 - 0.5 % EXTERNAL LAB SCRIBED Eosinophils 0.5 0 - 4.4 % EXTERNAL LAB SCRIBED Basophils 0.4 0.2 - 1.2 % EXTERNAL LAB SCRIBED NRBC Abs 0.000 0.0 - 0.012 K/cumm EXTERNAL LAB SCRIBED Lymphocytes Abs 1.97 0.9 - 3.2 k/cumm EXTERNAL LAB SCRIBED Monocytes Abs 0.5 0.1 - 0.6 k/cumm EXTERNAL LAB SCRIBED Neutrophils Abs 3.1 1.3 - 6.7 k/cumm EXTERNAL LAB SCRIBED Eosinophils Abs 0.5 0 - 4.4 k/cumm EXTERNAL LAB SCRIBED Basophils Abs 0.4 0.2 - 1.2 k/cumm EXTERNAL LAB Blood 05/19/2024 Erica WORRELL LAB BLOOD ORDERABLES Final Result EXTERNAL LAB * TSH (05/19/2024) [facility] Scribed TSH 1.83 0.47 - 4.68 mcU/mL EXTERNAL LAB Blood 05/19/2024 Erica WORRELL LAB BLOOD ORDERABLES Final Result EXTERNAL LAB * Hemoglobin A1c (05/19/2024) [facility] SCRIBED Hemoglobin A1c 6.3 5.7 - 6.5 % EXTERNAL LAB Blood 05/19/2024 Erica WORRELL LAB BLOOD ORDERABLES Final Result EXTERNAL LAB * (ABNORMAL) Lipid panel (05/19/2024) [facility] SCRIBED Cholesterol, Total 232(A) 0 - 200 EXTERNAL LAB SCRIBED HDL 109(A) 0 - 0 EXTERNAL LAB SCRIBED LDL 109(A) 0 - 0 EXTERNAL LAB SCRIBED Triglycerides 115(A) 150 - 150 EXTERNAL LAB Blood 05/19/2024 Erica WORRELL LAB BLOOD ORDERABLES Final Result EXTERNAL LAB * (ABNORMAL) Comprehensive metabolic panel (05/19/2024) SCRIBED Sodium 140 137 - 145 mmol/L EXTERNAL LAB SCRIBED Potassium 5.7(A) 3.4 - 5.0 mmol/L EXTERNAL LAB SCRIBED Chloride 103 98 - 107 mmol/L EXTERNAL LAB SCRIBED Carbon Dioxide 27 22 - 30 mmol/L EXTERNAL LAB SCRIBED Anion Gap 10 4 - 12 mmol/L EXTERNAL LAB SCRIBED Urea Nitrogen (BUN) 24(A) 7 - 17 mg/dl EXTERNAL LAB SCRIBED Creatinine 0.92 0.7 - 1.0 mg/dl EXTERNAL LAB SCRIBED Glucose 120(A) 65 - 110 mg/dl EXTERNAL LAB SCRIBED Calcium 9.8 8.4 - 10.2 mg/dl EXTERNAL LAB SCRIBED Bilirubin 0.5 0.2 - 1.3 mg/dl EXTERNAL LAB SCRIBED Plasma Protein 8.0 6.3 - 8.2 g/dl EXTERNAL LAB SCRIBED Albumin 4.3 3.5 - 5.1 g/dl EXTERNAL LAB SCRIBED Alkaline Phosphatase 180(A) 38 - 126 Units/L EXTERNAL LAB SCRIBED Alanine Transaminase (ALT) 18 6 - 35 Units/L EXTERNAL LAB SCRIBED Aspartate Transaminase (AST) 21 14 - 36 Units/L EXTERNAL LAB SCRIBED eGFR in NonAfrican Russian 59(A) 0 - 0 EXTERNAL LAB Blood 05/19/2024 Erica WORRELL LAB BLOOD ORDERABLES Final Result EXTERNAL LAB * Colonoscopy (06/27/2021) Anatomical Region Laterality Modality Other Historical Provider ENDOSCOPY PROCEDURES Yudith l Result [...] in stressors, but 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 Patient will need to learn coping skills to manage these disorders to improve overall function and response to life stressors. Insurance [employer] MEDICARE HMO [facility] O [employer] MEDICARE HMO Advance Directives For more information, please contact: [phone] * Full Code (Latest Code Status on File) Date Activated Date Inactivated Comments 05/18/2021 9:46 PM 05/22/2021 8:57 PM * Full Code Date Activated Date Inactivated Comments 05/18/2021 4:50 PM 05/18/2021 9:46 PM * Full Code Date Activated Date Inactivated Comments 06/12/2019 10:30 PM 06/14/2019 6:07 PM Care Teams Hand Rigger Relationship Specialty Start Date End Date Erica Kelley PA [address] [address] PCP - General Family Medicine 07/30/23 Kareem Stark MD Referring Physician Gastroenterology 11/27/19 Ron Jensen MD [address] [address] Consulting Physician Obstetrics and Gynecology 11/27/19
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
--- OUTSIDE RECORDS SUMMARY | 2024-05-22 09:09 | XMS_ITS | Encounter Summary ---
Author Organization [facility] Care Team Providers Care Screw Cutter Name Role Phone Erica Kelley Primary Care Provider [phone] Kerrie King RN Unavailable [phone] Kareem Stark MD Unavailable [phone] Ron Jensen MD Unavailable [phone] Jeo Roca MD Primary Care Provider [phone] Erica Kelley Primary Care Provider [phone] Encounter Details Date Type Department Care Team (Latest Contact Info) Description 06/28/2015 Orders Only [facility]INCON[facility] ProviderJocelynn MD [address] [place] [id number] Social History Tobacco Use Types Packs/Day Years Used Date Smoking Tobacco: Former Comments Unknown Sex and Gender Information Value Date Recorded Sex Assigned at Not on file Legal Sex Female 4:02 AM RUBBER TRIMMER Gender Identity Not on file Sexual Orientation [...] COVID: Suspected 03/28/2020 03/28/2020 03/28/2020 2:23 PM RUBBER TRIMMER Respiratory Infection (ERICK), contact + droplet Comment:Automatically added due to negative COVID-19 result. 03/28/2020 03/28/2020 04/11/2020 3:0 5 AM RUBBER TRIMMER documented as of this encounter Care Teams Screw Cutter Relationship Specialty Start Date End Date Erica Kelley PA [address] [place] [address] PCP - General Internal Medicine 09/04/18 07/24/23 Joe Roca MD [address] [place] [address] PCP - General Family Medicine 07/25/23 07/29/23 Erica Kelley PA [address] [place] [address] PCP - General Family Medicine 07/30/23 eKrrie King, RN [address] [place] [address] [address] [place] [address] Tap Grinder 06/17/19 07/21/19 Kareem Stark MD [address] [place] [address] [address] [place] [address] Referring Physician Gastroenterology 11/27/19 Ron Jensen MD [address] [place] [address] Consulting Physician Obstetrics and Gynecology 11/27/19 documented as of this encounter
--- OUTSIDE RECORDS SUMMARY | 2024-05-22 09:09 | XMS_ITS | Encounter Summary ---
Author Organization [facility] Facility Care Team Providers Care Cattle Dipper Name Role Phone Erica Kelley Primary Care Provider [phone] Kerrie King RN Unavailable [phone] Kareem Stark MD Unavailable [phone] Ron Jensen MD Unavailable [phone] Joe Roca MD Primary Care Provider [phone] Erica Kelley Primary Care Provider [phone] Encounter Details Date Type Department Care Team (Latest Contact Info) Description 03/16/2016 Orders Only [facility] CLINCONV ProviderJocelynn MD [address] [place] [address] Social History Tobacco Use Types Packs/Day Years Used Date Smoking Tobacco: Former Comments Unknown Sex and Gender Information Value Date Recorded Sex Assigned at Not on file Legal Sex Female 4:02 AM CLINICAL EXERCISE SPECIALIST Gender Identity Not on file Sexual Orientation Not on file documented as of this encounter Plan of Treatment Not on file documented as of this encounter Procedures Procedure Name Priority Date/Time Associated Diagnosis Comments SCAN - LABS 03/16/2016 12:00 AM CLINICAL EXERCISE SPECIALIST documented in this encounter Results * SCAN - LABS (03/16/2016 12:00 AM CLINICAL EXERCISE SPECIALIST) Narrative 03/16/2016 12:00 AM CLINICAL EXERCISE SPECIALIST Ordered by an unspecified provider. Historical Provider Final Res ult documented in this encounter Visit Diagnoses Not on filedocumented in this encounter Additional Health Concerns Infection Onset Date Last Indicated Resolved Time COVID: Suspected 03/28/2020 03/28/2020 03/28/2020 2:23 PM CLINICAL EXERCISE SPECIALIST Respiratory Infection (ERICK), contact + droplet Comment:Automatically added due to negative COVID-19 result. 03/28/2020 03/28/2020 04/11/2020 3:0 5 AM CLINICAL EXERCISE SPECIALIST documented as of this encounter Care Teams Cattle Dipper Relationship Specialty Start Date End Date Erica Kelley PA [address] [place] [address] PCP - General Internal Medicine 09/04/18 07/24/23 Joe Roca MD [address] [facility] [address] [place] [address] PCP - General Family Medicine 07/25/23 07/29/23 Erica Kelley PA [address] [place] [address] PCP - General Family Medicine 07/30/23 Kerrie King, RN [address] [place] [address] [address] [place] [address] Plug Drill Operator 06/17/19 07/21/19 Kareem Stark MD [address] [place] [address] [address] [place] [address] Referring Physician Gastroenterology 11/27/19 Ron Jensen MD [address] [facility] [address] [place] [address] Consulting Physician Obstetrics and Gynecology 11/27/19 documented as of this encounter
--- OUTSIDE RECORDS SUMMARY | 2024-05-22 09:09 | XMS_ITS | Patient Health Summary ---
Author Organization [facility] Address [address] [facility] [place] [address] Care Team Providers Care Track Vehicle Repairer Name Role Phone Erica Kelley PA-C Primary Care Provider [phone] Note from [facility],non-owned Affiliates and Associated Physician Practices is amultiple site organization consisting of ambulatory clinics and hospital sitesin [place], [place], [place] and [place]. This disclosure is being madepursuant to the Care Everywhere program and may not contain all information available regarding this patient. Last updated 17.[facility] Allergies No known active allergies Medications * [...] Comments Blood Pressure 197/84 03/09/2021 8:16 AM FOOD PACKER Pulse 78 03/09/2021 8:16 AM FOOD PACKER Temperature 36.7 C (98 F) 03/09/2021 8:16 AM FOOD PACKER Respiratory Rate 14 03/09/2021 8:16 AM FOOD PACKER Oxygen Saturation 100% 03/09/2021 8:16 AM FOOD PACKER Inhaled Oxygen Concentration - - Weight 80.3 kg (177 lb) 03/09/2021 8:16 AM FOOD PACKER Height 154.9 cm (5' 1 ) 03/09/2021 8:16 AM FOOD PACKER Body Mass Index 33.44 03/09/2021 8:16 AM FOOD PACKER Procedures * ESOPHAGUS/GASTROESOPHAGEAL REFLUX TEST(Performed 08/25/2020) Performed for Gastroesophageal reflux disease, unspecified whether esophagitis present, Nausea * GASTRIC MOTILITY STUDY(Performed 08/25/2020) Performed for Gastroesophageal reflux disease, unspecified whether esophagitis present, Nausea * CULTURE URINE(Performed 03/10/2014) Results * CULTURE URINE (03/10/2014 1:43 PM FOOD PACKER) Culture Urine Greater than or Equal to 10,000 CFU/ML Normal Urogenital/ Skin Johnna at 48 Hours [facility] Comment:. Urine specimen (specimen) URINE SPECIMEN OBTAINED BY CLEAN CATCH PROCEDURE / Unknown 03/10/2014 1:43 PM FOOD PACKER 03/10/2014 9:47 PM FOOD PACKER Narrative [facility] - 03/12/2014 11:12 AM FOOD PACKER Uri#[id number] Antonio Loc/Rm/Bed: OP SGPREOP// CLN CATCH U Historical Provider LAB - MICROBIOLOG Y ORDERABLES [facility] [address] [place] [address], [facility] [phone] Care Teams Track Vehicle Repairer Relationship Specialty Start Date End Date Erica Kelley PA-C [address] [address] PCP - General 01/05/21
--- OUTSIDE RECORDS SUMMARY | 2024-05-22 09:09 | XMS_ITS | Encounter Summary ---
Author Organization [facility] Healthcare Address [address] [place] [address] Care Team Providers Care Sawmill Manager Name Role Phone Kareem Stark MD Unavailable [phone] Ron Jensen MD Unavailable [phone] Erica Kelley Primary Care Provider [phone] Encounter Details Date Type Department Care Team (Late st Contact Info) Description 07/30/2023 Telephone [facility] Medical Group Family Medicine at [address] [address] Joe Roca MD [address] [place] [address] Social History Tobacco Use Types Packs/Day [...] on file Legal Sex Female 4:02 AM CD REACTOR OPERATOR Gender Identity Not on file Sexual [...] in stressors, but express continued worry about custodial stability. Patient will need to learn coping skills to manage these disorders to improve overall function and response to life stressors. documented as of this encounter Care Teams Sawmill Manager Relationship Specialty Start Date End Date Erica Kelley PA [address] [address] PCP - General Family Medicine 07/30/23 Kareem Stark MD Referring Physician Gastroenterology 11/27/19 Rno Jensen MD [address] [facility] [address] [place] [address] Consulting Physician Obstetrics and Gynecology 11/27/19 documented as of this encounter
--- OUTSIDE RECORDS SUMMARY | 2024-05-22 09:09 | XMS_ITS | Encounter Summary ---
Author Organization [facility] Facility Care Team Providers Care Carpenter Foreman Name Role Phone Erica Kelley Primary Care Provider [phone] Kerrie King RN Unavailable [phone] Kareem Stark MD Unavailable [phone] Ron Jensen MD Unavailable [phone] Joe Roca MD Primary Care Provider [phone] Erica Kelley Primary Care Provider [phone] Encounter Details Date Type Department Care Team (Latest Contact Info) Description 09/12/2017 Orders Only [facility] CLINCONV ProviderJocelynn MD [address] [place] [address] Social History Tobacco Use Types Packs/Day Years Used Date Smoking Tobacco: Former Comments Unknown Sex and Gender Information Value Date Recorded Sex Assigned at Not on file Legal Sex Female 4:02 AM CUSTOMER CARE AGENT Gender Identity Not on file Sexual [...] COVID: Suspected 03/28/2020 03/28/2020 03/28/2020 2:23 PM CUSTOMER CARE AGENT Respiratory Infection (ERICK), contact + droplet Comment:Automatically added due to negative COVID-19 result. 03/28/2020 03/28/2020 04/11/2020 3:0 5 AM CUSTOMER CARE AGENT documented as of this encounter Care Teams Carpenter Foreman Relationship Specialty Start Date End Date Erica Kelley PA [address] [place] [address] PCP - General Internal Medicine 09/04/18 07/24/23 Joe Roca MD [address] [facility] [address] [place] [address] PCP - General Family Medicine 07/25/23 07/29/23 Erica Kelley PA [address] [place] [address] PCP - General Family Medicine 07/30/23 Kerrie King, RN [address] [place] [address] [address] [place] [address] Compound Specialist 06/17/19 07/21/19 Kareem Stark MD [address] [place] [address] [address] [place] [address] Referring Physician Gastroenterology 11/27/19 Ron Jensen MD [address] [facility] [address] [place] [address] Consulting Physician Obstetrics and Gynecology 11/27/19 documented as of this encounter
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
--- OUTSIDE RECORDS SUMMARY | 2024-05-22 09:09 | XMS_ITS | Clinical Summary ---
Author Organization [facility] Address [address] [facility] [place] [address] Care Team Providers Care Conference Services Coordinator Name Role Phone Erica Kelley PA-C Primary Care Provider [phone] Source Comments [facility],non-owned Affiliates and Associated Physician Practices is amultiple site organization consisting of ambulatory clinics and hospital sitesin [place], [place], [place] and [place]. This disclosure is being madepursuant to the Care Everywhere program and may not contain all information available regarding this patient. Last updated 17.[facility] Allergies No known active allergies Medications * [...] Comments Blood Pressure 197/84 03/09/2021 8:16 AM FLIGHT CONTROL SPECIALIST Pulse 78 03/09/2021 8:16 AM FLIGHT CONTROL SPECIALIST Temperature 36.7 C (98 F) 03/09/2021 8:16 AM FLIGHT CONTROL SPECIALIST Respiratory Rate 14 03/09/2021 8:16 AM FLIGHT CONTROL SPECIALIST Oxygen Saturation 100% 03/09/2021 8:16 AM FLIGHT CONTROL SPECIALIST Inhaled Oxygen Concentration - - Weight 80.3 kg (177 lb) 03/09/2021 8:16 AM FLIGHT CONTROL SPECIALIST Height 154.9 cm (5' 1 ) 03/09/2021 8:16 AM FLIGHT CONTROL SPECIALIST Body Mass Index 33.44 03/09/2021 8:16 AM FLIGHT CONTROL SPECIALIST Plan of Treatment Health Maintenance Due Date [...] Management General On track( 021 8:22 AM FLIGHT CONTROL SPECIALIST) Tammie Perez RN Note: Expected end date: ongoing Interventions: Take all medications as prescribed Let your doctor know right away about any changes in your medications Make sure to request a refill of your medication at least one week prior to your last dose Care Teams Conference Services Coordinator Relationship Specialty Start Date End Date Erica Kelley PA-C [address] [facility] [address] [place] [address] PCP - General 01/05/21
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
--- OUTSIDE RECORDS SUMMARY | 2024-05-22 09:09 | XMS_ITS | Referral Summary ---
Author Organization [facility] Address [address] [place] [address] Care Team Providers Care Turkey Egg Gatherer Name Role Phone Erica Kelley PA-C Primary Care Provider [phone] Source Comments [facility],non-owned Affiliates and Associated Physician Practices is amultiple site organization consisting of ambulatory clinics and hospital sitesin [place], [place], [place] and [place]. This disclosure is being madepursuant to the Care Everywhere program and may not contain all information available regarding this patient. Last updated 17.[facility] Allergies No known active allergies Medications * [...] Comments Blood Pressure 197/84 03/09/2021 8:16 AM METAL TRIMMER Pulse 78 03/09/2021 8:16 AM METAL TRIMMER Temperature 36.7 C (98 F) 03/09/2021 8:16 AM METAL TRIMMER Respiratory Rate 14 03/09/2021 8:16 AM METAL TRIMMER Oxygen Saturation 100% 03/09/2021 8:16 AM METAL TRIMMER Inhaled Oxygen Concentration - - Weight 80.3 kg (177 lb) 03/09/2021 8:16 AM METAL TRIMMER Height 154.9 cm (5' 1 ) 03/09/2021 8:16 AM METAL TRIMMER Body Mass Index 33.44 03/09/2021 8:16 AM METAL TRIMMER Plan of Treatment Not on file Goals Goal Patient Goal Type Associated Problems Recent Progress Patient-Stated? Author Medication Management General On track( 021 8:22 AM METAL TRIMMER) Tammie Perez, SUSAN Note: Expected end date: ongoing Interventions: Take all medications as prescribed Let your doctor know right away about any changes in your medications Make sure to request a refill of your medication at least one week prior to your last dose Care Teams Turkey Egg Gatherer Relationship Specialty Start Date End Date Eirca Kelley, PA-C [address] [place] [address] [address] [place] [address] PCP - General 01/05/21
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
--- OUTSIDE RECORDS SUMMARY | 2024-05-22 09:09 | XMS_ITS | Clinical Summary ---
Author Organization [facility] Address [address] [place] [address] Care Team Providers Care Private Household Worker Name Role Phone Erica Kelley Primary Care Provider Allergies Active Allergy Reactions Criticality Noted Date [...] place to sleep or slept in a jail (including now)? No 09/22/2022 Comments No Sex and Gender Information Value Date Recorded Sex Assigned at Not on file Legal Sex Female 10:28 AM AIR POLLUTION ANALYST Gender Identity Not on file Sexual [...] this topic Medical Devices Implanted Type Area History Teacher Device Identifier Shelf Expiration Date Model / [...] the left lateral decubitus position, the Olympus [id number] colonoscope was introduced into the rectum and [...] 8:36 AM 09/22/2022 1:58 PM Care Teams Private Household Worker Relationship Specialty Start Date End Date Erica Kelley PA [address] [facility] [address] [place] [address] PCP - General PHYSICIAN SENIOR MANAGER MERGERS & ACQUISITIONS 05/15/19
--- OUTSIDE RECORDS SUMMARY | 2024-05-22 09:09 | XMS_ITS | Encounter Summary ---
Author Organization [facility] Facility Care Team Providers Care Sewing Machinist Name Role Phone Erica Kelley Primary Care Provider [phone] Kerrie King RN Unavailable [phone] Kareem Stark MD Unavailable [phone] Ron Jensen MD Unavailable [phone] Joe Roca MD Primary Care Provider [phone] Erica Kelley Primary Care Provider [phone] Encounter Details Date Type Department Care Team (Latest Contact Info) Description 04/05/2018 Orders Only [facility] CLINCON[facility] ProviderJocelynn MD [address] [place] [address] Social History Tobacco Use Types Packs/Day Years Used Date Smoking Tobacco: Former Comments Unknown Sex and Gender Information Value Date Recorded Sex Assigned at Not on file Legal Sex Female 4:02 AM BUCKET OPERATOR Gender Identity Not on file Sexual Orientation Not on file documented as of this encounter Plan of Treatment Not on file documented as of this encounter Procedures Procedure Name Priority Date/Time Associated Diagnosis Comments SCAN - LABS 04/07/2018 12:00 AM BUCKET OPERATOR documented in this encounter Results * SCAN - LABS (04/07/2018 12:00 AM BUCKET OPERATOR) Narrative 04/07/2018 12:00 AM BUCKET OPERATOR Ordered by an unspecified provider. Historical Provider Final Res ult documented in this encounter Visit Diagnoses Not on filedocumented in this encounter Additional Health Concerns Infection Onset Date Last Indicated Resolved Time COVID: Suspected 03/28/2020 03/28/2020 03/28/2020 2:23 PM BUCKET OPERATOR Respiratory Infection (ERICK), contact + droplet Comment:Automatically added due to negative COVID-19 result. 03/28/2020 03/28/2020 04/11/2020 3:0 5 AM BUCKET OPERATOR documented as of this encounter Care Teams Sewing Machinist Relationship Specialty Start Date End Date Erica Kelley PA [address] [place] [address] PCP - General Internal Medicine 09/04/18 07/24/23 Joe Roca MD [address] [place] [address] PCP - General Family Medicine 07/25/23 07/29/23 Erica Kelley PA [address] [place] [address] PCP - General Family Medicine 07/30/23 Kerrie King, RN [address] [place] [address] [address] [place] [address] Regional Merchandising Manager 06/17/19 07/21/19 Kareem Stark MD [address] [place] [address] [address] [place] [address] Referring Physician Gastroenterology 11/27/19 Ron Jensen MD [address] [place] [address] Consulting Physician Obstetrics and Gynecology 11/27/19 documented as of this encounter
--- OUTSIDE RECORDS SUMMARY | 2024-05-22 09:09 | XMS_ITS | Encounter Summary ---
Author Organization [facility] Healthcare Address [address] [place] [address] Care Team Providers Care Miner Assistant Name Role Phone Kareem Stark MD Unavailable [phone] Ron Jensen MD Unavailable [phone] Erica Kelley Primary Care Provider [phone] Encounter Details Date Type Department Care Team (Late st Contact Info) Description 09/20/2023 Telephone [facility] Senior Counseling [address] [place] [address] Kavita Chavis Social History Tobacco [...] on file Legal Sex Female 4:02 AM HAT BINDER Gender Identity Not on file Sexual Orientation [...] with present life circumstances No Mariella Gray, SENIOR MANUFACTURING ENGINEER Note: Patient's progress is impaired as patient [...] documented as of this encounter Care Teams Miner Assistant Relationship Specialty Start Date End Date Erica Kelley PA [address] [facility] [address] [place] [address] PCP - General Family Medicine 07/30/23 Kareem Stark MD Referring Physician Gastroenterology 11/27/19 Ron Jensen MD [address] [address] Consulting Physician Obstetrics and Gynecology 11/27/19 documented as of this encounter
[2024-05-22 09:59] LABS: Alanine Aminotransferase 15 U/L (6-35); Albumin Level 4.2 g/dL (3.5-5.1); Alkaline Phosphatase 177 U/L (38-126); Anion Gap 12 mmol/L (4-12); Aspartate Amino Transferase 20 U/L (14-36); Bilirubin,Total 0.4 mg/dL (0.2-1.3); Blood Urea Nitrogen 20 mg/dL (7-17); Calcium 9.2 mg/dL (8.4-10.2); Carbon Dioxide 24 mmol/L (22-30); Chloride 103 mmol/L (98-107); Estimated Glomerular Filt Rate 59; Glucose 97 mg/dL (65-110); Potassium 4.4 mmol/L (3.4-5.0); Sodium 139 mmol/L (137-145)
== END 2024-05-22 09:01 | disposition home or self-care (01) ==
PROVIDERS: PCP Physician Assistant; Visit Provider Physician Assistant
DX: E87.5 Hyperkalemia (principal); R74.8 Abnormal levels of other serum enzymes
CPT/HCPCS: 36415; 80053; 84075; 84080

== ENCOUNTER 2024-08-07 10:17 | Emergency (ER) | payer MEDICARE, SELFPAY ==
--- NOTE | ~2024-08-07 | XR_ITS ---
Left foot Technique: AP, oblique, and lateral views were obtained. Clinical History: Status post fall Findings: No acute fracture or dislocation is seen. Osseous alignment is anatomic. Joint spaces are p reserved without erosive or degenerative change. Soft tissues are unremarkable. Impression: Unremarkable left foot radiographs. Reviewed, dictated and finalized at location . Impression: Unremarkable left foot radiographs.
--- NOTE | ~2024-08-07 | XR_ITS ---
Right foot Technique: AP, oblique, and lateral views were obtained. Clinical History: Status post fall Findings: No acute fracture or dislocation is seen. Osseous alignment is anatomic. Joint spaces are p reserved without erosive or degenerative change. Soft tissues are unremarkable. Impression: Unremarkable right foot radiographs. Reviewed, dictated and finalized at location . Impression: Unremarkable right foot radiographs.
[2024-08-07 10:23] VITALS: BP 200/59; PULSE 72; RESP 16; TEMP 36.4; O2SAT 100
--- NOTE | 2024-08-07 10:58 | ED_ITS ---
HPI - Extremity Problem General Chief complaint: Extremity Problem,Nontraumatic Stated complaint: BLE pain Time Seen by Provider: 08/07/24 10:41 History of Present Illness HPI Narrative: Pt presents with bilaterla lower extremity pain and swelling for two weeks. Pt says she was seen by clinic for same a week ago and given steroid shot and lasix. Pt says the swelling is unchanged and the pain is worse and she ois having foot pain and cramping in feet as well. Pt taking motrin without relief. Pt has not seen her PCP. Related Data Home Medications ?Medication ?Instructions ?Recorded ?Confirmed ?Last Taken ?Type dicyclomine 10 mg capsule 10 mg PO DAILY 04/03/19 04/27/23 Unknown History phenytoin sodium extended 100 mg 100 mg PO DAILY 04/03/19 04/27/23 Unknown History capsule sucralfate 1 gram tablet 1 g PO TID 04/03/19 04/27/23 Unknown History trazodone 50 mg tablet 50 mg PO QHS 04/03/19 04/27/23 Unknown History alprazolam 0.25 mg tablet 0.25 mg PO TID PRN Anxiety 04/27/23 04/27/23 Unknown History budesonide-formoterol HFA 160 1 inh inhalation DAILY 04/27/23 04/27/23 Unknown History mcg-4.5 mcg/actuation aerosol inhaler (Symbicort) esomeprazole magnesium 40 mg 40 mg PO BID 04/27/23 04/27/23 Unknown History capsule,delayed release isosorbide mononitrate 30 mg 30 mg PO DAILY 04/27/23 04/27/23 Unknown History tablet,extended release 24 hr Allergies Allergy/AdvReac Type Severity Reaction Status Date / Time No Known Allergies Allergy Verified 08/07/24 10:19 Review of Systems 2 Review of Systems: All systems reviewed & are unremarkable except as noted in HPI and below PMFSH Past Medical History Medical History (Updated 08/07/24 @ 13:31 by Chanelle Whitlock III, DO) Elevated liver enzymes Gastritis Jackhammer esophagus Asthma Anemia Depression Jaw fracture Humerus fracture Rt Hiatal hernia Ulcer 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 HLD (hyperlipidemia) GERD (gastroesophageal reflux disease) IBS (irritable bowel syndrome) HTN (hypertension) TIA (transient ischemic attack) Seizures Strep throat Surgical History Surgical History (Updated 04/28/23 @ 14:08 by Dilip Marcano MD) H/O [place] II operation History of surgery Adrenal gland removal H/O tubal ligation History of bladder surgery Bladder stimulator History of cholecystectomy History of appendectomy History of tonsillectomy Family History Family History (Updated 04/27/23 @ 17:56 by Lucas Unger MD) Mother Heart disease Father Lung cancer Son Bone cancer Social History Social History (Updated 04/27/23 @ 17:56 by Lucas Unger MD) Social History: Patient smoked a pack a day for about 10 years but quit in 1975. No alcohol or drug use. She lives with her . She is a full code. She nominates her to be the individual who would make medical decisions for her if she is unable. Smoking status: Never smoker Tobacco type: cigarettes Alcohol intake: never Substance use: never Do You Feel Safe in your Home?: Yes Lack of Transportation: No Lack of Food: Never True Current Housing: I Have Housing Concerned About Future Housing: No Difficulty Paying Gas/Electric Bills: No Difficulty Paying for Meds: No Currently Unemployed: No Education: High School Diploma/GED Difficulty w/ Childcare or Family Care: No Gender identity (if verbalized by the patient): Female Spiritual care concerns: No Exam 2 Const: General: healthy appearing and no acute distress O rientation/consciousness: patient oriented x3 Limitations: no limitations Chest: Chest palpation & inspection: normal inspection of the chest Resp: Effort & Inspection: normal respiratory effort Auscultation: clear to auscultation bilaterally Cardio: Rate: regular rate Rhythm: regular rhythm GI: GI Palp: Yes Soft to palpation and No Tenderness to palpation present (GI) Auscultation: normal bowel sounds Skin: General skin exam: normal color Rashes: no rashes Wounds: no wounds Neuro: General: patient oriented x3, moves all extremities, no meningeal signs and no focal motor deficits Extrem: General: edema bilateral Course Vital Signs Vital signs: Vital Signs Temperature 97.5 F L 08/07/24 10:23 Pulse Rate 72 08/07/24 10:23 Respiratory Rate 16 08/07/24 10:23 Blood Pressure 200/59 H 08/07/24 10:23 Pulse Oximetry 100 08/07/24 10:23 Temperature 97.8 F 08/07/24 13:30 Pulse Rate 63 08/07/24 13:30 Respiratory Rate 16 08/07/24 13:30 Blood Pressure 171/68 H 08/07/24 13:30 Pulse Oximetry 99 08/07/24 13:30 MDM - Extremity (Nontraumatic) MDM Narrative Medical decision making narrative: Pt has b/l leg swelling and pain for two weeks. will check labs to make sure lytes are ok and give shot for pain. may give lasix if labs ok. lasix given po, IM toradol and morphine given. toradol did not help, morphine did. Home on a few norco. labs all fine. Pt said when getting ready to discharge that she fell and her feet have hurt since so will add x rays. x rays neg. Lab Data 08/07/24 11:31 08/07/24 11:31 Labs: Lab Results 08/07/24 Range/Units 11:31 WBC 9.7 (4.5-10.0) K/mm3 RBC 4.00 L (4.2-5.4) M/mm3 Hgb 11.4 L (12.0-15.0) g/dL Hct 36.6 L (37.0-47.0) % MCV 91.5 (80-100) fl MCH 28.5 (26-34) pg MCHC 31.1 L (32-36) g/dl RDW 14.1 (11.5-14.5) % Plt Count 268 (150-375) k/mm3 MPV 11.2 H (7.4-10.4) fl Immature Gran % (Auto) 0.6 H (0-0.5) % Neut % (Auto) 54.3 (45.5-73.1) % Lymph % (Auto) 34.5 (18.3-44.2) % [place] % (Auto) 9.7 H (2.6-8.5) % Eos % (Auto) 0.6 (0-4.4) % Baso % (Auto) 0.3 (0.2-1.2) % Lymph # (Auto) 3.34 H (0.9-3.2) K/mm3 [place] # (Auto) 0.9 H (0.1-0.6) K/mm3 Eos # (Auto) 0.1 (0-0.3) K/mm3 Baso # (Auto) 0.0 (0.0-0.1) K/mm3 Abs Immat Gran (auto) 0.06 H (0.00-0.031) K/mm3 Absolute Neuts (auto) 5.2 (1.3-6.7) K/mm3 Absolute Nucleated RBC 0.000 (0.0-0.012) K/mm3 Nucleated RBC % 0.0 (0.0-0.2) % Sodium 139 (137-145) mmol/L Potassium 4.1 (3.4-5.0) mmol/L Chloride 105 (98-107) mmol/L Carbon Dioxide 25 (22-30) mmol/L Anion Gap 9 (4-12) mmol/L BUN 21 H (7-17) mg/dL Creatinine 0.95 (0.7-1.0) mg/dL Estim Creat Clear Calc 40 ml/min Estimated GFR 57 L (59 - ) Glucose 98 (65-110) mg/dL Calcium 8.8 (8.4-10.2) mg/dL Total Bilirubin 0.3 (0.2-1.3) mg/dL AST 19 (14-36) U/L ALT 17 (6-35) U/L Alkaline Phosphatase 132 H (38-126) U/L Total Protein 7.0 (6.3-8.2) g/dL Albumin 3.9 (3.5-5.1) g/dL Discharge Plan Discharge Clinical Impression: Acute leg pain Patient Disposition: Home Condition: Improved Instructions: Antibiotic Form, Leg Pain (ED) Patient Language: Turkmen Prescriptions: New hydrocodone-acetaminophen 5-325 mg tablet 1 tablet PO Q6H PRN (Reason: pain) Qty: 10 0RF No Action trazodone 50 mg tablet 50 mg PO QHS sucralfate 1 gram tablet 1 g PO TID phenytoin sodium extended 100 mg capsule 100 mg PO DAILY dicyclomine 10 mg capsule 10 mg PO DAILY prochlorperazine maleate [Compazine] 5 mg tablet 5 mg PO Q8H PRN (Reason: nausea and vomiting) 5 Days Qty: 20 0RF isosorbide mononitrate 30 mg tablet extended release 24 hr 30 mg PO DAILY alprazolam 0.25 mg tablet 0.25 mg PO TID PRN (Reason: Anxiety) esomeprazole magnesium 40 mg capsule,delayed release(DR/EC) 40 mg PO BID budesonide-formoterol [Symbicort] 160-4.5 mcg/actuation HFA aerosol inhaler 1 inh INHALATION DAILY losartan 25 mg Tablet 25 mg PO DAILY Qty: 30 0RF amlodipine 5 mg tablet 10 mg PO DAILY Qty: 60 0RF Follow-up/Referrals: Warren,GM Maldonado [Primary Care Provider] -
--- NOTE | 2024-08-07 11:05 | PC.NURSE ---
MEDS GIVEN. SCANNER WOULD NOT VERIFY PT OR MEDS. VERIFICATION WITH ID BAND
[2024-08-07 11:30] VITALS: BP 189/73; PULSE 62; RESP 16; TEMP 36.6; O2SAT 100
[2024-08-07 11:37] LABS: Basophils Percent Auto 0.3 % (0.2-1.2); Eosinophils Absolute Auto 0.1 K/mm3 (0-0.3); Eosinophils Percent Auto 0.6 % (0-4.4); Hematocrit 36.6 % (37.0-47.0); Hemoglobin 11.4 g/dL (12.0-15.0); Immature Granulocyte Absolute 0.06 K/mm3 (0.00-0.031); Immature Granulocyte Percent A 0.6 % (0-0.5); Lymphocytes Absolute Auto 3.34 K/mm3 (0.9-3.2); Lymphocytes Percent Auto 34.5 % (18.3-44.2); Mean Corpuscular HGB Conc 31.1 g/dl (32-36); Mean Corpuscular Hemoglobin 28.5 pg (26-34); Mean Corpuscular Volume 91.5 fl (80-100); Mean Platelet Volume 11.2 fl (7.4-10.4); Monocytes Absolute Auto 0.9 K/mm3 (0.1-0.6); Monocytes Percent Auto 9.7 % (2.6-8.5); Neutrophils Absolute Auto 5.2 K/mm3 (1.3-6.7); Neutrophils Percent Auto 54.3 % (45.5-73.1); Platelet Count Result 268 k/mm3 (150-375); Red Cell Distribution Width 14.1 % (11.5-14.5); White Blood Count 9.7 K/mm3 (4.5-10.0)
[2024-08-07 11:49] LABS: Alanine Aminotransferase 17 U/L (6-35); Albumin Level 3.9 g/dL (3.5-5.1); Alkaline Phosphatase 132 U/L (38-126); Anion Gap 9 mmol/L (4-12); Aspartate Amino Transferase 19 U/L (14-36); Bilirubin,Total 0.3 mg/dL (0.2-1.3); Blood Urea Nitrogen 21 mg/dL (7-17); Calcium 8.8 mg/dL (8.4-10.2); Carbon Dioxide 25 mmol/L (22-30); Chloride 105 mmol/L (98-107); Estimated CRCL calculation 40 ml/min; Estimated Glomerular Filt Rate 57; Glucose 98 mg/dL (65-110); Potassium 4.1 mmol/L (3.4-5.0); Sodium 139 mmol/L (137-145)
[2024-08-07] MEDS: MORPHINE SULFATE INJ (*CRX) 10 MG/ML AMP 4 MG IM (12:44)
[2024-08-07] MEDS: FUROSEMIDE INJ 40 MG/4 ML VIAL 20 MG IM (12:44)
[2024-08-07 13:30] VITALS: BP 171/68; PULSE 63; RESP 16; TEMP 36.6; O2SAT 99
--- OUTSIDE RECORDS SUMMARY | 2024-08-08 11:46 | XMS_ITS | Encounter Summary ---
Author Organization [facility] Facility Care Team Providers Care Transcription Coordinator Name Role Phone rEica Kelley Primary Care Provider [phone] Kerrie King RN Unavailable [phone] Kareem Stark MD Unavailable [phone] Ron Jensen MD Unavailable [phone] Joe Roca MD Primary Care Provider [phone] Erica Kelley Primary Care Provider [phone] Encounter Details Date Type Department Care Team (Latest Contact Info) Description 04/05/2018 Orders Only [facility] CLINCONV ProviderJocelynn MD [address] [place] [address] Social History Tobacco Use Types Packs/Day Years Used Date Smoking Tobacco: Former Comments Unknown Sex and Gender Information Value Date Recorded Sex Assigned at Not on file Legal Sex Female 4:02 AM INTERNATIONAL RECRUITER Gender Identity Not on file Sexual Orientation Not on file documented as of this encounter Plan of Treatment Not on file documented as of this encounter Procedures Procedure Name Priority Date/Time Associated Diagnosis Comments SCAN - LABS 04/07/2018 12:00 AM INTERNATIONAL RECRUITER documented in this encounter Results * SCAN - LABS (04/07/2018 12:00 AM INTERNATIONAL RECRUITER) Narrative 04/07/2018 12:00 AM INTERNATIONAL RECRUITER Ordered by an unspecified provider. Historical Provider Final Res ult documented in this encounter Visit Diagnoses Not on filedocumented in this encounter Additional Health Concerns Infection Onset Date Last Indicated Resolved Time COVID: Suspected 03/28/2020 03/28/2020 03/28/2020 2:23 PM INTERNATIONAL RECRUITER Respiratory Infection (ERICK), contact + droplet Comment:Automatically added due to negative COVID-19 result. 03/28/2020 03/28/2020 04/11/2020 3:0 5 AM INTERNATIONAL RECRUITER documented as of this encounter Care Teams Transcription Coordinator Relationship Specialty Start Date End Date Erica Kelley PA [address] [place] [address] PCP - General Internal Medicine 09/04/18 07/24/23 Joe Roca MD [address] [facility] [address] [address] [place] [address] PCP - General Family Medicine 07/25/23 07/29/23 Erica Kelley PA [address] [place] [address] PCP - General Family Medicine 07/30/23 Kerrie King, RN [address] [place] [address] [address] [place] [address] Makeup Artistry Instructor 06/17/19 07/21/19 Kareem Stark MD [address] [place] [address] [address] [place] [address] Referring Physician Gastroenterology 11/27/19 Ron Jensen MD [address] [facility] [address] [place] [address] Consulting Physician Obstetrics and Gynecology 11/27/19 documented as of this encounter
--- OUTSIDE RECORDS SUMMARY | 2024-08-08 11:46 | XMS_ITS | Encounter Summary ---
Author Organization [facility] Healthcare Address [address] [place] [address] Care Team Providers Care Quality Assurance Supervisor Body Name Role Phone Kareem Stark MD Unavailable [phone] Ron Jensen MD Unavailable [phone] Erica Kelley Primary Care Provider [phone] Encounter Details Date Type Department Care Team (Late st Contact Info) Description 09/20/2023 Telephone [facility] Senior Counseling [address] [place] [address] Kavita Chavis Social History Tobacco [...] things needed for daily living? No 07/22/2019 PHQ-9 Answer Date Recorded PHQ-9 Total Score 7 07/31/2023 Comments No Sex and Gender Information Value Date Recorded Sex Assigned at Not on file Legal Sex Female 4:02 AM ACCOUNTANT SYSTEMS Gender Identity Not on file Sexual Orientation [...] with present life circumstances No Mariella Gray, REPAIRER ENGINE PRODUCTION Note: Patient's progress is impaired as patient [...] in stressors, but express continued worry about long distance operator stability. Patient will need to learn coping skills to manage these disorders to improve overall function and response to life stressors. documented as of this encounter Care Teams Quality Assurance Supervisor Body Relationship Specialty Start Date End Date Erica Kelley PA [address] [facility] [address] [place] [address] PCP - General Family Medicine 07/30/23 Kareem Stark MD Referring Physician Gastroenterology 11/27/19 Ron Jensen MD [address] [address] Consulting Physician Obstetrics and Gynecology 11/27/19 documented as of this encounter
--- OUTSIDE RECORDS SUMMARY | 2024-08-08 11:46 | XMS_ITS | Clinical Summary ---
Author Organization [facility] Address [address] [place] [address] Care Team Providers Care Social Services Manager Name Role Phone Erica Kelley Primary Care Provider [phone] Allergies Active Allergy Reactions Criticality Noted Date [...] place to sleep or slept in a alf (including now)? No 09/22/2022 Comments No Sex and Gender Information Value Date Recorded Sex Assigned at Not on file Legal Sex Female 10:28 AM KID CLUB ATTENDANT Gender Identity Not on file Sexual [...] Vaccine (2023-2 5 season) 2023 10/01/2020, 09/02/2020 DTaP, Tdap and Td Vaccines ( 2 - Td or Tdap) 12/20/2024 12/20/2014 Pneumococcal Vaccine: 50+ Years Completed 02/01/2021, 11/26/2019 Colorectal Cancer Screening [...] this topic Medical Devices Implanted Type Area Well Logging Mud Analysis Captain Device Identifier Shelf Expiration Date Model / [...] the left lateral decubitus position, the Olympus [id number] colonoscope was introduced into the rectum and [...] 8:36 AM 09/22/2022 1:58 PM Care Teams Social Services Manager Relationship Specialty Start Date End Date Erica Kelley PA [address] [place] [address] PCP - General PHYSICIAN INFORMATION SYSTEMS SECURITY ANALYST 05/15/19
--- OUTSIDE RECORDS SUMMARY | 2024-08-08 11:46 | XMS_ITS | Encounter Summary ---
Author Organization [facility] Care Team Providers Care Parks And Recreation Worker Name Role Phone Erica Kelley Primary Care Provider [phone] Kerrie King RN Unavailable [phone] Kareem Stark MD Unavailable [phone] Ron Jensen MD Unavailable [phone] Joe Roca MD Primary Care Provider [phone] Erica Kelley Primary Care Provider [phone] Encounter Details Date Type Department Care Team (Latest Contact Info) Description 09/12/2017 Orders Only [facility] CLINCONV ProviderJocelynn MD [address] [place] [id number] Social History Tobacco Use Types Packs/Day Years Used Date Smoking Tobacco: Former Comments Unknown Sex and Gender Information Value Date Recorded Sex Assigned at Not on file Legal Sex Female 4:02 AM MONITORING ENGINEER Gender Identity Not on file Sexual Orientation [...] COVID: Suspected 03/28/2020 03/28/2020 03/28/2020 2:23 PM MONITORING ENGINEER Respiratory Infection (ERICK), contact + droplet Comment:Automatically added due to negative COVID-19 result. 03/28/2020 03/28/2020 04/11/2020 3:0 5 AM MONITORING ENGINEER documented as of this encounter Care Teams Parks And Recreation Worker Relationship Specialty Start Date End Date Erica Kelley PA [address] [place] [address] PCP - General Internal Medicine 09/04/18 07/24/23 Joe Roca MD [address] [place] [id number] PCP - General Family Medicine 07/25/23 07/29/23 Erica Kelley PA [address] [place] [address] PCP - General Family Medicine 07/30/23 Kerrie King, RN [address] [place] [address] [address] [place] [address] Head Lineman 06/17/19 07/21/19 Kareem Stark MD [address] [place] [address] [address] [place] [address] Referring Physician Gastroenterology 11/27/19 Ron Jensen MD [address] [place] [address] Consulting Physician Obstetrics and Gynecology 11/27/19 documented as of this encounter
--- OUTSIDE RECORDS SUMMARY | 2024-08-08 11:46 | XMS_ITS | Referral Summary ---
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 Office Visit [address] [place] [phone] Erica Kelley PA Medicare annual wellness visit, subsequent (Primary Dx); Moderate episode of recurrent major depressive disorder (HCC); Seizure (CMS/HCC) (HCC); Pre-diabetes; Mixed hyperlipidemia; Generalized anxiety disorder; Hypertension, essential; Gastroesophageal reflux disease without esophagitis; Jackhammer esophagus; Need for influenza vaccination; Obesity (BMI 30-39.9); BMI 33.0-33.9,adult 05/22/[address] [place] [phone] Erica Kelley PA 05/21/[address] [place] [phone] Erica Kelley PA 05/14/2024 Orders Only [address] [place] [phone] Erica Kelley PA Hypertension, essential (Primary Dx); Mixed hyperlipidemia; Pre-diabetes; Generalized weakness; Other fatigue; Muscle pain; Muscle tightness; Hyperkalemia; Elevated alkaline phosphatase level 05/13/2024 Orders Only [address] [place] [phone] Erica Kelley PA 05/13/[address] [place] [phone] Erica Kelley PA Symptom Based [...] daily 180 tablet 1 11/27/19 24 Active isosorbide mononitrate ER (IMDUR) 30 mg 24 hr tabletIndication s:Hypertension, essential Take 1 tablet by mouth once daily 90 tablet 1 02/17/[address] (NexIUM) 40 mg capsule Take 1 capsule by mouth twice daily 180 capsule 1 03/03/20 24 Active sucralfate (CARAFATE) 1 gram tabletIndication s:Gastroesophage al reflux disease without esophagitis Take 1 tablet by mouth 4 times daily 400 tablet 1 06/01/19 25 Active clonazePAM (KlonoPIN) 0.5 mg tablet TAKE 1 TABLET BY MOUTH THREE TIMES DAILY 90 tablet 06/26/19 25 Active prochlorperazine (COMPAZINE) 10 mg tabletIndication s:Nausea and vomiting, unspecified vomiting type TAKE 1 TABLET BY MOUTH EVERY 8 HOURS NEEDED FOR NAUSEA FOR VOMITING 30 tablet 07/08/19 25 Active losartan (COZAAR) 50 mg tabletIndication s:Hypertension, essential Take 1 tablet by mouth twice daily 180 tablet 07/15/19 25 Active traZODone (DESYREL) 50 mg tablet TAKE 2 TABLETS BY MOUTH NIGHTLY 180 tablet 07/15/19 25 Active amLODIPine (NORVASC) 10 mg tablet TAKE 1 TABLET BY MOUTH ONCE DAILY NIGHTLY 90 tablet 08/07/19 25 Active losartan (COZAAR) 50 mg tabletIndication s:Hypertension, essential Take 1 tablet by mouth twice daily 180 tablet 1 01/22/20 24 025 Discontinued traZODone (DESYREL) 50 mg tablet TAKE 2 TABLETS BY MOUTH NIGHTLY 180 tablet 1 02/04/20 24 025 Discontinued amLODIPine (NORVASC) 10 mg tablet TAKE 1 TABLET BY MOUTH ONCE DAILY NIGHTLY 90 tablet 05/11/19 25 025 Discontinued amLODIPine (NORVASC) 10 mg tablet TAKE 1 TABLET BY MOUTH ONCE DAILY NIGHTLY 90 tablet 04/08/ 025 Discontinued Active Problems Problem Noted Date Diagnosed Date Medicare annual wellness visit, subsequent 05/28 Assessment & Plan (05/28/2024 9:53 AM EXPERIENCED TRUCK DRIVER): Encouraged healthy lifestyle, good nutrition and exercise. Encouraged Calcium and Vitamin D and weight bearing exercise for bone health. Reviewed immunizations. Reviewed age appropirate screenings. Medicare Wellness Documentation is completed within the chart Need for influenza vaccination 05/26/2024 Assessment & Plan (05/28/2024 9:52 AM EXPERIENCED TRUCK DRIVER): Flu updated in the office today Jackhammer esophagus 05/26/2024 Assessment & Plan (05/28/2024 9:52 AM EXPERIENCED TRUCK DRIVER): Patient with GERD/jackhammer esophagus. Stable with amitriptyline 20 Compazine as needed esomeprazole and Carafate as needed Pre-diabetes 12/11/2023 Assessment & Plan (05/28/2024 9:52 AM EXPERIENCED TRUCK DRIVER): Pre-diabetes/hyperglycemia is a precursor to Dm. Stressed importance of working on diet (decrease your simple sugars and one carbohydrate with each meal) and increase you exercise to achieve weight loss and this will help prevent you from progressing to diabetes. Assessment & Plan (12/11/2023 10:02 AM CDT): Pre-diabetes/hyperglycemia is a precursor to Dm. Stressed importance of working on diet (decrease your simple sugars and one carbohydrate with each meal) and increase you exercise to achieve weight loss and this will help prevent you from progressing to diabetes. Mixed hyperlipidemia 08/09/2023 Assessment & Plan (05/28/2024 9:52 AM EXPERIENCED TRUCK DRIVER): Encouraged patient to follow low fat/low chol diet like the Mediterranean diet. Increase good fats in the diet. Increase exercise. Monitor labs as needed. Continue Crestor 10 Assessment & Plan (12/11/2023 10:02 AM CDT): [...] Generalized anxiety disorder 06/17/2023 Assessment & Plan (05/28/2024 9:52 AM EXPERIENCED TRUCK DRIVER): Patient with significant depression anxiety symptoms. Currently on Cymbalta 60 trazodone 50 and clonazepam 0.5 mg up to t.i.d.. States her home is very stressful and she enjoys being at her daughter's which takes away the stressed that she experiences at home but creates a different stress at times. Strongly encouraged her to consider an alternative to the counseling at the senior counseling at [facility] as this has been very helpful for her. Assessment & Plan (12/11/2023 10:01 AM CDT): Persistent anxiety longstanding. Continue counseling at [facility]. Continue Cymbalta 60. Continue clonazepam 0.5 b.i.d. with a 3rd 1 in the middle of the day as needed Assessment & Plan (09/04/2023 10:40 AM CDT): Patient with persistent anxiety. She continues with Cymbalta 60 and clonazepam 0.5 mg b.i.d.. Advised she can take an extra half tab if she has breakthrough symptoms. Continue with counseling at [facility]. Assessment & Plan (08/09/2023 [...] counseling for years. Discussed the [facility] senior servicing on [address]. Will help connect to this group to [...] plan Assessment & Plan (06/12/2023 11:10 PM EXPERIENCED TRUCK DRIVER): Discussed again at length. Encouraged counseling. Also encouraged the Cymbalta and her other medicine regimen. Assessment & Plan (06/04/2023 12:08 PM EXPERIENCED TRUCK DRIVER): Reviewed with patient psychosomatic symptoms and how [...] 10/17/2021 Assessment & Plan (02/25/2022 10:26 PM EXPERIENCED TRUCK DRIVER): Patient's son in July this year. She [...] have good family support. 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 Strongly encouraged her to reach out her wine cellar stock clerk. Provided names of counselors in the [...] day. Assessment & Plan (05/14/2021 1:59 PM EXPERIENCED TRUCK DRIVER): See jackhammer esophagus Hypertension, essential 04/02/2021 Assessment & Plan (05/28/2024 9:51 AM EXPERIENCED TRUCK DRIVER): Bp is stable/in acceptable range for any co-morbidities. Encouraged to limit sodium intake and exercise for weight control. Continue IsosorbideER 30 Metoprolol 25mg bid Amlodipine 10 Losartan 50mg bid Assessment & Plan (12/11/2023 10:01 AM CDT): [...] tabs) Assessment & Plan (06/12/2023 11:10 PM EXPERIENCED TRUCK DRIVER): Patient has blood pressure elevation but minimal [...] plan Assessment & Plan (06/08/2023 8:15 PM EXPERIENCED TRUCK DRIVER): Blood pressure still isn't well controlled. Will [...] reassess Assessment & Plan (05/21/2023 9:45 PM EXPERIENCED TRUCK DRIVER): Encouraged to limit sodium intake and exercise [...] list. Assessment & Plan (05/20/2023 12:50 AM EXPERIENCED TRUCK DRIVER): Bp is stable/in acceptable range for any [...] amlodipine. Assessment & Plan (02/13/2023 11:13 AM EXPERIENCED TRUCK DRIVER): Bp is stable/in acceptable range for any [...] isosorbide Assessment & Plan (02/25/2022 10:26 PM EXPERIENCED TRUCK DRIVER): Bp is stable/in acceptable range for any co-morbidities. Encouraged to limit sodium intake and exercise for weight control. Continue metoprolol amlodipine and isosorbide Assessment & Plan (08/13/2021 3:19 PM CDT): Bp is stable/in acceptable range for any co-morbidities. Encouraged to limit sodium intake and exercise for weight control. Continue with metoprolol amlodipine and isosorbide Assessment & Plan (05/25/2021 7:37 PM EXPERIENCED TRUCK DRIVER): Bp is stable/in acceptable range for any co-morbidities. Encouraged to limit sodium intake and exercise for weight control. Continue metoprolol, amlodipine and isorbide Assessment & Plan (04/02/2021 10:12 PM EXPERIENCED TRUCK DRIVER): Bp is stable/in acceptable range for any [...] dizziness. BMI 33.0-33.9,adult 03/13/2021 Assessment & Plan (05/26/2024 11:17 AM EXPERIENCED TRUCK DRIVER): BMI Follow-up includes: Discussed diet and exercising counseling. Assessment & Plan (12/11/2023 10:02 AM CDT): Discussed the patient's BMI. The BMI is above average. BMI management plan is completed. BMI Follow-up includes: nutrition counseling, exercise counseling and education provided. Assessment & Plan (03/13/2021 8:40 AM EXPERIENCED TRUCK DRIVER): Obesity is unchanged. Discussed the patient's BMI. The BMI is above average. BMI management plan is completed. BMI Follow-up includes: nutrition counseling, exercise counseling and education provided. Obesity (BMI 30-39.9) 12/24/2019 Assessment & Plan (05/26/2024 11:17 AM EXPERIENCED TRUCK DRIVER): Discussed the patient's BMI. The BMI is above average. BMI management plan is completed. BMI Follow-up includes: nutrition counseling, exercise counseling and education provided. Assessment & Plan (12/11/2023 10:02 AM CDT): [...] provided. Assessment & Plan (06/08/2023 8:16 PM EXPERIENCED TRUCK DRIVER): Discussed the patient's BMI. The BMI is above average. BMI management plan is completed. BMI Follow-up includes: nutrition counseling, exercise counseling and education provided. Assessment & Plan (05/21/2023 9:43 PM EXPERIENCED TRUCK DRIVER): Discussed the patient's BMI. The BMI is [...] statin Assessment & Plan (06/13/2019 3:49 AM EXPERIENCED TRUCK DRIVER): Patient reports hx of stroke several years [...] without esophagi tis 01/04/2019 Assessment & Plan (05/28/2024 9:51 AM EXPERIENCED TRUCK DRIVER): Patient with GERD/jackhammer esophagus. Stable with amitriptyline 20 Compazine as needed esomeprazole and Carafate as needed Assessment & Plan (08/09/2023 11:21 PM CDT): Patient follows with Dr. Stark. She is jackhammer esophagus and reflux. Continues with amitriptyline 25 Compazine as needed esomeprazole Carafate patient states her symptoms have been stable Assessment & Plan (06/08/2023 8:14 PM EXPERIENCED TRUCK DRIVER): Continue Carafate and PPI as instructed Assessment & Plan (05/20/2023 12:52 AM EXPERIENCED TRUCK DRIVER): Patient with reflux esophagitis and jackhammer esophagus. Her GI is Dr. Stark but it appears she has not going to be able to get in with him for a little while. Encouraged her to continue with PPI and Carafate 3 to 4 times a day. Continue to monitor closely with her diet and avoid trigger foods. Assessment & Plan (03/22/2022 8:36 PM EXPERIENCED TRUCK DRIVER): Continue GI regimen until she is able [...] PPI Assessment & Plan (06/13/2019 3:42 AM EXPERIENCED TRUCK DRIVER): Hx of GERD and PUD. Recent EGD [...] 05/21/2013 Seizure (CMS/HCC) 05/05/2013 Assessment & Plan (05/28/2024 9:50 AM EXPERIENCED TRUCK DRIVER): History of seizures. Has been on Dilantin for years with no recent seizure activity. Discussed referral to Neurology to see if she can transition to a new medicine as this could contribute to side effect of sweating. She declines at this time and wants to continue with what she has done well on for years Assessment & Plan (08/09/2023 11:23 PM CDT): No seizures on the Dilantin Assessment & Plan (02/13/2023 11:12 AM EXPERIENCED TRUCK DRIVER): Still on Dilantin. No history of seizures Assessment & Plan (08/19/2022 6:13 PM CDT): History of seizures. No recent seizures. Continue with Dilantin. Offered referral to Neurology to discuss since it has been a long times and she is had a seizure but would rather just continue with the medicine. Assessment & Plan (02/25/2022 10:27 PM EXPERIENCED TRUCK DRIVER): No current seizure history. Continue Dilantin Assessment [...] managment Assessment & Plan (06/13/2019 3:47 AM EXPERIENCED TRUCK DRIVER): Hx of unspecified seizure disorder. - Continue home dilantin Moderate episode of recurrent major depressive d isorder 05/05/2013 Assessment & Plan (05/28/2024 9:51 AM EXPERIENCED TRUCK DRIVER): Patient with significant depression anxiety symptoms. Currently on Cymbalta 60 trazodone 50 and clonazepam 0.5 mg up to t.i.d.. States her home is very stressful and she enjoys being at her daughter's which takes away the stressed that she experiences at home but creates a different stress at times. Strongly encouraged her to consider an alternative to the counseling at the senior counseling at [facility] as this has been very helpful for her. Assessment & Plan (08/09/2023 11:22 PM CDT): [...] counseling for years. Discussed the [facility] senior servicing on [address]. Will help connect to this group to see if this is possibility as they can assist with transportation. Continue clonazepam 0.5 mg b.i.d. and Cymbalta 60 mg daily. Continue with trazodone HS as needed. Assessment & Plan (06/12/2023 11:06 PM EXPERIENCED TRUCK DRIVER): Patient continues to have persistent anxiety depression [...] her with the [facility] at [facility] and she should be able to get in with counseling and assistance with transportation as needed. If she has any problems or concerns she is to call the office immediately Assessment & Plan (06/08/2023 8:14 PM EXPERIENCED TRUCK DRIVER): Attempts continued anxiety that still is not fully controlled with Cymbalta 60 and Xanax 0.5 b.i.d.. Patient admits it does not feel like the same last very long. Discussed importance of truly anxiety psycho somatically I think this is affecting her physical health. Will stop the Xanax. Start clonazepam 0.5 b.i.d.. Follow-up in 4-6 weeks to reassess Assessment & Plan (05/20/2023 12:54 AM EXPERIENCED TRUCK DRIVER): Patient has ongoing anxiety and depression symptoms. Increase the Cymbalta to 60 b.i.d.. 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 Assessment & Plan (02/13/2023 11:12 AM EXPERIENCED TRUCK DRIVER): Stable with Lexapro 20 Assessment & Plan [...] 10 Assessment & Plan (03/22/2022 8:37 PM EXPERIENCED TRUCK DRIVER): Continue Lexapro 10 mg. Strongly encouraged start counseling. Provided information for the [facility]. Assessment & Plan (02/25/2022 10:27 PM EXPERIENCED TRUCK DRIVER): Patient restarted Lexapro and is doing well. [...] have good family support. 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 Strongly encouraged her to reach out her wine cellar stock clerk. Provided names of counselors in the [...] prn Assessment & Plan (05/25/2021 7:38 PM EXPERIENCED TRUCK DRIVER): Patient has discontinued all medications. May need to revisit if sxs continue Assessment & Plan (04/02/2021 10:12 PM EXPERIENCED TRUCK DRIVER): Continue Cymbalta Assessment & Plan (02/04/2021 8:47 [...] area. Assessment & Plan (06/13/2019 3:46 AM EXPERIENCED TRUCK DRIVER): Hx of depression and anxiety symptoms exacerbated [...] anti-depressant/anxiolytic Assessment & Plan (05/09/2019 10:52 PM EXPERIENCED TRUCK DRIVER): Continue with the Cymbalta Assessment & Plan [...] Problem Noted Date Diagnosed Date Resolved Date Fatigue 12/11/2023 05/26/2024 Assessment & Plan (12/11/2023 10:02 AM CDT): Probably multifactorial. Check labs and followup to re-evaluate Medicare annual wellness visit, subsequent 08/09/2023 09/04/2023 [...] 08/09/2023 Assessment & Plan (05/20/2023 12:54 AM EXPERIENCED TRUCK DRIVER): See anxiety BMI 33.0-33.9,adult 05/07/2023 05/21/19 24 Assessment & Plan (05/20/2023 12:54 AM EXPERIENCED TRUCK DRIVER): Weight/BMI is in healthy range. Continue healthy lifestyle to maintain. Need for influenza vaccination 02/13/2023 08/09/2023 Assessment & Plan (02/13/2023 11:13 AM EXPERIENCED TRUCK DRIVER): Flu vaccine updated in the office today Medicare annual wellness visit, subsequent 02/13/2023 05/20/2023 Assessment & Plan (02/13/2023 11:14 AM EXPERIENCED TRUCK DRIVER): Encouraged healthy lifestyle, good nutrition and exercise. [...] 11/01/202205/09 Assessment & Plan (02/13/2023 11:13 AM EXPERIENCED TRUCK DRIVER): Discussed the patient's BMI. The BMI is [...] 24 Assessment & Plan (02/13/2023 10:41 AM EXPERIENCED TRUCK DRIVER): Discussed the patient's BMI. The BMI is [...] 08/02/2022 Assessment & Plan (03/22/2022 8:36 PM EXPERIENCED TRUCK DRIVER): Flu vaccine updated in the office today BMI 35.0-35.9,adult 03/22/2022 08/03/19 23 Assessment & Plan (03/22/2022 8:36 PM EXPERIENCED TRUCK DRIVER): Discussed the patient's BMI. The BMI is above average. BMI management plan is completed. BMI Follow-up includes: nutrition counseling, exercise counseling and education provided. Medicare annual wellness visit, subsequent 02/25/2022 08/02/2022 Assessment & Plan (02/25/2022 10:26 PM EXPERIENCED TRUCK DRIVER): Encouraged healthy lifestyle, good nutrition and exercise. Encouraged Calcium and Vitamin D and weight bearing exercise for bone health. Reviewed immunizations. Reviewed age appropirate screenings. Medicare Wellness Documentation is completed within the chart Morbid obesity 10/17/2021 08/02/2022 Assessment & Plan (03/22/2022 8:37 PM EXPERIENCED TRUCK DRIVER): Discussed the patient's BMI. The BMI is above average. BMI management plan is completed. BMI Follow-up includes: nutrition counseling, exercise counseling and education provided. Patient has an obesity-related condition (not limited to: hypertension, obstructive sleep apnea, osteoarthritis, hyperlipidemia, diabetes, etc.). Therefore, morbid obesity may be documented for patients with a BMI between 35.00-39.99. Assessment & Plan (02/25/2022 10:26 PM EXPERIENCED TRUCK DRIVER): Discussed the patient's BMI. The BMI is [...] provided. Assessment & Plan (06/08/2023 8:17 PM EXPERIENCED TRUCK DRIVER): Discussed the patient's BMI. The BMI is above average. BMI management plan is completed. BMI Follow-up includes: nutrition counseling, exercise counseling and education provided. Assessment & Plan (05/21/2023 9:43 PM EXPERIENCED TRUCK DRIVER): Discussed the patient's BMI. The BMI is above average. BMI management plan is completed. BMI Follow-up includes: nutrition counseling, exercise counseling and education provided. Assessment & Plan (02/25/2022 10:26 PM EXPERIENCED TRUCK DRIVER): Discussed the patient's BMI. The BMI is [...] and education provided. BMI 33.0-33.9,adult 07/26/2021 10/18/19 22 Assessment & Plan (07/26/2021 8:39 AM CDT): Obesity is unchanged. Discussed the patient's BMI. The BMI is above average. BMI management plan is completed. BMI Follow-up includes: nutrition counseling, exercise counseling and education provided. Obesity (BMI 30-39.9) 05/25/20212021 Assessment & Plan (05/25/2021 11:46 AM EXPERIENCED TRUCK DRIVER): Obesity is unchanged. Discussed the patient's BMI. The BMI is above average. BMI management plan is completed. BMI Follow-up includes: nutrition counseling, exercise counseling and education provided. BMI 33.0-33.9,adult 05/25/2021 07/27/19 22 Assessment & Plan (05/25/2021 11:46 AM EXPERIENCED TRUCK DRIVER): Obesity is unchanged. Discussed the patient's BMI. The BMI is above average. BMI management plan is completed. BMI Follow-up includes: nutrition counseling, exercise counseling and education provided. Fatigue 05/25/2021 08/09/2023 Assessment & Plan (02/13/2023 11:13 AM EXPERIENCED TRUCK DRIVER): Probably multifactorial. Check labs and followup to re-evaluate Assessment & Plan (11/04/2022 5:52 PM CDT): Probably multifactorial. Check labs and followup to re-evaluate Assessment & Plan (05/25/2021 7:37 PM EXPERIENCED TRUCK DRIVER): Probably multifactorial. Check labs and followup to re-evaluate Chest pain 05/18/2021 08/19/2022 Hypertensive urgency 05/18/2021 023 Jackhammer esophagus 04/02/2021 024 Assessment & Plan (05/20/2023 12:53 AM EXPERIENCED TRUCK DRIVER): Patient with reflux esophagitis and jackhammer esophagus. Her GI is Dr. Stark but it appears she has not going to be able to get in with him for a little while. Encouraged her to continue with PPI and Carafate 3 to 4 times a day. Continue to monitor closely with her diet and avoid trigger foods. Assessment & Plan (02/13/2023 11:12 AM EXPERIENCED TRUCK DRIVER): Continue per Dr. Stark. Seems to have [...] concerns. Assessment & Plan (02/25/2022 10:25 PM EXPERIENCED TRUCK DRIVER): Continue per Dr. Stark currently taking Xanax every day and using the Carafate and Compazine p.r.n.. States Xanax is the only thing that seems to help her. States she can not get back in with Dr. Stark for a few months and is requesting refills right now Assessment & Plan (08/13/2021 3:18 PM CDT): Continue per GI at [facility] and Dr. Stark Assessment & Plan (05/25/2021 7:36 PM EXPERIENCED TRUCK DRIVER): Continue per GI - Dr. Stark She is on Librax and Protonix. Assessment & Plan (05/14/2021 2:00 PM EXPERIENCED TRUCK DRIVER): Patient was diagnosed with jackhammer esophagus and has been following at [facility] with Dr. Alexia Mojica. She has [...] she needs to contact the GI at [facility] for further instructions to continue to get better control of this jackhammer esophagus. May continue the PPI, Bentyl and carafate. Assessment & Plan (04/02/2021 10:13 PM EXPERIENCED TRUCK DRIVER): Continue per GI. They have encouraged proper med outweighed along with diltiazem 30 mg q.i.d.. Will stop the amlodipine and transition to the diltiazem and monitor blood pressure carefully. See hypertension. Obesity (BMI 30-39.9) 03/13/20212021 Assessment & Plan (03/13/2021 8:40 AM EXPERIENCED TRUCK DRIVER): Obesity is unchanged. Discussed the patient's BMI. [...] counseling and education provided. BMI 32.0-32.9,adult 02/01/2021 05/26/19 25 Assessment & Plan (09/04/2023 10:37 AM CDT): [...] 024 Assessment & Plan (02/13/2023 11:13 AM EXPERIENCED TRUCK DRIVER): Encouraged patient to follow low fat/low chol [...] 10 Assessment & Plan (02/25/2022 10:25 PM EXPERIENCED TRUCK DRIVER): Encouraged patient to follow low fat/low chol [...] 08/09/2023 Assessment & Plan (06/12/2023 11:09 PM EXPERIENCED TRUCK DRIVER): Patient continues to have persistent anxiety depression [...] her with the [facility] at [facility] and she should be able to get in with counseling and assistance with transportation as needed. If she has any problems or concerns she is to call the office immediately Assessment & Plan (06/08/2023 8:15 PM EXPERIENCED TRUCK DRIVER): Attempts continued anxiety that still is not fully controlled with Cymbalta 60 and Xanax 0.5 b.i.d.. Patient admits it does not feel like the same last very long. Discussed importance of truly anxiety psycho somatically I think this is affecting her physical health. Will stop the Xanax. Start clonazepam 0.5 b.i.d.. Follow-up in 4-6 weeks to reassess Assessment & Plan (05/20/2023 12:54 AM EXPERIENCED TRUCK DRIVER): Patient has ongoing anxiety and depression symptoms. Increase the Cymbalta to 60 b.i.d.. 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 Assessment & Plan (02/13/2023 11:12 AM EXPERIENCED TRUCK DRIVER): Symptoms are stable with Lexapro 10. Using the trazodone to rest which is helpful also Assessment & Plan (08/13/2021 3:14 PM CDT): Continue Cymbalta and Trazodone prn Assessment & Plan (04/02/2021 10:09 PM EXPERIENCED TRUCK DRIVER): Continued anxiety exacerbated by her son's recent [...] provider. Will reach out to our nurse poultry barn manager for assistance to try to avoid [...] 08/12/19 Assessment & Plan (04/20/2019 11:27 AM EXPERIENCED TRUCK DRIVER): Weight/BMI is in healthy range. Continue healthy [...] a pulmonary workup. BMI 28.0-28.9,adult 09/17/2018 12/30/19 Assessment & Plan (11/27/2018 1:17 PM CDT): [...] time. Assessment & Plan (06/13/2019 3:46 AM EXPERIENCED TRUCK DRIVER): Increased nausea and vomiting related to increased [...] Stark.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
--- OUTSIDE RECORDS SUMMARY | 2024-08-08 11:46 | XMS_ITS | Clinical Summary ---
Author Organization [facility] Address [address] [place] [address] Care Team Providers Care Market Investigator Name Role Phone Erica Kelley PA-C Primary Care Provider [phone] Source Comments [facility],non-owned Affiliates and Associated Physician Practices is amultiple site organization consisting of ambulatory clinics and hospital sitesin [place], [place], [place]. This disclosure is being madepursuant to the Care Everywhere program and may not contain all information available regarding this patient. Last updated 17.[facility] Allergies No known active allergies Medications * Be aware that medications may not be up to date on this document. Alwaysverify current medications with the patient. 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 Gender Identity Not on file Sexual Orientation Not on file Last Filed Vital Signs Vital Sign Reading Time Taken Comments Blood Pressure 197/84 03/09/2021 8:16 AM SUPERVISOR DATA PROCESSING Pulse 78 03/09/2021 8:16 AM SUPERVISOR DATA PROCESSING Temperature 36.7 C (98 F) 03/09/2021 8:16 AM SUPERVISOR DATA PROCESSING Respiratory Rate 14 03/09/2021 8:16 AM SUPERVISOR DATA PROCESSING Oxygen Saturation 100% 03/09/2021 8:16 AM SUPERVISOR DATA PROCESSING Inhaled Oxygen Concentration - - Weight 80.3 kg (177 lb) 03/09/2021 8:16 AM SUPERVISOR DATA PROCESSING Height 154.9 cm (5' 1 ) 03/09/2021 8:16 AM SUPERVISOR DATA PROCESSING Body Mass Index 33.44 03/09/2021 8:16 AM SUPERVISOR DATA PROCESSING Plan of Treatment Health Maintenance Due Date [...] - 2023-2 5 season) 2023 10/01/2020, 09/02/2020 DEPRESSION SCREENING 04/08/2024 INFLUENZA VACCINE (Season Ended) 2024 01/16/2017, 01/07/2013 HEPATITIS B VACCINE Aged Out No longe r eligible based on patient's age to complete this topic HIB VACCINE Aged Out No longer eligi ble based on patient's age to complete this topic HPV VACCINE Aged Out No longer eligi ble based on patient's age to complete this topic MENINGOCOCCAL (Group B) VACCINE SHARED DECISION-MAKING Aged Out No longer eligible based on patient's age to complete this topic MENINGOCOCCAL GROUPS A/C/Y/W VACCINE Aged Out No longer eligible b ased on patient's age to complete this topic Goals Goal Patient Goal Type Associated Problems Recent Progress Patient-Stated? Author Medication Management General On track( 021 8:22 AM [facility] Tammie Perez RN Note: Expected end date: ongoing Interventions: Take all medications as prescribed Let your doctor know right away about any changes in your medications Make sure to request a refill of your medication at least one week prior to your last dose Insurance HUMANA [facility] Care Address: [address] [address] SELF PAY NO INSURANCE Member Subscriber Plan / Payer (Ef fective for All Dates) Name:Oleg Parker Member ID:Not on file Relation to Subscriber:Not on file Name:OLEG PARKER Subscriber ID:Not on file Address: [address] [place], [place] [address] [place] [address] Payer ID:Not on file Group ID:Not on file Type:Self Pay Address: [place], [place] Care Teams Market Investigator Relationship Specialty Start Date End Date Erica Kelley PA-C [address] [address] PCP - General 01/05/21
--- OUTSIDE RECORDS SUMMARY | 2024-08-08 11:46 | XMS_ITS | Encounter Summary ---
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 Patient will need to learn coping skills to manage these disorders to improve overall function and response to life stressors. documented as of this encounter Care Teams Deputy County Attorney Relationship Specialty Start Date End Date Erica Kelley PA [facility] [place] [address] PCP - General Family Medicine 07/30/23 Kareem Stark MD Referring Physician Gastroenterology 11/27/19 Ron Jensen MD [address] [facility] [address] [address] Consulting Physician Obstetrics and Gynecology 11/27/19 documented as of this encounter
--- OUTSIDE RECORDS SUMMARY | 2024-08-08 11:46 | XMS_ITS | Clinical Summary ---
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 PM 05/22/2021 8:57 PM * Full Code Date Activated Date Inactivated Comments 05/18/2021 4:50 PM 05/18/2021 9:46 PM * Full Code Date Activated Date Inactivated Comments 06/12/2019 10:30 PM 06/14/2019 6:07 PM Care Teams Store Coordinator Relationship Specialty Start Date End Date Erica Kelley PA [address] [facility] [address] [place] [address] PCP - General Family Medicine 07/30/23 Kareem Stark MD Referring Physician Gastroenterology 11/27/19 Ron Jensen MD [address] [address] Consulting Physician Obstetrics and Gynecology 11/27/19
--- OUTSIDE RECORDS SUMMARY | 2024-08-08 11:46 | XMS_ITS | Encounter Summary ---
Author Organization [facility] Care Team Providers Care Supervisor Assembly And Packing Name Role Phone Erica Kelley Primary Care Provider [phone] Kerrie King RN Unavailable [phone] Kareem Stark MD Unavailable [phone] Ron Jensen MD Unavailable [phone] Joe Roca MD Primary Care Provider [phone] Eriac Kelley Primary Care Provider [phone] Encounter Details Date Type Department Care Team (Latest Contact Info) Description 03/16/2016 Orders Only [facility] CLINCONV ProviderJocelynn MD [address] [place] [address] Social History Tobacco Use Types Packs/Day Years Used Date Smoking Tobacco: Former Comments Unknown Sex and Gender Information Value Date Recorded Sex Assigned at Not on file 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 Historical Provider Final Res ult documented in this encounter Visit Diagnoses Not on filedocumented in this encounter Additional Health Concerns Infection Onset Date Last Indicated Resolved Time COVID: Suspected 03/28/2020 03/28/2020 03/28/2020 2:23 PM C WINFORMS DEVELOPER Respiratory Infection (ERICK), contact + droplet Comment:Automatically added due to negative COVID-19 result. 03/28/2020 03/28/2020 04/11/2020 3:0 5 AM C WINFORMS DEVELOPER documented as of this encounter Care Teams Supervisor Assembly And Packing Relationship Specialty Start Date End Date Erica Kelley PA [address] [place] [address] PCP - General Internal Medicine 09/04/18 07/24/23 Joe Roca MD [address] [facility] [address] [place] [address] PCP - General Family Medicine 07/25/23 07/29/23 Erica Kelley PA [address] [place] [address] PCP - General Family Medicine 07/30/23 Kerrie King, RN [address] [place] [address] [address] [place] [address] Endodontics Dentist 06/17/19 07/21/19 Kareem Stark MD [address] [place] [address] [address] [place] [address] Referring Physician Gastroenterology 11/27/19 Ron Jensen MD [address] [facility] [address] [place] [address] Consulting Physician Obstetrics and Gynecology 11/27/19 documented as of this encounter
--- OUTSIDE RECORDS SUMMARY | 2024-08-08 11:46 | XMS_ITS | Encounter Summary ---
Author Organization [facility] Facility Care Team Providers Care Real Estate Appraiser Supervisor Name Role Phone Erica Kelley Primary Care Provider [phone] Kerrie King RN Unavailable [phone] Kareem Stark MD Unavailable [phone] Rno Jensen MD Unavailable [phone] Joe Roca MD Primary Care Provider Erica Kelley Primary Care Provider [phone] Encounter Details Date Type Department Care Team (Latest Contact Info) Description 06/28/2015 Orders Only [facility] CLINCONV ProviderJocelynn MD [address] [place] [address] Social History Tobacco Use Types Packs/Day Years Used Date Smoking Tobacco: Former Comments Unknown Sex and Gender Information Value Date Recorded Sex Assigned at Not on file 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 03/28/2020 03/28/2020 04/11/2020 3:0 5 AM ELECTRONIC MUSICAL INSTRUMENT REPAIRER documented as of this encounter Care Teams Real Estate Appraiser Supervisor Relationship Specialty Start Date End Date Erica Kelley PA [address] [place] [address] PCP - General Internal Medicine 09/04/18 07/24/23 Joe Roca MD [address] [facility] [address] [place] [address] PCP - General Family Medicine 07/25/23 07/29/23 Erica Kelley PA [address] [place] [address] PCP - General Family Medicine 07/30/23 Kerrie King, RN [address] [place] [address] [address] [place] [address] Installation Helper 06/17/19 07/21/19 Kareem Stark MD [address] [place] [address] [address] [place] [address] Referring Physician Gastroenterology 11/27/19 Ron Jensen MD [address] [facility] [address] [place] [address] Consulting Physician Obstetrics and Gynecology 11/27/19 documented as of this encounter
--- OUTSIDE RECORDS SUMMARY | 2024-08-08 12:20 | XMS_ITS | Referral Summary ---
Author Organization [facility] [place] [address] Address [address] [place] [address] Care Team Providers Care Furniture Inspector Name Role Phone Kareem Stark MD Unavailable [phone] Ron Jensen MD Unavailable [phone] Erica Kelley Primary Care Provider + [phone] Encounters Date Type Department Care Team Description 05/26/2024 Results Follow-Up [address] [place] [phone] Erica Kelley PA 05/26/2024 11:00 AM FITNESS TECHNICIAN Office Visit [address] [place] [phone] Erica Kelley PA Medicare annual wellness visit, subsequent (Primary Dx); Moderate episode of recurrent major depressive disorder (HCC); Seizure (CMS/HCC) (HCC); Pre-diabetes; Mixed hyperlipidemia; Generalized anxiety disorder; Hypertension, essential; Gastroesophageal reflux disease without esophagitis; Jackhammer esophagus; Need for influenza vaccination; Obesity (BMI 30-39.9); BMI 33.0-33.9,adult 05/22/[address] [place] [phone] Erica Kelley PA 05/21/[address] [place] [phone] Erica Kelley PA 05/14/2024 Orders Only [address] [place] [phone] Erica Kelley PA Hypertension, essential (Primary Dx); Mixed hyperlipidemia; Pre-diabetes; Generalized weakness; Other fatigue; Muscle pain; Muscle tightness; Hyperkalemia; Elevated alkaline phosphatase level 05/13/2024 Orders Only [address] [place] [phone] Erica Kelley PA 05/13/[address] [place] [phone] Erica Kelley PA Symptom Based [...] 05/28 Assessment & Plan (05/28/2024 9:53 AM FITNESS TECHNICIAN): Encouraged healthy lifestyle, good nutrition and exercise. Encouraged Calcium and Vitamin D and weight bearing exercise for bone health. Reviewed immunizations. Reviewed age appropirate screenings. Medicare Wellness Documentation is completed within the chart Need for influenza vaccination 05/26/2024 Assessment & Plan (05/28/2024 9:52 AM FITNESS TECHNICIAN): Flu updated in the office today Jackhammer esophagus 05/26/2024 Assessment & Plan (05/28/2024 9:52 AM FITNESS TECHNICIAN): Patient with GERD/jackhammer esophagus. Stable with amitriptyline 20 Compazine as needed esomeprazole and Carafate as needed Pre-diabetes 12/11/2023 Assessment & Plan (05/28/2024 9:52 AM FITNESS TECHNICIAN): Pre-diabetes/hyperglycemia is a precursor to Dm. Stressed [...] 08/09/2023 Assessment & Plan (05/28/2024 9:52 AM FITNESS TECHNICIAN): Encouraged patient to follow low fat/low chol [...] 06/17/2023 Assessment & Plan (05/28/2024 9:52 AM FITNESS TECHNICIAN): Patient with significant depression anxiety symptoms. Currently [...] the counseling at the senior counseling at [facility] as this has been very helpful for her. Assessment & Plan (12/11/2023 10:01 AM CDT): Persistent anxiety longstanding. Continue counseling at [facility]. Continue Cymbalta 60. Continue clonazepam 0.5 b.i.d. with a 3rd 1 in the middle of the day as needed Assessment & Plan (09/04/2023 10:40 AM CDT): Patient with persistent anxiety. She continues with Cymbalta 60 and clonazepam 0.5 mg b.i.d.. Advised she can take an extra half tab if she has breakthrough symptoms. Continue with counseling at [facility]. Assessment & Plan (08/09/2023 [...] to do counseling for years. Discussed the [facility] senior servicing on [address]. Will help connect to this group to [...] plan Assessment & Plan (06/12/2023 11:10 PM FITNESS TECHNICIAN): Discussed again at length. Encouraged counseling. Also encouraged the Cymbalta and her other medicine regimen. Assessment & Plan (06/04/2023 12:08 PM FITNESS TECHNICIAN): Reviewed with patient psychosomatic symptoms and how [...] 10/17/2021 Assessment & Plan (02/25/2022 10:26 PM FITNESS TECHNICIAN): Patient's son in July this year. She [...] have good family support. She does have orthodox involvement in a floorperson although little disappointed that he has not followed up much since the of her son. Strongly encouraged her to reach out her floorperson. Provided names of counselors in the area [...] day. Assessment & Plan (05/14/2021 1:59 PM FITNESS TECHNICIAN): See jackhammer esophagus Hypertension, essential 04/02/2021 Assessment & Plan (05/28/2024 9:51 AM FITNESS TECHNICIAN): Bp is stable/in acceptable range for any [...] tabs) Assessment & Plan (06/12/2023 11:10 PM FITNESS TECHNICIAN): Patient has blood pressure elevation but minimal [...] plan Assessment & Plan (06/08/2023 8:15 PM FITNESS TECHNICIAN): Blood pressure still isn't well controlled. Will [...] reassess Assessment & Plan (05/21/2023 9:45 PM FITNESS TECHNICIAN): Encouraged to limit sodium intake and exercise [...] list. Assessment & Plan (05/20/2023 12:50 AM FITNESS TECHNICIAN): Bp is stable/in acceptable range for any [...] amlodipine. Assessment & Plan (02/13/2023 11:13 AM FITNESS TECHNICIAN): Bp is stable/in acceptable range for any [...] isosorbide Assessment & Plan (02/25/2022 10:26 PM FITNESS TECHNICIAN): Bp is stable/in acceptable range for any co-morbidities. Encouraged to limit sodium intake and exercise for weight control. Continue metoprolol amlodipine and isosorbide Assessment & Plan (08/13/2021 3:19 PM CDT): Bp is stable/in acceptable range for any co-morbidities. Encouraged to limit sodium intake and exercise for weight control. Continue with metoprolol amlodipine and isosorbide Assessment & Plan (05/25/2021 7:37 PM FITNESS TECHNICIAN): Bp is stable/in acceptable range for any co-morbidities. Encouraged to limit sodium intake and exercise for weight control. Continue metoprolol, amlodipine and isorbide Assessment & Plan (04/02/2021 10:12 PM FITNESS TECHNICIAN): Bp is stable/in acceptable range for any [...] 03/13/2021 Assessment & Plan (05/26/2024 11:17 AM FITNESS TECHNICIAN): BMI Follow-up includes: Discussed diet and exercising counseling. Assessment & Plan (12/11/2023 10:02 AM CDT): Discussed the patient's BMI. The BMI is above average. BMI management plan is completed. BMI Follow-up includes: nutrition counseling, exercise counseling and education provided. Assessment & Plan (03/13/2021 8:40 AM FITNESS TECHNICIAN): Obesity is unchanged. Discussed the patient's BMI. The BMI is above average. BMI management plan is completed. BMI Follow-up includes: nutrition counseling, exercise counseling and education provided. Obesity (BMI 30-39.9) 12/24/2019 Assessment & Plan (05/26/2024 11:17 AM FITNESS TECHNICIAN): Discussed the patient's BMI. The BMI is [...] provided. Assessment & Plan (06/08/2023 8:16 PM FITNESS TECHNICIAN): Discussed the patient's BMI. The BMI is above average. BMI management plan is completed. BMI Follow-up includes: nutrition counseling, exercise counseling and education provided. Assessment & Plan (05/21/2023 9:43 PM FITNESS TECHNICIAN): Discussed the patient's BMI. The BMI is [...] statin Assessment & Plan (06/13/2019 3:49 AM FITNESS TECHNICIAN): Patient reports hx of stroke several years [...] 01/04/2019 Assessment & Plan (05/28/2024 9:51 AM FITNESS TECHNICIAN): Patient with GERD/jackhammer esophagus. Stable with amitriptyline 20 Compazine as needed esomeprazole and Carafate as needed Assessment & Plan (08/09/2023 11:21 PM CDT): Patient follows with Dr. Stark. She is jackhammer esophagus and reflux. Continues with amitriptyline 25 Compazine as needed esomeprazole Carafate patient states her symptoms have been stable Assessment & Plan (06/08/2023 8:14 PM FITNESS TECHNICIAN): Continue Carafate and PPI as instructed Assessment & Plan (05/20/2023 12:52 AM FITNESS TECHNICIAN): Patient with reflux esophagitis and jackhammer esophagus. Her GI is Dr. Stark but it appears she has not going to be able to get in with him for a little while. Encouraged her to continue with PPI and Carafate 3 to 4 times a day. Continue to monitor closely with her diet and avoid trigger foods. Assessment & Plan (03/22/2022 8:36 PM FITNESS TECHNICIAN): Continue GI regimen until she is able [...] PPI Assessment & Plan (06/13/2019 3:42 AM FITNESS TECHNICIAN): Hx of GERD and PUD. Recent EGD [...] 05/05/2013 Assessment & Plan (05/28/2024 9:50 AM FITNESS TECHNICIAN): History of seizures. Has been on Dilantin [...] Dilantin Assessment & Plan (02/13/2023 11:12 AM FITNESS TECHNICIAN): Still on Dilantin. No history of seizures Assessment & Plan (08/19/2022 6:13 PM CDT): History of seizures. No recent seizures. Continue with Dilantin. Offered referral to Neurology to discuss since it has been a long times and she is had a seizure but would rather just continue with the medicine. Assessment & Plan (02/25/2022 10:27 PM FITNESS TECHNICIAN): No current seizure history. Continue Dilantin Assessment [...] managment Assessment & Plan (06/13/2019 3:47 AM FITNESS TECHNICIAN): Hx of unspecified seizure disorder. - Continue home dilantin Moderate episode of recurrent major depressive d isorder 05/05/2013 Assessment & Plan (05/28/2024 9:51 AM FITNESS TECHNICIAN): Patient with significant depression anxiety symptoms. Currently [...] the counseling at the senior counseling at [facility] as this has been very helpful [...] to do counseling for years. Discussed the [facility] senior servicing on [address]. Will help connect to this group to see if this is possibility as they can assist with transportation. Continue clonazepam 0.5 mg b.i.d. and Cymbalta 60 mg daily. Continue with trazodone HS as needed. Assessment & Plan (06/12/2023 11:06 PM FITNESS TECHNICIAN): Patient continues to have persistent anxiety depression [...] her with the Senior Counseling [facility] at [facility] and she should be able to get in with counseling and assistance with transportation as needed. If she has any problems or concerns she is to call the office immediately Assessment & Plan (06/08/2023 8:14 PM FITNESS TECHNICIAN): Attempts continued anxiety that still is not fully controlled with Cymbalta 60 and Xanax 0.5 b.i.d.. Patient admits it does not feel like the same last very long. Discussed importance of truly anxiety psycho somatically I think this is affecting her physical health. Will stop the Xanax. Start clonazepam 0.5 b.i.d.. Follow-up in 4-6 weeks to reassess Assessment & Plan (05/20/2023 12:54 AM FITNESS TECHNICIAN): Patient has ongoing anxiety and depression symptoms. Increase the Cymbalta to 60 b.i.d.. 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 Assessment & Plan (02/13/2023 11:12 AM FITNESS TECHNICIAN): Stable with Lexapro 20 Assessment & Plan [...] 10 Assessment & Plan (03/22/2022 8:37 PM FITNESS TECHNICIAN): Continue Lexapro 10 mg. Strongly encouraged start counseling. Provided information for the [facility]. Assessment & Plan (02/25/2022 10:27 PM FITNESS TECHNICIAN): Patient restarted Lexapro and is doing well. [...] have good family support. She does have orthodox involvement in a floorperson although little disappointed that he has not followed up much since the of her son. Strongly encouraged her to reach out her floorperson. Provided names of counselors in the area [...] prn Assessment & Plan (05/25/2021 7:38 PM FITNESS TECHNICIAN): Patient has discontinued all medications. May need to revisit if sxs continue Assessment & Plan (04/02/2021 10:12 PM FITNESS TECHNICIAN): Continue Cymbalta Assessment & Plan (02/04/2021 8:47 [...] area. Assessment & Plan (06/13/2019 3:46 AM FITNESS TECHNICIAN): Hx of depression and anxiety symptoms exacerbated [...] anti-depressant/anxiolytic Assessment & Plan (05/09/2019 10:52 PM FITNESS TECHNICIAN): Continue with the Cymbalta Assessment & Plan [...] 08/09/2023 Assessment & Plan (05/20/2023 12:54 AM FITNESS TECHNICIAN): See anxiety BMI 33.0-33.9,adult 05/07/2023 05/21/19 24 Assessment & Plan (05/20/2023 12:54 AM FITNESS TECHNICIAN): Weight/BMI is in healthy range. Continue healthy lifestyle to maintain. Need for influenza vaccination 02/13/2023 08/09/2023 Assessment & Plan (02/13/2023 11:13 AM FITNESS TECHNICIAN): Flu vaccine updated in the office today Medicare annual wellness visit, subsequent 02/13/2023 05/20/2023 Assessment & Plan (02/13/2023 11:14 AM FITNESS TECHNICIAN): Encouraged healthy lifestyle, good nutrition and exercise. [...] 11/01/202205/09 Assessment & Plan (02/13/2023 11:13 AM FITNESS TECHNICIAN): Discussed the patient's BMI. The BMI is [...] 24 Assessment & Plan (02/13/2023 10:41 AM FITNESS TECHNICIAN): Discussed the patient's BMI. The BMI is [...] 08/02/2022 Assessment & Plan (03/22/2022 8:36 PM FITNESS TECHNICIAN): Flu vaccine updated in the office today BMI 35.0-35.9,adult 03/22/2022 08/03/19 23 Assessment & Plan (03/22/2022 8:36 PM FITNESS TECHNICIAN): Discussed the patient's BMI. The BMI is above average. BMI management plan is completed. BMI Follow-up includes: nutrition counseling, exercise counseling and education provided. Medicare annual wellness visit, subsequent 02/25/2022 08/02/2022 Assessment & Plan (02/25/2022 10:26 PM FITNESS TECHNICIAN): Encouraged healthy lifestyle, good nutrition and exercise. Encouraged Calcium and Vitamin D and weight bearing exercise for bone health. Reviewed immunizations. Reviewed age appropirate screenings. Medicare Wellness Documentation is completed within the chart Morbid obesity 10/17/2021 08/02/2022 Assessment & Plan (03/22/2022 8:37 PM FITNESS TECHNICIAN): Discussed the patient's BMI. The BMI is above average. BMI management plan is completed. BMI Follow-up includes: nutrition counseling, exercise counseling and education provided. Patient has an obesity-related condition (not limited to: hypertension, obstructive sleep apnea, osteoarthritis, hyperlipidemia, diabetes, etc.). Therefore, morbid obesity may be documented for patients with a BMI between 35.00-39.99. Assessment & Plan (02/25/2022 10:26 PM FITNESS TECHNICIAN): Discussed the patient's BMI. The BMI is [...] provided. Assessment & Plan (06/08/2023 8:17 PM FITNESS TECHNICIAN): Discussed the patient's BMI. The BMI is above average. BMI management plan is completed. BMI Follow-up includes: nutrition counseling, exercise counseling and education provided. Assessment & Plan (05/21/2023 9:43 PM FITNESS TECHNICIAN): Discussed the patient's BMI. The BMI is above average. BMI management plan is completed. BMI Follow-up includes: nutrition counseling, exercise counseling and education provided. Assessment & Plan (02/25/2022 10:26 PM FITNESS TECHNICIAN): Discussed the patient's BMI. The BMI is [...] 05/25/20212021 Assessment & Plan (05/25/2021 11:46 AM FITNESS TECHNICIAN): Obesity is unchanged. Discussed the patient's BMI. The BMI is above average. BMI management plan is completed. BMI Follow-up includes: nutrition counseling, exercise counseling and education provided. BMI 33.0-33.9,adult 05/25/2021 07/27/19 22 Assessment & Plan (05/25/2021 11:46 AM FITNESS TECHNICIAN): Obesity is unchanged. Discussed the patient's BMI. The BMI is above average. BMI management plan is completed. BMI Follow-up includes: nutrition counseling, exercise counseling and education provided. Fatigue 05/25/2021 08/09/2023 Assessment & Plan (02/13/2023 11:13 AM FITNESS TECHNICIAN): Probably multifactorial. Check labs and followup to re-evaluate Assessment & Plan (11/04/2022 5:52 PM CDT): Probably multifactorial. Check labs and followup to re-evaluate Assessment & Plan (05/25/2021 7:37 PM FITNESS TECHNICIAN): Probably multifactorial. Check labs and followup to re-evaluate Chest pain 05/18/2021 08/19/2022 Hypertensive urgency 05/18/2021 023 Jackhammer esophagus 04/02/2021 024 Assessment & Plan (05/20/2023 12:53 AM FITNESS TECHNICIAN): Patient with reflux esophagitis and jackhammer esophagus. Her GI is Dr. Stark but it appears she has not going to be able to get in with him for a little while. Encouraged her to continue with PPI and Carafate 3 to 4 times a day. Continue to monitor closely with her diet and avoid trigger foods. Assessment & Plan (02/13/2023 11:12 AM FITNESS TECHNICIAN): Continue per Dr. Stark. Seems to have [...] concerns. Assessment & Plan (02/25/2022 10:25 PM FITNESS TECHNICIAN): Continue per Dr. Stark currently taking Xanax every day and using the Carafate and Compazine p.r.n.. States Xanax is the only thing that seems to help her. States she can not get back in with Dr. Stark for a few months and is requesting refills right now Assessment & Plan (08/13/2021 3:18 PM CDT): Continue per GI at [facility] and Dr. Stark Assessment & Plan (05/25/2021 7:36 PM FITNESS TECHNICIAN): Continue per GI - Dr. Stark She is on Librax and Protonix. Assessment & Plan (05/14/2021 2:00 PM FITNESS TECHNICIAN): Patient was diagnosed with jackhammer esophagus and has been following at [facility] with Dr. Alexia Mojica. She has [...] she needs to contact the GI at [facility] for further instructions to continue to get better control of this jackhammer esophagus. May continue the PPI, Bentyl and carafate. Assessment & Plan (04/02/2021 10:13 PM FITNESS TECHNICIAN): Continue per GI. They have encouraged proper med outweighed along with diltiazem 30 mg q.i.d.. Will stop the amlodipine and transition to the diltiazem and monitor blood pressure carefully. See hypertension. Obesity (BMI 30-39.9) 03/13/20212021 Assessment & Plan (03/13/2021 8:40 AM FITNESS TECHNICIAN): Obesity is unchanged. Discussed the patient's BMI. [...] 024 Assessment & Plan (02/13/2023 11:13 AM FITNESS TECHNICIAN): Encouraged patient to follow low fat/low chol [...] 10 Assessment & Plan (02/25/2022 10:25 PM FITNESS TECHNICIAN): Encouraged patient to follow low fat/low chol [...] 08/09/2023 Assessment & Plan (06/12/2023 11:09 PM FITNESS TECHNICIAN): Patient continues to have persistent anxiety depression [...] her with the [facility] at [facility] and she should be able to get in with counseling and assistance with transportation as needed. If she has any problems or concerns she is to call the office immediately Assessment & Plan (06/08/2023 8:15 PM FITNESS TECHNICIAN): Attempts continued anxiety that still is not fully controlled with Cymbalta 60 and Xanax 0.5 b.i.d.. Patient admits it does not feel like the same last very long. Discussed importance of truly anxiety psycho somatically I think this is affecting her physical health. Will stop the Xanax. Start clonazepam 0.5 b.i.d.. Follow-up in 4-6 weeks to reassess Assessment & Plan (05/20/2023 12:54 AM FITNESS TECHNICIAN): Patient has ongoing anxiety and depression symptoms. Increase the Cymbalta to 60 b.i.d.. 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 Assessment & Plan (02/13/2023 11:12 AM FITNESS TECHNICIAN): Symptoms are stable with Lexapro 10. Using the trazodone to rest which is helpful also Assessment & Plan (08/13/2021 3:14 PM CDT): Continue Cymbalta and Trazodone prn Assessment & Plan (04/02/2021 10:09 PM FITNESS TECHNICIAN): Continued anxiety exacerbated by her son's recent [...] provider. Will reach out to our nurse environmental compliance manager for assistance to try to avoid [...] 08/12/19 Assessment & Plan (04/20/2019 11:27 AM FITNESS TECHNICIAN): Weight/BMI is in healthy range. Continue healthy [...] time. Assessment & Plan (06/13/2019 3:46 AM FITNESS TECHNICIAN): Increased nausea and vomiting related to increased [...] Stark. Assessment & Plan (06/13/2019 3:42 AM FITNESS TECHNICIAN): Patient with long history of chronic abdominal [...] pain Assessment & Plan (05/09/2019 10:52 PM FITNESS TECHNICIAN): Reviewed mediations that Dr. Stark's office had [...] on file Legal Sex Female 4:02 AM FITNESS TECHNICIAN Gender Identity Not on file Sexual Orientation Not on file Occupation Industry Job Start Date Job End Date Retired Not on file Not on file Not on file Last Filed Vital Signs Vital Sign Reading Time Taken Comments Blood Pressure 160/72 05/26/2024 11:14 AM FITNESS TECHNICIAN Pulse 71 05/26/2024 11:14 AM FITNESS TECHNICIAN Temperature 36.5 C (97.7 F) 05/26/2024 11:14 AM FITNESS TECHNICIAN Respiratory Rate 18 04/30/2022 10:20 AM FITNESS TECHNICIAN Oxygen Saturation 99% 05/26/2024 11:14 AM FITNESS TECHNICIAN Inhaled Oxygen Concentration - - Weight 80.3 kg (177 lb) 05/26/2024 11:14 AM FITNESS TECHNICIAN Height 154.9 cm (5' 1 ) 05/26/2024 11:14 AM FITNESS TECHNICIAN Body Mass Index 33.44 05/26/2024 11:14 AM FITNESS TECHNICIAN Plan of Treatment Not on file Goals [...] property damage. Medical Devices Implanted Type Area Tumbling Instructor Device Identifier Shelf Expiration Date Model / [...] Impressions EXTERNAL LAB - 06/08/2024 11:05 AM FITNESS TECHNICIAN Alkaline phosphates- 175 H [id number] Intestinal Isoenzymes- [...] BLOOD ORDERABLES Final Result Performing Organization Address City/[facility]/ZIP Co de Phone Number EXTERNAL LAB * Hemoglobin A1c (05/19/2024) [facility] SCRIBED Hemoglobin A1c 6.3 5.7 - 6.5 % EXTERNAL LAB Blood 05/19/2024 Erica WORRELL LAB BLOOD ORDERABLES Final Result Performing Organization Address [facility] de Phone Number EXTERNAL LAB * (ABNORMAL) Lipid panel (05/19/2024) [facility] SCRIBED Cholesterol, Total 232(A) 0 - 200 EXTERNAL LAB SCRIBED HDL 109(A) 0 - 0 EXTERNAL LAB SCRIBED LDL 109(A) 0 - 0 EXTERNAL LAB SCRIBED Triglycerides 115(A) 150 - 150 EXTERNAL LAB Blood 05/19/2024 Erica WORRELL LAB BLOOD ORDERABLES Final Result Performing Organization Address [facility] de Phone Number EXTERNAL LAB * (ABNORMAL) [...] Units/L EXTERNAL LAB SCRIBED eGFR in NonAfrican Kyrgyz 59(A) 0 - 0 EXTERNAL LAB Blood [...] in stressors, but express continued worry about shelter stability. Patient will need to learn coping skills to manage these disorders to improve overall function and response to life stressors. Insurance [employer] HMO HUMAN CHOICE MEDICARE PPO [employer] MED[employer]ARE HMO Advance Directives For more information, please contact: [phone] * Full Code (Latest Code Status on File) Date Activated Date Inactivated Comments 05/18/2021 9:46 PM 05/22/2021 8:57 PM * Full Code Date Activated Date Inactivated Comments 05/18/2021 4:50 PM 05/18/2021 9:46 PM * Full Code Date Activated Date Inactivated Comments 06/12/2019 10:30 PM 06/14/2019 6:07 PM Care Teams Furniture Inspector Relationship Specialty Start Date End Date Erica Kelley PA [address] [place], [place] [id number] PCP - General Family Medicine 07/30/23 Kareem Stark MD Referring Physician Gastroenterology 11/27/19 Ron Jensen MD [facility] [place] [address] Consulting Physician Obstetrics and Gynecology 11/27/19
--- OUTSIDE RECORDS SUMMARY | 2024-08-08 12:21 | XMS_ITS | Clinical Summary ---
Author Organization [facility] [employer] Address [address] [facility] [place] [address] Care Team Providers Care Director State Pharmacy Name Role Phone Erica Kelley PA-C Primary Care Provider [phone] Source Comments [employer],non-owned Affiliates and Associated Physician Practices is amultiple site organization consisting of ambulatory clinics and hospital sitesin [place], [place], [place] and [place]. This disclosure is being madepursuant to the Care Everywhere program and may not contain all information available regarding this patient. Last updated 17.[employer] Allergies No known active allergies Medications * [...] on file Legal Sex Female 6:24 PM SESSIONS CLERK Gender Identity Not on file Sexual Orientation Not on file Last Filed Vital Signs Vital Sign Reading Time Taken Comments Blood Pressure 197/84 03/09/2021 8:16 AM SESSIONS CLERK Pulse 78 03/09/2021 8:16 AM SESSIONS CLERK Temperature 36.7 C (98 F) 03/09/2021 8:16 AM SESSIONS CLERK Respiratory Rate 14 03/09/2021 8:16 AM SESSIONS CLERK Oxygen Saturation 100% 03/09/2021 8:16 AM SESSIONS CLERK Inhaled Oxygen Concentration - - Weight 80.3 kg (177 lb) 03/09/2021 8:16 AM SESSIONS CLERK Height 154.9 cm (5' 1 ) 03/09/2021 8:16 AM SESSIONS CLERK Body Mass Index 33.44 03/09/2021 8:16 AM SESSIONS CLERK Plan of Treatment Health Maintenance Due Date [...] Management General On track( 021 8:22 AM [facility]) Tammie Perez RN Note: Expected end date: ongoing Interventions: Take all medications as prescribed Let your doctor know right away about any changes in your medications Make sure to request a refill of your medication at least one week prior to your last dose Insurance [facility] Care Address: [address] [address] SELF PAY NO INSURANCE Member Subscriber Plan / Payer (Ef fective for All Dates) Name:Oleg Parker Member ID:Not on file Relation to Subscriber:Not on file Name:OLEG PARKER Subscriber ID:Not on file Address: [address] [place], [place] [address] [place] [address] Payer ID:Not on file Group ID:Not on file Type:Self Pay Address: [place], [place] Care Teams Director State Pharmacy Relationship Specialty Start Date End Date Erica Kelley PA-C [address] [address] PCP - General 01/05/21
--- OUTSIDE RECORDS SUMMARY | 2024-08-08 12:21 | XMS_ITS | Encounter Summary ---
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 Patient will need to learn coping skills to manage these disorders to improve overall function and response to life stressors. documented as of this encounter Care Teams Scenic Designer Relationship Specialty Start Date End Date Erica Kelley PA [address] [facility] [address] [place] [address] PCP - General Family Medicine 07/30/23 Kareem Stark MD Referring Physician Gastroenterology 11/27/19 Ron Jensen MD [address] [place] [address] Consulting Physician Obstetrics and Gynecology 11/27/19 documented as of this encounter
--- OUTSIDE RECORDS SUMMARY | 2024-08-08 12:21 | XMS_ITS | Encounter Summary ---
Author Organization [facility] Facility Care Team Providers Care Program Specialist Name Role Phone Erica Kelley Primary Care Provider [phone] Kerrie King RN Unavailable [phone] Kareem Stark MD Unavailable [phone] Ron Jensen MD Unavailable [phone] Joe Roca MD Primary Care Provider [phone] Erica Kelley Primary Care Provider [phone] Encounter Details Date Type Department Care Team (Latest Contact Info) Description 06/28/2015 Orders Only [facility] CLINCON[facility] ProviderJocelynn MD [address] [place] [address] Social History Tobacco Use Types Packs/Day Years Used Date Smoking Tobacco: Former Comments Unknown Sex and Gender Information Value Date Recorded Sex Assigned at Not on file Legal Sex Female 4:02 AM HEALTHCARE ASSOCIATE Gender Identity Not on file Sexual Orientation [...] COVID: Suspected 03/28/2020 03/28/2020 03/28/2020 2:23 PM HEALTHCARE ASSOCIATE Respiratory Infection (ERICK), contact + droplet Comment:Automatically added due to negative COVID-19 result. 03/28/2020 03/28/2020 04/11/2020 3:0 5 AM HEALTHCARE ASSOCIATE documented as of this encounter Care Teams Program Specialist Relationship Specialty Start Date End Date Erica Kelley PA [address] [place] [address] PCP - General Internal Medicine 09/04/18 07/24/23 Joe Roca MD [address] [facility] [address] [place] [address] PCP - General Family Medicine 07/25/23 07/29/23 Erica Kelley PA [address] [place] [address] PCP - General Family Medicine 07/30/23 Kerrie King, RN [address] [place] [address] [address] [place] [address] Copy Coordinator 06/17/19 07/21/19 Kareem Stark MD [address] [place] [address] [address] [place] [address] Referring Physician Gastroenterology 11/27/19 Ron Jensen MD [address] [facility] [address] [place] [address] Consulting Physician Obstetrics and Gynecology 11/27/19 documented as of this encounter
--- OUTSIDE RECORDS SUMMARY | 2024-08-08 12:21 | XMS_ITS | Encounter Summary ---
Author Organization [facility] Facility Care Team Providers Care Chief Mate Name Role Phone Erica Kelley Primary Care Provider [phone] Kerrie King RN Unavailable [phone] Kareem Stark MD Unavailable [phone] Ron Jensen MD Unavailable Joe Roca MD Primary Care Provider Erica Kelley Primary Care Provider [phone] Encounter Details Date Type Department Care Team (Latest Contact Info) Description 03/16/2016 Orders Only [facility] CLINCONV ProviderJocelynn MD [address] [place] [address] Social History Tobacco Use Types Packs/Day Years Used Date Smoking Tobacco: Former Comments Unknown Sex and Gender Information Value Date Recorded Sex Assigned at Not on file Legal Sex Female 4:02 AM ORACLE BPM CONSULTANT Gender Identity Not on file Sexual Orientation Not on file documented as of this encounter Plan of Treatment Not on file documented as of this encounter Procedures Procedure Name Priority Date/Time Associated Diagnosis Comments SCAN - LABS 03/16/2016 12:00 AM ORACLE BPM CONSULTANT documented in this encounter Results * SCAN - LABS (03/16/2016 12:00 AM ORACLE BPM CONSULTANT) Narrative 03/16/2016 12:00 AM ORACLE BPM CONSULTANT Ordered by an unspecified provider. Historical Provider Final Res ult documented in this encounter Visit Diagnoses Not on filedocumented in this encounter Additional Health Concerns Infection Onset Date Last Indicated Resolved Time COVID: Suspected 03/28/2020 03/28/2020 03/28/2020 2:23 PM ORACLE BPM CONSULTANT Respiratory Infection (ERICK), contact + droplet Comment:Automatically added due to negative COVID-19 result. 03/28/2020 03/28/2020 04/11/2020 3:0 5 AM ORACLE BPM CONSULTANT documented as of this encounter Care Teams Chief Mate Relationship Specialty Start Date End Date Erica Kelley PA [address] [place] [address] PCP - General Internal Medicine 09/04/18 07/24/23 Joe Roca MD [address] [facility] [address] [place] [address] PCP - General Family Medicine 07/25/23 07/29/23 Erica Kelley PA [address] [place] [address] PCP - General Family Medicine 07/30/23 Kerrie King, RN [address] [place] [address] [address] [place] [address] Vinyl Dipper 06/17/19 07/21/19 Kareem Stark MD [address] [place] [address] [address] [place] [address] Referring Physician Gastroenterology 11/27/19 Ron Jensen MD [address] [facility] [address] [place] [address] Consulting Physician Obstetrics and Gynecology 11/27/19 documented as of this encounter
--- OUTSIDE RECORDS SUMMARY | 2024-08-08 12:21 | XMS_ITS | Clinical Summary ---
Author Organization [facility] Address [address] [place] [address] Care Team Providers Care Director Of Software Engineering Name Role Phone Erica Kelley Primary Care Provider [phone] Allergies Active Allergy Reactions Criticality Noted Date [...] place to sleep or slept in a nursing home (including now)? No 09/22/2022 Comments No Sex and Gender Information Value Date Recorded Sex Assigned at Not on file Legal Sex Female 10:28 AM TIE WORKER Gender Identity Not on file Sexual Orientation [...] this topic Medical Devices Implanted Type Area All Terrain Vehicle Racer Device Identifier Shelf Expiration Date Model / [...] the left lateral decubitus position, the Olympus [id number] colonoscope was introduced into the rectum and [...] 8:36 AM 09/22/2022 1:58 PM Care Teams Director Of Software Engineering Relationship Specialty Start Date End Date Erica Kelley PA [address] [place] [address] PCP - General PHYSICIAN SHIP ENGINES OPERATING ENGINEER 05/15/19
--- OUTSIDE RECORDS SUMMARY | 2024-08-08 12:21 | XMS_ITS | Encounter Summary ---
Author Organization [facility] Facility Care Team Providers Care Valve Liner Rubber Name Role Phone Erica Kelley Primary Care Provider [phone] Kerrie King RN Unavailable [phone] Kareem Stark MD Unavailable [phone] Ron Jensen MD Unavailable [phone] Joe Roca MD Primary Care Provider [phone] Erica Kelley Primary Care Provider [phone] Encounter Details Date Type Department Care Team (Latest Contact Info) Description 09/12/2017 Orders Only [facility] CLINCONV ProviderJocelynn MD [address] [place] [address] Social History Tobacco Use Types Packs/Day Years Used Date Smoking Tobacco: Former Comments Unknown Sex and Gender Information Value Date Recorded Sex Assigned at Not on file Legal Sex Female 4:02 AM LEAF BLENDER Gender Identity Not on file Sexual Orientation [...] COVID: Suspected 03/28/2020 03/28/2020 03/28/2020 2:23 PM LEAF BLENDER Respiratory Infection (ERICK), contact + droplet Comment:Automatically added due to negative COVID-19 result. 03/28/2020 03/28/2020 04/11/2020 3:0 5 AM LEAF BLENDER documented as of this encounter Care Teams Valve Liner Rubber Relationship Specialty Start Date End Date Erica Kelley PA [address] [place] [address] PCP - General Internal Medicine 09/04/18 07/24/23 Joe Roca MD [address] [facility] [address] [place] [address] PCP - General Family Medicine 07/25/23 07/29/23 Erica Kelley PA [address] [place] [address] PCP - General Family Medicine 07/30/23 Kerrie King, RN [address] [place] [address] [address] [place] [address] Manager Area 06/17/19 07/21/19 Kareem Stark MD [address] [place] [address] [address] [place] [address] Referring Physician Gastroenterology 11/27/19 Ron Jensen MD [address] [facility] [address] [place] [address] Consulting Physician Obstetrics and Gynecology 11/27/19 documented as of this encounter
--- OUTSIDE RECORDS SUMMARY | 2024-08-08 12:21 | XMS_ITS | Encounter Summary ---
Author Organization [facility] Facility Care Team Providers Care Materials Management Manager Name Role Phone Erica Kelley Primary Care Provider [phone] Kerrie King RN Unavailable [phone] Kareem Stark MD Unavailable [phone] Ron Jensen MD Unavailable [phone] Joe Roca MD Primary Care Provider [phone] Erica Kelley Primary Care Provider [phone] Encounter Details Date Type Department Care Team (Latest Contact Info) Description 04/05/2018 Orders Only [facility] CLINCONV ProviderJocelynn MD [address] [place] [address] Social History Tobacco Use Types Packs/Day Years Used Date Smoking Tobacco: Former Comments Unknown Sex and Gender Information Value Date Recorded Sex Assigned at Not on file Legal Sex Female 4:02 AM FOSTER CARE CASE MANAGER Gender Identity Not on file Sexual Orientation Not on file documented as of this encounter Plan of Treatment Not on file documented as of this encounter Procedures Procedure Name Priority Date/Time Associated Diagnosis Comments SCAN - LABS 04/07/2018 12:00 AM FOSTER CARE CASE MANAGER documented in this encounter Results * SCAN - LABS (04/07/2018 12:00 AM FOSTER CARE CASE MANAGER) Narrative 04/07/2018 12:00 AM FOSTER CARE CASE MANAGER Ordered by an unspecified provider. Historical Provider Final Res ult documented in this encounter Visit Diagnoses Not on filedocumented in this encounter Additional Health Concerns Infection Onset Date Last Indicated Resolved Time COVID: Suspected 03/28/2020 03/28/2020 03/28/2020 2:23 PM FOSTER CARE CASE MANAGER Respiratory Infection (ERICK), contact + droplet Comment:Automatically added due to negative COVID-19 result. 03/28/2020 03/28/2020 04/11/2020 3:0 5 AM FOSTER CARE CASE MANAGER documented as of this encounter Care Teams Materials Management Manager Relationship Specialty Start Date End Date Erica Kelley PA [address] [place] [address] PCP - General Internal Medicine 09/04/18 07/24/23 Joe Roca MD [address] [facility] [address] [place] [address] PCP - General Family Medicine 07/25/23 07/29/23 Erica Kelley PA [address] [place] [address] PCP - General Family Medicine 07/30/23 Kerrie King, RN [address] [place] [address] [address] [place] [address] Software Lead 06/17/19 07/21/19 Kareem Stark MD [address] [place] [address] [address] [place] [address] Referring Physician Gastroenterology 11/27/19 Ron Jensen MD [address] [facility] [address] [place] [address] Consulting Physician Obstetrics and Gynecology 11/27/19 documented as of this encounter
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
--- OUTSIDE RECORDS SUMMARY | 2024-08-08 12:21 | XMS_ITS | Encounter Summary ---
Author Organization [facility] Healthcare Address [address] [place] [address] Care Team Providers Care Account Services Associate Name Role Phone Kareem Stark MD Unavailable [phone] Ron Jensen MD Unavailable [phone] Erica Kelley Primary Care Provider [phone]- [phone] Encounter Details Date Type Department Care Team (Late st Contact Info) Description 07/30/2023 Telephone [facility] Family Medicine at [address] [phone] Joe Roca MD [address] [place] [address] Social History Tobacco Use Types Packs/Day [...] on file 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 Patient will need to learn coping skills to manage these disorders to improve overall function and response to life stressors. documented as of this encounter Care Teams Account Services Associate Relationship Specialty Start Date End Date Erica Kelley PA [facility] [place] [address] PCP - General Family Medicine 07/30/23 Kareem Stark MD Referring Physician Gastroenterology 11/27/19 Ron Jensen MD [address] [facility] [address] [address] Consulting Physician Obstetrics and Gynecology 11/27/19 documented as of this encounter
== END 2024-08-07 14:05 | disposition home or self-care (01) ==
PROVIDERS: Emergency Provider Emergency Medicine; PCP Physician Assistant
DX: M79.605 Pain in left leg (principal); M79.604 Pain in right leg; I10 Essential (primary) hypertension; J45.909 Unspecified asthma, uncomplicated; E78.5 Hyperlipidemia, unspecified; K21.9 Gastro-esophageal reflux disease without esophagitis; K44.9 Diaphragmatic hernia without obstruction or gangrene; F32.A Depression, unspecified; D64.9 Anemia, unspecified; Z86.73 Personal history of transient ischemic attack (TIA), and cerebral infarction without residual deficits; Z87.891 Personal history of nicotine dependence; Z90.49 Acquired absence of other specified parts of digestive tract; Z79.899 Other long term (current) drug therapy
CPT/HCPCS: 36415; 73630; 80053; 85025; 96372; 99284; J1938; J2270

== ENCOUNTER 2024-08-10 15:25 | Emergency (ER) | payer MEDICARE, SELFPAY ==
--- NOTE | ~2024-08-10 | US_ITS ---
EXAMINATION: US venous doppler [facility] DATE: 08/10/2024 18:15 INDICATION: Leg pain TECHNIQUE: Grayscale ultrasound images without and with compression and Doppler ultrasound images of the bilateral lower extremity veins were obtained. COMPARISON: None. FINDINGS: The visualized portions of right common femoral vein, profunda (deep) femoral vein, femoral vein, pop liteal vein, peroneal veins, posterior tibial veins, and greater saphenous vein outflow are patent. The visualized portions of left common femoral vein, profunda femoral vein, femoral vein, popliteal v ein, peroneal veins, posterior tibial veins, and greater saphenous vein outflow are patent. IMPRESSION: 1. No deep venous thrombosis within the bilateral lower extremities. Reviewed, dictated and finalized at location A.
--- NOTE | ~2024-08-10 | XR_ITS ---
HISTORY: knee pain NKI COMPARISON: None TECHNIQUE: 4 views of the left knee were performed FINDINGS: No acute or subacute fracture, erosion, lytic or sclerotic lesion. Medial and lateral tibiofemoral joint space narrowing is identified. Small suprapatellar joint effusion is identified. The infrapatellar joint space is clear. IMPRESSION: Significant degenerative disease with a small suprapatellar joint effusion, without acut e fracture. Reviewed, dictated and finalized at location A. IMPRESSION: Significant degenerative disease with a small suprapatellar joint effusion, without acute fracture.
--- NOTE | ~2024-08-10 | XR_ITS ---
HISTORY: knee pain NKI COMPARISON: None TECHNIQUE: 4 views of the right knee were performed FINDINGS: No acute or subacute fracture, erosion, lytic or sclerotic lesion. Medial tibiofemoral joint space narrowing is identified. No suprapatellar joint effusion is identified. The infrapatellar joint space is clear. IMPRESSION: Degenerative disease, without acute fracture. Reviewed, dictated and finalized at location A.
[2024-08-10 15:31] VITALS: BP 184/59; PULSE 100; RESP 19; TEMP 36.6; O2SAT 100
--- OUTSIDE RECORDS SUMMARY | 2024-08-10 16:08 | XMS_ITS | Encounter Summary ---
Author Organization [facility] Facility Care Team Providers Care Fisher Lobster Name Role Phone Erica Kelley Primary Care Provider [phone] Kerrie King RN Unavailable [phone] Kareem Stark MD Unavailable [phone] Ron Jensen MD Unavailable [phone] Joe Roca MD Primary Care Provider [phone] Erica Kelley Primary Care Provider [phone] Encounter Details Date Type Department Care Team (Latest Contact Info) Description 06/28/2015 Orders Only [facility] CLINCON[facility] ProviderJocelynn MD [address] [place] [address] Social History Tobacco Use Types Packs/Day Years Used Date Smoking Tobacco: Former Comments Unknown Sex and Gender Information Value Date Recorded Sex Assigned at Not on file 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 03/28/2020 03/28/2020 04/11/2020 3:0 5 AM SITE WORKER documented as of this encounter Care Teams Fisher Lobster Relationship Specialty Start Date End Date Erica Kelley PA [address] [place] [address] PCP - General Internal Medicine 09/04/18 07/24/23 Joe Roca MD [address] [facility] [address] [place] [address] PCP - General Family Medicine 07/25/23 07/29/23 Erica Kelley PA [address] [place] [address] PCP - General Family Medicine 07/30/23 Kerrie King, RN [address] [place] [address] [address] [place] [address] Site Inspector 06/17/19 07/21/19 Kareem Stark MD [address] [place] [address] [address] [place] [address] Referring Physician Gastroenterology 11/27/19 Ron Jensen MD [address] [facility] [address] [place] [address] Consulting Physician Obstetrics and Gynecology 11/27/19 documented as of this encounter
--- OUTSIDE RECORDS SUMMARY | 2024-08-10 16:08 | XMS_ITS | Encounter Summary ---
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 Patient will need to learn coping skills to manage these disorders to improve overall function and response to life stressors. documented as of this encounter Care Teams Sales Management Intern Relationship Specialty Start Date End Date Erica Kelley PA [address] [facility] [address] [place] [address] PCP - General Family Medicine 07/30/23 Kareem Stark MD Referring Physician Gastroenterology 11/27/19 Ron Jensen MD [address] [address] Consulting Physician Obstetrics and Gynecology 11/27/19 documented as of this encounter
--- OUTSIDE RECORDS SUMMARY | 2024-08-10 16:08 | XMS_ITS | Encounter Summary ---
Author Organization [facility] Facility Care Team Providers Care Nuclear Fuel Processing Technician Name Role Phone Erica Kelley Primary Care Provider [phone] Kerrie King RN Unavailable [phone] Kareem Stark MD Unavailable [phone] Ron Jensen MD Unavailable [phone] Joe Roca MD Primary Care Provider Erica Kelley Primary Care Provider [phone] Encounter Details Date Type Department Care Team (Latest Contact Info) Description 04/05/2018 Orders Only [facility] CLINCONV ProviderJocelynn MD [address] [place] [address] Social History Tobacco Use Types Packs/Day Years Used Date Smoking Tobacco: Former Comments Unknown Sex and Gender Information Value Date Recorded Sex Assigned at Not on file 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 Historical Provider Final Res ult documented in this encounter Visit Diagnoses Not on filedocumented in this encounter Additional Health Concerns Infection Onset Date Last Indicated Resolved Time COVID: Suspected 03/28/2020 03/28/2020 03/28/2020 2:23 PM PIANO ASSEMBLER Respiratory Infection (ERICK), contact + droplet Comment:Automatically added due to negative COVID-19 result. 03/28/2020 03/28/2020 04/11/2020 3:0 5 AM PIANO ASSEMBLER documented as of this encounter Care Teams Nuclear Fuel Processing Technician Relationship Specialty Start Date End Date Erica Kelley PA [address] [place] [address] PCP - General Internal Medicine 09/04/18 07/24/23 Joe Roca MD [address] [facility] [address] [place] [address] PCP - General Family Medicine 07/25/23 07/29/23 Erica Kelley PA [address] [place] [address] PCP - General Family Medicine 07/30/23 Kerrie King, RN [address] [place] [address] [address] [place] [address] Email Campaign Manager 06/17/19 07/21/19 Kareem Stark MD [address] [place] [address] [address] [place] [address] Referring Physician Gastroenterology 11/27/19 Ron Jensen MD [address] [facility] [address] [place] [address] Consulting Physician Obstetrics and Gynecology 11/27/19 documented as of this encounter
--- OUTSIDE RECORDS SUMMARY | 2024-08-10 16:08 | XMS_ITS | Referral Summary ---
Author Organization [facility] [address] Address [address] [place] [address] Care Team Providers Care Lock Installer Name Role Phone Kareem Stark MD Unavailable [phone] Ron Jensen MD Unavailable [phone] Erica Kelley Primary Care Provider + [phone] Encounters Date Type Department Care Team Description 08/10/2024 Nurse Triage [address] [place] [phone] Erica Kelley PA 05/26/2024 Results Follow-Up [address] [place] [phone] Erica Kelley PA 05/26/2024 11:00 AM MANAGEMENT SUPERVISOR Office Visit [address] [place] [phone] Erica Kelley PA Medicare annual wellness visit, subsequent (Primary Dx); Moderate episode of recurrent major depressive disorder (HCC); Seizure (CMS/HCC) (HCC); Pre-diabetes; Mixed hyperlipidemia; Generalized anxiety disorder; Hypertension, essential; Gastroesophageal reflux disease without esophagitis; Jackhammer esophagus; Need for influenza vaccination; Obesity (BMI 30-39.9); BMI 33.0-33.9,adult 05/22/[address] [place] [phone] Erica Kelley PA 05/21/[address] [place] [phone] Erica Kelley PA 05/14/2024 Orders Only [address] [place] [phone] Erica Kelley PA Hypertension, essential (Primary Dx); Mixed hyperlipidemia; Pre-diabetes; Generalized weakness; Other fatigue; Muscle pain; Muscle tightness; Hyperkalemia; Elevated alkaline phosphatase level 05/13/2024 Orders Only [address] [place] [phone] Erica Kelley PA 05/13/[address] [phone] Erica Kelley PA Symptom Based Call [...] MOUTH ONCE DAILY NIGHTLY 90 tablet 07/15/19 025 Discontinued Active Problems Problem Noted Date Diagnosed Date Medicare annual wellness visit, subsequent 05/28 Assessment & Plan (05/28/2024 9:53 AM MANAGEMENT SUPERVISOR): Encouraged healthy lifestyle, good nutrition and exercise. Encouraged Calcium and Vitamin D and weight bearing exercise for bone health. Reviewed immunizations. Reviewed age appropirate screenings. 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 Stable with amitriptyline 20 Compazine as needed esomeprazole and Carafate as needed Pre-diabetes 12/11/2023 Assessment & Plan (05/28/2024 9:52 AM MANAGEMENT SUPERVISOR): Pre-diabetes/hyperglycemia is a precursor to Dm. Stressed [...] 08/09/2023 Assessment & Plan (05/28/2024 9:52 AM MANAGEMENT SUPERVISOR): Encouraged patient to follow low fat/low chol [...] 06/17/2023 Assessment & Plan (05/28/2024 9:52 AM MANAGEMENT SUPERVISOR): Patient with significant depression anxiety symptoms. Currently [...] the counseling at the senior counseling at [facility] as this has been very helpful for her. Assessment & Plan (12/11/2023 10:01 AM CDT): Persistent anxiety longstanding. Continue counseling at [facility]. Continue Cymbalta 60. Continue clonazepam 0.5 b.i.d. with a 3rd 1 in the middle of the day as needed Assessment & Plan (09/04/2023 10:40 AM CDT): Patient with persistent anxiety. She continues with Cymbalta 60 and clonazepam 0.5 mg b.i.d.. Advised she can take an extra half tab if she has breakthrough symptoms. Continue with counseling at [facility] Senior [facility]. Assessment & Plan [...] counseling for years. Discussed the [facility] senior servicing on [address]. Will help connect to this group to [...] plan Assessment & Plan (06/12/2023 11:10 PM MANAGEMENT SUPERVISOR): Discussed again at length. Encouraged counseling. Also encouraged the Cymbalta and her other medicine regimen. Assessment & Plan (06/04/2023 12:08 PM MANAGEMENT SUPERVISOR): Reviewed with patient psychosomatic symptoms and how [...] 10/17/2021 Assessment & Plan (02/25/2022 10:26 PM MANAGEMENT SUPERVISOR): Patient's son in July this year. 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 Strongly encouraged her to reach out her filament cutter. Provided names of counselors in the area [...] day. Assessment & Plan (05/14/2021 1:59 PM MANAGEMENT SUPERVISOR): See jackhammer esophagus Hypertension, essential 04/02/2021 Assessment & Plan (05/28/2024 9:51 AM MANAGEMENT SUPERVISOR): Bp is stable/in acceptable range for any [...] tabs) Assessment & Plan (06/12/2023 11:10 PM MANAGEMENT SUPERVISOR): Patient has blood pressure elevation but minimal [...] plan Assessment & Plan (06/08/2023 8:15 PM MANAGEMENT SUPERVISOR): Blood pressure still isn't well controlled. Will [...] reassess Assessment & Plan (05/21/2023 9:45 PM MANAGEMENT SUPERVISOR): Encouraged to limit sodium intake and exercise [...] list. Assessment & Plan (05/20/2023 12:50 AM MANAGEMENT SUPERVISOR): Bp is stable/in acceptable range for any [...] amlodipine. Assessment & Plan (02/13/2023 11:13 AM MANAGEMENT SUPERVISOR): Bp is stable/in acceptable range for any [...] isosorbide Assessment & Plan (02/25/2022 10:26 PM MANAGEMENT SUPERVISOR): Bp is stable/in acceptable range for any co-morbidities. Encouraged to limit sodium intake and exercise for weight control. Continue metoprolol amlodipine and isosorbide Assessment & Plan (08/13/2021 3:19 PM CDT): Bp is stable/in acceptable range for any co-morbidities. Encouraged to limit sodium intake and exercise for weight control. Continue with metoprolol amlodipine and isosorbide Assessment & Plan (05/25/2021 7:37 PM MANAGEMENT SUPERVISOR): Bp is stable/in acceptable range for any co-morbidities. Encouraged to limit sodium intake and exercise for weight control. Continue metoprolol, amlodipine and isorbide Assessment & Plan (04/02/2021 10:12 PM MANAGEMENT SUPERVISOR): Bp is stable/in acceptable range for any [...] 03/13/2021 Assessment & Plan (05/26/2024 11:17 AM MANAGEMENT SUPERVISOR): BMI Follow-up includes: Discussed diet and exercising counseling. Assessment & Plan (12/11/2023 10:02 AM CDT): Discussed the patient's BMI. The BMI is above average. BMI management plan is completed. BMI Follow-up includes: nutrition counseling, exercise counseling and education provided. Assessment & Plan (03/13/2021 8:40 AM MANAGEMENT SUPERVISOR): Obesity is unchanged. Discussed the patient's BMI. The BMI is above average. BMI management plan is completed. BMI Follow-up includes: nutrition counseling, exercise counseling and education provided. Obesity (BMI 30-39.9) 12/24/2019 Assessment & Plan (05/26/2024 11:17 AM MANAGEMENT SUPERVISOR): Discussed the patient's BMI. The BMI is [...] provided. Assessment & Plan (06/08/2023 8:16 PM MANAGEMENT SUPERVISOR): Discussed the patient's BMI. The BMI is above average. BMI management plan is completed. BMI Follow-up includes: nutrition counseling, exercise counseling and education provided. Assessment & Plan (05/21/2023 9:43 PM MANAGEMENT SUPERVISOR): Discussed the patient's BMI. The BMI is [...] statin Assessment & Plan (06/13/2019 3:49 AM MANAGEMENT SUPERVISOR): Patient reports hx of stroke several years [...] 01/04/2019 Assessment & Plan (05/28/2024 9:51 AM MANAGEMENT SUPERVISOR): Patient with GERD/jackhammer esophagus. Stable with amitriptyline 20 Compazine as needed esomeprazole and Carafate as needed Assessment & Plan (08/09/2023 11:21 PM CDT): Patient follows with Dr. Stark. She is jackhammer esophagus and reflux. Continues with amitriptyline 25 Compazine as needed esomeprazole Carafate patient states her symptoms have been stable Assessment & Plan (06/08/2023 8:14 PM MANAGEMENT SUPERVISOR): Continue Carafate and PPI as instructed Assessment & Plan (05/20/2023 12:52 AM MANAGEMENT SUPERVISOR): Patient with reflux esophagitis and jackhammer esophagus. Her GI is Dr. Stark but it appears she has not going to be able to get in with him for a little while. Encouraged her to continue with PPI and Carafate 3 to 4 times a day. Continue to monitor closely with her diet and avoid trigger foods. Assessment & Plan (03/22/2022 8:36 PM MANAGEMENT SUPERVISOR): Continue GI regimen until she is able [...] PPI Assessment & Plan (06/13/2019 3:42 AM MANAGEMENT SUPERVISOR): Hx of GERD and PUD. Recent EGD [...] consider ER. Difficulty in swallowing 05/21/2013 Seizure ([facility]) 05/05/2013 Assessment & Plan (05/28/2024 9:50 AM MANAGEMENT SUPERVISOR): History of seizures. Has been on Dilantin [...] Dilantin Assessment & Plan (02/13/2023 11:12 AM MANAGEMENT SUPERVISOR): Still on Dilantin. No history of seizures Assessment & Plan (08/19/2022 6:13 PM CDT): History of seizures. No recent seizures. Continue with Dilantin. Offered referral to Neurology to discuss since it has been a long times and she is had a seizure but would rather just continue with the medicine. Assessment & Plan (02/25/2022 10:27 PM MANAGEMENT SUPERVISOR): No current seizure history. Continue Dilantin Assessment [...] managment Assessment & Plan (06/13/2019 3:47 AM MANAGEMENT SUPERVISOR): Hx of unspecified seizure disorder. - Continue home dilantin Moderate episode of recurrent major depressive d isorder 05/05/2013 Assessment & Plan (05/28/2024 9:51 AM MANAGEMENT SUPERVISOR): Patient with significant depression anxiety symptoms. Currently [...] the counseling at the senior counseling at [facility] as this has been very helpful for [...] counseling for years. Discussed the [facility] senior servicing on [address]. Will help connect to this group to see if this is possibility as they can assist with transportation. Continue clonazepam 0.5 mg b.i.d. and Cymbalta 60 mg daily. Continue with trazodone HS as needed. Assessment & Plan (06/12/2023 11:06 PM MANAGEMENT SUPERVISOR): Patient continues to have persistent anxiety depression [...] her with the Senior Counseling Services at [facility] and she should be able to get in with counseling and assistance with transportation as needed. If she has any problems or concerns she is to call the office immediately Assessment & Plan (06/08/2023 8:14 PM MANAGEMENT SUPERVISOR): Attempts continued anxiety that still is not fully controlled with Cymbalta 60 and Xanax 0.5 b.i.d.. Patient admits it does not feel like the same last very long. Discussed importance of truly anxiety psycho somatically I think this is affecting her physical health. Will stop the Xanax. Start clonazepam 0.5 b.i.d.. Follow-up in 4-6 weeks to reassess Assessment & Plan (05/20/2023 12:54 AM MANAGEMENT SUPERVISOR): Patient has ongoing anxiety and depression symptoms. Increase the Cymbalta to 60 b.i.d.. 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 Assessment & Plan (02/13/2023 11:12 AM MANAGEMENT SUPERVISOR): Stable with Lexapro 20 Assessment & Plan [...] 10 Assessment & Plan (03/22/2022 8:37 PM MANAGEMENT SUPERVISOR): Continue Lexapro 10 mg. Strongly encouraged start counseling. Provided information for the [facility]. Assessment & Plan (02/25/2022 10:27 PM MANAGEMENT SUPERVISOR): Patient restarted Lexapro and is doing well. 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 Strongly encouraged her to reach out her filament cutter. Provided names of counselors in the area [...] prn Assessment & Plan (05/25/2021 7:38 PM MANAGEMENT SUPERVISOR): Patient has discontinued all medications. May need to revisit if sxs continue Assessment & Plan (04/02/2021 10:12 PM MANAGEMENT SUPERVISOR): Continue Cymbalta Assessment & Plan (02/04/2021 8:47 [...] area. Assessment & Plan (06/13/2019 3:46 AM MANAGEMENT SUPERVISOR): Hx of depression and anxiety symptoms exacerbated [...] anti-depressant/anxiolytic Assessment & Plan (05/09/2019 10:52 PM MANAGEMENT SUPERVISOR): Continue with the Cymbalta Assessment & Plan [...] 08/09/2023 Assessment & Plan (05/20/2023 12:54 AM MANAGEMENT SUPERVISOR): See anxiety BMI 33.0-33.9,adult 05/07/2023 05/21/19 24 Assessment & Plan (05/20/2023 12:54 AM MANAGEMENT SUPERVISOR): Weight/BMI is in healthy range. Continue healthy lifestyle to maintain. Need for influenza vaccination 02/13/2023 08/09/2023 Assessment & Plan (02/13/2023 11:13 AM MANAGEMENT SUPERVISOR): Flu vaccine updated in the office today Medicare annual wellness visit, subsequent 02/13/2023 05/20/2023 Assessment & Plan (02/13/2023 11:14 AM MANAGEMENT SUPERVISOR): Encouraged healthy lifestyle, good nutrition and exercise. [...] 11/01/202205/09 Assessment & Plan (02/13/2023 11:13 AM MANAGEMENT SUPERVISOR): Discussed the patient's BMI. The BMI is [...] 24 Assessment & Plan (02/13/2023 10:41 AM MANAGEMENT SUPERVISOR): Discussed the patient's BMI. The BMI is [...] 08/02/2022 Assessment & Plan (03/22/2022 8:36 PM MANAGEMENT SUPERVISOR): Flu vaccine updated in the office today BMI 35.0-35.9,adult 03/22/2022 08/03/19 23 Assessment & Plan (03/22/2022 8:36 PM MANAGEMENT SUPERVISOR): Discussed the patient's BMI. The BMI is above average. BMI management plan is completed. BMI Follow-up includes: nutrition counseling, exercise counseling and education provided. Medicare annual wellness visit, subsequent 02/25/2022 08/02/2022 Assessment & Plan (02/25/2022 10:26 PM MANAGEMENT SUPERVISOR): Encouraged healthy lifestyle, good nutrition and exercise. Encouraged Calcium and Vitamin D and weight bearing exercise for bone health. Reviewed immunizations. Reviewed age appropirate screenings. Medicare Wellness Documentation is completed within the chart Morbid obesity 10/17/2021 08/02/2022 Assessment & Plan (03/22/2022 8:37 PM MANAGEMENT SUPERVISOR): Discussed the patient's BMI. The BMI is above average. BMI management plan is completed. BMI Follow-up includes: nutrition counseling, exercise counseling and education provided. Patient has an obesity-related condition (not limited to: hypertension, obstructive sleep apnea, osteoarthritis, hyperlipidemia, diabetes, etc.). Therefore, morbid obesity may be documented for patients with a BMI between 35.00-39.99. Assessment & Plan (02/25/2022 10:26 PM MANAGEMENT SUPERVISOR): Discussed the patient's BMI. The BMI is [...] provided. Assessment & Plan (06/08/2023 8:17 PM MANAGEMENT SUPERVISOR): Discussed the patient's BMI. The BMI is above average. BMI management plan is completed. BMI Follow-up includes: nutrition counseling, exercise counseling and education provided. Assessment & Plan (05/21/2023 9:43 PM MANAGEMENT SUPERVISOR): Discussed the patient's BMI. The BMI is above average. BMI management plan is completed. BMI Follow-up includes: nutrition counseling, exercise counseling and education provided. Assessment & Plan (02/25/2022 10:26 PM MANAGEMENT SUPERVISOR): Discussed the patient's BMI. The BMI is [...] 05/25/20212021 Assessment & Plan (05/25/2021 11:46 AM MANAGEMENT SUPERVISOR): Obesity is unchanged. Discussed the patient's BMI. The BMI is above average. BMI management plan is completed. BMI Follow-up includes: nutrition counseling, exercise counseling and education provided. BMI 33.0-33.9,adult 05/25/2021 07/27/19 22 Assessment & Plan (05/25/2021 11:46 AM MANAGEMENT SUPERVISOR): Obesity is unchanged. Discussed the patient's BMI. The BMI is above average. BMI management plan is completed. BMI Follow-up includes: nutrition counseling, exercise counseling and education provided. Fatigue 05/25/2021 08/09/2023 Assessment & Plan (02/13/2023 11:13 AM MANAGEMENT SUPERVISOR): Probably multifactorial. Check labs and followup to re-evaluate Assessment & Plan (11/04/2022 5:52 PM CDT): Probably multifactorial. Check labs and followup to re-evaluate Assessment & Plan (05/25/2021 7:37 PM MANAGEMENT SUPERVISOR): Probably multifactorial. Check labs and followup to re-evaluate Chest pain 05/18/2021 08/19/2022 Hypertensive urgency 05/18/2021 023 Jackhammer esophagus 04/02/2021 024 Assessment & Plan (05/20/2023 12:53 AM MANAGEMENT SUPERVISOR): Patient with reflux esophagitis and jackhammer esophagus. Her GI is Dr. Stark but it appears she has not going to be able to get in with him for a little while. Encouraged her to continue with PPI and Carafate 3 to 4 times a day. Continue to monitor closely with her diet and avoid trigger foods. Assessment & Plan (02/13/2023 11:12 AM MANAGEMENT SUPERVISOR): Continue per Dr. Stark. Seems to have [...] concerns. Assessment & Plan (02/25/2022 10:25 PM MANAGEMENT SUPERVISOR): Continue per Dr. Stark currently taking Xanax every day and using the Carafate and Compazine p.r.n.. States Xanax is the only thing that seems to help her. States she can not get back in with Dr. Stark for a few months and is requesting refills right now Assessment & Plan (08/13/2021 3:18 PM CDT): Continue per GI at [facility] and Dr. Stark Assessment & Plan (05/25/2021 7:36 PM MANAGEMENT SUPERVISOR): Continue per GI - Dr. tSark She is on Librax and Protonix. Assessment & Plan (05/14/2021 2:00 PM MANAGEMENT SUPERVISOR): Patient was diagnosed with jackhammer esophagus and has been following at [facility] with Dr. Alexia Mojica. She has had [...] she needs to contact the GI at [facility] for further instructions to continue to get better control of this jackhammer esophagus. May continue the PPI, Bentyl and carafate. Assessment & Plan (04/02/2021 10:13 PM MANAGEMENT SUPERVISOR): Continue per GI. They have encouraged proper med outweighed along with diltiazem 30 mg q.i.d.. Will stop the amlodipine and transition to the diltiazem and monitor blood pressure carefully. See hypertension. Obesity (BMI 30-39.9) 03/13/20212021 Assessment & Plan (03/13/2021 8:40 AM MANAGEMENT SUPERVISOR): Obesity is unchanged. Discussed the patient's BMI. [...] from progressing to diabetes. Mixed hyperlipidemia 11/27/2019 05 024 Assessment & Plan (02/13/2023 11:13 AM MANAGEMENT SUPERVISOR): Encouraged patient to follow low fat/low chol [...] 10 Assessment & Plan (02/25/2022 10:25 PM MANAGEMENT SUPERVISOR): Encouraged patient to follow low fat/low chol [...] 08/09/2023 Assessment & Plan (06/12/2023 11:09 PM MANAGEMENT SUPERVISOR): Patient continues to have persistent anxiety depression [...] her with the [facility] Counseling [facility] at [facility] and she should be able to get in with counseling and assistance with transportation as needed. If she has any problems or concerns she is to call the office immediately Assessment & Plan (06/08/2023 8:15 PM MANAGEMENT SUPERVISOR): Attempts continued anxiety that still is not fully controlled with Cymbalta 60 and Xanax 0.5 b.i.d.. Patient admits it does not feel like the same last very long. Discussed importance of truly anxiety psycho somatically I think this is affecting her physical health. Will stop the Xanax. Start clonazepam 0.5 b.i.d.. Follow-up in 4-6 weeks to reassess Assessment & Plan (05/20/2023 12:54 AM MANAGEMENT SUPERVISOR): Patient has ongoing anxiety and depression symptoms. Increase the Cymbalta to 60 b.i.d.. 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 Assessment & Plan (02/13/2023 11:12 AM MANAGEMENT SUPERVISOR): Symptoms are stable with Lexapro 10. Using the trazodone to rest which is helpful also Assessment & Plan (08/13/2021 3:14 PM CDT): Continue Cymbalta and Trazodone prn Assessment & Plan (04/02/2021 10:09 PM MANAGEMENT SUPERVISOR): Continued anxiety exacerbated by her son's recent [...] provider. Will reach out to our nurse manager estate for assistance to try to avoid over [...] 08/12/19 Assessment & Plan (04/20/2019 11:27 AM MANAGEMENT SUPERVISOR): Weight/BMI is in healthy range. Continue healthy [...] time. Assessment & Plan (06/13/2019 3:46 AM MANAGEMENT SUPERVISOR): Increased nausea and vomiting related to increased [...] Stark. Assessment & Plan (06/13/2019 3:42 AM MANAGEMENT SUPERVISOR): Patient with long history of chronic abdominal [...] pain Assessment & Plan (05/09/2019 10:52 PM MANAGEMENT SUPERVISOR): Reviewed mediations that Dr. Stark's office had [...] on file Legal Sex Female 4:02 AM MANAGEMENT SUPERVISOR Gender Identity Not on file Sexual Orientation Not on file Occupation Industry Job Start Date Job End Date Retired Not on file Not on file Not on file Last Filed Vital Signs Vital Sign Reading Time Taken Comments Blood Pressure 160/72 05/26/2024 11:14 AM MANAGEMENT SUPERVISOR Pulse 71 05/26/2024 11:14 AM MANAGEMENT SUPERVISOR Temperature 36.5 C (97.7 F) 05/26/2024 11:14 AM MANAGEMENT SUPERVISOR Respiratory Rate 18 04/30/2022 10:20 AM MANAGEMENT SUPERVISOR Oxygen Saturation 99% 05/26/2024 11:14 AM MANAGEMENT SUPERVISOR Inhaled Oxygen Concentration - - Weight 80.3 kg (177 lb) 05/26/2024 11:14 AM MANAGEMENT SUPERVISOR Height 154.9 cm (5' 1 ) 05/26/2024 11:14 AM MANAGEMENT SUPERVISOR Body Mass Index 33.44 05/26/2024 11:14 AM MANAGEMENT SUPERVISOR Plan of Treatment Not on file Goals [...] property damage. Medical Devices Implanted Type Area Practice Lead Device Identifier Shelf Expiration Date Model / [...] Impressions EXTERNAL LAB - 06/08/2024 11:05 AM MANAGEMENT SUPERVISOR Alkaline phosphates- 175 H [id number] Intestinal Isoenzymes- [...] BLOOD ORDERABLES Final Result Performing Organization Address [facility]/ZIP Co de Phone Number EXTERNAL LAB * Hemoglobin A1c (05/19/2024) Pathologist [facility] SCRIBED Hemoglobin A1c 6.3 5.7 - 6.5 % EXTERNAL LAB Blood 05/19/2024 Erica WORRELL LAB BLOOD ORDERABLES Final Result Performing Organization Address [facility] de Phone Number EXTERNAL LAB * (ABNORMAL) Lipid panel (05/19/2024) Pathologist [facility] SCRIBED Cholesterol, Total 232(A) 0 - 200 EXTERNAL LAB SCRIBED HDL 109(A) 0 - 0 EXTERNAL LAB SCRIBED LDL 109(A) 0 - 0 EXTERNAL LAB SCRIBED Triglycerides 115(A) 150 - 150 EXTERNAL LAB Blood 05/19/2024 Result [facility] Erica WORRELL LAB BLOOD ORDERABLES Final Result Performing Organization Address [facility] Co de Phone Number EXTERNAL LAB * (ABNORMAL) Comprehensive metabolic panel (05/19/2024) Pathologist [facility] SCRIBED Sodium 140 137 - 145 mmol/L [...] Units/L EXTERNAL LAB SCRIBED eGFR in NonAfrican [place]iboutian 59(A) 0 - 0 EXTERNAL LAB Blood [...] in stressors, but express continued worry about superintendent terminal stability. Patient will need to learn coping skills to manage these disorders to improve overall function and response to life stressors. Insurance [employer] MED[employer] HMO [facility] CHOICE MEDICARE PPO [employer] MED[employer]ARE HMO Advance Directives For more information, please contact: [phone] * Full Code (Latest Code Status on File) Date Activated Date Inactivated Comments 05/18/2021 9:46 PM 05/22/2021 8:57 PM * Full Code Date Activated Date Inactivated Comments 05/18/2021 4:50 PM 05/18/2021 9:46 PM * Full Code Date Activated Date Inactivated Comments 06/12/2019 10:30 PM 06/14/2019 6:07 PM Care Teams Lock Installer Relationship Specialty Start Date End Date Erica Kelley PA [address] [facility] [address] [place] [address] PCP - General Family Medicine 07/30/23 Kareem Stark MD Referring Physician Gastroenterology 11/27/19 Ron Jensen MD [address] [facility] [address] [place] [address] [place] [id number] Consulting Physician Obstetrics and Gynecology 11/27/19
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
--- OUTSIDE RECORDS SUMMARY | 2024-08-10 16:08 | XMS_ITS | Encounter Summary ---
Author Organization [facility] Care Team Providers Care Tire Builder Operator Name Role Phone Erica Kelley Primary Care Provider [phone] Kerrie King RN Unavailable [phone] Kareem Stark MD Unavailable [phone] Ron Jensen MD Unavailable [phone] Joe Roca MD Primary Care Provider [phone] Erica Kelley Primary Care Provider [phone] Encounter Details Date Type Department Care Team (Latest Contact Info) Description 09/12/2017 Orders Only [facility] ProviderJocelynn MD [address] [place] [id number] Social History Tobacco Use Types Packs/Day Years Used Date Smoking Tobacco: Former Comments Unknown Sex and Gender Information Value Date Recorded Sex Assigned at Not on file Legal Sex Female 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 03/28/2020 03/28/2020 04/11/2020 3:0 5 AM DRUG REGULATORY AFFAIRS SPECIALIST documented as of this encounter Care Teams Tire Builder Operator Relationship Specialty Start Date End Date Erica Kelley PA [address] [place] [address] PCP - General Internal Medicine 09/04/18 07/24/23 Joe Roca MD [address] [facility] [address] [place] [address] PCP - General Family Medicine 07/25/23 07/29/23 Erica Kelley PA [address] [place] [address] PCP - General Family Medicine 07/30/23 Kerrie King, RN [address] [place] [address] [address] [place] [address] Waste Handling Technician 06/17/19 07/21/19 Kareem Stark MD [address] [place] [address] [address] [place] [address] Referring Physician Gastroenterology 11/27/19 Ron Jensen MD [address] [facility] [address] [place] [address] Consulting Physician Obstetrics and Gynecology 11/27/19 documented as of this encounter
--- OUTSIDE RECORDS SUMMARY | 2024-08-10 16:08 | XMS_ITS | Clinical Summary ---
Author Organization [facility] Address [address] [place] [address] Care Team Providers Care Clothing Sales Assistant Name Role Phone Erica Kelley Primary Care Provider [phone] Allergies Active Allergy Reactions Criticality Noted Date [...] place to sleep or slept in a half-way (including now)? No 09/22/2022 Comments No Sex and Gender Information Value Date Recorded Sex Assigned at Not on file Legal Sex Female 10:28 AM CUSTOM WOOD STAIR BUILDER Gender Identity Not on file Sexual Orientation [...] this topic Medical Devices Implanted Type Area Ski Guide Device Identifier Shelf Expiration Date Model / [...] the left lateral decubitus position, the Olympus [id number] colonoscope was introduced into the rectum and [...] 8:36 AM 09/22/2022 1:58 PM Care Teams Clothing Sales Assistant Relationship Specialty Start Date End Date Erica Kelley PA [address] [place] [address] PCP - General PHYSICIAN CONTRACT RUNNER 05/15/19
--- OUTSIDE RECORDS SUMMARY | 2024-08-10 16:08 | XMS_ITS | Clinical Summary ---
Author Organization [facility] Address [address] [facility] [place] [address] Care Team Providers Care Roving Hauler Name Role Phone Erica Kelley PA-C Primary Care Provider [phone] Source Comments [employer] [facility],non-owned Affiliates and Associated Physician Practices is amultiple site organization consisting of ambulatory clinics and hospital sitesin [place], [place], [place] and [place]. This disclosure is being madepursuant to the Care Everywhere program and may not contain all information available regarding this patient. Last updated 17.[employer] [facility] Allergies No known active allergies Medications * [...] on file Legal Sex Female 6:24 PM REFINERY PIPELINE OPERATOR Gender Identity Not on file Sexual Orientation Not on file Last Filed Vital Signs Vital Sign Reading Time Taken Comments Blood Pressure 197/84 03/09/2021 8:16 AM REFINERY PIPELINE OPERATOR Pulse 78 03/09/2021 8:16 AM REFINERY PIPELINE OPERATOR Temperature 36.7 C (98 F) 03/09/2021 8:16 AM REFINERY PIPELINE OPERATOR Respiratory Rate 14 03/09/2021 8:16 AM REFINERY PIPELINE OPERATOR Oxygen Saturation 100% 03/09/2021 8:16 AM REFINERY PIPELINE OPERATOR Inhaled Oxygen Concentration - - Weight 80.3 kg (177 lb) 03/09/2021 8:16 AM REFINERY PIPELINE OPERATOR Height 154.9 cm (5' 1 ) 03/09/2021 8:16 AM REFINERY PIPELINE OPERATOR Body Mass Index 33.44 03/09/2021 8:16 AM REFINERY PIPELINE OPERATOR Plan of Treatment Health Maintenance Due Date [...] Management General On track( 021 8:22 AM [facility]) Tammie Perez RN Note: Expected end date: ongoing Interventions: Take all medications as prescribed Let your doctor know right away about any changes in your medications Make sure to request a refill of your medication at least one week prior to your last dose Insurance [employer] [facility] Care Address: [address] [address] SELF PAY NO INSURANCE Member Subscriber Plan / Payer (Ef fective for All Dates) Name:Oleg Parker Member ID:Not on file Relation to Subscriber:Not on file Name:OLEG PARKER Subscriber ID:Not on file Address: [address] [place], [place] [address] [place] [address] Payer ID:Not on file Group ID:Not on file Type:Self Pay Address: [place], [place] Care Teams Roving Hauler Relationship Specialty Start Date End Date Erica Kelley PA-C [address] [address] PCP - General 01/05/21
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
--- OUTSIDE RECORDS SUMMARY | 2024-08-10 16:08 | XMS_ITS | Encounter Summary ---
Author Organization [facility] Facility Care Team Providers Care Hospice Case Manager Name Role Phone Erica Kelley Primary Care Provider [phone] Kerrie King RN Unavailable [phone] Kareem Stark MD Unavailable [phone] Ron Jensen MD Unavailable [phone] Joe Roca MD Primary Care Provider [phone] Erica Kelley Primary Care Provider [phone] Encounter Details Date Type Department Care Team (Latest Contact Info) Description 03/16/2016 Orders Only [facility] CLINCONV ProviderJocelynn MD [address] [place] [address] Social History Tobacco Use Types Packs/Day Years Used Date Smoking Tobacco: Former Comments Unknown Sex and Gender Information Value Date Recorded Sex Assigned at Not on file 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 Historical Provider Final Res ult documented in this encounter Visit Diagnoses Not on filedocumented in this encounter Additional Health Concerns Infection Onset Date Last Indicated Resolved Time COVID: Suspected 03/28/2020 03/28/2020 03/28/2020 2:23 PM SCHOOL BUS DRIVER Respiratory Infection (ERICK), contact + droplet Comment:Automatically added due to negative COVID-19 result. 03/28/2020 03/28/2020 04/11/2020 3:0 5 AM SCHOOL BUS DRIVER documented as of this encounter Care Teams Hospice Case Manager Relationship Specialty Start Date End Date Erica Kelley PA [address] [place] [address] PCP - General Internal Medicine 09/04/18 07/24/23 Joe Roca MD [address] [facility] [address] [place] [address] PCP - General Family Medicine 07/25/23 07/29/23 Erica Kelley PA [address] [place] [address] PCP - General Family Medicine 07/30/23 Kerrie King, RN [address] [place] [address] [address] [place] [address] Director Of Marketing [employer] 06/17/19 07/21/19 Kareem Stark MD [address] [place] [address] [address] [place] [address] Referring Physician Gastroenterology 11/27/19 Ron Jensen MD [address] [facility] [address] [place] [address] Consulting Physician Obstetrics and Gynecology 11/27/19 documented as of this encounter
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
--- OUTSIDE RECORDS SUMMARY | 2024-08-10 17:44 | XMS_ITS | Encounter Summary ---
Author Organization [facility] Facility Care Team Providers Care Washerette Machine Operator Name Role Phone Erica Kelley Primary Care Provider [phone] Kerrie King RN Unavailable [phone] Kareem Stark MD Unavailable [phone] Ron Jensen MD Unavailable [phone] Joe Roca MD Primary Care Provider [phone] Erica Kelley Primary Care Provider [phone] Encounter Details Date Type Department Care Team (Latest Contact Info) Description 06/28/2015 Orders Only [facility]G CLINCONV ProviderJocelynn MD [address] [place] [address] Social History Tobacco Use Types Packs/Day Years Used Date Smoking Tobacco: Former Comments Unknown Sex and Gender Information Value Date Recorded Sex Assigned at Not on file 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 03/28/2020 03/28/2020 04/11/2020 3:0 5 AM CORN MILLER documented as of this encounter Care Teams Washerette Machine Operator Relationship Specialty Start Date End Date Erica Kelley PA [address] [place] [address] PCP - General Internal Medicine 09/04/18 07/24/23 Joe Roca MD [address] [facility] [address] [place] [address] PCP - General Family Medicine 07/25/23 07/29/23 Erica Kelley PA [address] [place] [address] PCP - General Family Medicine 07/30/23 Kerrie King, RN [address] [place] [address] [address] [place] [address] Informatics Educator 06/17/19 07/21/19 Kareem Stark MD [address] [place] [address] [address] [place] [address] Referring Physician Gastroenterology 11/27/19 Ron Jensen MD [address] [facility] [address] [place] [address] Consulting Physician Obstetrics and Gynecology 11/27/19 documented as of this encounter
--- OUTSIDE RECORDS SUMMARY | 2024-08-10 17:44 | XMS_ITS | Encounter Summary ---
Author Organization [facility] Facility Care Team Providers Care Forensics Analyst Name Role Phone Erica Kelley Primary Care Provider [phone] Kerrie King RN Unavailable [phone] Kareem Stark MD Unavailable [phone] Ron Jensen MD Unavailable [phone] Joe Roca MD Primary Care Provider [phone] Erica Kelley Primary Care Provider [phone] Encounter Details Date Type Department Care Team (Latest Contact Info) Description 03/16/2016 Orders Only [facility] CLINCONV ProviderJocelynn MD [address] [place] [address] Social History Tobacco Use Types Packs/Day Years Used Date Smoking Tobacco: Former Comments Unknown Sex and Gender Information Value Date Recorded Sex Assigned at Not on file 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 Historical Provider Final Res ult documented in this encounter Visit Diagnoses Not on filedocumented in this encounter Additional Health Concerns Infection Onset Date Last Indicated Resolved Time COVID: Suspected 03/28/2020 03/28/2020 03/28/2020 2:23 PM CONTAINER FINISHER Respiratory Infection (ERICK), contact + droplet Comment:Automatically added due to negative COVID-19 result. 03/28/2020 03/28/2020 04/11/2020 3:0 5 AM CONTAINER FINISHER documented as of this encounter Care Teams Forensics Analyst Relationship Specialty Start Date End Date Erica Kelley PA [address] [place] [address] PCP - General Internal Medicine 09/04/18 07/24/23 Joe Roca MD [address] [facility] [address] [place] [address] PCP - General Family Medicine 07/25/23 07/29/23 Erica Kelley PA [address] [place] [address] PCP - General Family Medicine 07/30/23 Kerrie King, RN [address] [place] [address] [address] [place] [address] Environmental Services Coordinator 06/17/19 07/21/19 Kareem Stark MD [address] [place] [address] [address] [place] [address] Referring Physician Gastroenterology 11/27/19 Ron Jensen MD [address] [facility] [address] [place] [address] Consulting Physician Obstetrics and Gynecology 11/27/19 documented as of this encounter
--- OUTSIDE RECORDS SUMMARY | 2024-08-10 17:44 | XMS_ITS | Referral Summary ---
Author Organization [facility] [place] [address] Address [address] [place] [address] Care Team Providers Care Metal Mover Name Role Phone Kareem Stark MD Unavailable [phone] Ron Jensen MD Unavailable [phone] Erica Kelley Primary Care Provider + [phone] Encounters Date Type Department Care Team Description 08/10/2024 Nurse Triage [address] [place] [phone] Erica Kelley PA 05/26/2024 Results Follow-Up [address] [place] [phone] Erica Kelley PA 05/26/2024 11:00 AM PSYCHOLOGISTS Office Visit [address] [place] [phone] Erica Kelley PA Medicare annual wellness visit, subsequent (Primary Dx); Moderate episode of recurrent major depressive disorder (HCC); Seizure (CMS/HCC) (HCC); Pre-diabetes; Mixed hyperlipidemia; Generalized anxiety disorder; Hypertension, essential; Gastroesophageal reflux disease without esophagitis; Jackhammer esophagus; Need for influenza vaccination; Obesity (BMI 30-39.9); BMI 33.0-33.9,adult 05/22/[address] [place] [phone] Erica Kelley PA 05/21/[address] [place] [phone] Erica Kelley PA 05/14/2024 Orders Only [address] [place] [phone] Erica Kelley PA Hypertension, essential (Primary Dx); Mixed hyperlipidemia; Pre-diabetes; Generalized weakness; Other fatigue; Muscle pain; Muscle tightness; Hyperkalemia; Elevated alkaline phosphatase level 05/13/2024 Orders Only [address] [place] [phone] Erica Kelley PA 05/13/[address] [phone] Erica Kelley PA Symptom Based [...] 05/28 Assessment & Plan (05/28/2024 9:53 AM PSYCHOLOGISTS): Encouraged healthy lifestyle, good nutrition and exercise. Encouraged Calcium and Vitamin D and weight bearing exercise for bone health. Reviewed immunizations. Reviewed age appropirate screenings. Medicare Wellness Documentation is completed within the chart Need for influenza vaccination 05/26/2024 Assessment & Plan (05/28/2024 9:52 AM PSYCHOLOGISTS): Flu updated in the office today Jackhammer esophagus 05/26/2024 Assessment & Plan (05/28/2024 9:52 AM PSYCHOLOGISTS): Patient with GERD/jackhammer esophagus. Stable with amitriptyline 20 Compazine as needed esomeprazole and Carafate as needed Pre-diabetes 12/11/2023 Assessment & Plan (05/28/2024 9:52 AM PSYCHOLOGISTS): Pre-diabetes/hyperglycemia is a precursor to Dm. Stressed [...] 08/09/2023 Assessment & Plan (05/28/2024 9:52 AM PSYCHOLOGISTS): Encouraged patient to follow low fat/low chol [...] 06/17/2023 Assessment & Plan (05/28/2024 9:52 AM PSYCHOLOGISTS): Patient with significant depression anxiety symptoms. Currently [...] the counseling at the senior counseling at [facility] as this has been very helpful for her. Assessment & Plan (12/11/2023 10:01 AM CDT): Persistent anxiety longstanding. Continue counseling at [facility]. Continue Cymbalta 60. Continue clonazepam 0.5 b.i.d. with a 3rd 1 in the middle of the day as needed Assessment & Plan (09/04/2023 10:40 AM CDT): Patient with persistent anxiety. She continues with Cymbalta 60 and clonazepam 0.5 mg b.i.d.. Advised she can take an extra half tab if she has breakthrough symptoms. Continue with counseling at [facility]. Assessment & Plan [...] to do counseling for years. Discussed the [facility] senior servicing on [address]. Will help connect to this group to [...] plan Assessment & Plan (06/12/2023 11:10 PM PSYCHOLOGISTS): Discussed again at length. Encouraged counseling. Also encouraged the Cymbalta and her other medicine regimen. Assessment & Plan (06/04/2023 12:08 PM PSYCHOLOGISTS): Reviewed with patient psychosomatic symptoms and how [...] 10/17/2021 Assessment & Plan (02/25/2022 10:26 PM PSYCHOLOGISTS): Patient's son in July this year. She [...] have good family support. She does have baptism involvement in a hydraulic miner although little disappointed that he has not followed up much since the of her son. Strongly encouraged her to reach out her hydraulic miner. Provided names of counselors in the area [...] day. Assessment & Plan (05/14/2021 1:59 PM PSYCHOLOGISTS): See jackhammer esophagus Hypertension, essential 04/02/2021 Assessment & Plan (05/28/2024 9:51 AM PSYCHOLOGISTS): Bp is stable/in acceptable range for any [...] tabs) Assessment & Plan (06/12/2023 11:10 PM PSYCHOLOGISTS): Patient has blood pressure elevation but minimal [...] plan Assessment & Plan (06/08/2023 8:15 PM PSYCHOLOGISTS): Blood pressure still isn't well controlled. Will [...] reassess Assessment & Plan (05/21/2023 9:45 PM PSYCHOLOGISTS): Encouraged to limit sodium intake and exercise [...] list. Assessment & Plan (05/20/2023 12:50 AM PSYCHOLOGISTS): Bp is stable/in acceptable range for any [...] amlodipine. Assessment & Plan (02/13/2023 11:13 AM PSYCHOLOGISTS): Bp is stable/in acceptable range for any [...] isosorbide Assessment & Plan (02/25/2022 10:26 PM PSYCHOLOGISTS): Bp is stable/in acceptable range for any co-morbidities. Encouraged to limit sodium intake and exercise for weight control. Continue metoprolol amlodipine and isosorbide Assessment & Plan (08/13/2021 3:19 PM CDT): Bp is stable/in acceptable range for any co-morbidities. Encouraged to limit sodium intake and exercise for weight control. Continue with metoprolol amlodipine and isosorbide Assessment & Plan (05/25/2021 7:37 PM PSYCHOLOGISTS): Bp is stable/in acceptable range for any co-morbidities. Encouraged to limit sodium intake and exercise for weight control. Continue metoprolol, amlodipine and isorbide Assessment & Plan (04/02/2021 10:12 PM PSYCHOLOGISTS): Bp is stable/in acceptable range for any [...] 03/13/2021 Assessment & Plan (05/26/2024 11:17 AM PSYCHOLOGISTS): BMI Follow-up includes: Discussed diet and exercising counseling. Assessment & Plan (12/11/2023 10:02 AM CDT): Discussed the patient's BMI. The BMI is above average. BMI management plan is completed. BMI Follow-up includes: nutrition counseling, exercise counseling and education provided. Assessment & Plan (03/13/2021 8:40 AM PSYCHOLOGISTS): Obesity is unchanged. Discussed the patient's BMI. The BMI is above average. BMI management plan is completed. BMI Follow-up includes: nutrition counseling, exercise counseling and education provided. Obesity (BMI 30-39.9) 12/24/2019 Assessment & Plan (05/26/2024 11:17 AM PSYCHOLOGISTS): Discussed the patient's BMI. The BMI is [...] provided. Assessment & Plan (06/08/2023 8:16 PM PSYCHOLOGISTS): Discussed the patient's BMI. The BMI is above average. BMI management plan is completed. BMI Follow-up includes: nutrition counseling, exercise counseling and education provided. Assessment & Plan (05/21/2023 9:43 PM PSYCHOLOGISTS): Discussed the patient's BMI. The BMI is [...] statin Assessment & Plan (06/13/2019 3:49 AM PSYCHOLOGISTS): Patient reports hx of stroke several years [...] 01/04/2019 Assessment & Plan (05/28/2024 9:51 AM PSYCHOLOGISTS): Patient with GERD/jackhammer esophagus. Stable with amitriptyline 20 Compazine as needed esomeprazole and Carafate as needed Assessment & Plan (08/09/2023 11:21 PM CDT): Patient follows with Dr. Stark. She is jackhammer esophagus and reflux. Continues with amitriptyline 25 Compazine as needed esomeprazole Carafate patient states her symptoms have been stable Assessment & Plan (06/08/2023 8:14 PM PSYCHOLOGISTS): Continue Carafate and PPI as instructed Assessment & Plan (05/20/2023 12:52 AM PSYCHOLOGISTS): Patient with reflux esophagitis and jackhammer esophagus. Her GI is Dr. Stark but it appears she has not going to be able to get in with him for a little while. Encouraged her to continue with PPI and Carafate 3 to 4 times a day. Continue to monitor closely with her diet and avoid trigger foods. Assessment & Plan (03/22/2022 8:36 PM PSYCHOLOGISTS): Continue GI regimen until she is able [...] PPI Assessment & Plan (06/13/2019 3:42 AM PSYCHOLOGISTS): Hx of GERD and PUD. Recent EGD [...] consider ER. Difficulty in swallowing 05/21/2013 Seizure ([facility]) 05/05/2013 Assessment & Plan (05/28/2024 9:50 AM PSYCHOLOGISTS): History of seizures. Has been on Dilantin [...] Dilantin Assessment & Plan (02/13/2023 11:12 AM PSYCHOLOGISTS): Still on Dilantin. No history of seizures Assessment & Plan (08/19/2022 6:13 PM CDT): History of seizures. No recent seizures. Continue with Dilantin. Offered referral to Neurology to discuss since it has been a long times and she is had a seizure but would rather just continue with the medicine. Assessment & Plan (02/25/2022 10:27 PM PSYCHOLOGISTS): No current seizure history. Continue Dilantin Assessment [...] managment Assessment & Plan (06/13/2019 3:47 AM PSYCHOLOGISTS): Hx of unspecified seizure disorder. - Continue home dilantin Moderate episode of recurrent major depressive d isorder 05/05/2013 Assessment & Plan (05/28/2024 9:51 AM PSYCHOLOGISTS): Patient with significant depression anxiety symptoms. Currently [...] the counseling at the senior counseling at [facility] as this has been very helpful [...] to do counseling for years. Discussed the [facility] senior servicing on [address]. Will help connect to this group to see if this is possibility as they can assist with transportation. Continue clonazepam 0.5 mg b.i.d. and Cymbalta 60 mg daily. Continue with trazodone HS as needed. Assessment & Plan (06/12/2023 11:06 PM PSYCHOLOGISTS): Patient continues to have persistent anxiety depression [...] her with the [facility] at [facility] and she should be able to get in with counseling and assistance with transportation as needed. If she has any problems or concerns she is to call the office immediately Assessment & Plan (06/08/2023 8:14 PM PSYCHOLOGISTS): Attempts continued anxiety that still is not fully controlled with Cymbalta 60 and Xanax 0.5 b.i.d.. Patient admits it does not feel like the same last very long. Discussed importance of truly anxiety psycho somatically I think this is affecting her physical health. Will stop the Xanax. Start clonazepam 0.5 b.i.d.. Follow-up in 4-6 weeks to reassess Assessment & Plan (05/20/2023 12:54 AM PSYCHOLOGISTS): Patient has ongoing anxiety and depression symptoms. Increase the Cymbalta to 60 b.i.d.. 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 Assessment & Plan (02/13/2023 11:12 AM PSYCHOLOGISTS): Stable with Lexapro 20 Assessment & Plan [...] 10 Assessment & Plan (03/22/2022 8:37 PM PSYCHOLOGISTS): Continue Lexapro 10 mg. Strongly encouraged start counseling. Provided information for the [facility]. Assessment & Plan (02/25/2022 10:27 PM PSYCHOLOGISTS): Patient restarted Lexapro and is doing well. [...] have good family support. She does have baptism involvement in a hydraulic miner although little disappointed that he has not followed up much since the of her son. Strongly encouraged her to reach out her hydraulic miner. Provided names of counselors in the area [...] prn Assessment & Plan (05/25/2021 7:38 PM PSYCHOLOGISTS): Patient has discontinued all medications. May need to revisit if sxs continue Assessment & Plan (04/02/2021 10:12 PM PSYCHOLOGISTS): Continue Cymbalta Assessment & Plan (02/04/2021 8:47 [...] area. Assessment & Plan (06/13/2019 3:46 AM PSYCHOLOGISTS): Hx of depression and anxiety symptoms exacerbated [...] anti-depressant/anxiolytic Assessment & Plan (05/09/2019 10:52 PM PSYCHOLOGISTS): Continue with the Cymbalta Assessment & Plan [...] 08/09/2023 Assessment & Plan (05/20/2023 12:54 AM PSYCHOLOGISTS): See anxiety BMI 33.0-33.9,adult 05/07/2023 05/21/19 24 Assessment & Plan (05/20/2023 12:54 AM PSYCHOLOGISTS): Weight/BMI is in healthy range. Continue healthy lifestyle to maintain. Need for influenza vaccination 02/13/2023 08/09/2023 Assessment & Plan (02/13/2023 11:13 AM PSYCHOLOGISTS): Flu vaccine updated in the office today Medicare annual wellness visit, subsequent 02/13/2023 05/20/2023 Assessment & Plan (02/13/2023 11:14 AM PSYCHOLOGISTS): Encouraged healthy lifestyle, good nutrition and exercise. [...] 11/01/202205/09 Assessment & Plan (02/13/2023 11:13 AM PSYCHOLOGISTS): Discussed the patient's BMI. The BMI is [...] 24 Assessment & Plan (02/13/2023 10:41 AM PSYCHOLOGISTS): Discussed the patient's BMI. The BMI is [...] 08/02/2022 Assessment & Plan (03/22/2022 8:36 PM PSYCHOLOGISTS): Flu vaccine updated in the office today BMI 35.0-35.9,adult 03/22/2022 08/03/19 23 Assessment & Plan (03/22/2022 8:36 PM PSYCHOLOGISTS): Discussed the patient's BMI. The BMI is above average. BMI management plan is completed. BMI Follow-up includes: nutrition counseling, exercise counseling and education provided. Medicare annual wellness visit, subsequent 02/25/2022 08/02/2022 Assessment & Plan (02/25/2022 10:26 PM PSYCHOLOGISTS): Encouraged healthy lifestyle, good nutrition and exercise. Encouraged Calcium and Vitamin D and weight bearing exercise for bone health. Reviewed immunizations. Reviewed age appropirate screenings. Medicare Wellness Documentation is completed within the chart Morbid obesity 10/17/2021 08/02/2022 Assessment & Plan (03/22/2022 8:37 PM PSYCHOLOGISTS): Discussed the patient's BMI. The BMI is above average. BMI management plan is completed. BMI Follow-up includes: nutrition counseling, exercise counseling and education provided. Patient has an obesity-related condition (not limited to: hypertension, obstructive sleep apnea, osteoarthritis, hyperlipidemia, diabetes, etc.). Therefore, morbid obesity may be documented for patients with a BMI between 35.00-39.99. Assessment & Plan (02/25/2022 10:26 PM PSYCHOLOGISTS): Discussed the patient's BMI. The BMI is [...] provided. Assessment & Plan (06/08/2023 8:17 PM PSYCHOLOGISTS): Discussed the patient's BMI. The BMI is above average. BMI management plan is completed. BMI Follow-up includes: nutrition counseling, exercise counseling and education provided. Assessment & Plan (05/21/2023 9:43 PM PSYCHOLOGISTS): Discussed the patient's BMI. The BMI is above average. BMI management plan is completed. BMI Follow-up includes: nutrition counseling, exercise counseling and education provided. Assessment & Plan (02/25/2022 10:26 PM PSYCHOLOGISTS): Discussed the patient's BMI. The BMI is [...] 05/25/20212021 Assessment & Plan (05/25/2021 11:46 AM PSYCHOLOGISTS): Obesity is unchanged. Discussed the patient's BMI. The BMI is above average. BMI management plan is completed. BMI Follow-up includes: nutrition counseling, exercise counseling and education provided. BMI 33.0-33.9,adult 05/25/2021 07/27/19 22 Assessment & Plan (05/25/2021 11:46 AM PSYCHOLOGISTS): Obesity is unchanged. Discussed the patient's BMI. The BMI is above average. BMI management plan is completed. BMI Follow-up includes: nutrition counseling, exercise counseling and education provided. Fatigue 05/25/2021 08/09/2023 Assessment & Plan (02/13/2023 11:13 AM PSYCHOLOGISTS): Probably multifactorial. Check labs and followup to re-evaluate Assessment & Plan (11/04/2022 5:52 PM CDT): Probably multifactorial. Check labs and followup to re-evaluate Assessment & Plan (05/25/2021 7:37 PM PSYCHOLOGISTS): Probably multifactorial. Check labs and followup to re-evaluate Chest pain 05/18/2021 08/19/2022 Hypertensive urgency 05/18/2021 023 Jackhammer esophagus 04/02/2021 024 Assessment & Plan (05/20/2023 12:53 AM PSYCHOLOGISTS): Patient with reflux esophagitis and jackhammer esophagus. Her GI is Dr. Stark but it appears she has not going to be able to get in with him for a little while. Encouraged her to continue with PPI and Carafate 3 to 4 times a day. Continue to monitor closely with her diet and avoid trigger foods. Assessment & Plan (02/13/2023 11:12 AM PSYCHOLOGISTS): Continue per Dr. Stark. Seems to have [...] concerns. Assessment & Plan (02/25/2022 10:25 PM PSYCHOLOGISTS): Continue per Dr. Stark currently taking Xanax every day and using the Carafate and Compazine p.r.n.. States Xanax is the only thing that seems to help her. States she can not get back in with Dr. Stark for a few months and is requesting refills right now Assessment & Plan (08/13/2021 3:18 PM CDT): Continue per GI at and Dr. Stark Assessment & Plan (05/25/2021 7:36 PM PSYCHOLOGISTS): Continue per GI - Dr. Stark She is on Librax and Protonix. Assessment & Plan (05/14/2021 2:00 PM PSYCHOLOGISTS): Patient was diagnosed with jackhammer esophagus and has been following at [facility] with Dr. Alexia Mojica. [...] carafate. Assessment & Plan (04/02/2021 10:13 PM PSYCHOLOGISTS): Continue per GI. They have encouraged proper med outweighed along with diltiazem 30 mg q.i.d.. Will stop the amlodipine and transition to the diltiazem and monitor blood pressure carefully. See hypertension. Obesity (BMI 30-39.9) 03/13/20212021 Assessment & Plan (03/13/2021 8:40 AM PSYCHOLOGISTS): Obesity is unchanged. Discussed the patient's BMI. [...] 024 Assessment & Plan (02/13/2023 11:13 AM PSYCHOLOGISTS): Encouraged patient to follow low fat/low chol [...] 10 Assessment & Plan (02/25/2022 10:25 PM PSYCHOLOGISTS): Encouraged patient to follow low fat/low chol [...] 08/09/2023 Assessment & Plan (06/12/2023 11:09 PM PSYCHOLOGISTS): Patient continues to have persistent anxiety depression [...] her with the [facility] at [facility] and she should be able to get in with counseling and assistance with transportation as needed. If she has any problems or concerns she is to call the office immediately Assessment & Plan (06/08/2023 8:15 PM PSYCHOLOGISTS): Attempts continued anxiety that still is not fully controlled with Cymbalta 60 and Xanax 0.5 b.i.d.. Patient admits it does not feel like the same last very long. Discussed importance of truly anxiety psycho somatically I think this is affecting her physical health. Will stop the Xanax. Start clonazepam 0.5 b.i.d.. Follow-up in 4-6 weeks to reassess Assessment & Plan (05/20/2023 12:54 AM PSYCHOLOGISTS): Patient has ongoing anxiety and depression symptoms. Increase the Cymbalta to 60 b.i.d.. 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 Assessment & Plan (02/13/2023 11:12 AM PSYCHOLOGISTS): Symptoms are stable with Lexapro 10. Using the trazodone to rest which is helpful also Assessment & Plan (08/13/2021 3:14 PM CDT): Continue Cymbalta and Trazodone prn Assessment & Plan (04/02/2021 10:09 PM PSYCHOLOGISTS): Continued anxiety exacerbated by her son's recent [...] provider. Will reach out to our nurse box office manager for assistance to try to avoid [...] 08/12/19 Assessment & Plan (04/20/2019 11:27 AM PSYCHOLOGISTS): Weight/BMI is in healthy range. Continue healthy [...] time. Assessment & Plan (06/13/2019 3:46 AM PSYCHOLOGISTS): Increased nausea and vomiting related to increased [...] Stark. Assessment & Plan (06/13/2019 3:42 AM PSYCHOLOGISTS): Patient with long history of chronic abdominal [...] pain Assessment & Plan (05/09/2019 10:52 PM PSYCHOLOGISTS): Reviewed mediations that Dr. Stark's office had [...] on file Legal Sex Female 4:02 AM PSYCHOLOGISTS Gender Identity Not on file Sexual Orientation Not on file Occupation Industry Job Start Date Job End Date Retired Not on file Not on file Not on file Last Filed Vital Signs Vital Sign Reading Time Taken Comments Blood Pressure 160/72 05/26/2024 11:14 AM PSYCHOLOGISTS Pulse 71 05/26/2024 11:14 AM PSYCHOLOGISTS Temperature 36.5 C (97.7 F) 05/26/2024 11:14 AM PSYCHOLOGISTS Respiratory Rate 18 04/30/2022 10:20 AM PSYCHOLOGISTS Oxygen Saturation 99% 05/26/2024 11:14 AM PSYCHOLOGISTS Inhaled Oxygen Concentration - - Weight 80.3 kg (177 lb) 05/26/2024 11:14 AM PSYCHOLOGISTS Height 154.9 cm (5' 1 ) 05/26/2024 11:14 AM PSYCHOLOGISTS Body Mass Index 33.44 05/26/2024 11:14 AM PSYCHOLOGISTS Plan of Treatment Not on file Goals [...] property damage. Medical Devices Implanted Type Area Hand Endband Cutter Device Identifier Shelf Expiration Date Model / [...] Impressions EXTERNAL LAB - 06/08/2024 11:05 AM PSYCHOLOGISTS Alkaline phosphates- 175 H [id number] Intestinal Isoenzymes- [...] BLOOD ORDERABLES Final Result Performing Organization Address [facility]/ZIP Co de Phone Number EXTERNAL LAB * Hemoglobin A1c (05/19/2024) Pathologist [facility] SCRIBED Hemoglobin A1c 6.3 5.7 - 6.5 % EXTERNAL LAB Blood 05/19/2024 Erica WORRELL LAB BLOOD ORDERABLES Final Result Performing Organization Address [facility] de Phone Number EXTERNAL LAB * (ABNORMAL) Lipid panel (05/19/2024) Pathologist [facility] SCRIBED Cholesterol, Total 232(A) 0 - 200 EXTERNAL LAB SCRIBED HDL 109(A) 0 - 0 EXTERNAL LAB SCRIBED LDL 109(A) 0 - 0 EXTERNAL LAB SCRIBED Triglycerides 115(A) 150 - 150 EXTERNAL LAB Blood 05/19/2024 Result [facility] Erica WORRELL LAB BLOOD ORDERABLES Final Result Performing Organization Address [facility] Co de Phone Number EXTERNAL LAB * (ABNORMAL) Comprehensive metabolic panel (05/19/2024) Pathologist [facility] SCRIBED Sodium 140 137 - 145 mmol/L [...] Units/L EXTERNAL LAB SCRIBED eGFR in NonAfrican Filipino 59(A) 0 - 0 EXTERNAL LAB Blood [...] stressors, but express continued worry about long winder tender stability. Patient will need to learn coping skills to manage these disorders to improve overall function and response to life stressors. Insurance [employer] HMO [facility] CHOICE MEDICARE PPO [employer] HMO Advance Directives For more information, please contact: [phone] * Full Code (Latest Code Status on File) Date Activated Date Inactivated Comments 05/18/2021 9:46 PM 05/22/2021 8:57 PM * Full Code Date Activated Date Inactivated Comments 05/18/2021 4:50 PM 05/18/2021 9:46 PM * Full Code Date Activated Date Inactivated Comments 06/12/2019 10:30 PM 06/14/2019 6:07 PM Care Teams Metal Mover Relationship Specialty Start Date End Date Erica Kelley PA [address] [facility] [address] [place] [address] PCP - General Family Medicine 07/30/23 Kareem Stark MD Referring Physician Gastroenterology 11/27/19 Ron Jensen MD [address] [place] [address] [place] [id number] Consulting Physician Obstetrics and Gynecology 11/27/19
--- OUTSIDE RECORDS SUMMARY | 2024-08-10 17:44 | XMS_ITS | Encounter Summary ---
Author Organization [facility] Facility Care Team Providers Care Ecommerce Analyst Name Role Phone Erica Kelley Primary Care Provider [phone] Kerrie King RN Unavailable [phone] Kareem Stark MD Unavailable [phone] Ron Jensen MD Unavailable [phone] Joe Roca MD Primary Care Provider [phone] Erica Kelley Primary Care Provider [phone] Encounter Details Date Type Department Care Team (Latest Contact Info) Description 04/05/2018 Orders Only [facility] CLINCONV ProviderJocelynn MD [address] [place] [id number] Social History Tobacco Use Types Packs/Day Years Used Date Smoking Tobacco: Former Comments Unknown Sex and Gender Information Value Date Recorded Sex Assigned at Not on file 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 Historical Provider Final Res ult documented in this encounter Visit Diagnoses Not on filedocumented in this encounter Additional Health Concerns Infection Onset Date Last Indicated Resolved Time COVID: Suspected 03/28/2020 03/28/2020 03/28/2020 2:23 PM KNURLING MACHINE TENDER Respiratory Infection (ERICK), contact + droplet Comment:Automatically added due to negative COVID-19 result. 03/28/2020 03/28/2020 04/11/2020 3:0 5 AM KNURLING MACHINE TENDER documented as of this encounter Care Teams Ecommerce Analyst Relationship Specialty Start Date End Date Erica Kelley PA [address] [place] [address] PCP - General Internal Medicine 09/04/18 07/24/23 Joe Roca MD [address] [address] [place] [address] PCP - General Family Medicine 07/25/23 07/29/23 Erica Kelley PA [address] [place] [address] PCP - General Family Medicine 07/30/23 Kerrie King, RN [address] [place] [address] [address] [place] [address] Tandem Mill Sticker 06/17/19 07/21/19 Kareem Stark MD [address] [place] [address] [address] [place] [address] Referring Physician Gastroenterology 11/27/19 Ron Jensen MD [address] [facility] [address] [place] [address] Consulting Physician Obstetrics and Gynecology 11/27/19 documented as of this encounter
--- OUTSIDE RECORDS SUMMARY | 2024-08-10 17:44 | XMS_ITS | Clinical Summary ---
Author Organization [facility] Address [address] [place] [address] Care Team Providers Care Owner Consulting Engineer Name Role Phone Erica Kelley PA-C Primary Care Provider [phone] Source Comments [facility],non-owned Affiliates and Associated Physician Practices is amultiple site organization consisting of ambulatory clinics and hospital sitesin [place], [place], [place] and [place]. This disclosure is being madepursuant to the Care Everywhere program and may not contain all information available regarding this patient. Last updated 17.[facility] Allergies No known active allergies Medications * [...] on file Legal Sex Female 6:24 PM TUBE CUTTER Gender Identity Not on file Sexual Orientation Not on file Last Filed Vital Signs Vital Sign Reading Time Taken Comments Blood Pressure 197/84 03/09/2021 8:16 AM TUBE CUTTER Pulse 78 03/09/2021 8:16 AM TUBE CUTTER Temperature 36.7 C (98 F) 03/09/2021 8:16 AM TUBE CUTTER Respiratory Rate 14 03/09/2021 8:16 AM TUBE CUTTER Oxygen Saturation 100% 03/09/2021 8:16 AM TUBE CUTTER Inhaled Oxygen Concentration - - Weight 80.3 kg (177 lb) 03/09/2021 8:16 AM TUBE CUTTER Height 154.9 cm (5' 1 ) 03/09/2021 8:16 AM TUBE CUTTER Body Mass Index 33.44 03/09/2021 8:16 AM TUBE CUTTER Plan of Treatment Health Maintenance Due Date [...] Management General On track( 021 8:22 AM [facility]) Tammie Perez RN Note: Expected end date: ongoing Interventions: Take all medications as prescribed Let your doctor know right away about any changes in your medications Make sure to request a refill of your medication at least one week prior to your last dose Insurance [facility] [facility] Care Address: [address] [address] SELF PAY NO INSURANCE Member Subscriber Plan / Payer (Ef fective for All Dates) Name:Oleg Parker Member ID:Not on file Relation to Subscriber:Not on file Name:OLEG PARKER Subscriber ID:Not on file Address: [address] [place], [place] [address] [place] [address] Payer ID:Not on file Group ID:Not on file Type:Self Pay Address: [place], [place] Care Teams Owner Consulting Engineer Relationship Specialty Start Date End Date Erica Kelley PA-C [address] [address] PCP - General 01/05/21
--- OUTSIDE RECORDS SUMMARY | 2024-08-10 17:44 | XMS_ITS | Encounter Summary ---
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 Patient will need to learn coping skills to manage these disorders to improve overall function and response to life stressors. documented as of this encounter Care Teams Information Consultant Relationship Specialty Start Date End Date Erica Kelley PA [address] [facility] [address] [place] [address] PCP - General Family Medicine 07/30/23 Kareem Stark MD Referring Physician Gastroenterology 11/27/19 Ron Jensen MD [address] [address] Consulting Physician Obstetrics and Gynecology 11/27/19 documented as of this encounter
--- OUTSIDE RECORDS SUMMARY | 2024-08-10 17:44 | XMS_ITS | Encounter Summary ---
Author Organization [facility] Facility Care Team Providers Care Education Teacher Name Role Phone Erica Kelley Primary Care Provider [phone] Kerrie King RN Unavailable [phone] Kareem Stark MD Unavailable [phone] Ron Jensen MD Unavailable [phone] Joe Roca MD Primary Care Provider [phone] Erica Kelley Primary Care Provider [phone] Encounter Details Date Type Department Care Team (Latest Contact Info) Description 09/12/2017 Orders Only [facility] CLINCONV ProviderJocelynn MD [address] [place] [address] Social History Tobacco Use Types Packs/Day Years Used Date Smoking Tobacco: Former Comments Unknown Sex and Gender Information Value Date Recorded Sex Assigned at Not on file Legal Sex Female 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 03/28/2020 03/28/2020 04/11/2020 3:0 5 AM SAIL FINISHER HAND documented as of this encounter Care Teams Education Teacher Relationship Specialty Start Date End Date Erica Kelley PA [address] [place] [address] PCP - General Internal Medicine 09/04/18 07/24/23 Joe Roca MD [address] [facility] [address] [place] [address] PCP - General Family Medicine 07/25/23 07/29/23 Erica Kelley PA [address] [place] [address] PCP - General Family Medicine 07/30/23 Kerrie King, RN [address] [place] [address] [address] [place] [address] Cloth Washer 06/17/19 07/21/19 Kareem Stark MD [address] [place] [address] [address] [place] [address] Referring Physician Gastroenterology 11/27/19 Ron Jensen MD [address] [facility] [address] [place] [address] Consulting Physician Obstetrics and Gynecology 11/27/19 documented as of this encounter
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
--- OUTSIDE RECORDS SUMMARY | 2024-08-10 17:44 | XMS_ITS | Clinical Summary ---
Author Organization [facility] Address [address] [place] [address] Care Team Providers Care Fast Food Assistant Restaurant Manager Name Role Phone Erica Kelley Primary Care Provider [phone] Allergies Active Allergy Reactions Criticality Noted Date [...] place to sleep or slept in a custodial (including now)? No 09/22/2022 Comments No Sex and Gender Information Value Date Recorded Sex Assigned at Not on file Legal Sex Female 10:28 AM AIRLINE PILOT Gender Identity Not on file Sexual Orientation [...] this topic Medical Devices Implanted Type Area Water Use Inspector Device Identifier Shelf Expiration Date Model / [...] the left lateral decubitus position, the Olympus [id number] colonoscope was introduced into the rectum and [...] 8:36 AM 09/22/2022 1:58 PM Care Teams Fast Food Assistant Restaurant Manager Relationship Specialty Start Date End Date Erica Kelley PA [address] [place] [address] PCP - General PHYSICIAN [employer]REL [employer] SOLDERER 05/15/19
--- NOTE | 2024-08-10 18:22 | PC.NURSE ---
Pt reports bilateral leg pain that start at groin ends at feet. Pt states 07/25/24 deep cleaned her house, climbing on ladders and on hands & knees. pt states pain started shortly after that. Pt ambulatory using wall & hand rails for assist. Denies using ambulatory aids. Pt lives with spouse.
[2024-08-10 19:27] VITALS: BP 176/85; PULSE 90; RESP 18; O2SAT 99
[2024-08-10 21:42] VITALS: BP 173/83; PULSE 86; RESP 17; O2SAT 100
[2024-08-10 21:43] VITALS: BP 173/83; PULSE 86; RESP 17; TEMP 36.6; O2SAT 100
== END 2024-08-10 21:47 | disposition home or self-care (01) ==
PROVIDERS: Emergency Provider Physician Assistant; PCP Physician Assistant
DX: M79.604 Pain in right leg (principal); M79.605 Pain in left leg; I10 Essential (primary) hypertension; E78.5 Hyperlipidemia, unspecified; K21.9 Gastro-esophageal reflux disease without esophagitis; J45.909 Unspecified asthma, uncomplicated; Z86.73 Personal history of transient ischemic attack (TIA), and cerebral infarction without residual deficits
CPT/HCPCS: 73564; 93970; 99284

== ENCOUNTER 2024-10-28 10:46 | Emergency (ER) | payer MEDICARE, SELFPAY ==
--- NOTE | ~2024-10-28 | XR_ITS ---
XR knee LT 3V 10/28/2024 11:39 INDICATION: Left knee pain PROCEDURE: 3 views left knee COMPARISON: No prior studies for comparison. FINDINGS: Fracture, dislocation or subluxation is not identified. The soft tissues appear within norm al limits. No foreign bodies are identified. IMPRESSION: 1: NO ACUTE BONE OR JOINT ABNORMALITY IDENTIFIED. Reviewed, dictated and finalized at location A.
[2024-10-28 10:59] VITALS: BP 231/60; PULSE 68; RESP 16; TEMP 36.6; O2SAT 100
--- NOTE | 2024-10-28 11:29 | ED.GENADULT ---
HPI - General Adult General Chief complaint: Extremity Injury, Lower Stated complaint: Left Hip,Leg,Ankle Pain Source: patient Mode of arrival: ambulatory Limitations: no limitations History of Present Illness HPI narrative: Pt is a 78 y/o female presenting with c/o L. leg pain. Pt reports pain to the lateral aspect of the L. mid thigh down to the L. knee. Pt states the L. thigh was pinched between a motorized scooter and a grocery store shelf while shopping at [employer], [employer]. No additional complaints. Related Data Home Medications ?Medication ?Instructions ?Recorded ?Confirmed ?Last Taken ?Type phenytoin sodium extended 100 mg 100 mg PO DAILY 04/03/19 04/27/23 Unknown History capsule sucralfate 1 gram tablet 1 g PO TID 04/03/19 04/27/23 Unknown History trazodone 50 mg tablet 50 mg PO QHS 04/03/19 04/27/23 Unknown History alprazolam 0.25 mg tablet 0.25 mg PO TID PRN Anxiety 04/27/23 04/27/23 Unknown History budesonide-formoterol HFA 160 1 inh inhalation DAILY 04/27/23 04/27/23 Unknown History mcg-4.5 mcg/actuation aerosol inhaler (Symbicort) esomeprazole magnesium 40 mg 40 mg PO BID 04/27/23 04/27/23 Unknown History capsule,delayed release isosorbide mononitrate 30 mg 30 mg PO DAILY 04/27/23 04/27/23 Unknown History tablet,extended release 24 hr clonazepam 0.5 mg tablet mg 10/28/24 Unknown History duloxetine 60 mg capsule,delayed mg PO 10/28/24 Unknown History release Allergies Allergy/AdvReac Type Severity Reaction Status Date / Time No Known Allergies Allergy Verified 10/28/24 11:00 Review of Systems Review of Systems: CONSTITUTIONAL: Denies body aches, fever, chills, or sweats. EYES: Denies visual changes, redness, or discharge. ENT: Denies rhinorrhea, congestion, sore throat, or otalgia. CARDIOVASCULAR: Denies chest pain, palpitations, or edema. RESPIRATORY: Denies cough or dyspnea. GASTROINTESTINAL: Denies abdominal pain, nausea, vomiting, or diarrhea. GENITOURINARY: Denies dysuria or hematuria. SKIN: Denies rash, itching, or wounds. MUSCULOSKELETAL: reports pain in left leg Denies back pain NEUROLOGIC: Denies headache, numbness, tingling, or weakness. PSYCH: Denies depression or anxiety. 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 HLD (hyperlipidemia) GERD (gastroesophageal reflux disease) IBS (irritable bowel syndrome) HTN (hypertension) TIA (transient ischemic attack) Seizures Strep throat Surgical History Surgical History H/O Billroth II operation History of surgery Adrenal gland removal H/O tubal ligation History of bladder surgery Bladder stimulator History of cholecystectomy History of appendectomy History of tonsillectomy Family History Family History Mother Heart disease Father Lung cancer Son Bone cancer Social History Social History Social History: Patient smoked a pack a day for about 10 years but quit in 1975. No alcohol or drug use. She lives with her . She is a full code. She nominates her to be the individual who would make medical decisions for her if she is unable. Smoking status: Never smoker Tobacco type: cigarettes Alcohol intake: never Substance use: never Do You Feel Safe in your Home?: Yes Lack of Transportation: No Lack of Food: Never True Current Housing: I Have Housing Concerned About Future Housing: No Difficulty Paying Gas/Electric Bills: No Difficulty Paying for Meds: No Currently Unemployed: No Education: High School Diploma/GED Difficulty w/ Childcare or Family Care: No Gender identity (if verbalized by the patient): Female Spiritual care concerns: No Exam Narrative: GENERAL: Well-appearing, well-nourished, and in no acute distress. HEAD: Normocephalic, atraumatic. EYES: EOMI. No redness or drainage. Conjunctivae normal. ENT: Mucous membranes pink and moist. NECK: Normal AROM. Supple. CHEST: No respiratory distress HEART: Regular rate Normal peripheral pulses. MUSCULOSKELETAL: No bony tenderness. Mild TTP to the lateral aspect of the L. lower thigh. +FROM DNVI to the LLE. Compartments of the L. leg are soft, nontender without evidence of compartment syndrome EXTREMITIES: Normal range of motion. No edema. SKIN: Warm, dry, no rash. Capillary refill normal. Normal skin turgor. NEURO: No focal deficits. Alert and oriented x3. Gait steady. PSYCH: ANXIOUS. No signs of depression Course Course Emergency Course: Given the patient's consistently elevated blood pressure readings, I recommended she be transferred to ER for BP management. Pt refused transfer. AMA Paperwork completed Level of Care: Express Care Visit Vital Signs Vital signs: Vital Signs Temperature 97.8 F 10/28/24 10:59 Pulse Rate 68 10/28/24 10:59 Respiratory Rate 16 10/28/24 10:59 Blood Pressure 231/60 H 10/28/24 10:59 Pulse Oximetry 10/28/24 10:59 Oxygen Delivery Room Air 10/28/24 10:59 Temperature 97.8 F 10/28/24 10:59 Pulse Rate 68 10/28/24 10:59 Respiratory Rate 16 10/28/24 10:59 Blood Pressure 232/80 H 10/28/24 11:35 Pulse Oximetry 10/28/24 10:59 Oxygen Delivery Room Air 10/28/24 10:59 Medical Decision Making Vital Signs Vital Signs: Vital Signs Temperature 97.8 F 10/28/24 10:59 Pulse Rate 68 10/28/24 10:59 Respiratory Rate 16 10/28/24 10:59 Blood Pressure 231/60 H 10/28/24 10:59 Pulse Oximetry 10/28/24 10:59 Oxygen Delivery Room Air 10/28/24 10:59 Temperature 97.8 F 10/28/24 10:59 Pulse Rate 68 10/28/24 10:59 Respiratory Rate 16 10/28/24 10:59 Blood Pressure 232/80 H 10/28/24 11:35 Pulse Oximetry 10/28/24 10:59 Oxygen Delivery Room Air 10/28/24 10:59 Imaging Data Attestation: I personally reviewed and interpreted this imaging study as follows: My impression: NAD Discharge Plan Discharge Clinical Impression: Pain in left leg Contusion of left leg Qualifiers: Encounter type: initial encounter Qualified Code(s): S80.12XA - Contusion of left lower leg, initial encounter HTN (hypertension) Qualifiers: Hypertension type: unspecified Qualified Code(s): I10 - Essential (primary) hypertension Patient Disposition: Left Against Medical Advice Condition: Stable Patient Language: Malay Prescriptions: No Action trazodone 50 mg tablet 50 mg PO QHS sucralfate 1 gram tablet 1 g PO TID phenytoin sodium extended 100 mg capsule 100 mg PO DAILY clonazepam 0.5 mg tablet duloxetine 60 mg capsule,delayed release(DR/EC) PO prochlorperazine maleate [Compazine] 5 mg tablet 5 mg PO Q8H PRN (Reason: nausea and vomiting) 5 Days Qty: 20 0RF isosorbide mononitrate 30 mg tablet extended release 24 hr 30 mg PO DAILY alprazolam 0.25 mg tablet 0.25 mg PO TID PRN (Reason: Anxiety) esomeprazole magnesium 40 mg capsule,delayed release(DR/EC) 40 mg PO BID budesonide-formoterol [Symbicort] 160-4.5 mcg/actuation HFA aerosol inhaler 1 inh INHALATION DAILY losartan 25 mg Tablet 25 mg PO DAILY Qty: 30 0RF amlodipine 5 mg tablet 10 mg PO DAILY Qty: 60 0RF Follow-up/Referrals: Warren,GM Maldonado [Primary Care Provider] - 10/28/24 Time of Disposition: 11:33
[2024-10-28 11:35] VITALS: BP 232/80
== END 2024-10-28 11:55 | disposition left against medical advice (07) ==
PROVIDERS: Emergency Provider Registered Nurse; PCP Physician Assistant
DX: M79.652 Pain in left thigh (principal); S70.12XA Contusion of left thigh, initial encounter; W23.2XXA Caught, crushed, jammed or pinched between a moving and stationary object, initial encounter; I10 Essential (primary) hypertension; G40.909 Epilepsy, unspecified, not intractable, without status epilepticus; J45.909 Unspecified asthma, uncomplicated; E78.5 Hyperlipidemia, unspecified; K21.9 Gastro-esophageal reflux disease without esophagitis; Z86.73 Personal history of transient ischemic attack (TIA), and cerebral infarction without residual deficits
CPT/HCPCS: 73562; 99213; G0463